=== PATIENT | female | born 1950 | race Caucasian/White ===

== ENCOUNTER 2017-03-26 10:33 | Day surgery (SDC) | payer MEDICARE ==
[2017-03-24 15:46] VITALS: BMI 24.3
[~2017-03-26 10:33] MED LIST: LACTATED RINGERS 1,000 ML IV SCH; LIDOCAINE 1% 20 ML VIAL (10MG/ML) FOR IV START INTRADERMA PRN
[2017-03-26 11:20] VITALS: TEMP 98.6
[2017-03-26] MEDS ORDERED: PROPOFOL 10 MG/ML 20 ML VIAL IV ONE (12:08)
[2017-03-26] MEDS ORDERED: LIDOCAINE 1% INJ 10MG/ML (20 ML MDV) ONE (12:08)
--- NOTE | 2017-03-26 12:23 | P.PCN ---
Date of Procedure: 03/26/17 Procedure(s) Performed: BRIEF HISTORY: Patient is a 66-year-old pleasant white female scheduled for an elective colonoscopy as a part of screening for colorectal neoplasia. PROCEDURE PERFORMED: Colonoscopy. PREOPERATIVE DIAGNOSIS: Screening for colon cancer. IV sedation per Anesthesia. PROCEDURE: After informed consent was obtained, the patient, was brought into the endoscopy unit. IV sedation was administered by Anesthesia under continuous monitoring. Digital rectal examination was normal. Initially the Olympus CF- 160 flexible video colonoscope was then inserted in the rectum, gradually advanced into the cecum without any difficulty. Careful examination was performed as the scope was gradually being withdrawn. Ileocecal valve and the appendiceal orifice were visualized and appeared normal. Prep was fair.. Mucosa of the cecum, ascending colon, transverse colon, descending colon, sigmoid colon, and rectum appeared normal. Retroflexion was performed in the rectum and small internal hemorrhoids were seen. The patient tolerated the procedure well. IMPRESSION: Normal-appearing colon from rectum to cecum with no evidence of colorectal neoplasia . Small internal hemorrhoids. RECOMMENDATIONS: Findings of this examination were discussed with the patient as well as her family. She was advised to have a repeat screening colonoscopy in 10 years.
[2017-03-26 12:27] VITALS: RESP 16
[2017-03-26 12:54] VITALS: BP 130/79; PULSE 61
== END 2017-03-26 13:15 | disposition home or self-care (01) ==
LOC: ORWHC2ENDO 10:33
PROVIDERS: ATTEND Internal Medicine Gastroenterology
DX: Z12.11 Encounter for screening for malignant neoplasm of colon (principal); K64.8 Other hemorrhoids; I10 Essential (primary) hypertension; E78.5 Hyperlipidemia, unspecified; E07.9 Disorder of thyroid, unspecified; G89.29 Other chronic pain; M54.9 Dorsalgia, unspecified; Z79.891 Long term (current) use of opiate analgesic; Z79.899 Other long term (current) drug therapy
CPT/HCPCS: J2001; J2704; G0121

== ENCOUNTER → 2017-08-10 | Outpatient (CLI) | payer MEDICARE ==
--- NOTE | 2017-08-11 15:18 | BD ---
EXAMINATION TYPE: MG DEXA axial skeleton. DATE OF EXAM: 08/10/2017 COMPARISON: NONE CLINICAL HISTORY: Z13.820 Special Screening For Osteoporosis Height: 5 FT 7 1/2 IN Weight: 178 FRAX RISK QUESTIONS: Alcohol (3 or more units per day): NO Family History (Parent hip fracture): NO Glucocorticoids (More than 3mos): NO (Ex: prednisone, prednisolone, methylprednisolone, dexamethasone, and hydrocortisone). History of Fracture in Adulthood: NO Secondary Osteoporosis: 1. Type 1 Diabetes: NO 2. Hyperthyroidism: NO 3. Menopause before 45: NO 4. Malnutrition: NO 5. Chronic liver disease: NO Rheumatoid Arthritis: NO Current Tobacco Use: NO RISK FACTORS HISTORY OF: Surgery to Spine/Hip(right/left)/Wrist (right/left): LUMBAR SURG When: 2013 Family History of Osteoporosis: YES Active: YES Postmenopausal woman: AGE 45 Lost more than 2 inches in height since high school: YES MEDICATIONS: Thyroid Medications: YES Which medication: LEVOTHYROXINE How Lon YEARS Additional Medications: GABAPENTIN,CLONAZEPAM,CITALOPRAM,PRAVASTATIN,LEVOTHYROXINE, NORCO,PROBIOTIC,M ULTI VIT, VIT D Additional History: EXAM MEASUREMENTS: Bone mineral densitometry was performed using the [employer] System. Bone mineral density as measured about the Lumbar spine is: ----- L1-L4(G/cm2): LUMBAR SURG 2013 Bone mineral density about the R hip (g/cm2): 0.865 Bone mineral density about the L hip (g/cm2): 0.883 T Score values are as follows: -----R Neck: -1.2 -----L Neck: -1.1 -----R Total: -1.5 -----L Total: -1.1 Bone mineral density has: Decreased -1.9% since study of: 2014 IMPRESSION: Osteopenia bilateral femora. NOTE: T-SCORE=SD OF THE YOUNG ADULT MEAN.
--- NOTE | 2017-08-12 09:14 | MM ---
Reason for exam: screening (asymptomatic). Last mammogram was performed 1 year and 3 months ago. History: Patient is postmenopausal and is nulliparous. Family history of breast cancer in maternal grandmother. Benign stereotactic core biopsy of the left breast, November 12, 1999. Took estrogen for 2 years beginning at age 51. Physical Findings: A clinical breast exam by your physician is recommended on an annual basis and results should be correlated with mammographic findings. MG 3D Screening Mammo W/Cad Bilateral CC and MLO view(s) were taken. Prior study comparison: May 21, 2016, bilateral MG 3d screening mammo w/cad. January 14, 2015, bilateral MG screening mammo w CAD. The breast tissue is heterogeneously dense. This may lower the sensitivity of mammography. Previous mammotome biopsy in the left breast. No significant changes when compared with prior studies. ASSESSMENT: Negative, BI-RAD 1 RECOMMENDATION: Routine screening mammogram of both breasts in 1 year.
== END | disposition home or self-care (01) ==
LOC: RADMAMWWP 14:13
PROVIDERS: ATTEND Internal Medicine Geriatric Medicine
DX: Z12.31 Encounter for screening mammogram for malignant neoplasm of breast (principal); M85.852 Other specified disorders of bone density and structure, left thigh; M85.851 Other specified disorders of bone density and structure, right thigh
CPT/HCPCS: 77080; 77063; G0202

== ENCOUNTER → 2017-09-02 | Outpatient (CLI) | payer MEDICARE | END | disposition home or self-care (01) | LOC: LABPAT 15:05 | PROVIDERS: ATTEND Orthopaedic Surgery | DX: Z01.812 Encounter for preprocedural laboratory examination (principal) | CPT/HCPCS: 87070 ==

== ENCOUNTER → 2017-09-08 | Outpatient (CLI) | payer MEDICARE ==
[2017-09-08 13:01] LABS: EKG EKG PERFORMED
[2017-09-08 13:13] LABS: CH 29.8; CHCM 31.8; HDW 2.36; HGB 12.3 gm/dL (11.4-16.0); MCH 30.5 pg (25.0-35.0); MCHC 32.4 g/dL (31.0-37.0); MCV 94.2 fL (80.0-100.0); RBC 4.03 m/uL (3.80-5.40); RDW 13.4 % (11.5-15.5); WBC 4.4 k/uL (3.8-10.6)
[2017-09-08 13:31] LABS: Partial Thromboplastin Time 26.3 sec (22.0-30.0); Prothrombin Time 10.1 sec (9.0-12.0)
[2017-09-08 13:37] LABS: ALT 26 U/L (9-52); AST 14 U/L (14-36); Alkaline Phosphatase 97 U/L (38-126); Anion Gap 12 mmol/L; Blood Urea Nitrogen 12 mg/dL (7-17); Calcium 9.7 mg/dL (8.4-10.2); Carbon Dioxide 24 mmol/L (22-30); Chloride 104 mmol/L (98-107); Glucose 87 mg/dL (74-99); Non-African American GFR(MDRD) 60 (>60 ml/min/1.73 sqM); Potassium 4.3 mmol/L (3.5-5.1); Sodium 140 mmol/L (137-145); Total Bilirubin 0.5 mg/dL (0.2-1.3); Total Protein 7.6 g/dL (6.3-8.2)
[2017-09-08 14:13] LABS: Appearance,Urine Clear (Clear); Bilirubin,Urine Negative (Negative); Glucose,Urine (UA) Negative (Negative); Ketones,Urine Negative (Negative); Leukocyte Esterase,Urine Large (Negative); Mucus,Urine Rare /hpf; Nitrite,Urine Negative (Negative); Particle Count 1690; Protein,Urine Negative (Negative); RBC,Urine 3 /hpf (0-5); Specific Gravity,Urine 1.011 (1.001-1.035); Squamous Epithelial Cell,Urine <1 /hpf (0-4); UA Billing (MACRO vs. MICRO) MICRO; Urobilinogen,Urine <2.0 mg/dL (<2.0); WBC,Urine 4 /hpf (0-5)
== END | disposition home or self-care (01) ==
LOC: LABPAT 12:49
PROVIDERS: ATTEND Orthopaedic Surgery
DX: Z01.810 Encounter for preprocedural cardiovascular examination (principal); Z01.812 Encounter for preprocedural laboratory examination; Z79.01 Long term (current) use of anticoagulants
CPT/HCPCS: 36415; 80053; 81001; 85027; 85610; 85730; 86850; 86900; 86901; 93005

== ENCOUNTER 2017-09-20 12:33 | Inpatient (IN) | payer MEDICARE ==
[2017-09-09 12:08] VITALS: BMI 26.6
[~2017-09-20 12:33] MED LIST changes: +ACETAMINOPHEN TAB 500 MG TAB PO ONE; +DEXAMETHASONE SOD PHOSPHATE 10 MG/ML 1 ML VIAL IV ONE; -LACTATED RINGERS 1,000 ML IV SCH; +MELOXICAM 7.5 MG TAB PO ONE; +MIDAZOLAM 2 MG/2 ML VIAL IV PRN; +ONDANSETRON 4 MG/2 ML VIAL IVP ONE; +SCOPOLAMINE 1.5MG/72HR PATCH TRANSDERM ONE; +TRANEXAMIC ACID 1,000 MG in SODIUM CHLORIDE 0.9% 100 ML IVPB ONE; +ceFAZolin 2 GM in SODIUM CHLORIDE 0.9% 100 ML IVPB ONE
[2017-09-20] MEDS ORDERED: HYDROcodone/APAP 7.5-325MG 1 EACH TAB PO PRN (12:45)
[2017-09-20] MEDS ORDERED: NALOXONE 0.4 MG/ML 1 ML VIAL IV PRN (12:45)
[2017-09-20] MEDS ORDERED: ONDANSETRON 4 MG/2 ML VIAL IVP PRN (12:45)
[2017-09-20] MEDS ORDERED: HYDROmorphone 0.5 MG/0.5 ML SYRINGE IVP PRN ×3 (12:45)
[2017-09-20] MEDS ORDERED: DIAZEPAM 5 MG TAB PO PRN ×2 (12:45)
[2017-09-20] MEDS ORDERED: MAGNESIUM HYDROXIDE 2,400 MG/10 ML CUP PO PRN (12:45)
[2017-09-20] MEDS: LACTATED RINGERS 1,000 ML IV SCH ×2 (13:00→13:25)
[2017-09-20] MEDS ORDERED: SODIUM CHLORIDE 0.9% IRRIG 1,000 ML BTL IRRIGATION ONE (13:30)
[2017-09-20] MEDS ORDERED: LIDOCAINE 1% INJ 10MG/ML (20 ML MDV) ONE (13:30)
[2017-09-20] MEDS ORDERED: SUCCINYLCHOLINE CHLORIDE 100 MG/5 ML SYR IV ONE (13:30)
[2017-09-20] MEDS ORDERED: ceFAZolin 3,000 MG in SODIUM CHLORIDE 0.9% IRRIGATIO 3,000 ML IRRIGATION ONE (13:30)
[2017-09-20] MEDS ORDERED: HEPARIN SODIUM,PORCINE 10,000 UNIT/ML 1 ML VIAL ONE (13:30)
[2017-09-20] MEDS ORDERED: SODIUM CHLORIDE 0.9% 100 ML BAG ONE (13:30)
[2017-09-20] MEDS ORDERED: TRANEXAMIC ACID 1,000 MG/10 ML VIAL ONE (13:30)
[2017-09-20] MEDS ORDERED: HYDROmorphone (PF) 1 MG/ML ONE (13:30)
[2017-09-20] MEDS ORDERED: NEOSTIGMINE 1 MG/ML 10 ML VIAL ONE (13:30)
[2017-09-20] MEDS ORDERED: ROCURONIUM BROMIDE 10 MG/ML 10 ML VIAL IV ONE (13:30)
[2017-09-20] MEDS ORDERED: PROPOFOL 10 MG/ML 20 ML VIAL IV ONE (13:30)
[2017-09-20] MEDS ORDERED: GLYCOPYRROLATE 0.2 MG/ML 2 ML VIAL ONE (13:30)
[2017-09-20] MEDS ORDERED: fentaNYL (PF) 50 MCG/ML 2 ML AMP ONE (13:30)
[2017-09-20] MEDS ORDERED: MIDAZOLAM 2 MG/2 ML VIAL ONE (13:30)
[2017-09-20] MEDS ORDERED: ePHEDrine SULFATE/0.9% NACL/PF 50 MG/5 ML SYRINGE IV ONE (13:30)
[2017-09-20] MEDS: ROPIVACAINE 246.25 MG, EPINEPHrine 0.5 MG, KETOROLAC 30 MG, cloNIDine HCL/PF 80 MCG, WA... MISCELLANE ONE ×10 (14:04→14:30)
[2017-09-20] MEDS ORDERED: LACTATED RINGERS 1,000 ML IV ONE (14:30)
--- NOTE | 2017-09-20 15:08 | P.OP ---
Date of Procedure: 09/20/17 Preoperative Diagnosis: Severe osteoarthritis left hip Postoperative Diagnosis: Severe osteoarthritis left hip Procedure(s) Performed: Left total hip arthroplasty with a direct anterior approach Implants: [employer] nephew Polarstem size 2 standard [employer] R3, 3 hole acetabular shell, 52 mm [employer] reflection 6.5 mm cancellus screw, 20 mm 2 [employer] R3, XLPE 20 acetabular liner [employer]hew Oxinium femoral head 36 m, +0 All components were press-fit. The articulation is Oxinium on polyethylene. Anesthesia: GETA Surgeon: Abdoulaye Reagan Sofa Back Upholsterer #1: [place] Pierre Estimated Blood Loss (ml): 150 (55 cc returned with Cell Saver) Pathology: other (Femoral head) Condition: stable Disposition: PACU Indications for Procedure: After failure of conservative treatment we discussed the surgical and nonsurgical treatment options at length. Patient wishes to proceed with a total hip arthroplasty with a direct anterior approach. Complications specific to this procedure were discussed at length, including but not limited to infection, leg length discrepancy, dislocation, and nerve injury. Patient is aware of all these complications and informed consent was obtained Operative Findings: The operative findings are consistent with severe osteoarthritis of the left hip Description of Procedure: Patient was seen and evaluated in the preoperative area, consent was reviewed, and the surgical site was marked with a skin marker. Patient was then brought to the operating room and given prophylactic antibiotics intravenously. 1 g of Tranexamic acid was also given. A general anesthetic was administered by the anesthesia department. The patient was then placed on the [place] table with the bony prominences well-padded. The hip area was then prepped and draped in usual sterile fashion. A universal timeout was then performed, which confirmed the patient's name, surgical site, ALLERGIES, and procedure being performed. Next the incision site was located at 1 cm distal and 1 cm lateral to the anterior superior iliac spine. The skin and subcutaneous tissues were sharply incised. Incision was carefully dissected down to the fascia overlying the tensor fascia nicolle muscle. This fascia was then incised in line with the incision. Next, using blunt finger dissection, the tensor fascia nicolle muscle was dissected off its investing fascia. The muscle was then carefully retracted laterally with a cobra retractor over the lateral neck of the femur. Next, the circumflex vessels were identified and cauterized using the AquaM[employer] device. The anterior hip capsule was then exposed. The capsule was then opened and an inverted T fashion. Cobra retractors were then placed intracapsularly. The proximal femur was then visualized. The femoral neck was then osteotomized appropriate level above the lesser trochanter. Small amount of traction was placed with the [place] table. A small wedge of bone was then removed from the remaining femoral head. Next, using a corkscrew femoral head was easily removed from the acetabulum. On gross visual inspection, the femoral head had complete loss of articular cartilage in multiple periarticular osteophytes. Attention was then turned to the acetabulum. the acetabulum was exposed and any remaining labrum was excised. Sequential reaming of the acetabulum was performed using fluoroscopic guidance. When the appropriate size was reached, a trial was then placed. The position and fit of the trial was checked with fluoroscopy. The trial was then removed. Then, using fluoroscopic guidance, the final implant was impacted at 20 of anteversion and 40 of abduction, and fully seated in the acetabulum. 2 screws were then placed in the acetabulum. Again fluoroscopy was used to check position of the screws. Next, the liner was then impacted, with a 20 elevated liner located in the anterior superior quadrant. Component locking was confirmed. Attention was then directed to the femur. With the aid of the [place] table, the femur was externally rotated to approximately 130, extended, and abducted under the opposite leg. A side hook was then placed under the proximal femur, and the side hook elevator was used to elevate the proximal femur. Retractors were then placed. A capsular release was performed, as well as a release of the conjoined tendon, which afforded excellent visualization of the proximal femur. Next, a box osteotome was used to lateralize the proximal femur. A crank hand was then used to locate the femoral canal. Sequential broaching was then performed with appropriate size which afforded excellent fixation in the proximal femur. A trial was then placed with appropriate head and neck, and the hip was gently reduced with the aid of the [place] table. Fluoroscopy was then used to check position of the components, as well as to ensure equal leg lengths. The hip was then gently dislocated and the trials were then removed. Final implants were then impacted and the hip was again reduced. Final fluoroscopic x-rays confirmed that the components were in anatomic position, as well as equal leg lengths. The hip was also taken through range of motion, and found to be stable. The hip was then copiously irrigated with antibiotic solution with pulsatile lavage. The hip was then irrigated with Irrisept solution. The soft tissues were then injected with a ropivacaine solution, which consisted of 246.25 mg of ropivacaine, 0.5 mg of epinephrine, 30 mg of Toradol, 80 g of clonidine, and 48.45 mL of sterile water, for a total of 100 mL of fluid injected. A second dose of 1 g of Tranexamic acid was also given. the fascia was then closed with 2-0 strata fix suture. The subcutaneous tissue was closed with 3-0 Vicryl. The subcuticular tissue was closed with 3-0 strata fix suture. The skin was then closed with Dermabond tape. The patient was then transferred to the recovery room in stable condition. The assistant manager airside operations NAHED Aburto was required due to the complexity of surgery, and the need for skilled surgical scrub tech for positioning, draping, exposure, retraction, and closure of the wound.
[2017-09-20] MEDS: HYDROmorphone 0.5 MG/0.5 ML SYRINGE IVP PRN ×2 (15:47→15:57)
--- NOTE | 2017-09-20 15:51 | FL ---
EXAMINATION TYPE: FL guidance operating room, XR Hip Limited LT DATE OF EXAM: 09/20/2017 CLINICAL HISTORY: Left hip replacement. TECHNIQUE: Fluoroscopy. Intraoperative limited views left hip. COMPARISON: None. FINDINGS: Fluoroscopic guidance was provided during left hip replacement procedure performed by Dr. Reagan. A total of 26 seconds of fluoroscopic time was utilized during the procedure and 2 spot im age is saved to PACS system for interpretation. Intraoperative images acquired shows metallic hardware from left hip surgery that appears satisfactor y in position on single frontal projection. IMPRESSION: As Above.
[2017-09-20] MEDS ORDERED: BACLOFEN 10 MG TAB PO PRN (18:10)
[2017-09-20] MEDS ORDERED: ALPRAZolam 0.25 MG TAB PO PRN (18:10)
[2017-09-20] MEDS: SODIUM CHLORIDE 0.9% 1,000 ML IV SCH ×2 (18:51→22:29)
[2017-09-20] MEDS ORDERED: CRANBERRY PO SCH (21:00)
[2017-09-20] MEDS: ceFAZolin 2 GM in SODIUM CHLORIDE 0.9% 100 ML IVPB SCH (22:29)
[2017-09-20] MEDS: HYDROcodone/APAP 7.5-325MG 1 EACH TAB PO PRN (22:30)
[2017-09-20] MEDS: SENNOSIDES-DOCUSATE SODIUM 1 EACH TAB PO SCH (22:31)
[2017-09-20] MEDS: LACTULOSE 20 GM/30 ML CUP PO SCH (22:31)
[2017-09-20] MEDS: GABAPENTIN 300 MG CAP PO SCH (22:32)
[2017-09-20] MEDS: ARTIFICIAL TEARS-HYPROMELLOSE DROPS 15 ML BTL BOTH EYES SCH (22:32)
[2017-09-20] MEDS: LEVOTHYROXINE 88 MCG TAB PO SCH (22:32)
[2017-09-20] MEDS: PRAVASTATIN SODIUM 20 MG TAB PO SCH (22:33)
[2017-09-20] MEDS: ASPIRIN 325 MG TAB PO SCH (22:33)
[2017-09-21] MEDS: HYDROcodone/APAP 7.5-325MG 1 EACH TAB PO PRN ×4 (03:50→22:10)
[2017-09-21] MEDS: ceFAZolin 2 GM in SODIUM CHLORIDE 0.9% 100 ML IVPB SCH (05:02)
[2017-09-21] MEDS: LACTATED RINGERS 1,000 ML IV SCH (05:03)
--- NOTE | 2017-09-21 08:10 | XR ---
EXAMINATION TYPE: XR Hip Limited LT DATE OF EXAM: 09/21/2017 CLINICAL HISTORY: Left hip pain and osteoarthritis. TECHNIQUE: Single AP portable view of left hip is obtained immediately postoperatively. COMPARISON: None. FINDINGS: Metallic hardware from total left hip arthroplasty is seen and appears satisfactory in alig nment and position. There is evidence of recent surgery with subcutaneous gas noted laterally as wel l as medially into the gluteal muscles. There is partial visualization of surgical change near lumbo sacral junction. IMPRESSION: Metallic hardware from total left hip arthroplasty is satisfactory in position.
[2017-09-21 08:32] LABS: Basophils % (A) 0 %; CHCM 32.4; Eosinophils % (A) 0 %; HCT 28.7 % (34.0-46.0); Luc # (Auto) 0.08; Luc % (Auto) 1; MCV 94.3 fL (80.0-100.0); RBC 3.05 m/uL (3.80-5.40); RDW 14.1 % (11.5-15.5)
[2017-09-21 08:35] LABS: CH 30.4; HDW 2.39; Lymphocytes % (A) 11 %; MCH 29.5 pg (25.0-35.0); MCHC 31.3 g/dL (31.0-37.0); Mean Platelet Volume 7.2; Monocytes # (A) 0.7 k/uL (0-1.0); Monocytes % (A) 8 %; Neutrophils # (A) 7.4 k/uL (1.3-7.7); Neutrophils % (A) 80 %; WBC 9.3 k/uL (3.8-10.6); WBC (Perox) 9.75
[2017-09-21] MEDS ORDERED: NON-FORMULARY DRUG (Glucosamine/Chondr Su A Sod [Osteo Bi-Flex Caplet] 1 TAB) PO SCH (09:00)
--- NOTE | 2017-09-21 09:00 | P.PN ---
Subjective Progress Note Date: 09/21/17 This is a 66yo female who is status post left total hip arthroplasty. This is postoperative day #1. Patient states she has been up and walking with physical therapy. Patient states her pain is well-controlled. Patient has no new complaints today. Objective - Vital Signs Vital signs: Vital Signs Temp 98.4 F 09/21/17 00:40 Pulse 94 09/21/17 07:46 Resp 16 09/21/17 07:46 BP 95/51 09/21/17 07:46 Pulse Ox 97 09/21/17 07:46 Intake & Output 09/20/17 09/21/17 09/21/17 18:59 06:59 18:59 Intake Total 2101 400 Output Total 150 Balance 195 400 Weight 79.379 kg Intake: IV 2100 Oral 400 Output: Estimated Blood Loss 150 Other: Voiding Method Toilet # Voids 1 - Exam Vital signs are stable. Patient is in no acute distress and is alert and oriented 3. Calf is soft and nontender. Incision is clean, dry, and intact. Neurovascular status intact. Patient has full foot and ankle motion. - Labs CBC & Chem 7: 09/21/17 06:51 Labs: Abnormal Lab Results - Last 24 Hours (Table) 09/21/17 Range/Units 06:51 RBC 3.05 L (3.80-5.40) m/uL Hgb 9.0 L D (11.4-16.0) gm/dL Hct 28.7 L (34.0-46.0) % Assessment and Plan (1) Primary osteoarthritis of left hip Current Visit: Yes Status: Acute Code(s): M16.12 - UNILATERAL PRIMARY OSTEOARTHRITIS, LEFT HIP SNOMED Code(s): 023740477 Plan: Continue routine postop care. Continue antocoagulation. Weightbearing as tolerated with a walker Daily dressing changes, keep incision clean and dry Possible discharge home tomorrow.
[2017-09-21] MEDS: ASPIRIN 325 MG TAB PO SCH ×2 (09:43→21:06)
[2017-09-21] MEDS: ARTIFICIAL TEARS-HYPROMELLOSE DROPS 15 ML BTL BOTH EYES SCH ×2 (09:43→21:06)
[2017-09-21] MEDS: CITALOPRAM HYDROBROMIDE 20 MG TAB PO SCH (09:44)
[2017-09-21] MEDS: GABAPENTIN 300 MG CAP PO SCH ×3 (09:44→21:06)
[2017-09-21] MEDS: MELOXICAM 7.5 MG TAB PO SCH (09:44)
[2017-09-21] MEDS: CHOLECALCIFEROL 1,000 UNIT TAB PO SCH (12:47)
[2017-09-21] MEDS: B COMPLEX-VIT C-VIT E-ZINC 1 EACH TAB PO SCH (12:47)
[2017-09-21] MEDS: MULTIVITAMINS, THERA 1 EACH TAB PO SCH (12:47)
[2017-09-21] MEDS: ACETAMINOPHEN TAB 325 MG TAB PO PRN (13:35)
[2017-09-21] MEDS: LACTULOSE 20 GM/30 ML CUP PO SCH (21:05)
[2017-09-21] MEDS: PRAVASTATIN SODIUM 20 MG TAB PO SCH (21:07)
[2017-09-21] MEDS: LEVOTHYROXINE 88 MCG TAB PO SCH (21:07)
[2017-09-21] MEDS: SODIUM CHLORIDE 0.9% 1,000 ML IV SCH (21:08)
[2017-09-21] MEDS: SENNOSIDES-DOCUSATE SODIUM 1 EACH TAB PO SCH (22:10)
--- NOTE | 2017-09-21 22:43 | CONS ---
CONSULTATION REASON FOR CONSULTATION: Medical management for multiple medical problems. HISTORY OF PRESENT ILLNESS: This is a 66-year-old female who failed conservative and outpatient management for her hip pain and presented today for a left hip arthroplasty. Patient tolerated procedure well, was transferred to surgical floor in stable condition. Currently denying chest pain, shortness of breath, nausea, vomiting, abdominal pain, dizziness, lightheadedness or blurry vision. Patient underwent complete preop evaluation by her primary care physician, including blood work, chest x-ray and EKG that all showed normal finding. The estimated blood loss in the surgery was 150 mL Patient denied tobacco, alcohol or drug abuse. The patient stated that she stopped taking her medication like 1 week before the surgery per General Surgery recommendation. REVIEW OF SYSTEMS: All 14 systems reviewed and negative except as above. ALLERGIES: No known drug allergies. HOME MEDICATIONS: Reviewed and reconciled in chart. Discussed with the nursing staff and the patient at length. SOCIAL HISTORY: Patient denies tobacco, alcohol or drug abuse. FAMILY HISTORY: Reviewed and negative. PHYSICAL EXAMINATION: VITAL SIGNS: Reviewed and stable. HEENT: Atraumatic, normocephalic. PERRLA. NECK: Supple. No masses. No thyromegaly. LUNGS: Clear to auscultation bilaterally. NECK: Supple. HEART: S1, S2. ABDOMEN: Soft. No tenderness. Positive bowel sounds all 4 quadrants. LOWER EXTREMITIES: No edema. Positive for left hip incision clean, intact and dry. Positive pulses bilaterally. SKIN: No rash. NEUROLOGIC: Cranial nerve 2-12 intact. Normal deep tendon reflexes and sensation. PSYCH: Alert and oriented x3. Relaxed mood and affect. IMAGING AND LABS: This morning, hemoglobin is 9.0, normal otherwise CBC. ASSESSMENT AND PLAN: 1. Status post left hip arthroplasty. Patient's pain under fair control. Will continue current pain regimen. Continue Physical Therapy, Occupational Therapy evaluation and continue bowel regimen, as patient has a history of constipation. 2. Osteoarthritis. Patient on strong pain regimen. Will continue with current recommendation. 3. Hyperlipidemia. Will continue statin. 4. Hypothyroidism. Will continue Synthroid. 5. Chronic constipation. Will continue Senna twice daily and will continue lactulose as needed. 6. Anxiety and depression. Will continue benzodiazepine and we will continue citalopram 20 mg daily. 7. Chronic back pain. Will continue muscle relaxant. 8. Obesity. Patient counseled regarding weight loss. Thank you again for your consultation. Will follow up with you during this hospital stay. MMODL / IJN: [id number] /
[2017-09-22] MEDS: HYDROcodone/APAP 7.5-325MG 1 EACH TAB PO PRN ×4 (05:13→22:59)
[2017-09-22] MEDS: LACTATED RINGERS 1,000 ML IV SCH (05:51)
[2017-09-22] MEDS: ASPIRIN 325 MG TAB PO SCH ×2 (08:40→20:11)
[2017-09-22] MEDS: ARTIFICIAL TEARS-HYPROMELLOSE DROPS 15 ML BTL BOTH EYES SCH ×2 (08:40→20:11)
[2017-09-22] MEDS: CITALOPRAM HYDROBROMIDE 20 MG TAB PO SCH (08:41)
[2017-09-22] MEDS: MELOXICAM 7.5 MG TAB PO SCH (08:41)
[2017-09-22] MEDS: GABAPENTIN 300 MG CAP PO SCH ×3 (08:42→20:11)
[2017-09-22] MEDS: ACETAMINOPHEN TAB 325 MG TAB PO PRN ×2 (08:46→13:17)
[2017-09-22] MEDS: SODIUM CHLORIDE 0.9% 1,000 ML IV SCH (09:59)
--- NOTE | 2017-09-22 10:14 | P.PN ---
Subjective Progress Note Date: 09/22/17 This is a 66yo female who is status post left total hip arthroplasty. This is postoperative day #2. Patient states she has been up and walking with physical therapy. Patient states her pain is well-controlled. Patient states she has not had any fever or chills. Patient has no new complaints today. Objective - Vital Signs Vital signs: Vital Signs Temp 98.2 F 09/22/17 09:21 Pulse 89 09/22/17 09:21 Resp 17 09/22/17 09:38 BP 107/65 09/22/17 09:21 Pulse Ox 97 09/22/17 09:21 Intake & Output 09/21/17 09/22/17 09/22/17 18:59 06:59 18:59 Intake Total 480 1060 Balance 480 1060 Intake: Oral 480 1060 Other: Voiding Method Toilet Toilet # Voids 2 2 - Exam Vital signs are stable. Patient is in no acute distress and is alert and oriented 3. Calf is soft and nontender. Dressing is clean, dry and intact. Neurovascular status intact. Patient has full foot and ankle motion. - Labs CBC & Chem 7: 09/21/17 06:51 Assessment and Plan (1) Primary osteoarthritis of left hip Current Visit: Yes Status: Acute Code(s): M16.12 - UNILATERAL PRIMARY OSTEOARTHRITIS, LEFT HIP SNOMED Code(s): 754023195 Plan: Continue routine postop care. Continue anticoagulation. Weightbearing as tolerated with a walker Leave dressing on for one week. Possible discharge home tomorrow.
[2017-09-22] MEDS: B COMPLEX-VIT C-VIT E-ZINC 1 EACH TAB PO SCH (13:18)
[2017-09-22] MEDS: MULTIVITAMINS, THERA 1 EACH TAB PO SCH (13:18)
[2017-09-22] MEDS: CHOLECALCIFEROL 1,000 UNIT TAB PO SCH (13:18)
--- NOTE | 2017-09-22 15:53 | P.PN ---
Subjective This is a 66-year-old female who failed conservative outpatient management for her hip pain and presented today for left hip arthroplasty. Patient tolerated procedure well, was transferred to surgical floor in stable condition. Currently denying chest pain, shortness breath, nausea, vomiting, abdominal pain , dizziness, lightheadedness, or blurry vision. Patient underwent complete preoperative evaluation by her primary care physician , including blood work, chest x-ray and EKG that showed normal finding. The estimated blood loss in the surgery was 150 mL. patient denies tobacco, alcohol or drug abuse. The patient stated that she stop taking her medications 1 week before surgery per general surgery recommendations. 09/22: The patient was seen and evaluated today. She is postop day 2 of her left hip arthroplasty. She reports pain is well controlled on her current pain regimen. She denies any fever, chills, shortness of breath, or chest pain. Blood cultures show no growth to date. Objective - Vital Signs Vital signs: Vital Signs Temp 98.6 F 09/22/17 12:44 Pulse 89 09/22/17 12:44 Resp 16 09/22/17 12:44 BP 109/57 09/22/17 12:44 Pulse Ox 93 L 09/22/17 12:44 Intake & Output 09/21/17 09/22/17 09/22/17 18:59 06:59 18:59 Intake Total 480 1060 Balance 480 1060 Intake: Oral 480 1060 Other: Voiding Method Toilet Toilet # Voids 2 2 3 - Constitutional General appearance: Present: cooperative - EENT Eyes: Present: PERRLA ENT: Present: normal oropharynx. Absent: pharyngeal erythema - Neck Neck: Present: normal ROM. Absent: lymphadenopathy, thyromegaly Thyroid: bilateral: normal size - Respiratory Respiratory: bilateral: CTA, negative: diminished, rhonchi, wheezing - Cardiovascular Rhythm: regular Heart sounds: normal: S1, S2 Abnormal Heart Sounds: Absent: systolic murmur, diastolic murmur - Gastrointestinal General gastrointestinal: Present: soft. Absent: distended, hepatomegaly, organomegaly, tenderness - Neurologic Neurologic: Present: CNII-XII intact. Absent: focal deficits - Psychiatric Psychiatric: Present: A&O x's 3 - Labs CBC & Chem 7: 09/21/17 06:51 Labs: Microbiology - Last 24 Hours (Table) 09/21/17 11:57 Blood Culture - Preliminary Blood No Growth after 24 hours 09/21/17 10:49 Blood Culture - Preliminary Blood No Growth after 24 hours Assessment and Plan Plan: 1. Status post left hip arthroplasty. Pain is under control, continue current pain regimen, continue physical therapy, occupational therapy, continue bowel regimen. 2. Osteoarthritis. Continue current pain regimen. 3. Hyperlipidemia. Continue statin. 4. hypothyroidism. Continue Synthroid. 5. Chronic constipation. Will continue senna twice a day and lactulose as needed next 6. Anxiety and depression. Will continue benzodiazepine and citalopram. 7. Chronic back pain. Will continue also relaxant. 8. Obesity. Continue counseling regarding weight loss. The above impression and plan of care have been discussed and directed by signing physician. Hailee Manzo nurse practitioner acting as scribe for signing physician.
[2017-09-22] MEDS: LEVOTHYROXINE 88 MCG TAB PO SCH (20:12)
[2017-09-22] MEDS: LACTULOSE 20 GM/30 ML CUP PO SCH (20:12)
[2017-09-22] MEDS: PRAVASTATIN SODIUM 20 MG TAB PO SCH (20:12)
[2017-09-22] MEDS: SENNOSIDES-DOCUSATE SODIUM 1 EACH TAB PO SCH (20:25)
[2017-09-22] MEDS: hydrOXYzine PAMOATE 25 MG CAP PO PRN (22:59)
[2017-09-23 02:45] VITALS: RESP 16
[2017-09-23] MEDS: HYDROcodone/APAP 7.5-325MG 1 EACH TAB PO PRN ×2 (05:58→12:17)
[2017-09-23] MEDS: hydrOXYzine PAMOATE 25 MG CAP PO PRN ×2 (05:59→12:16)
[2017-09-23] MEDS: LACTATED RINGERS 1,000 ML IV SCH (06:35)
[2017-09-23] MEDS: SODIUM CHLORIDE 0.9% 1,000 ML IV SCH (06:35)
[2017-09-23 07:25] LABS: Basophils % (A) 0 %; CH 29.7; CHCM 31.6; Eosinophils # (A) 0.1 k/uL (0-0.7); Eosinophils % (A) 1 %; HCT 27.1 % (34.0-46.0); HDW 2.35; HGB 8.4 gm/dL (11.4-16.0); Luc # (Auto) 0.12; Luc % (Auto) 1; Lymphocytes # (A) 1.1 k/uL (1.0-4.8); Lymphocytes % (A) 13 %; MCH 29.2 pg (25.0-35.0); MCHC 30.9 g/dL (31.0-37.0); MCV 94.4 fL (80.0-100.0); Mean Platelet Volume 7.4; Monocytes # (A) 0.7 k/uL (0-1.0); Monocytes % (A) 8 %; Neutrophils # (A) 6.3 k/uL (1.3-7.7); Neutrophils % (A) 76 %; RBC 2.87 m/uL (3.80-5.40); WBC 8.3 k/uL (3.8-10.6); WBC (Perox) 8.37
[2017-09-23] MEDS: ARTIFICIAL TEARS-HYPROMELLOSE DROPS 15 ML BTL BOTH EYES SCH (08:51)
[2017-09-23] MEDS: ASPIRIN 325 MG TAB PO SCH (08:52)
[2017-09-23] MEDS: GABAPENTIN 300 MG CAP PO SCH (08:53)
[2017-09-23] MEDS: CITALOPRAM HYDROBROMIDE 20 MG TAB PO SCH (08:53)
--- NOTE | 2017-09-23 09:05 | P.DS ---
Providers Date of admission: 09/20/17 12:33 Expected date of discharge: 09/23/17 Attending physician: Abdoulaye Reagan Consults: 09/20/17 12:45 Consult Physician Routine Consulting Provider: Pepe García Reason/Comments: medical management Do you want consulting provider notified?: Yes Primary care physician: Peep García - Discharge Diagnosis(es) (1) Primary osteoarthritis of left hip Current Visit: Yes Status: Acute Hospital Course: This is a 66-year-old female with known history of degenerative arthritis of the left hip. The patient presents for evaluation. After discussion and consideration patient elects to proceed with total hip arthroplasty. The patient is seen preoperatively by Dr. Reagan and cleared for surgery. Patient is admitted to [facility] on 09/20/2017 for total hip arthroplasty. The procedures performed without complication or sequelae. The patient is doing well postoperatively. Labs and vital signs are stable on day of discharge. On day of discharge patient's hip incision is healing well. There is minimal erythema. There is no drainage noted at this time. There is minimal soft tissue swelling to the hip and thigh. Patient has full foot and ankle motion without difficulty or pain. Neurovascular status to the left lower extremity is intact. Patient is discharged home in good condition. Please see med rec for accurate list of home medications. Plan - Discharge Summary Discharge Rx Participant: No New Discharge Prescriptions: New Aspirin 325 mg PO BID #60 tab HYDROcodone/APAP 7.5-325MG [[place] 7.5-325] 1 - 2 tab PO Q4-6H PRN #90 tab PRN Reason: Pain Sennosides-Docusate Sodium [Senokot-S] 1 tab PO BID #60 tablet No Action Vitamin B Complex 1 cap PO DAILY Multivitamins, Thera [Multivitamin (formulary)] 1 tab PO DAILY Cholecalciferol [Vitamin D3] 2,000 unit PO DAILY Hydrocodone/Acetaminophen [[place] 10-325] 1 tab PO Q6H PRN PRN Reason: Pain Pravastatin Sodium [Pravachol] 20 mg PO HS Levothyroxine Sodium [Synthroid] 88 mcg PO HS Citalopram Hydrobromide [CeleXA] 20 mg PO DAILY Gabapentin [Neurontin] 600 mg PO HS Gabapentin [Neurontin] 300 mg PO QAM Cranberry Tablet 1 tab PO BID Lactulose 10 gm PO HS Naproxen Sodium [Aleve] 440 mg PO BID Baclofen [Lioresal] 10 mg PO TID PRN PRN Reason: MUSCLE SPASM,PAIN Glucosamine/Chondr Mckeon A Sod [Osteo Bi-Flex Caplet] 1 tab PO DAILY Propylene Glycol/Peg 400/Pf [Systane 0.3-0.4% Eye Drops] 2 drop BOTH EYES BID Gabapentin [Neurontin] 300 mg PO DAILY@1500 ALPRAZolam [Xanax] 0.25 mg PO HS PRN PRN Reason: SLEEP,ANXIETY Discharge Medication List Cholecalciferol [Vitamin D3] 2,000 unit PO DAILY 11/06/16 [History] Citalopram Hydrobromide [CeleXA] 20 mg PO DAILY 11/06/16 [History] Cranberry Tablet 1 tab PO BID 11/06/16 [History] Gabapentin [Neurontin] 300 mg PO QAM 11/06/16 [History] Gabapentin [Neurontin] 600 mg PO HS 11/06/16 [History] Hydrocodone/Acetaminophen [[place] 10-325] 1 tab PO Q6H PRN 11/06/16 [History] Levothyroxine Sodium [Synthroid] 88 mcg PO HS 11/06/16 [History] Multivitamins, Thera [Multivitamin (formulary)] 1 tab PO DAILY 11/06/16 [History ] Pravastatin Sodium [Pravachol] 20 mg PO HS 11/06/16 [History] Vitamin B Complex 1 cap PO DAILY 11/06/16 [History] Baclofen [Lioresal] 10 mg PO TID PRN 03/24/17 [History] Glucosamine/Chondr Mckeon A Sod [Osteo Bi-Flex Caplet] 1 tab PO DAILY 03/24/17 [ History] Lactulose 10 gm PO HS 03/24/17 [History] Naproxen Sodium [Aleve] 440 mg PO BID 03/24/17 [History] Propylene Glycol/Peg 400/Pf [Systane 0.3-0.4% Eye Drops] 2 drop BOTH EYES BID [History] ALPRAZolam [Xanax] 0.25 mg PO HS PRN 09/09/17 [History] Gabapentin [Neurontin] 300 mg PO DAILY@1500 09/09/17 [History] Aspirin 325 mg PO BID #60 tab 09/23/17 [Rx] HYDROcodone/APAP 7.5-325MG [[place] 7.5-325] 1 - 2 tab PO Q4-6H PRN #90 tab [Rx] Sennosides-Docusate Sodium [Senokot-S] 1 tab PO BID #60 tablet 09/23/17 [Rx] Follow up Appointment(s)/Referral(s): [facility] Nurse, [NON-STAFF] - Abdoulaye Reagan DO [Doctor of Osteopathic Medicine] - 2 Weeks Activity/Diet/Wound Care/Special Instructions: Weightbearing as tolerated with walker Leave dressing intact. Dressing may be removed by home care nurse in 7 days. May shower with dressing on. Follow-up with [facility] in 2 weeks with any questions or concerns Discharge Disposition: HOME WITH HOME HEALTH SERVICES
[2017-09-23 10:14] VITALS: BP 107/63; PULSE 100; TEMP 98.7
[2017-09-23] MEDS: B COMPLEX-VIT C-VIT E-ZINC 1 EACH TAB PO SCH (12:20)
[2017-09-23] MEDS: CHOLECALCIFEROL 1,000 UNIT TAB PO SCH (12:20)
[2017-09-23] MEDS: MULTIVITAMINS, THERA 1 EACH TAB PO SCH (12:20)
[2017-09-23] MEDS: MELOXICAM 7.5 MG TAB PO SCH (12:20)
== END 2017-09-23 14:25 | disposition home health service (06) | DRG 470 ==
LOC: 2ORMAIN 12:33 → 3SUR 15:25
PROVIDERS: ADMIT Orthopaedic Surgery; ATTEND Orthopaedic Surgery
PROC: 30233N0 Transfusion of Autologous Red Blood Cells into Peripheral Vein, Percutaneous Approach (ICD-10-PCS; 2017-09-20)
PROC: 0SRB06A Replacement of Left Hip Joint with Oxidized Zirconium on Polyethylene Synthetic Substitute, Uncemented, Open Approach (ICD-10-PCS; principal; 2017-09-20 15:00)
DX: M16.12 Unilateral primary osteoarthritis, left hip (principal); E66.9 Obesity, unspecified; I10 Essential (primary) hypertension; F32.9 Major depressive disorder, single episode, unspecified; M25.752 Osteophyte, left hip; E78.5 Hyperlipidemia, unspecified; E03.9 Hypothyroidism, unspecified; K59.09 Other constipation; F41.9 Anxiety disorder, unspecified; M54.9 Dorsalgia, unspecified; G89.29 Other chronic pain; R26.81 Unsteadiness on feet; Z79.899 Other long term (current) drug therapy; Z98.1 Arthrodesis status; Z82.49 Family history of ischemic heart disease and other diseases of the circulatory system; Z96.652 Presence of left artificial knee joint; Z87.440 Personal history of urinary (tract) infections
CPT/HCPCS: 73501; 85025; 86850; 86891; 86900; 86901; 87040; 88300

== ENCOUNTER → 2018-04-08 | Outpatient (CLI) | payer MEDICARE ==
--- NOTE | 2018-04-08 13:32 | XR ---
EXAMINATION TYPE: XR lumbar spine 2 or 3V DATE OF EXAM: 04/08/2018 CLINICAL HISTORY: CT lumbar spine dated 06/29/2014 TECHNIQUE: Frontal and lateral images of the lumbar spine are obtained. COMPARISON: None FINDINGS: There are 5 lumbar type vertebral bodies identified. Vertebral body heights and alignment are maintained. Postsurgical fusion with pedicular screws and fixation rods are seen of L3, L5, and S1. Intervertebral disc cages are present at L4-5 and L5-S1. Diffuse osseous demineralization is mild . Bridging osteophytes are present laterally of L1-L2. Multilevel facet arthropathy is present throug hout the entirety of the lumbar spine. Suspect neural foraminal stenosis at L5-S1 although degree is suboptimally visualized without oblique images. No abnormal calcification within the visualized abdom en. No evidence of hardware fracture. There is a slight levoconvex curvature of the thoracolumbar spi ne IMPRESSION: 1. No acute [place] osseous fracture of the lumbar spine or hardware fracture of the lumbar spine. No malalignment. 2. Diffuse osseous demineralization, minimal levoscoliotic curvature of the lumbar spine, and multile benja degenerative change appearing moderate in degree. There is suspicion for L5-S1 neural foraminal n arrowing that could be better evaluated with oblique images were MR.
== END | disposition home or self-care (01) ==
LOC: RADXRMAIN 13:09
PROVIDERS: ATTEND Internal Medicine Geriatric Medicine
DX: M47.816 Spondylosis without myelopathy or radiculopathy, lumbar region (principal); M81.0 Age-related osteoporosis without current pathological fracture; M43.8X6 Other specified deforming dorsopathies, lumbar region; R53.1 Weakness
CPT/HCPCS: 72100

== ENCOUNTER → 2018-08-19 | Outpatient (CLI) | payer MEDICARE ==
--- NOTE | 2018-08-22 11:28 | MM ---
Reason for exam: screening (asymptomatic). Last mammogram was performed 1 year ago. History: Patient is postmenopausal and is nulliparous. Family history of breast cancer in maternal grandmother. Benign stereotactic core biopsy of the left breast, November 12, 1999. Took estrogen for 2 years beginning at age 51. Physical Findings: A clinical breast exam by your physician is recommended on an annual basis and results should be correlated with mammographic findings. MG 3D Screening Mammo W/Cad Bilateral CC and MLO view(s) were taken. Prior study comparison: August 10, 2017, bilateral MG 3d screening mammo w/cad. May 21, 2016, bilateral MG 3d screening mammo w/cad. The breast tissue is heterogeneously dense. This may lower the sensitivity of mammography. Benign calcifications bilaterally. Previous mammotome biopsy in the left breast. There is chronic nodularity in the breast. No significant changes when compared with prior studies. ASSESSMENT: Benign, BI-RAD 2 RECOMMENDATION: Routine screening mammogram of both breasts in 1 year.
== END | disposition home or self-care (01) ==
LOC: RADMAMWWP 10:42
PROVIDERS: ATTEND Internal Medicine Geriatric Medicine
DX: Z12.31 Encounter for screening mammogram for malignant neoplasm of breast (principal)
CPT/HCPCS: 77063; 77067

== ENCOUNTER → 2019-10-12 | Outpatient (CLI) | payer MEDICARE ==
--- NOTE | 2019-10-12 14:09 | XR ---
EXAMINATION TYPE: XR lumbar spine 2 or 3V DATE OF EXAM: 10/12/2019 Comparison: 04/08/2018 Clinical History: 68-year-old female with fall one week ago, pain, M54.5 Findings: Mild levoconvex curvature. Postsurgical changes of posterior lumbar fusion from L3 through S1 levels. Additional interbody fusion at L4-L5 and L5-S1. Vertebral body heights are preserved. Hypertrophic f acet arthropathy above the fusion at L2-L3 and mild degenerative disc disease throughout the lumbar s pine. More moderate within the lower thoracic spine. Vertebral body heights are preserved. There is g rade 1 retrolisthesis at T12-L1 is unchanged. Impression: 1. No vertebral compression collapse. Unchanged degenerative trace grade 1 retrolisthesis at T12-L1. 2. Post surgical changes of L3-S1 posterior fusion. Interbody fusion from L4 through S1. 3. No vertebral compression collapse. 4. Hypertrophic facet arthropathy and mild degenerative disc disease above the fusion.
--- NOTE | 2019-10-12 14:11 | XR ---
EXAMINATION TYPE: XR foot complete RT DATE OF EXAM: 10/12/2019 COMPARISON: NONE HISTORY: 68-year-old female M79.761, pain TECHNIQUE: 3 views FINDINGS: Severe degenerative change first MTP joint with complete loss of cartilage and joint space and bone-o n-bone articulation. Subchondral sclerosis and marginal spurring is demonstrated. Old healed fracture deformity of the fifth metatarsal shaft. No acute fracture, subluxation, or dislocation is seen. IMPRESSION: 1. Severe first MTP joint OA. 2. Old healed fracture deformity of the left fifth metatarsal shaft. 3. No acute osseous abnormality seen.
== END | disposition home or self-care (01) ==
LOC: RADXRMAIN 12:21
PROVIDERS: ATTEND Internal Medicine Geriatric Medicine
DX: M51.36 Other intervertebral disc degeneration, lumbar region (principal); M46.96 Unspecified inflammatory spondylopathy, lumbar region; Z98.1 Arthrodesis status; M19.071 Primary osteoarthritis, right ankle and foot
CPT/HCPCS: 72100

== ENCOUNTER 2020-01-17 11:45 | Inpatient (IN) | payer MEDICARE ==
[2020-01-17] MEDS ORDERED: IPRATROPIUM-ALBUTEROL 3 ML NEB INHALATION STA (12:10)
--- NOTE | 2020-01-17 12:25 | ED ---
General Adult HPI - General Chief complaint: Shortness of Breath Stated complaint: SOB Time Seen by Provider: 01/17/20 12:06 Source: patient, family, RN notes reviewed Mode of arrival: ambulatory Limitations: no limitations - History of Present Illness Initial comments: Patient is a pleasant 69-year-old female presenting to the emergency department cough and difficulty breathing. Symptoms have been occurring over the past one to 2 weeks. Patient does cough with green sputum. Patient did have fever this morning. No leg pain or leg swelling. No history of chronic lung disease. Patient has some mild rhinorrhea. - Related Data Home Medications Medication Instructions Recorded Confirmed Cholecalciferol [Vitamin D3 (25 2,000 unit PO DAILY 11/06/16 09/20/17 Mcg = 1000 Iu)] Citalopram Hydrobromide [CeleXA] 20 mg PO DAILY 11/06/16 09/20/17 Cranberry Tablet 1 tab PO BID 11/06/16 09/20/17 Gabapentin [Neurontin] 300 mg PO QAM 11/06/16 09/20/17 Gabapentin [Neurontin] 600 mg PO HS 11/06/16 09/20/17 Levothyroxine Sodium [Synthroid] 88 mcg PO HS 11/06/16 09/20/17 Multivitamins, Thera [Multivitamin 1 tab PO DAILY 11/06/16 09/20/17 (formulary)] Pravastatin Sodium [Pravachol] 20 mg PO HS 11/06/16 09/20/17 Vitamin B Complex 1 cap PO DAILY 11/06/16 09/20/17 Baclofen [Lioresal] 10 mg PO TID PRN 03/24/17 09/20/17 Glucosamine/Chondr Mckeon A Sod [Osteo 1 tab PO DAILY 03/24/17 09/20/17 Bi-Flex Caplet] Lactulose 10 gm PO HS 03/24/17 09/20/17 Propylene Glycol/Peg 400/Pf 2 drop BOTH EYES BID 03/24/17 09/20/17 [Systane 0.3-0.4% Eye Drops] ALPRAZolam [Xanax] 0.25 mg PO HS PRN 09/09/17 09/20/17 Gabapentin [Neurontin] 300 mg PO DAILY@1500 09/09/17 09/20/17 Previous Rx's Medication Instructions Recorded Aspirin 325 mg PO BID #60 tab 09/23/17 HYDROcodone/APAP 7.5-325MG [[place] 1 - 2 tab PO Q4-6H PRN #90 tab 09/23/17 7.5-325] Sennosides-Docusate Sodium 1 tab PO BID #60 tablet 09/23/17 [Senokot-S] Allergies Allergy/AdvReac Type Severity Reaction Status Date / Time No Known Allergies Allergy Verified 01/17/20 11:52 Review of Systems ROS Statement: Those systems with pertinent positive or pertinent negative responses have been documented in the HPI. ROS Other: All systems not noted in ROS Statement are negative. Constitutional: Reports: fever, chills Eyes: Denies: eye pain ENT: Reports: congestion. Denies: ear pain Respiratory: Reports: cough, dyspnea Cardiovascular: Denies: chest pain Endocrine: Denies: fatigue Gastrointestinal: Denies: abdominal pain Genitourinary: Denies: dysuria Musculoskeletal: Denies: back pain Skin: Denies: rash Neurological: Denies: weakness Past Medical History Past Medical History: Hyperlipidemia, Hypertension, Mitral Valve Prolapse (MVP), Osteoarthritis (OA), Thyroid Disorder Additional Past Medical History / Comment(s): VARICOSE VEINS, MITRAL VALVE PROLAPSE(WAS BORN WITH), CHRONIC BACK PAIN, NUMBNESS RIGHT LEG AND FOOT, SCIATICA, USES A CANE, HX OF FREQUENT UTI'S., CHRONIC CONSTIPATION History of Any Multi-Drug Resistant Organisms: None Reported Past Surgical History: Back Surgery, Breast Surgery, Joint Replacement, Orthopedic Surgery Additional Past Surgical History / Comment(s): laproscopic surgery x 3 ( for infertility), arthroscopy left knee, , left breast lumpectomy, Laminectomy with spinal fusion (L-3to S-1) (2013), total left knee (10/2016) Past Anesthesia/Blood Transfusion Reactions: No Reported Reaction Past Psychological History: Anxiety Smoking Status: Never smoker Past Alcohol Use History: None Reported Past Drug Use History: None Reported - Past Family History Mother Family Medical History: COPD, Hyperlipidemia Father Family Medical History: Myocardial Infarction ([place]) Additional Family Medical History / Comment(s): smoker, mi at 48 Brother(s) Family Medical History: COPD Daughter(s) Family Medical History: No Reported History General Exam Limitations: no limitations General appearance: alert, in no apparent distress Head exam: Present: normocephalic Eye exam: Present: normal appearance, PERRL ENT exam: Present: normal oropharynx Neck exam: Present: normal inspection Respiratory exam: Present: wheezes, decreased breath sounds Cardiovascular Exam: Present: tachycardia GI/Abdominal exam: Present: soft. Absent: tenderness Extremities exam: Present: normal inspection. Absent: pedal edema, calf tenderness Neurological exam: Present: alert Psychiatric exam: Present: normal affect, normal mood Skin exam: Present: normal color Course Vital Signs 01/17/20 01/17/20 01/17/20 11:49 12:58 13:07 Temperature 98.6 F Pulse Rate 121 H 111 H 113 H Respiratory 28 H Rate Blood Pressure 147/84 O2 Sat by Pulse 93 L Oximetry - Reevaluation(s) Reevaluation #1: 01/17/20 13:26 Patient meet sepsis criteria diagnosed at 1300. Blood culture and lactic acid ordered. IV antibiotics will be ordered. EKG Findings - EKG Comments: EKG Findings:: Sinus tachycardia 109. TN 160. QRS 76. QT 342. QTC 460. Normal axis. Normal QRS. No acute ST change. Medical Decision Making - Medical Decision Making Patient reevaluated and updated. Symptoms improved following nebulizer. Heart rate remains 108 and pulse ox 90. Case was discussed with Dr. Landin, covering for Dr. García, who will admit. - Lab Data Result diagrams: 01/17/20 12:32 01/17/20 12:32 Lab Results 01/17/20 01/17/20 01/17/20 Range/Units 11:53 12:32 12:32 WBC 9.1 (3.8-10.6) k/uL RBC 4.57 (3.80-5.40) m/uL Hgb 13.4 (11.4-16.0) gm/dL Hct 40.8 (34.0-46.0) % MCV 89.2 (80.0-100.0) fL MCH 29.4 (25.0-35.0) pg MCHC 32.9 (31.0-37.0) g/dL RDW 13.3 (11.5-15.5) % Plt Count 269 (150-450) k/uL Neutrophils % 79 % Lymphocytes % 14 % Monocytes % 6 % Eosinophils % 1 % Basophils % 0 % Neutrophils # 7.1 (1.3-7.7) k/uL Lymphocytes # 1.2 (1.0-4.8) k/uL Monocytes # 0.5 (0-1.0) k/uL Eosinophils # 0.1 (0-0.7) k/uL Basophils # 0.0 (0-0.2) k/uL Sodium 138 (137-145) mmol/L Potassium 4.3 (3.5-5.1) mmol/L Chloride 102 (98-107) mmol/L Carbon Dioxide 24 (22-30) mmol/L Anion Gap 12 mmol/L BUN 20 H (7-17) mg/dL Creatinine 0.64 (0.52-1.04) mg/dL Est GFR (CKD-EPI)AfAm >90 (>60 ml/min/1.73 sqM) Est GFR (CKD-EPI)NonAf >90 (>60 ml/min/1.73 sqM) Glucose 121 H (74-99) mg/dL Plasma Lactic Acid Gigi (0.7-2.0) mmol/L Calcium 10.1 (8.4-10.2) mg/dL Total Bilirubin 0.9 (0.2-1.3) mg/dL AST 21 (14-36) U/L ALT 23 (4-34) U/L Alkaline Phosphatase 110 (38-126) U/L Total Protein 8.0 (6.3-8.2) g/dL Albumin 4.4 (3.5-5.0) g/dL Influenza Type A RNA Not Detected (Not Detectd) Influenza Type B (PCR) Not Detected (Not Detectd) 01/17/20 Range/Units 12:32 WBC (3.8-10.6) k/uL RBC (3.80-5.40) m/uL Hgb (11.4-16.0) gm/dL Hct (34.0-46.0) % MCV (80.0-100.0) fL MCH (25.0-35.0) pg MCHC (31.0-37.0) g/dL RDW (11.5-15.5) % Plt Count (150-450) k/uL Neutrophils % % Lymphocytes % % Monocytes % % Eosinophils % % Basophils % % Neutrophils # (1.3-7.7) k/uL Lymphocytes # (1.0-4.8) k/uL Monocytes # (0-1.0) k/uL Eosinophils # (0-0.7) k/uL Basophils # (0-0.2) k/uL Sodium (137-145) mmol/L Potassium (3.5-5.1) mmol/L Chloride (98-107) mmol/L Carbon Dioxide (22-30) mmol/L Anion Gap mmol/L BUN (7-17) mg/dL Creatinine (0.52-1.04) mg/dL Est GFR (CKD-EPI)AfAm (>60 ml/min/1.73 sqM) Est GFR (CKD-EPI)NonAf (>60 ml/min/1.73 sqM) Glucose (74-99) mg/dL Plasma Lactic Acid Gigi 1.1 (0.7-2.0) mmol/L Calcium (8.4-10.2) mg/dL Total Bilirubin (0.2-1.3) mg/dL AST (14-36) U/L ALT (4-34) U/L Alkaline Phosphatase (38-126) U/L Total Protein (6.3-8.2) g/dL Albumin (3.5-5.0) g/dL Influenza Type A RNA (Not Detectd) Influenza Type B (PCR) (Not Detectd) - Radiology Data Radiology results: image reviewed (Chest x-ray shows left basilar infiltrate versus atelectasis) Critical Care Time Critical Care Time: Yes Total Critical Care Time: 31 Disposition Clinical Impression: Pneumonia, Sepsis Disposition: ADMITTED IP TO THIS [facility] Condition: Serious Is patient prescribed a controlled substance at d/c from ED?: No Referrals: Pepe García MD [Primary Care Provider] - 1-2 days Decision Time: 13:26
--- NOTE | 2020-01-17 12:59 | XR ---
EXAMINATION TYPE: XR chest 2V DATE OF EXAM: 01/17/2020 COMPARISON: 11/18/2016 HISTORY: 69 year-old female fever, cough, difficulty breathing TECHNIQUE: PA and lateral views FINDINGS: Heart normal size. Mild interstitial prominence is unchanged. There is patchy left basilar and retroc ardiac opacity. No pleural effusion. IMPRESSION: Posterior left basilar atelectasis versus pneumonia. Clinically correlate.
[2020-01-17 13:11] LABS: Basophils % (A) 0 %; Eosinophils # (A) 0.1 k/uL (0-0.7); Eosinophils % (A) 1 %; HCT 40.8 % (34.0-46.0); HGB 13.4 gm/dL (11.4-16.0); Lymphocytes # (A) 1.2 k/uL (1.0-4.8); Lymphocytes % (A) 14 %; MCH 29.4 pg (25.0-35.0); MCHC 32.9 g/dL (31.0-37.0); MCV 89.2 fL (80.0-100.0); Mean Platelet Volume 7.5; Monocytes # (A) 0.5 k/uL (0-1.0); Monocytes % (A) 6 %; Neutrophils # (A) 7.1 k/uL (1.3-7.7); Neutrophils % (A) 79 %; Platelet Count 269 k/uL (150-450); RBC 4.57 m/uL (3.80-5.40); RDW 13.3 % (11.5-15.5); WBC 9.1 k/uL (3.8-10.6)
[2020-01-17 13:12] LABS: ALT 23 U/L (4-34); AST 21 U/L (14-36); African American GFR (CKD) >90 (>60 ml/min/1.73 sqM); Albumin 4.4 g/dL (3.5-5.0); Alkaline Phosphatase 110 U/L (38-126); Anion Gap 12 mmol/L; Blood Urea Nitrogen 20 mg/dL (7-17); Calcium 10.1 mg/dL (8.4-10.2); Carbon Dioxide 24 mmol/L (22-30); Chloride 102 mmol/L (98-107); Glucose 121 mg/dL (74-99); Non-African American GFR(CKD) >90 (>60 ml/min/1.73 sqM); Potassium 4.3 mmol/L (3.5-5.1); Sodium 138 mmol/L (137-145); Total Bilirubin 0.9 mg/dL (0.2-1.3)
[2020-01-17 13:17] LABS: INR 0.9 (<1.2); Partial Thromboplastin Time 27.2 sec (22.0-30.0); Prothrombin Time 9.8 sec (9.0-12.0)
[2020-01-17] MEDS ORDERED: AZITHROMYCIN 500 MG in SODIUM CHLORIDE 0.9% 250 ML IVPB STA (13:27)
[2020-01-17] MEDS ORDERED: PNEUMONIA PROTOCOL UTILIZED 1 EACH MISC PO PRN (13:27)
[2020-01-17] MEDS ORDERED: IPRATROPIUM-ALBUTEROL 3 ML NEB INHALATION PRN (13:27)
[2020-01-17] MEDS: SODIUM CHLORIDE 0.9% 1,000 ML IV SCH (13:40)
[2020-01-17] MEDS ORDERED: BACLOFEN 10 MG TAB PO PRN (15:41)
[2020-01-17] MEDS: IPRATROPIUM-ALBUTEROL 3 ML NEB INHALATION SCH ×2 (16:40→21:00)
[2020-01-17] MEDS: HYDROcodone/APAP 10-325MG 1 EACH TAB PO PRN (18:56)
[2020-01-17] MEDS: GABAPENTIN 300 MG CAP PO SCH (20:54)
[2020-01-17] MEDS: ARTIFICIAL TEARS-HYPROMELLOSE DROPS 15 ML BTL BOTH EYES SCH (20:55)
[2020-01-17] MEDS: LEVOTHYROXINE 88 MCG TAB PO SCH (20:55)
[2020-01-17] MEDS: PRAVASTATIN SODIUM 20 MG TAB PO SCH (20:55)
[2020-01-17] MEDS: LACTULOSE 20 GM/30 ML CUP PO SCH (20:56)
[2020-01-18] MEDS: HYDROcodone/APAP 10-325MG 1 EACH TAB PO PRN ×2 (00:24→23:10)
[2020-01-18] MEDS: ALPRAZolam 0.25 MG TAB PO PRN ×2 (00:25→23:11)
[2020-01-18] MEDS: SODIUM CHLORIDE 0.9% 1,000 ML IV SCH ×4 (00:27→23:10)
[2020-01-18] MEDS: IPRATROPIUM-ALBUTEROL 3 ML NEB INHALATION SCH ×4 (07:12→22:03)
--- NOTE | 2020-01-18 08:11 | XR ---
EXAMINATION TYPE: XR chest 2V DATE OF EXAM: 01/18/2020 COMPARISON: 01/17/2020 INDICATION: Pneumonia TECHNIQUE: Frontal and lateral views of the chest are obtained. FINDINGS: The heart size is normal. The pulmonary vasculature is normal. Left lower lobe infiltrate is present. A mild right lower lobe infiltrate may also be present. Findin gs are worsening from comparison.. IMPRESSION: 1. Worsening bibasilar infiltrates.
[2020-01-18] MEDS ORDERED: NON FORMULARY DRUG (Vitamin B Complex [Vitamin B Complex] 1 CAP) PO SCH (09:00)
[2020-01-18] MEDS: ARTIFICIAL TEARS-HYPROMELLOSE DROPS 15 ML BTL BOTH EYES SCH ×2 (09:26→20:31)
[2020-01-18] MEDS: GABAPENTIN 300 MG CAP PO SCH ×2 (09:27→20:29)
[2020-01-18] MEDS: PANTOPRAZOLE 40 MG TABLET PO SCH (09:27)
[2020-01-18] MEDS: CITALOPRAM HYDROBROMIDE 20 MG TAB PO SCH (09:27)
[2020-01-18] MEDS ORDERED: guaiFENesin-Coden 100-10MG/5ML 10 ML CUP PO PRN (09:41)
[2020-01-18] MEDS ORDERED: RX INFO: IV CONTRAST WAS GIVEN 1 EACH MISC MISCELLANE PRN (10:12)
[2020-01-18] MEDS: guaiFENesin 600 MG TABLET.ER PO SCH ×2 (10:29→20:30)
[2020-01-18] MEDS: FLUTICASONE 50MCG/SPRAY NASAL 16GM EA NOSTRIL SCH (10:29)
[2020-01-18 11:43] LABS: Glucose,Whole Blood 117 mg/dL (75-99)
[2020-01-18] MEDS ORDERED: methylPREDNISolone SOD SUCCI 125 MG/2 ML VIAL IV SCH (12:00)
[2020-01-18] MEDS: INSULIN ASPART (NovoLOG) 100 UNIT/ML VIAL SQ SCH ×3 (12:47→20:31)
[2020-01-18] MEDS: CHOLECALCIFEROL 1,000 UNIT TAB PO SCH (12:47)
[2020-01-18] MEDS: MULTIVITAMINS, THERA 1 EACH TAB PO SCH (12:48)
--- NOTE | 2020-01-18 14:00 | CT ---
EXAMINATION TYPE: CT neck chest w con DATE OF EXAM: 01/18/2020 COMPARISON: None HISTORY: Shortness of breath and chest pain. CT DLP: 616.1 mGycm CONTRAST: Patient injected with 100 mL of Isovue 300. TECHNIQUE: Axial images at 3 mm thick sections. Reconstructed images in the coronal plane and sagitt al plane are reviewed. FINDINGS: CT neck: The torus tubarius and fossa of [place] are normal. [employer] spaces are normal. There are air-fluid levels within the bilateral maxillary sinuses. Mucosal thickening is within ethmoid ai r cells. Air-fluid levels are within the sphenoid sinuses. Mastoid air cells are clear. Clinical robles elation recommended for acute paranasal sinus sinusitis. Parotid glands appear normal and symmetrical. Submandibular glands, are normal. Parapharyngeal spac es are normal. No suspicious adenopathy is evident. The hypopharynx appears within normal limits. Vocal cord level appear symmetrical. Thyroid as visualized is normal. Osseous structures have degenerative changes. No acute osseous abnormality is evident. IMPRESSIONS: 1. Clinical correlation recommended for sinusitis. EXAMINATION TYPE: CT neck chest w con DATE OF EXAM: 01/18/2020 COMPARISON: None HISTORY: Shortness of breath and chest pain. CT DLP: 616.1 mGycm, Automated exposure control for dose reduction was used. CONTRAST: Performed injected with 100 mL of Isovue 300. TECHNIQUE: Axial images were obtained at 5 mm thick sections. Reconstructed images are reviewed on [employer] computer in the coronal plane. FINDINGS: Portion of the thyroid visualized is normal. No suspicious lung nodules are evident. There are bilateral medial lower lobe consolidations. Correla te for pneumonia. Atelectasis is within the differential. No enlarged mediastinal or hilar adenopathy is evident. The ascending aorta diameter at the level o f the main pulmonary artery is 3.6 cm. The main pulmonary artery diameter at the bifurcation is 2.[address] sections are obtained through the upper abdomen. Abdomen is essentially unremarkable. IMPRESSIONS: 1. Bibasilar infiltrates. Correlate for atelectasis and pneumonia.
--- NOTE | 2020-01-18 14:14 | P.HPIM ---
History of Present Illness H&P Date: 01/18/20 Chief Complaint: Cough, difficulty breathing This is a 69-year-old female patient of Dr. García past medical history of hypertension, hyperlipidemia, osteoarthritis, hypothyroidism, chronic back pain status post lumbar fusion 6 years ago with peripheral neuropathy. Patient has an appointment scheduled for Dr. García today and this was for preop clearance for right knee arthroplasty which is scheduled for February 12. Patient gives history of having cough started 2 weeks ago and then and difficulty breathing for the past 1 week. She has green sputum production and yesterday she developed a fever. Patient also gives history of weight loss of 23 pounds since October. She complains of hoarseness that she has had since September after being treated for bronchitis. She denies any blood in her stools, no tarry stools. No hematuria. She states she has had decreased appetite. She states she is up-to-date on pneumonia and influenza vaccine. She states she tried to take Mucinex at home without any improvement. Patient came into [facility] emergency center for evaluation. She was afebrile, blood pressure 147/114 initially with a heart rate of 121, pulse ox 93% on room air. Initial EKG is sinus tachycardia. CBC was normal, d- dimer 0.52, creatinine 0.64, blood sugar 121. Electrolytes and liver function test normal, creatinine 0.012, influenza testing was negative. She underwent a chest x-ray that showed posterior left basilar atelectasis versus pneumonia. Repeat chest x-ray this morning reveals worsening bibasilar infiltrates. Patient minutes to the [facility] floor and consult with pulmonary medicine. Review of Systems Constitutional: Reports fatigue, Reports poor appetite, Reports weakness, Reports weight loss, Denies chills, Denies fever Eyes: denies blurred vision, denies pain Ears, nose, mouth and throat: Reports headache, Reports hoarseness, Reports nasal congestion, Reports sinus pain, Reports sinus pressure, Denies dysphagia, Denies sore throat Cardiovascular: Reports decreased exercise tolerance, Reports dyspnea on exertion, Reports shortness of breath, Denies edema, Denies leg edema, Denies lightheadedness, Denies syncope Respiratory: Reports cough, Reports cough with sputum, Reports dyspnea, Reports respiratory infections, Reports wheezing, Denies excessive sputum, Denies hemoptysis, Denies home oxygen, Denies sleep apnea Gastrointestinal: Reports abdominal pain, Reports loss of appetite, Denies change in bowel habits, Denies hematemesis, Denies hematochezia, Denies melena, Denies nausea, Denies vomiting Genitourinary: Denies dysuria, Denies hematuria, Denies urgency, Denies urinary frequency Musculoskeletal: Denies frequent falls, Denies gait dysfunction, Denies muscle weakness, Denies myalgias Integumentary: Denies pruritus, Denies rash, Denies wounds Neurological: Denies change in mentation, Denies change in speech, Denies numbness, Denies weakness Psychiatric: Denies anxiety, Denies depression Endocrine: Denies fatigue, Denies weight change Past Medical History Past Medical History: Hyperlipidemia, Hypertension, Mitral Valve Prolapse (MVP), Osteoarthritis (OA), Thyroid Disorder Additional Past Medical History / Comment(s): VARICOSE VEINS, MITRAL VALVE PROLAPSE(WAS BORN WITH), CHRONIC BACK PAIN, NUMBNESS RIGHT LEG AND FOOT, SCIATICA, USES A CANE, HX OF FREQUENT UTI'S., CHRONIC CONSTIPATION History of Any Multi-Drug Resistant Organisms: None Reported Past Surgical History: Back Surgery, Breast Surgery, Joint Replacement, Orthopedic Surgery Additional Past Surgical History / Comment(s): laproscopic surgery x 3 ( for in fertility), arthroscopy left knee, , left breast lumpectomy, Laminectomy with spinal fusion (L-3to S-1) (2013), total left knee (10/2016) Past Anesthesia/Blood Transfusion Reactions: No Reported Reaction Past Psychological History: Anxiety Smoking Status: Never smoker Past Alcohol Use History: None Reported Additional Past Alcohol Use History / Comment(s): Patient is a lifelong nonsmoker but did have exposure to secondhand smoke. No marijuana, illicit drug use or alcohol use. Patient lives alone. She does not have a nebulizer, oxygen or CPAP at home. Patient's daughter lives across the street from her. Patient babysits 8-month-old twin grandsons. Past Drug Use History: None Reported - Past Family History Mother Family Medical History: COPD, Hyperlipidemia Additional Family Medical History / Comment(s): Mother at age 88 from COPD with history of smoking. Father Family Medical History: Myocardial Infarction ([place]) Additional Family Medical History / Comment(s): Father at age 48 from myoc ardial infarction with history of smoking and COPD. Brother(s) Family Medical History: COPD Additional Family Medical History / Comment(s): Patient has one brother with history of smoking with no major medical problems. Patient does not have any sisters. Patient has one adopted daughter. Daughter(s) Family Medical History: No Reported History Medications and Allergies Home Medications Medication Instructions Recorded Confirmed Type Cholecalciferol [Vitamin D3 (25 2,000 unit PO DAILY 11/06/16 01/17/20 History Mcg = 1000 Iu)] Citalopram Hydrobromide [CeleXA] 20 mg PO DAILY 11/06/16 01/17/20 History Cranberry Tablet 1 tab PO BID 11/06/16 01/17/20 History Gabapentin [Neurontin] 300 mg PO QAM 11/06/16 01/17/20 History Gabapentin [Neurontin] 600 mg PO HS 11/06/16 01/17/20 History Levothyroxine Sodium [Synthroid] 88 mcg PO HS 11/06/16 01/17/20 History Multivitamins, Thera [Multivitamin 1 tab PO DAILY 11/06/16 01/17/20 History (formulary)] Pravastatin Sodium [Pravachol] 20 mg PO HS 11/06/16 01/17/20 History Vitamin B Complex 1 cap PO DAILY 11/06/16 01/17/20 History Baclofen [Lioresal] 10 mg PO BID PRN 03/24/17 01/17/20 History Glucosamine/Chondr Mckeon A Sod [Osteo 1 tab PO BID 03/24/17 01/17/20 History Bi-Flex Caplet] Lactulose 10 gm PO HS 03/24/17 01/17/20 History Propylene Glycol/Peg 400/Pf 1 - 2 drop BOTH EYES BID 03/24/17 01/17/20 History [Systane 0.3-0.4% Eye Drops] ALPRAZolam [Xanax] 0.25 mg PO BID PRN 09/09/17 01/17/20 History HYDROcodone/APAP 10-325MG [Gays 1 tab PO DAILY PRN 01/17/20 01/17/20 History 10-325] Naproxen Sodium [Aleve] 440 mg PO BID 01/17/20 01/17/20 History Pantoprazole [Protonix] 40 mg PO DAILY 01/17/20 01/17/20 History Vitamin C/Biotin [Hair, Skin and 1 tab PO BID 01/17/20 01/17/20 History Nails] Allergies Allergy/AdvReac Type Severity Reaction Status Date / Time No Known Allergies Allergy Verified 01/17/20 13:36 Physical Exam Vitals: Vital Signs Temp Pulse Pulse Resp BP BP Pulse Ox 01/18/20 07:23 98 36 H 01/18/20 07:16 96 01/18/20 07:12 108 H 01/18/20 07:04 98.6 F 107 H 16 161/85 96 01/18/20 04:00 98 16 01/18/20 02:36 98.6 F 98 16 145/86 92 L 01/18/20 00:00 100 16 01/17/20 23:40 98.8 F 100 16 147/88 93 L 01/17/20 22:30 98.7 F 24 130/80 92 L 01/17/20 21:11 93 L 01/17/20 21:10 116 H 01/17/20 21:00 108 H 01/17/20 19:00 143/98 94 L 01/17/20 18:30 143/98 92 L 01/17/20 16:50 109 H 01/17/20 16:41 112 H 01/17/20 16:34 98.8 F 16 93 L 01/17/20 16:30 153/99 94 L 01/17/20 16:00 125 H 124/92 94 L 01/17/20 15:30 116 H 141/87 91 L 01/17/20 15:00 118 H 147/94 92 L 01/17/20 14:30 107 H 142/85 92 L 01/17/20 14:00 111 H 133/82 90 L 01/17/20 13:30 112 H 141/82 92 L 01/17/20 13:07 113 H 01/17/20 13:00 105 H 145/88 92 L 01/17/20 12:58 111 H 01/17/20 12:30 112 H 147/114 90 L 01/17/20 12:13 147/114 90 L 01/17/20 11:49 98.6 F 121 H 28 H 147/84 93 L Intake and Output 01/17/20 01/18/20 01/18/20 22:59 06:59 14:59 Intake Total 540 Balance 540 Intake: Oral 540 Other: # Voids 1 1 Weight 74.843 kg Gen: This is a 69-year-old female. Patient is sitting up in a chair and appears to be somewhat anxious. Patient is tachypneic with mild accessory muscle usage. HEENT: Head is atraumatic, normocephalic. Pupils equal, round. Sclerae is anicteric. NECK: Supple. No JVD. No lymphadenopathy. No thyromegaly. LUNGS: Diminished bilateral bases with scattered rhonchi and expiratory wheeze. mild intercostal retractions. HEART: Regular rate and rhythm. No murmur. ABDOMEN: Soft. Bowel sounds are present. No masses. No tenderness. EXTREMITIES: No pedal edema. No calf tenderness. Dorsalis pedis +2 bilaterally. NEUROLOGICAL: Patient is awake, alert and oriented x3. Cranial nerves 2 through 12 are grossly intact. Results CBC & Chem 7: 01/17/20 12:32 01/17/20 12:32 Labs: Abnormal Lab Results - Last 24 Hours (Table) 01/17/20 Range/Units 12:32 BUN 20 H (7-17) mg/dL Glucose 121 H (74-99) mg/dL Thrombosis Risk Factor Assmnt - Choose All That Apply Any of the Below Risk Factors Present?: No Other Risk Factors: Yes Each Risk Factor Represents 2 Points: Age 61-74 years Thrombosis Risk Factor Assessment Total Risk Factor Score: 2 Thrombosis Risk Factor Assessment Level: Low Risk Assessment and Plan Plan: 1. Acute hypoxic respiratory failure secondary to bilateral pneumonia. Patient is on azithromycin and ceftriaxone. Continue DuoNeb treatments, and Solu-Medrol 60 mg every 12 hours, Mucinex twice daily, Pulmicort 1 mg twice daily, Robitussin with codeine as needed, Flonase twice daily. CT of the chest ordered. Continue IV fluids for now secondary to IV dye. Sputum culture to be obtained. 2. Hypertension with tachycardia on presentation. Patient will be started on Lopressor 12.5 mg twice daily. 3. Hoarseness since September 2019. CAT scan of the soft tissue neck ordered. 4. Chronic low back pain and peripheral. Continue gabapentin 300 mg the morning 600 and evening, Gays 10 daily as needed. 5. Hyperlipidemia. Continue pravastatin 20 mg at bedtime. 6. Generalized anxiety disorder. Continue Xanax to 0.25 mg twice daily as needed, Celexa 20 mg daily. 7. Hypothyroidism. Continue levothyroxine 88 g at bedtime. Check TSH and free T4. 8. Weight loss of 23 pounds since October of unclear etiology. CT of the chest ordered. 9. GI prophylaxis. Protonix. 10. DVT prophylaxis. Lovenox. Patient will be admitted to the hospital for a minimum of 2 night stay. CODE STATUS: Full code Discharge plan: To be determined. Most likely return home. Impression and plan of care have been directed as dictated by the signing physician. Delmy Andersen nurse practitioner acting as scribe for signing physician.
--- NOTE | 2020-01-18 14:15 | P.CNPUL ---
History of Present Illness Consult date: 01/18/20 Reason for consult: dyspnea, cough, pneumonia History of present illness: A 69-year-old female patient who presented to the hospital because of increased cough and shortness of breath. Her symptoms have been going on for the past 2 weeks. She noted cough and greenish sputum production. She did develop a fever on the day of the admission to the ED. No chest pain. No pleurisy. No hemoptysis. No history of any COPD. No leg swelling. No angina. No palpitations. She does have history of hypertension, hyperlipidemia and hypothyroidism. She suffers from chronic spine disease with multiple surgeries to her back involving laminectomy and spinal fusions L3 through S1. She has osteoarthritis. She has difficulty with mobility and she moves around with the help of a cane. She does have chronic back pain. She came in with a white c ount of 9.1. Hemoglobin was at 13.4. Electrodes are all within normal limits. Influenza screen was negative for influenza A and influenza B the patient was started on broad-spectrum antibiotics. Any shows bilateral basilar infiltrates. There is obvious small lung volumes. The diaphragms are quite elevated bilaterally. There is kyphoscoliosis of the spine and the patient is post laminectomy involving the lumbar spine. The patient denies having any aspiration. No sick contacts. No travel history. On today's evaluation the patient is on oxygen at 2 L per minute nasal cannula. Her voice is coarse. She is struggling with her speech. She is also struggling with cough. Her cough is weak and she is unable to bring up adequate sputum. She remains on a combination of Rocephin and Zithromax. CAT scan of the chest was noted. CAT scan of the neck was noted. On examination, she has a significant thoracolumbar kyphoscoliosis also. Review of Systems Constitutional: Reports weakness Eyes: denies as per HPI, denies blurred vision, denies bulging eye, denies decreased vision, denies diplopia, denies discharge, denies dry eye, denies irritation, denies itching, denies pain, denies photophobia, denies loss of peripheral vision, denies loss of vision, denies tunnel vision/blind spots Ears: deny: decreased hearing, ear discharge, earache, tinnitus Ears, nose, mouth and throat: Reports dysphagia, Reports voice changes Breasts: absent: as per HPI, change in shape, gynecomastia, masses, nipple discharge, pain, skin changes, swelling Cardiovascular: Reports decreased exercise tolerance, Reports dyspnea on exertion Respiratory: Reports cough, Reports dyspnea, Reports wheezing Gastrointestinal: Denies abdominal pain, Denies diarrhea, Denies nausea, Denies vomiting Genitourinary: Reports as per HPI Menstruation: Reports as per HPI Musculoskeletal: Reports as per HPI, Reports low back pain (Chronic arthritis, thoracolumbar kyphoscoliosis and osteoarthritis with previous knee replacements and hip replacement) Musculoskeletal: absent: ankle pain, ankle stiffness, ankle swelling Integumentary: Reports as per HPI Neurological: Reports as per HPI Psychiatric: Reports as per HPI Endocrine: Reports as per HPI, Reports fatigue Hematologic/Lymphatic: Reports as per HPI Allergic/Immunologic: Reports as per HPI Past Medical History Past Medical History: Hyperlipidemia, Hypertension, Mitral Valve Prolapse (MVP), Osteoarthritis (OA), Thyroid Disorder Additional Past Medical History / Comment(s): Thoracolumbar kyphoscoliosis, lumbar laminectomy and fusion multilevel, osteoarthritis, hypertension, hyperlipidemia, hypothyroidism, hypertension, mitral valve prolapse, sciatica with pain involving lower extremities and numbness, chronic constipation, history of frequent UTIs, difficulty with mobility and the patient uses a cane. Varicose veins. History of Any Multi-Drug Resistant Organisms: None Reported Past Surgical History: Back Surgery, Breast Surgery, Joint Replacement, Orthopedic Surgery Additional Past Surgical History / Comment(s): laproscopic surgery x 3 ( for infertility), arthroscopy left knee, , left breast lumpectomy, Laminectomy with spinal fusion (L-3to S-1) (2013), total left knee (10/2016) Past Anesthesia/Blood Transfusion Reactions: No Reported Reaction Past Psychological History: Anxiety Smoking Status: Never smoker Past Alcohol Use History: None Reported Past Drug Use History: None Reported - Past Family History Mother Family Medical History: COPD, Hyperlipidemia Father Family Medical History: Myocardial Infarction ([place]) Additional Family Medical History / Comment(s): smoker, mi at 48 Brother(s) Family Medical History: COPD Daughter(s) Family Medical History: No Reported History Medications and Allergies Home Medications Medication Instructions Recorded Confirmed Type Cholecalciferol [Vitamin D3 (25 2,000 unit PO DAILY 11/06/16 01/17/20 History Mcg = 1000 Iu)] Citalopram Hydrobromide [CeleXA] 20 mg PO DAILY 11/06/16 01/17/20 History Cranberry Tablet 1 tab PO BID 11/06/16 01/17/20 History Gabapentin [Neurontin] 300 mg PO QAM 11/06/16 01/17/20 History Gabapentin [Neurontin] 600 mg PO HS 11/06/16 01/17/20 History Levothyroxine Sodium [Synthroid] 88 mcg PO HS 11/06/16 01/17/20 History Multivitamins, Thera [Multivitamin 1 tab PO DAILY 11/06/16 01/17/20 History (formulary)] Pravastatin Sodium [Pravachol] 20 mg PO HS 11/06/16 01/17/20 History Vitamin B Complex 1 cap PO DAILY 11/06/16 01/17/20 History Baclofen [Lioresal] 10 mg PO BID PRN 03/24/17 01/17/20 History Glucosamine/Chondr Mckeon A Sod [Osteo 1 tab PO BID 03/24/17 01/17/20 History Bi-Flex Caplet] Lactulose 10 gm PO HS 03/24/17 01/17/20 History Propylene Glycol/Peg 400/Pf 1 - 2 drop BOTH EYES BID 03/24/17 01/17/20 History [Systane 0.3-0.4% Eye Drops] ALPRAZolam [Xanax] 0.25 mg PO BID PRN 09/09/17 01/17/20 History HYDROcodone/APAP 10-325MG [[place] 1 tab PO DAILY PRN 01/17/20 01/17/20 History 10-325] Naproxen Sodium [Aleve] 440 mg PO BID 01/17/20 01/17/20 History Pantoprazole [Protonix] 40 mg PO DAILY 01/17/20 01/17/20 History Vitamin C/Biotin [Hair, Skin and 1 tab PO BID 01/17/20 01/17/20 History Nails] Allergies Allergy/AdvReac Type Severity Reaction Status Date / Time No Known Allergies Allergy Verified 01/17/20 13:36 Physical Exam Vitals: Vital Signs Temp Pulse Pulse Resp BP BP Pulse Ox 01/18/20 11:17 115 H 24 01/18/20 11:06 111 H 24 01/18/20 07:23 98 36 H 01/18/20 07:16 96 02/20/20 07:12 108 H 01/18/20 07:04 98.6 F 107 H 16 161/85 96 01/18/20 04:00 98 16 01/18/20 02:36 98.6 F 98 16 145/86 92 L 01/18/20 00:00 100 16 01/17/20 23:40 98.8 F 100 16 147/88 93 L 01/17/20 22:30 98.7 F 24 130/80 92 L 01/17/20 21:11 93 L 01/17/20 21:10 116 H 01/17/20 21:00 108 H 01/17/20 19:00 143/98 94 L 01/17/20 18:30 143/98 92 L 01/17/20 16:50 109 H 01/17/20 16:41 112 H 01/17/20 16:34 98.8 F 16 93 L 01/17/20 16:30 153/99 94 L 01/17/20 16:00 125 H 124/92 94 L 01/17/20 15:30 116 H 141/87 91 L 01/17/20 15:00 118 H 147/94 92 L 01/17/20 14:30 107 H 142/85 92 L Intake and Output 01/17/20 01/18/20 01/18/20 22:59 06:59 14:59 Intake Total 540 Balance 540 Intake: Oral 540 Other: # Voids 1 1 Weight 74.843 kg Gen. appearance the patient is having frequent coughing spells. Her voice is hoarse. She seems to be mild degree of respiratory distress. She is attempting to cough. She is unable to bring up any sputum. She has a very congested cough. No use of accessory muscles of breathing. She is currently on 3L of oxygen by nasal cannula. Head exam was generally normal. There was no scleral icterus or corneal arcus. Mucous membranes were moist. Neck was supple and without jugular venous distension, thyromegaly, or carotid bruits. Carotids were easily palpable bilaterally. There was no adenopathy. There is kyphosis of the cervical spine and thoracic spine Examination of the lungs shows crackles and rhonchi heard throughout the lung melgar bilaterally more so on the lower lobes and the patient has thoracic kyphosis and scoliosis. Breath sounds are quite diminished bilaterally. Cardiac exam revealed the PMI to be normally situated and sized. The rhythm was regular and no extrasystoles were noted during several minutes of auscultation. The first and second heart sounds were normal and physiologic splitting of the second heart sound was noted. There were no murmurs, rubs, clicks, or valencia Abdominal exam revealed normal bowel sounds. The abdomen was soft, non-tender, and without masses, organomegaly, or appreciable enlargement of the abdominal aorta. Examination of the extremities revealed easily palpable radial, femoral and pedal pulses. There was no cyanosis, clubbing or edema. Examination of the skin revealed no evidence of significant rashes, suspicious appearing nevi or other concerning lesions. Musculoskeletal the patient has thoracic and lumbar kyphoscoliosis in addition to a scar of previous surgery in the lower thoracic spine. She hasn't undergone previous/knee surgery/replacement on the left. Neurologically the patient is awake and alert. She has limited mobility due to her severe arthritis and back problems Psychiatric the patient is intact normal affect and mood. Results - Laboratory Findings CBC and BMP: 01/17/20 12:32 01/17/20 12:32 PT/INR, D-dimer PT 9.8 sec (9.0-12.0) 01/17/20 12:32 INR 0.9 (<1.2) 01/17/20 12:32 D-Dimer 0.52 mg/L FEU (<0.60) 01/17/20 12:32 Abnormal lab findings: Abnormal Labs 01/17/20 01/18/20 12:32 11:42 BUN 20 H Glucose 121 H POC Glucose (mg/dL) 117 H - Diagnostic Findings Chest x-ray: image reviewed CT scan - chest: image reviewed Assessment and Plan Plan: 1 acute bilateral lower lobe pneumonia. Consider aspiration pneumonia. Nevertheless, the patient's course has been complicated by development of acute hypoxic respiratory failure and significant respiratory distress as the patient has a weak cough and unable to generate enough force to expectorate her mucus. She does have possibly some underlying restrictive lung disease due to her thoracolumbar kyphoscoliosis. She has small lung volumes and the chest x-ray and a CAT scan of the chest. She is hoarse and there is concern of vocal cord disease/unilateral paralysis also. 2 acute hypoxic respiratory failure 3 acute hoarseness 4 dysphagia, consider aspiration 5 thoracolumbar kyphoscoliosis 6 lumbar spine fusion multilevel 7 hypothyroidism 8 osteoarthritis with previous knee and hip replacements 9 sciatica and chronic back pain and weakness in lower extremities 10 frequent UTIs 11 history of chronic constipation 12 history of mitral valve prolapse 13 hyperlipidemia 14 hypertension Plan Switch this patient to Zosyn and Levaquin Titrate FiO2 to maintain a saturation above 90% Provide an incentive spirometer She will need a bronchoscopy for inspection of the upper airway, the vocal cords and provided a therapeutic it was suctioning and the bronchioloalveolar lavage to establish an microbial diagnosis Bronchodilators [id number] Swallow evaluation Outpatient indication be resumed We'll continue to follow.
[2020-01-18] MEDS: LEVOFLOXACIN 750MG-D5W PMX 750 MG in DEXTROSE/WATER 1 150ML.BAG IVPB SCH (14:55)
[2020-01-18] MEDS: METOPROLOL TARTRATE 12.5 MG TAB PO SCH ×2 (14:57→20:30)
[2020-01-18] MEDS ORDERED: AZITHROMYCIN 500 MG TAB PO SCH (16:00)
[2020-01-18 16:40] LABS: Glucose,Whole Blood 141 mg/dL (75-99)
[2020-01-18] MEDS: LACTULOSE 20 GM/30 ML CUP PO SCH (17:54)
[2020-01-18] MEDS: PIPERACILLIN-TAZOBACTAM 3.375 GM in SODIUM CHLORIDE 0.9% 100 ML IVPB SCH ×2 (17:54→23:10)
[2020-01-18 20:17] LABS: Glucose,Whole Blood 118 mg/dL (75-99)
[2020-01-18] MEDS: methylPREDNISolone SOD SUCCI 125 MG/2 ML VIAL IV SCH (20:30)
[2020-01-18] MEDS: PRAVASTATIN SODIUM 20 MG TAB PO SCH (20:30)
[2020-01-18] MEDS: LEVOTHYROXINE 88 MCG TAB PO SCH (20:30)
[2020-01-18] MEDS: BUDESONIDE 1 MG/2 ML NEBU INHALATION SCH (22:03)
[2020-01-19 06:49] LABS: Glucose,Whole Blood 124 mg/dL (75-99)
[2020-01-19 07:21] LABS: HCT 39.1 % (34.0-46.0); HGB 12.9 gm/dL (11.4-16.0); MCH 29.5 pg (25.0-35.0); MCHC 32.9 g/dL (31.0-37.0); MCV 89.7 fL (80.0-100.0); Mean Platelet Volume 7.5; Platelet Count 286 k/uL (150-450); RBC 4.36 m/uL (3.80-5.40); RDW 13.2 % (11.5-15.5); WBC 7.7 k/uL (3.8-10.6)
[2020-01-19] MEDS: INSULIN ASPART (NovoLOG) 100 UNIT/ML VIAL SQ SCH ×4 (07:21→21:02)
[2020-01-19 07:34] LABS: ALT 19 U/L (4-34); AST 20 U/L (14-36); African American GFR (CKD) >90 (>60 ml/min/1.73 sqM); Albumin 4.1 g/dL (3.5-5.0); Alkaline Phosphatase 112 U/L (38-126); Anion Gap 10 mmol/L; Blood Urea Nitrogen 15 mg/dL (7-17); Calcium 10.1 mg/dL (8.4-10.2); Carbon Dioxide 24 mmol/L (22-30); Chloride 104 mmol/L (98-107); Glucose 128 mg/dL (74-99); Non-African American GFR(CKD) >90 (>60 ml/min/1.73 sqM); Potassium 4.6 mmol/L (3.5-5.1); Sodium 138 mmol/L (137-145); Total Bilirubin 0.8 mg/dL (0.2-1.3); Total Protein 7.8 g/dL (6.3-8.2)
[2020-01-19] MEDS: methylPREDNISolone SOD SUCCI 125 MG/2 ML VIAL IV SCH ×2 (08:34→17:09)
[2020-01-19] MEDS: ARTIFICIAL TEARS-HYPROMELLOSE DROPS 15 ML BTL BOTH EYES SCH ×2 (08:34→20:31)
[2020-01-19] MEDS: PANTOPRAZOLE 40 MG TABLET PO SCH (08:38)
[2020-01-19] MEDS: GABAPENTIN 300 MG CAP PO SCH ×2 (08:38→20:31)
[2020-01-19] MEDS: METOPROLOL TARTRATE 12.5 MG TAB PO SCH ×2 (08:38→13:47)
[2020-01-19] MEDS: ENOXAPARIN 40 MG/0.4 ML SYRINGE SQ SCH (08:38)
[2020-01-19] MEDS: CITALOPRAM HYDROBROMIDE 20 MG TAB PO SCH (08:38)
[2020-01-19] MEDS: BUDESONIDE 1 MG/2 ML NEBU INHALATION SCH ×2 (08:38→20:30)
[2020-01-19] MEDS: guaiFENesin 600 MG TABLET.ER PO SCH ×2 (08:38→20:30)
[2020-01-19] MEDS: IPRATROPIUM-ALBUTEROL 3 ML NEB INHALATION SCH ×4 (08:38→20:30)
[2020-01-19] MEDS: FLUTICASONE 50MCG/SPRAY NASAL 16GM EA NOSTRIL SCH (08:39)
[2020-01-19] MEDS: PIPERACILLIN-TAZOBACTAM 3.375 GM in SODIUM CHLORIDE 0.9% 100 ML IVPB SCH ×2 (08:52→17:10)
[2020-01-19] MEDS: CHOLECALCIFEROL 1,000 UNIT TAB PO SCH (11:01)
[2020-01-19] MEDS: MULTIVITAMINS, THERA 1 EACH TAB PO SCH (11:02)
[2020-01-19 11:56] LABS: Glucose,Whole Blood 128 mg/dL (75-99)
[2020-01-19] MEDS ORDERED: PROPOFOL 10 MG/ML 20 ML VIAL IV ONE (12:43)
[2020-01-19] MEDS ORDERED: LIDOCAINE 1% INJ 10MG/ML (20 ML MDV) ONE (12:43)
[2020-01-19] MEDS ORDERED: IV FLUID CONTINUATION 900 ML IV ONE (12:47)
--- NOTE | 2020-01-19 13:15 | P.PCN ---
Date of Procedure: 01/19/20 Preoperative Diagnosis: Bilateral pneumonia1 Postoperative Diagnosis: 1 bilateral pneumonia 2 severe laryngitis 3 severe tracheitis 4 narrowing of the origin of the left mainstem bronchus due to malacia in addition to anatomic distortion related to kyphoscoliosis of the thoracic spine 5 mucous retention Procedure(s) Performed: Flexible bronchoscopy, bronchial alveolar lavage of the lower lobes Anesthesia: MAC Surgeon: Sun Sterling Roustabout Supervisor #1: Shania Cage Estimated Blood Loss (ml): 0 Pathology: other Condition: stable Disposition: floor Operative Findings: This procedure was done under conscious sedation with an anesthetic agent being admitted by anesthesia the bedside. After achieving adequate sedation, the flexible bronchoscope was introduced through the right nostril and was advanced into the upper airway. Examination of the posterior oropharynx was within normal limits. Examination of the larynx was done and there was evidence of laryngitis with the epiglottis, arytenoids and the vocal cords was significantly erythematous and inflamed and swollen. Nevertheless, the function of the vocal cord was within normal limits and there was normal abduction and adduction of the vocal cords. A total of 2 mL of 1% lidocaine was applied to the vocal cords and following that the flexible bronchoscope was advanced into the upper trachea. The subglottic trachea was severely inflamed circumferentially. The trachea was also inflamed and there was evidence of tracheitis. 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 The julianne the bilateral mainstem bronchi was anatomically distorted. This was probably related to underlying thoracolumbar kyphoscoliosis which was causing some narrowing of the origin of the left mainstem bronchus and along with dynamic obstruction from the membranous trachea there was episodic complete obstruction of the left mainstem bronchus patient with coughing maneuvers. There was mucus in the distal taken it was suctioned out. Airway inspection was completed. The bilateral mainstem bronchi were approached. Following that a complete airway examination was done. There was significant inflammatory changes of the airways in the lower lobes bilaterally both in the left and on the right. Therapeutic airway suctioning was done and the retained secretions were suctioned out. The segments were all washed out using saline with 20 mL of saline was infused in the right and 20 mL of saline was infused on the left and therapeutic airway suctioning and lavage of the lower lobes was done. After that was nonbloody. The airway inspection was completed. Right upper lobe bronchus was patent. Right middle lobe bronchus and right lower lobe bronchus was patent. Nevertheless all of these airways were quite inflamed and there was diffuse mucosa erythematous changes. Similar findings were seen on the left. Airways are patent including the left upper lobe bronchus, lingular segment and left lower lobe bronchus. All of the segments were inflamed mainly in the lower lobes. At the completion of the procedure, therapeutic airway suctioning was done and the bronchoscope was removed. The samples will be sent for microbial analysis. The patient did well during the procedure. She was tachycardic at the start of the procedure which improved with infusion of propofol. Currently she is still in some degree of sinus tachycardia with a heart rate is 80-110 and 120. No evidence of any hypotension. No hemodynamic instability. No oxygen desaturation. She did tolerate the procedure well. Appropriate photographs were taken. The patient will be sent back to her room for further antibiotic treatment.
--- NOTE | 2020-01-19 13:22 | P.PN ---
Subjective Progress Note Date: 01/19/20 A 69-year-old female patient who presented to the hospital because of increased cough and shortness of breath. Her symptoms have been going on for the past 2 weeks. She noted cough and greenish sputum production. She did develop a fever on the day of the admission to the ED. No chest pain. No pleurisy. No hemoptysis. No history of any COPD. No leg swelling. No angina. No palpitations. She does have history of hypertension, hyperlipidemia and hypothyroidism. She suffers from chronic spine disease with multiple surgeries to her back involving laminectomy and spinal fusions L3 through S1. She has osteoarthritis. She has difficulty with mobility and she moves around with the help of a cane. She does have chronic back pain. She came in with a white count of 9.1. Hemoglobin was at 13.4. Electrodes are all within normal limits. Influenza screen was negative for influenza A and influenza B the patient was started on broad-spectrum antibiotics. Any shows bilateral basilar infiltrates. There is obvious small lung volumes. The diaphragms are quite elevated bilaterally. There is kyphoscoliosis of the spine and the patient is post laminectomy involving the lumbar spine. The patient denies having any aspiration. No sick contacts. No travel history. On today's evaluation the patient is on oxygen at 2 L per minute nasal cannula. Her voice is coarse. She is struggling with her speech. She is also struggling with cough. Her cough is weak and she is unable to bring up adequate sputum. She remains on a combination of Rocephin and Zithromax. CAT scan of the chest was noted. CAT scan of the neck was noted. On examination, she has a significant thoracolumbar kyphoscoliosis also. Today's evaluation of 01/19/2020 the patient was seen in the endoscopy room. She was still having shortness of breath and she was having ongoing cough with inability to bring up any respiratory secretions. Furthermore, her voice has gotten worse where the patient is lost her voice completely. She was having difficulty with speech. She had been nothing by mouth pending bronchoscopy today. No fever or chills. No chest pain. She is on oxygen at 3 L per minute nasal cannula. She was switched a combination of Zosyn and Levaquin as broad- spectrum antibiotic coverage. His on all this, I performed a bronchoscopy. There is evidence of pneumonia in the lower lobes bilaterally. Lavage was done. I also identified evidence of laryngitis, tracheitis more so in the subglottic trachea in addition to some anatomic distortion of the trachea due to ky phoscoliosis of the chest and some mild degree of tracheal bronchomalacia. Please refer to the endoscopy/bronchoscopy note. Objective - Vital Signs Vital signs: Vital Signs Temp 97.6 F 01/19/20 08:00 Pulse 118 H 01/19/20 09:23 Resp 22 01/19/20 09:23 BP 163/92 01/19/20 08:00 Pulse Ox 96 01/19/20 08:40 Intake & Output 01/18/20 01/19/20 01/19/20 18:59 06:59 18:59 Intake Total 120 Balance 120 Intake: Oral 120 Other: Voiding Method Bedside Commode Bedside Commode # Voids 2 2 - Exam Gen. appearance the patient is having frequent coughing spells. Her voice is hoarse. She seems to be mild degree of respiratory distress. She is attempting to cough. She is unable to bring up any sputum. She has a very congested cough. No use of accessory muscles of breathing. She is currently on 3L of oxygen by nasal cannula. Head exam was generally normal. There was no scleral icterus or corneal arcus. Mucous membranes were moist. Neck was supple and without jugular venous distension, thyromegaly, or carotid bruits. Carotids were easily palpable bilaterally. There was no adenopathy. There is kyphosis of the cervical spine and thoracic spine Examination of the lungs shows crackles and rhonchi heard throughout the lung melgar bilaterally more so on the lower lobes and the patient has thoracic kyphosis and scoliosis. Breath sounds are quite diminished bilaterally. Cardiac exam revealed the PMI to be normally situated and sized. The rhythm was regular and no extrasystoles were noted during several minutes of auscultation. The first and second heart sounds were normal and physiologic splitting of the second heart sound was noted. There were no murmurs, rubs, clicks, or valencia Abdominal exam revealed normal bowel sounds. The abdomen was soft, non-tender, and without masses, organomegaly, or appreciable enlargement of the abdominal aorta. Examination of the extremities revealed easily palpable radial, femoral and pedal pulses. There was no cyanosis, clubbing or edema. Examination of the skin revealed no evidence of significant rashes, suspicious appearing nevi or other concerning lesions. Musculoskeletal the patient has thoracic and lumbar kyphoscoliosis in addition to a scar of previous surgery in the lower thoracic spine. She hasn't undergone previous/knee surgery/replacement on the left. Neurologically the patient is awake and alert. She has limited mobility due to her severe arthritis and back problems Psychiatric the patient is intact normal affect and mood. - Labs CBC & Chem 7: 01/19/20 06:27 01/19/20 06:27 Labs: Abnormal Lab Results - Last 24 Hours (Table) 01/18/20 01/18/20 01/19/20 Range/Units 16:37 20:15 06:27 Glucose 128 H (74-99) mg/dL POC Glucose (mg/dL) 141 H 118 H (75-99) mg/dL 01/19/20 01/19/20 Range/Units 06:46 11:55 Glucose (74-99) mg/dL POC Glucose (mg/dL) 124 H 128 H (75-99) mg/dL Microbiology - Last 24 Hours (Table) 01/17/20 12:32 Blood Culture - Preliminary Blood No Growth after 24 hours Assessment and Plan Plan: 1 acute bilateral lower lobe pneumonia. Consider aspiration pneumonia. Nevertheless, the patient's course has been complicated by development of acute hypoxic respiratory failure and significant respiratory distress as the patient has a weak cough and unable to generate enough force to expectorate her mucus. She does have possibly some underlying restrictive lung disease due to her thoracolumbar kyphoscoliosis. She has small lung volumes and the chest x-ray an d a CAT scan of the chest. Based on all this, I'll broaden the antibiotic coverage yesterday and the patient is currently on a combination of Zosyn and Levaquin. The bronchoscopy that was done today showed severe tracheitis, severe laryngitis, bilateral lower lobe pneumonia, mild tracheal bronchomalacia and narrowing of the origin of the left mainstem bronchus due to anatomic distortion related to kyphoscoliosis and tracheal bronchomalacia. The bronchioloalveolar lavage was done. , Currently on CPAP of oxygen by nasal cannula 2 acute hypoxic respiratory failure 3 acute hoarseness 4 dysphagia, consider aspiration 5 thoracolumbar kyphoscoliosis 6 lumbar spine fusion multilevel 7 hypothyroidism 8 osteoarthritis with previous knee and hip replacements 9 sciatica and chronic back pain and weakness in lower extremities 10 frequent UTIs 11 history of chronic constipation 12 history of mitral valve prolapse 13 hyperlipidemia 14 hypertension Plan Continue this patient on Zosyn and Levaquin Titrate FiO2 to maintain a saturation above 90% Provide an incentive spirometer We will be awaiting the results of the bronchioloalveolar lavage and based on that will make further antibiotic adjustments. Bronchodilators [id number] Swallow evaluation We'll continue to follow.
[2020-01-19] MEDS ORDERED: METOPROLOL TARTRATE 25 MG TAB PO STA (13:53)
--- NOTE | 2020-01-19 13:55 | P.PN ---
Subjective Progress Note Date: 01/19/20 This is a 69-year-old female patient of Dr. García past medical history of hypertension, hyperlipidemia, osteoarthritis, hypothyroidism, chronic back pain status post lumbar fusion 6 years ago with peripheral neuropathy. Patient has an appointment scheduled for Dr. García today and this was for preop clearance for right knee arthroplasty which is scheduled for February 12. Patient gives history of having cough started 2 weeks ago and then and difficulty breathing for the past 1 week. She has green sputum production and yesterday she developed a fever. Patient also gives history of weight loss of 23 pounds since October. She complains of hoarseness that she has had since September after being treated for bronchitis. She denies any blood in her stools, no tarry stools. No hematuria. She states she has had decreased appetite. She states she is up-to-date on pneumonia and influenza vaccine. She states she tried to take Mucinex at home without any improvement. Patient came into [facility] emergency center for evaluation. She was afebrile, blood pressure 147/114 initially with a heart rate of 121, pulse ox 93% on room air. Initial EKG is sinus tachycardia. CBC was normal, d- dimer 0.52, creatinine 0.64, blood sugar 121. Electrolytes and liver function test normal, creatinine 0.012, influenza testing was negative. She underwent a chest x-ray that showed posterior left basilar atelectasis versus pneumonia. Repeat chest x-ray this morning reveals worsening bibasilar infiltrates. Patient minutes to the [facility] floor and consult with pulmonary medicine. 01/19: The patient is scheduled for bronchoscopy today with Dr. Sterling. CAT scan of the chest and soft tissue neck showed correlate for sinusitis. Bibasilar infiltrates. Correlate for atelectasis and pneumonia. The patient denies having any fever or chills. Heart rate 106, pulse ox 96% on 3 L nasal cannula, blood pressure 163/92. CBC is unremarkable electrolytes renal function and liver function tests are within normal limits. Blood sugars running between 118-128. Blood culture no growth at 24 hours. Objective - Vital Signs Vital signs: Vital Signs Temp 97.6 F 01/19/20 08:00 Pulse 118 H 01/19/20 09:23 Resp 22 01/19/20 09:23 BP 163/92 01/19/20 08:00 Pulse Ox 96 01/19/20 08:40 Intake & Output 01/18/20 01/19/20 01/19/20 18:59 06:59 18:59 Intake Total 120 Balance 120 Intake: Oral 120 Other: Voiding Method Bedside Commode Bedside Commode # Voids 2 2 - Exam Review of Systems Constitutional: Reports fatigue, Reports poor appetite, Reports weakness, Reports weight loss, Denies chills, Denies fever Eyes: denies blurred vision, denies pain Ears, nose, mouth and throat: Reports headache, Reports hoarseness, Reports nasal congestion, Reports sinus pain, Reports sinus pressure, Denies dysphagia, Denies sore throat Cardiovascular: Reports decreased exercise tolerance, Reports dyspnea on exertion, Reports shortness of breath unchanged, Denies edema, Denies leg edema, Denies lightheadedness, Denies syncope Respiratory: Reports cough, Reports cough with sputum, Reports dyspnea, Reports respiratory infections, Reports wheezing, Denies excessive sputum, Denies hemoptysis, Denies home oxygen, Denies sleep apnea Gastrointestinal: Reports abdominal pain, Reports loss of appetite, Denies change in bowel habits, Denies hematemesis, Denies hematochezia, Denies melena, Denies nausea, Denies vomiting Genitourinary: Denies dysuria, Denies hematuria, Denies urgency, Denies urinary frequency Musculoskeletal: Denies frequent falls, Denies gait dysfunction, Denies muscle weakness, Denies myalgias Integumentary: Denies pruritus, Denies rash, Denies wounds Neurological: Denies change in mentation, Denies change in speech, Denies numbness, Denies weakness Psychiatric: Denies anxiety, Denies depression Endocrine: Denies fatigue, Denies weight change Physical exam: Gen: This is a 69-year-old female. Patient is sitting up in bed and appears to be comfortable at rest. HEENT: Head is atraumatic, normocephalic. Pupils equal, round. Sclerae is anicteric. NECK: Supple. No JVD. No lymphadenopathy. No thyromegaly. LUNGS: Diminished bilateral bases with scattered rhonchi and expiratory wheeze. No intercostal retractions. HEART: Regular rate and rhythm. No murmur. ABDOMEN: Soft. Bowel sounds are present. No masses. No tenderness. EXTREMITIES: No pedal edema. No calf tenderness. Dorsalis pedis +2 bilaterally. NEUROLOGICAL: Patient is awake, alert and oriented x3. Cranial nerves 2 through 12 are grossly intact. - Labs CBC & Chem 7: 01/19/20 06:27 01/19/20 06:27 Labs: Abnormal Lab Results - Last 24 Hours (Table) 01/18/20 01/18/20 01/18/20 Range/Units 11:42 16:37 20:15 Glucose (74-99) mg/dL POC Glucose (mg/dL) 117 H 141 H 118 H (75-99) mg/dL 01/19/20 01/19/20 Range/Units 06:27 06:46 Glucose 128 H (74-99) mg/dL POC Glucose (mg/dL) 124 H (75-99) mg/dL Microbiology - Last 24 Hours (Table) 01/17/20 12:32 Blood Culture - Preliminary Blood No Growth after 24 hours Assessment and Plan Plan: 1. Acute hypoxic respiratory failure secondary to bilateral pneumonia. Patient is on azithromycin and ceftriaxone. Continue DuoNeb treatments, and Solu-Medrol 60 mg every 12 hours, Mucinex twice daily, Pulmicort 1 mg twice daily, Robitussin with codeine as needed, Flonase twice daily. CT of the chest as above. Continue IV fluids for now secondary to IV dye. Sputum culture to be obtained. Bronchoscopy scheduled for this afternoon. 2. Hypertension with tachycardia on presentation. Additional dose of Lopressor 25 mg now and increase to 25 mg twice daily. 3. Hoarseness since September 2019. CAT scan of the soft tissue neck ordered. 4. Chronic low back pain and peripheral. Continue gabapentin 300 mg the morning 600 and evening, Ririe 10 daily as needed. 5. Hyperlipidemia. Continue pravastatin 20 mg at bedtime. 6. Generalized anxiety disorder. Continue Xanax to 0.25 mg twice daily as needed, Celexa 20 mg daily. 7. Hypothyroidism. Continue levothyroxine 88 g at bedtime. Check TSH and free T4. 8. Weight loss of 23 pounds since October of unclear etiology. CT of the chest ordered. 9. GI prophylaxis. Protonix. 10. DVT prophylaxis. Lovenox. CODE STATUS: Full code Discharge plan: Most likely return home. Impression and plan of care have been directed as dictated by the signing physician. Delmy Andersen nurse practitioner acting as scribe for signing physician.
[2020-01-19] MEDS ORDERED: METOPROLOL TARTRATE 12.5 MG TAB PO STA (14:35)
[2020-01-19] MEDS ORDERED: LISINOPRIL 10 MG TAB PO SCH (14:45)
[2020-01-19] MEDS: LEVOFLOXACIN 750MG-D5W PMX 750 MG in DEXTROSE/WATER 1 150ML.BAG IVPB SCH (14:48)
[2020-01-19 16:16] LABS: Appearance,BF Cloudy
[2020-01-19 16:17] LABS: Nucleated Cells, Body Fluid 2415 /uL; RBC, Body Fluid 230 /uL
[2020-01-19 16:18] LABS: Mononuclear WBC,Body Fluid 21 %; Polynuclear WBC,Body Fluid 79 %; Total Cells Counted,Body Fluid 100
[2020-01-19 16:54] LABS: Glucose,Whole Blood 119 mg/dL (75-99)
[2020-01-19] MEDS ORDERED: cloNIDine HCL 0.1 MG TAB PO PRN (19:44)
[2020-01-19] MEDS: LEVOTHYROXINE 88 MCG TAB PO SCH (20:30)
[2020-01-19] MEDS: METOPROLOL TARTRATE 25 MG TAB PO SCH (20:30)
[2020-01-19] MEDS: LISINOPRIL 20 MG TAB PO SCH (20:30)
[2020-01-19] MEDS: PRAVASTATIN SODIUM 20 MG TAB PO SCH (20:30)
[2020-01-19 20:35] LABS: Glucose,Whole Blood 141 mg/dL (75-99)
[2020-01-19] MEDS: LACTULOSE 20 GM/30 ML CUP PO SCH (20:35)
[2020-01-19] MEDS: HYDROcodone/APAP 10-325MG 1 EACH TAB PO PRN (22:04)
[2020-01-19] MEDS: ALPRAZolam 0.25 MG TAB PO PRN (22:04)
[2020-01-20] MEDS: methylPREDNISolone SOD SUCCI 125 MG/2 ML VIAL IV SCH ×5 (00:54→23:55)
[2020-01-20] MEDS: PIPERACILLIN-TAZOBACTAM 3.375 GM in SODIUM CHLORIDE 0.9% 100 ML IVPB SCH ×4 (00:54→23:55)
[2020-01-20 06:59] LABS: Glucose,Whole Blood 134 mg/dL (75-99)
[2020-01-20] MEDS: LISINOPRIL 20 MG TAB PO SCH (08:15)
[2020-01-20] MEDS: INSULIN ASPART (NovoLOG) 100 UNIT/ML VIAL SQ SCH ×4 (08:15→20:14)
[2020-01-20] MEDS: GABAPENTIN 300 MG CAP PO SCH ×2 (08:16→20:13)
[2020-01-20] MEDS: MULTIVITAMINS, THERA 1 EACH TAB PO SCH (08:16)
[2020-01-20] MEDS: ENOXAPARIN 40 MG/0.4 ML SYRINGE SQ SCH (08:16)
[2020-01-20] MEDS: PANTOPRAZOLE 40 MG TABLET PO SCH ×2 (08:16→17:06)
[2020-01-20] MEDS: METOPROLOL TARTRATE 25 MG TAB PO SCH ×2 (08:16→20:14)
[2020-01-20] MEDS: CITALOPRAM HYDROBROMIDE 20 MG TAB PO SCH (08:16)
[2020-01-20] MEDS: CHOLECALCIFEROL 1,000 UNIT TAB PO SCH (08:16)
[2020-01-20] MEDS: guaiFENesin 600 MG TABLET.ER PO SCH ×2 (08:16→20:14)
[2020-01-20] MEDS: BUDESONIDE 1 MG/2 ML NEBU INHALATION SCH ×2 (08:58→20:47)
[2020-01-20] MEDS: IPRATROPIUM-ALBUTEROL 3 ML NEB INHALATION SCH ×4 (08:58→20:47)
[2020-01-20] MEDS: ARTIFICIAL TEARS-HYPROMELLOSE DROPS 15 ML BTL BOTH EYES SCH ×2 (10:09→20:15)
[2020-01-20] MEDS: FLUTICASONE 50MCG/SPRAY NASAL 16GM EA NOSTRIL SCH (10:09)
[2020-01-20 11:26] VITALS: BMI 25.8
[2020-01-20 11:30] LABS: Glucose,Whole Blood 163 mg/dL (75-99)
--- NOTE | 2020-01-20 12:15 | P.PN ---
Subjective Progress Note Date: 01/20/20 A 69-year-old female patient who presented to the hospital because of increased cough and shortness of breath. Her symptoms have been going on for the past 2 weeks. She noted cough and greenish sputum production. She did develop a fever on the day of the admission to the ED. No chest pain. No pleurisy. No hemoptysis. No history of any COPD. No leg swelling. No angina. No palpitations. She does have history of hypertension, hyperlipidemia and hypothyroidism. She suffers from chronic spine disease with multiple surgeries to her back involving laminectomy and spinal fusions L3 through S1. She has osteoarthritis. She has difficulty with mobility and she moves around with the help of a cane. She does have chronic back pain. She came in with a white count of 9.1. Hemoglobin was at 13.4. Electrodes are all within normal limits. Influenza screen was negative for influenza A and influenza B the patient was started on broad-spectrum antibiotics. Any shows bilateral basilar infiltrates. There is obvious small lung volumes. The diaphragms are quite elevated bilaterally. There is kyphoscoliosis of the spine and the patient is post laminectomy involving the lumbar spine. The patient denies having any aspiration. No sick contacts. No travel history. On today's evaluation the patient is on oxygen at 2 L per minute nasal cannula. Her voice is coarse. She is struggling with her speech. She is also struggling with cough. Her cough is weak and she is unable to bring up adequate sputum. She remains on a combination of Rocephin and Zithromax. CAT scan of the chest was noted. CAT scan of the neck was noted. On examination, she has a significant thoracolumbar kyphoscoliosis also. Today's evaluation of 01/19/2020 the patient was seen in the endoscopy room. She was still having shortness of breath and she was having ongoing cough with inability to bring up any respiratory secretions. Furthermore, her voice has gotten worse where the patient is lost her voice completely. She was having difficulty with speech. She had been nothing by mouth pending bronchoscopy today. No fever or chills. No chest pain. She is on oxygen at 3 L per minute nasal cannula. She was switched a combination of Zosyn and Levaquin as broad- spectrum antibiotic coverage. His on all this, I performed a bronchoscopy. There is evidence of pneumonia in the lower lobes bilaterally. Lavage was done. I also identified evidence of laryngitis, tracheitis more so in the subglottic trachea in addition to some anatomic distortion of the trachea due to kyphoscoliosis of the chest and some mild degree of tracheal bronchomalacia. Please refer to the endoscopy/bronchoscopy note. The patient is seen today January 20 2020 in follow-up on the regular medical floor. She is currently resting comfortably in bed. Awake and alert in no acute distress. Breathing quite a bit better today compared to yesterday. Her voice is a bit stronger. She did undergo bronchoscopy with BAL yesterday, results are pending. She was noted to have very inflamed vocal cords and tracheitis. She is maintaining good O2 saturations in the 90s on room air. She's been afebrile. Hemodynamically stable. She is continued on Zosyn and Levaquin for now. She'll also be initiated on PPIs twice a day. Objective - Vital Signs Vital signs: Vital Signs Temp 98.1 F 01/20/20 07:00 Pulse 88 01/20/20 09:16 Resp 16 01/20/20 07:00 BP 144/80 01/20/20 07:00 Pulse Ox 95 01/20/20 09:01 Intake & Output 01/19/20 01/20/20 01/20/20 18:59 06:59 18:59 Intake Total 400 Balance 400 Weight 74.843 kg Intake: IV 400 Other: Voiding Method Bedside Commode Bedside Commode # Voids 2 1 - Exam GENERAL EXAM: Alert, active, pleasant 69-year-old female patient, on room air, comfortable in no apparent distress. HEAD: Normocephalic. EYES: Normal reaction of pupils, equal size. NOSE: Clear with pink turbinates. THROAT: Hoarseness. Positive erythema. NECK: No masses, no JVD. CHEST: No chest wall deformity. LUNGS: Equal air entry with few scattered rhonchi. CVS: S1 and S2 normal with no audible murmur, regular rhythm. ABDOMEN: No hepatosplenomegaly, normal bowel sounds, no guarding or rigidity. SPINE: No scoliosis or deformity SKIN: No rashes CENTRAL NERVOUS SYSTEM: No focal deficits, tone is normal in all 4 extremities. EXTREMITIES: There is no peripheral edema. No clubbing, no cyanosis. Peripheral pulses are intact. - Labs CBC & Chem 7: 01/19/20 06:27 01/19/20 06:27 Labs: Abnormal Lab Results - Last 24 Hours (Table) 01/19/20 01/19/20 01/20/20 Range/Units 16:52 20:33 06:58 POC Glucose (mg/dL) 119 H 141 H 134 H (75-99) mg/dL 01/20/20 Range/Units 11:29 POC Glucose (mg/dL) 163 H (75-99) mg/dL Microbiology - Last 24 Hours (Table) 01/19/20 13:00 Gram Stain - Preliminary Bronchoalviolar Lavage - Right Bronchial Washings Culture - Preliminary 01/19/20 13:00 Acid Fast Bacilli Culture - Preliminary Bronchoalviolar Lavage - Right 01/19/20 13:00 Fungal Culture - Preliminary Bronchoalviolar Lavage - Right 01/17/20 12:32 Blood Culture - Preliminary Blood No Growth after 48 hours Assessment and Plan Assessment: 1 acute bilateral lower lobe pneumonia. Consider aspiration pneumonia. Nevertheless, the patient's course has been complicated by development of acute hypoxic respiratory failure and significant respiratory distress as the patient has a weak cough and unable to generate enough force to expectorate her mucus. She does have possibly some underlying restrictive lung disease due to her thoracolumbar kyphoscoliosis. She has small lung volumes and the chest x-ray and a CAT scan of the chest. The patient is currently on a combination of Zosyn and Levaquin. The bronchoscopy that was done on 01/19/2020 showed severe tracheitis, severe laryngitis, bilateral lower lobe pneumonia, mild tracheal bronchomalacia and narrowing of the origin of the left mainstem bronchus due to anatomic distortion related to kyphoscoliosis and tracheal bronchomalacia. The bronchioloalveolar lavage was done. , Currently on CPAP of oxygen by nasal cannula 2 acute hypoxic respiratory failure 3 acute hoarseness 4 dysphagia, consider aspiration 5 thoracolumbar kyphoscoliosis 6 lumbar spine fusion multilevel 7 hypothyroidism 8 osteoarthritis with previous knee and hip replacements 9 sciatica and chronic back pain and weakness in lower extremities 10 frequent UTIs 11 history of chronic constipation 12 history of mitral valve prolapse 13 hyperlipidemia 14 hypertension Plan Patient was seen and evaluated by Dr. Sterling. She is continued on Zosyn and Levaquin. Bronchial wash cultures cultures pending. Initiated on PPIs twice a day She is improved today compared to yesterday. We'll continue to follow. I, the cosigning physician, performed a history & physical examination of the patient. Lungs sounds with few scattered rhonchi. Maintaining good O2 saturations in the 90s on room air. I discussed the assessment and plan of care with my nurse practitioner, Shania Cage. I attest to the above note as dictated by her.
--- NOTE | 2020-01-20 12:46 | P.PN ---
Subjective Progress Note Date: 01/20/20 This is a 69-year-old female patient of Dr. García past medical history of hypertension, hyperlipidemia, osteoarthritis, hypothyroidism, chronic back pain status post lumbar fusion 6 years ago with peripheral neuropathy. Patient has an appointment scheduled for Dr. García today and this was for preop clearance for right knee arthroplasty which is scheduled for February 12. Patient gives history of having cough started 2 weeks ago and then and difficulty breathing for the past 1 week. She has green sputum production and yesterday she developed a fever. Patient also gives history of weight loss of 23 pounds since October. She complains of hoarseness that she has had since September after being treated for bronchitis. She denies any blood in her stools, no tarry stools. No hematuria. She states she has had decreased appetite. She states she is up-to-date on pneumonia and influenza vaccine. She states she tried to take Mucinex at home without any improvement. Patient came into [facility] emergency center for evaluation. She was afebrile, blood pressure 147/114 initially with a heart rate of 121, pulse ox 93% on room air. Initial EKG is sinus tachycardia. CBC was normal, d- dimer 0.52, creatinine 0.64, blood sugar 121. Electrolytes and liver function test normal, creatinine 0.012, influenza testing was negative. She underwent a chest x-ray that showed posterior left basilar atelectasis versus pneumonia. Repeat chest x-ray this morning reveals worsening bibasilar infiltrates. Patient minutes to the [facility] floor and consult with pulmonary medicine. 01/19: The patient is scheduled for bronchoscopy today with Dr. Sterling. CAT scan of the chest and soft tissue neck showed correlate for sinusitis. Bibasilar infiltrates. Correlate for atelectasis and pneumonia. The patient denies having any fever or chills. Heart rate 106, pulse ox 96% on 3 L nasal cannula, blood pressure 163/92. CBC is unremarkable electrolytes renal function and liver function tests are within normal limits. Blood sugars running between 118-128. Blood culture no growth at 24 hours. 01/20: Patient has been afebrile, heart rate 88, pulse ox 95% on room air, blood pressure 144/80. Patient underwent bronchoscopy yesterday with Dr. Sterling that revealed bilateral pneumonia, severe laryngitis, severe trachitis, narrowing of the origin of the left mainstem bronchus due to malacia in addition to anatomic distortion related to kyphoscoliosis of the thoracic spine, mucous retention. Pathology and cultures are pending. Patient states her breathing is much better today even hoarseness is slightly better. Protein tonics has been increased to twice daily. She is continued on Zosyn and Levaquin. Objective - Vital Signs Vital signs: Vital Signs Temp 97.9 F 01/20/20 01:21 Pulse 88 01/20/20 09:16 Resp 15 01/20/20 01:21 BP 125/73 01/20/20 01:21 Pulse Ox 95 01/20/20 09:01 Intake & Output 01/19/20 01/20/20 01/20/20 18:59 06:59 18:59 Intake Total 400 Balance 400 Intake: IV 400 Other: Voiding Method Bedside Commode Bedside Commode # Voids 2 1 - Exam Review of Systems Constitutional: Reports fatigue, Reports poor appetite, Reports weakness, Reports weight loss, Denies chills, Denies fever Eyes: denies blurred vision, denies pain Ears, nose, mouth and throat: Reports headache, Reports hoarseness, Reports nasal congestion, Reports sinus pain, Reports sinus pressure, Denies dysphagia, Denies sore throat Cardiovascular: Reports decreased exercise tolerance, Reports dyspnea on exertion, Reports shortness of breath unchanged, Denies edema, Denies leg edema, Denies lightheadedness, Denies syncope Respiratory: Reports cough, Reports cough with sputum, Reports dyspnea, Reports respiratory infections, Reports wheezing, Denies excessive sputum, Denies hemoptysis, Denies home oxygen, Denies sleep apnea Gastrointestinal: Reports abdominal pain, Reports loss of appetite, Denies change in bowel habits, Denies hematemesis, Denies hematochezia, Denies melena, Denies nausea, Denies vomiting Genitourinary: Denies dysuria, Denies hematuria, Denies urgency, Denies urinary frequency Musculoskeletal: Denies frequent falls, Denies gait dysfunction, Denies muscle weakness, Denies myalgias Integumentary: Denies pruritus, Denies rash, Denies wounds Neurological: Denies change in mentation, Denies change in speech, Denies numbness, Denies weakness Psychiatric: Denies anxiety, Denies depression Endocrine: Denies fatigue, Denies weight change Physical exam: Gen: This is a 69-year-old female. Patient is sitting up in chair and appears to be comfortable at rest. Less coughing noted. HEENT: Head is atraumatic, normocephalic. Pupils equal, round. Sclerae is anicteric. NECK: Supple. No JVD. No lymphadenopathy. No thyromegaly. LUNGS: Diminished bilateral bases with few scattered rhonchi. No intercostal retractions. HEART: Regular rate and rhythm. No murmur. ABDOMEN: Soft. Bowel sounds are present. No masses. No tenderness. EXTREMITIES: No pedal edema. No calf tenderness. Dorsalis pedis +2 bilaterally. NEUROLOGICAL: Patient is awake, alert and oriented x3. Cranial nerves 2 through 12 are grossly intact. - Labs CBC & Chem 7: 01/19/20 06:27 01/19/20 06:27 Labs: Abnormal Lab Results - Last 24 Hours (Table) 01/19/20 01/19/20 01/19/20 Range/Units 11:55 16:52 20:33 POC Glucose (mg/dL) 128 H 119 H 141 H (75-99) mg/dL 01/20/20 Range/Units 06:58 POC Glucose (mg/dL) 134 H (75-99) mg/dL Microbiology - Last 24 Hours (Table) 01/19/20 13:00 Gram Stain - Preliminary Bronchoalviolar Lavage - Right Bronchial Washings Culture - Preliminary 01/19/20 13:00 Acid Fast Bacilli Culture - Preliminary Bronchoalviolar Lavage - Right 01/19/20 13:00 Fungal Culture - Preliminary Bronchoalviolar Lavage - Right 01/17/20 12:32 Blood Culture - Preliminary Blood No Growth after 48 hours Assessment and Plan Plan: 1. Acute hypoxic respiratory failure secondary to bilateral pneumonia. Patient is on azithromycin and ceftriaxone. Continue DuoNeb treatments, and Solu-Medrol 60 mg every 12 hours, Mucinex twice daily, Pulmicort 1 mg twice daily, R obitussin with codeine as needed, Flonase twice daily. CT of the chest as above. Continue IV fluids for now secondary to IV dye. Sputum culture to be obtained. Bronchoscopy as above. Cultures and cytology pending. 2. Hypertension with tachycardia on presentation. Additional dose of Lopressor 25 mg now and increase to 25 mg twice daily. 3. Hoarseness since September 2019. CAT scan of the soft tissue neck without abnormality. 4. Chronic low back pain and peripheral. Continue gabapentin 300 mg the morning 600 and evening, [place] 10 daily as needed. 5. Hyperlipidemia. Continue pravastatin 20 mg at bedtime. 6. Generalized anxiety disorder. Continue Xanax to 0.25 mg twice daily as needed, Celexa 20 mg daily. 7. Hypothyroidism. Continue levothyroxine 88 g at bedtime. Check TSH and free T4. 8. Weight loss of 23 pounds since October of unclear etiology. CT of the chest ordered. 9. GI prophylaxis. Protonix. 10. DVT prophylaxis. Lovenox. CODE STATUS: Full code Discharge plan: Most likely return home. Impression and plan of care have been directed as dictated by the signing physician. Delmy Andersen nurse practitioner acting as scribe for signing physician.
[2020-01-20] MEDS: LEVOFLOXACIN 750MG-D5W PMX 750 MG in DEXTROSE/WATER 1 150ML.BAG IVPB SCH (14:05)
[2020-01-20 16:46] LABS: Glucose,Whole Blood 130 mg/dL (75-99)
[2020-01-20 20:03] LABS: Glucose,Whole Blood 144 mg/dL (75-99)
[2020-01-20] MEDS: PRAVASTATIN SODIUM 20 MG TAB PO SCH (20:13)
[2020-01-20] MEDS: LACTULOSE 20 GM/30 ML CUP PO SCH (20:13)
[2020-01-20] MEDS: LEVOTHYROXINE 88 MCG TAB PO SCH (20:14)
[2020-01-20] MEDS: HYDROcodone/APAP 10-325MG 1 EACH TAB PO PRN (22:39)
[2020-01-20] MEDS: ALPRAZolam 0.25 MG TAB PO PRN (22:39)
[2020-01-21] MEDS: methylPREDNISolone SOD SUCCI 125 MG/2 ML VIAL IV SCH ×3 (05:10→17:01)
[2020-01-21 06:55] LABS: Glucose,Whole Blood 121 mg/dL (75-99)
[2020-01-21] MEDS: INSULIN ASPART (NovoLOG) 100 UNIT/ML VIAL SQ SCH ×4 (06:57→21:06)
[2020-01-21] MEDS: LISINOPRIL 20 MG TAB PO SCH (07:54)
[2020-01-21] MEDS: CITALOPRAM HYDROBROMIDE 20 MG TAB PO SCH (07:54)
[2020-01-21] MEDS: GABAPENTIN 300 MG CAP PO SCH ×2 (07:54→21:06)
[2020-01-21] MEDS: CHOLECALCIFEROL 1,000 UNIT TAB PO SCH (07:54)
[2020-01-21] MEDS: MULTIVITAMINS, THERA 1 EACH TAB PO SCH (07:54)
[2020-01-21] MEDS: guaiFENesin 600 MG TABLET.ER PO SCH ×2 (07:55→21:06)
[2020-01-21] MEDS: PIPERACILLIN-TAZOBACTAM 3.375 GM in SODIUM CHLORIDE 0.9% 100 ML IVPB SCH ×2 (07:55→17:01)
[2020-01-21] MEDS: PANTOPRAZOLE 40 MG TABLET PO SCH ×2 (07:55→17:01)
[2020-01-21] MEDS: METOPROLOL TARTRATE 25 MG TAB PO SCH ×2 (07:55→21:06)
[2020-01-21] MEDS: ENOXAPARIN 40 MG/0.4 ML SYRINGE SQ SCH (07:55)
[2020-01-21] MEDS: FLUTICASONE 50MCG/SPRAY NASAL 16GM EA NOSTRIL SCH (07:55)
[2020-01-21] MEDS: ARTIFICIAL TEARS-HYPROMELLOSE DROPS 15 ML BTL BOTH EYES SCH ×2 (07:56→21:05)
[2020-01-21] MEDS: BUDESONIDE 1 MG/2 ML NEBU INHALATION SCH ×2 (08:03→17:58)
[2020-01-21] MEDS: IPRATROPIUM-ALBUTEROL 3 ML NEB INHALATION SCH ×4 (08:03→21:43)
--- NOTE | 2020-01-21 10:45 | P.PN ---
Subjective Progress Note Date: 01/21/20 This is a 69-year-old female patient of Dr. García past medical history of hypertension, hyperlipidemia, osteoarthritis, hypothyroidism, chronic back pain status post lumbar fusion 6 years ago with peripheral neuropathy. Patient has an appointment scheduled for Dr. García today and this was for preop clearance for right knee arthroplasty which is scheduled for February 12. Patient gives history of having cough started 2 weeks ago and then and difficulty breathing for the past 1 week. She has green sputum production and yesterday she developed a fever. Patient also gives history of weight loss of 23 pounds since October. She complains of hoarseness that she has had since September after being treated for bronchitis. She denies any blood in her stools, no tarry stools. No hematuria. She states she has had decreased appetite. She states she is up-to-date on pneumonia and influenza vaccine. She states she tried to take Mucinex at home without any improvement. Patient came into [facility] emergency center for evaluation. She was afebrile, blood pressure 147/114 initially with a heart rate of 121, pulse ox 93% on room air. Initial EKG is sinus tachycardia. CBC was normal, d- dimer 0.52, creatinine 0.64, blood sugar 121. Electrolytes and liver function test normal, creatinine 0.012, influenza testing was negative. She underwent a chest x-ray that showed posterior left basilar atelectasis versus pneumonia. Repeat chest x-ray this morning reveals worsening bibasilar infiltrates. Patient minutes to the [facility] floor and consult with pulmonary medicine. 01/19: The patient is scheduled for bronchoscopy today with Dr. Sterling. CAT scan of the chest and soft tissue neck showed correlate for sinusitis. Bibasilar infiltrates. Correlate for atelectasis and pneumonia. The patient denies having any fever or chills. Heart rate 106, pulse ox 96% on 3 L nasal cannula, blood pressure 163/92. CBC is unremarkable electrolytes renal function and liver function tests are within normal limits. Blood sugars running between 118-128. Blood culture no growth at 24 hours. 01/20: Patient has been afebrile, heart rate 88, pulse ox 95% on room air, blood pressure 144/80. Patient underwent bronchoscopy yesterday with Dr. Sterling that revealed bilateral pneumonia, severe laryngitis, severe trachitis, narrowing of the origin of the left mainstem bronchus due to malacia in addition to anatomic distortion related to kyphoscoliosis of the thoracic spine, mucous retention. Pathology and cultures are pending. Patient states her breathing is much better today even hoarseness is slightly better. Protein tonics has been increased to twice daily. She is continued on Zosyn and Levaquin. 01/21: Patient states that she only slept 3 hours last night and is sleepy today. She continues to have decreased appetite. Hoarseness is continued possibly slightly better since admission. Patient has been afebrile, heart rate 98, blood pressure 147/82, pulse ox 96% on 2 L nasal cannula. Blood sugars running between 122 and 144. Bronchial cultures and cytology in progress. Patient is continued on Zosyn and Levaquin. Protonix increased to twice daily yesterday. Patient has been seen by speech therapy and no concern for aspiration. Objective - Vital Signs Vital signs: Vital Signs Temp 98.0 F 01/21/20 07:00 Pulse 94 01/21/20 08:20 Resp 16 01/21/20 07:00 BP 147/82 01/21/20 07:00 Pulse Ox 95 01/21/20 08:06 Intake & Output 01/20/20 01/21/20 01/21/20 18:59 06:59 18:59 Intake Total 100 Balance 100 Weight 74.843 kg Intake: IV 100 Piperacillin-Tazobactam 3 100 .375 gm In Sodium Chloride 0.9% 100 ml @ 25 mls/hr IVPB Q8HR [facility] Rx# :[id number] Other: Voiding Method Bedside Commode # Voids 1 # Bowel Movements 1 1 - Exam Review of Systems Constitutional: Reports fatigue, Reports poor appetite, Reports weakness, Reports weight loss, Denies chills, Denies fever Eyes: denies blurred vision, denies pain Ears, nose, mouth and throat: Reports headache, Reports hoarseness, Reports nasal congestion, Reports sinus pain, Reports sinus pressure, Denies dysphagia, Denies sore throat Cardiovascular: Reports decreased exercise tolerance, Reports dyspnea on exertion, Reports shortness of breath improving, Denies edema, Denies leg edema, Denies lightheadedness, Denies syncope Respiratory: Reports cough, Reports cough with sputum, Reports dyspnea, Reports respiratory infections, Reports wheezing, Denies excessive sputum, Denies hemoptysis, Denies home oxygen, Denies sleep apnea Gastrointestinal: Reports abdominal pain, Reports loss of appetite, Denies change in bowel habits, Denies hematemesis, Denies hematochezia, Denies melena, Denies nausea, Denies vomiting Genitourinary: Denies dysuria, Denies hematuria, Denies urgency, Denies urinary frequency Musculoskeletal: Denies frequent falls, Denies gait dysfunction, Denies muscle weakness, Denies myalgias Integumentary: Denies pruritus, Denies rash, Denies wounds Neurological: Denies change in mentation, Denies change in speech, Denies numbness, Denies weakness Psychiatric: Denies anxiety, Denies depression Endocrine: Denies fatigue, Denies weight change Physical exam: Gen: This is a 69-year-old female. Patient is sitting up in chair and appears to be comfortable at rest. Less coughing noted. HEENT: Head is atraumatic, normocephalic. Pupils equal, round. Sclerae is anicteric. NECK: Supple. No JVD. No lymphadenopathy. No thyromegaly. LUNGS: Scattered rhonchi. No wheezing. No intercostal retractions. HEART: Regular rate and rhythm. No murmur. ABDOMEN: Soft. Bowel sounds are present. No masses. No tenderness. EXTREMITIES: No pedal edema. No calf tenderness. Dorsalis pedis +2 bilaterally. NEUROLOGICAL: Patient is awake, alert and oriented x3. Cranial nerves 2 through 12 are grossly intact. - Labs CBC & Chem 7: 01/19/20 06:27 01/19/20 06:27 Labs: Abnormal Lab Results - Last 24 Hours (Table) 01/20/20 01/20/20 01/20/20 Range/Units 11:29 16:45 20:01 POC Glucose (mg/dL) 163 H 130 H 144 H (75-99) mg/dL 01/21/20 Range/Units 06:54 POC Glucose (mg/dL) 121 H (75-99) mg/dL Microbiology - Last 24 Hours (Table) 01/19/20 13:00 Acid Fast Bacilli Smear - Final Bronchoalviolar Lavage - Right Acid Fast Bacilli Culture - Preliminary 01/17/20 12:32 Blood Culture - Preliminary Blood No Growth after 72 hours Assessment and Plan Plan: 1. Acute hypoxic respiratory failure secondary to bilateral pneumonia. Patient is on azithromycin and ceftriaxone. Continue DuoNeb treatments, and Solu-Medrol 60 mg every 12 hours, Mucinex twice daily, Pulmicort 1 mg twice daily, Robitussin with codeine as needed, Flonase twice daily. CT of the chest as above. Discontinue IV fluids. Sputum culture to be obtained. Bronchoscopy as above. Cultures and cytology pending. 2. Hypertension with tachycardia on presentation. Continue Lopressor 25 mg twice daily. 3. Hoarseness since September 2019. CAT scan of the soft tissue neck without abnormality. 4. Chronic low back pain and peripheral. Continue gabapentin 300 mg the morning 600 and evening, [place] 10 daily as needed. 5. Hyperlipidemia. Continue pravastatin 20 mg at bedtime. 6. Generalized anxiety disorder. Continue Xanax to 0.25 mg twice daily as needed, Celexa 20 mg daily. 7. Hypothyroidism. Continue levothyroxine 88 g at bedtime. Check TSH and free T4. 8. Weight loss of 23 pounds since October of unclear etiology. CT of the chest ordered. 9. GI prophylaxis. Protonix. 10. DVT prophylaxis. Lovenox. CODE STATUS: Full code Discharge plan: Most likely return home. Impression and plan of care have been directed as dictated by the signing physician. Delmy Andersen nurse practitioner acting as scribe for signing physician.
[2020-01-21 11:19] LABS: Glucose,Whole Blood 125 mg/dL (75-99)
[2020-01-21] MEDS: ALPRAZolam 0.25 MG TAB PO PRN ×2 (13:10→21:58)
--- NOTE | 2020-01-21 14:16 | P.PN ---
Subjective Progress Note Date: 01/21/20 A 69-year-old female patient who presented to the hospital because of increased cough and shortness of breath. Her symptoms have been going on for the past 2 weeks. She noted cough and greenish sputum production. She did develop a fever on the day of the admission to the ED. No chest pain. No pleurisy. No hemoptysis. No history of any COPD. No leg swelling. No angina. No palpitations. She does have history of hypertension, hyperlipidemia and hypothyroidism. She suffers from chronic spine disease with multiple surgeries to her back involving laminectomy and spinal fusions L3 through S1. She has osteoarthritis. She has difficulty with mobility and she moves around with the help of a cane. She does have chronic back pain. She came in with a white count of 9.1. Hemoglobin was at 13.4. Electrodes are all within normal limits. Influenza screen was negative for influenza A and influenza B the patient was started on broad-spectrum antibiotics. Any shows bilateral basilar infiltrates. There is obvious small lung volumes. The diaphragms are quite elevated bilaterally. There is kyphoscoliosis of the spine and the patient is post laminectomy involving the lumbar spine. The patient denies having any aspiration. No sick contacts. No travel history. On today's evaluation the patient is on oxygen at 2 L per minute nasal cannula. Her voice is coarse. She is struggling with her speech. She is also struggling with cough. Her cough is weak and she is unable to bring up adequate sputum. She remains on a combination of Rocephin and Zithromax. CAT scan of the chest was noted. CAT scan of the neck was noted. On examination, she has a significant thoracolumbar kyphoscoliosis also. Today's evaluation of 01/19/2020 the patient was seen in the endoscopy room. She was still having shortness of breath and she was having ongoing cough with inability to bring up any respiratory secretions. Furthermore, her voice has gotten worse where the patient is lost her voice completely. She was having difficulty with speech. She had been nothing by mouth pending bronchoscopy today. No fever or chills. No chest pain. She is on oxygen at 3 L per minute nasal cannula. She was switched a combination of Zosyn and Levaquin as broad- spectrum antibiotic coverage. His on all this, I performed a bronchoscopy. There is evidence of pneumonia in the lower lobes bilaterally. Lavage was done. I also identified evidence of laryngitis, tracheitis more so in the subglottic trachea in addition to some anatomic distortion of the trachea due to kyphoscoliosis of the chest and some mild degree of tracheal bronchomalacia. Please refer to the endoscopy/bronchoscopy note. The patient is seen today January 20 2020 in follow-up on the regular medical floor. She is currently resting comfortably in bed. Awake and alert in no acute distress. Breathing quite a bit better today compared to yesterday. Her voice is a bit stronger. She did undergo bronchoscopy with BAL yesterday, results are pending. She was noted to have very inflamed vocal cords and tracheitis. She is maintaining good O2 saturations in the 90s on room air. She's been afebrile. Hemodynamically stable. She is continued on Zosyn and Levaquin for now. She'll also be initiated on PPIs twice a day. The patient is seen today 01/21/2020 in follow-up on the regular medical floor. She is awake and alert in no acute distress. Resting comfortably in bed. She still has a loose nonproductive cough currently. Still short of breath with minimal exertion. Bronchial wash cultures are still pending. She is maintaining O2 saturations in the mid 90s on 2 L/m per nasal cannula. She is continued on DuoNeb inhalations, Pulmicort and Perforomist inhalations, IV Solu-Medrol, antibiotics in the form of Zosyn and Levaquin. She is now having issues with diarrhea. Objective - Vital Signs Vital signs: Vital Signs Temp 98.4 F 01/21/20 13:23 Pulse 106 H 01/21/20 13:23 Resp 16 01/21/20 13:23 BP 141/84 01/21/20 13:23 Pulse Ox 95 01/21/20 13:23 Intake & Output 01/20/20 01/21/20 01/21/20 18:59 06:59 18:59 Intake Total 100 300 Balance 100 300 Weight 74.843 kg Intake: IV 100 300 Levofloxacin 750Mg-D5w 100 Pmx 750 mg In Dextrose/ Water 1 150ml.bag @ 100 mls/hr IVPB Q24H [facility] Rx#: [id number] Piperacillin-Tazobactam 3 100 200 .375 gm In Sodium Chloride 0.9% 100 ml @ 25 mls/hr IVPB Q8HR [facility] Rx# :[id number] Other: Voiding Method Bedside Commode # Voids 1 # Bowel Movements 1 1 - Exam GENERAL EXAM: Alert, pleasant 69-year-old female patient, on 2 L nasal cannula, comfortable in no apparent distress. HEAD: Normocephalic. EYES: Normal reaction of pupils, equal size. NOSE: Clear with pink turbinates. THROAT: Hoarseness. Positive erythema. NECK: No masses, no JVD. CHEST: No chest wall deformity. LUNGS: Equal air entry with few scattered rhonchi. CVS: S1 and S2 normal with no audible murmur, regular rhythm. ABDOMEN: No hepatosplenomegaly, normal bowel sounds, no guarding or rigidity. SPINE: No scoliosis or deformity SKIN: No rashes CENTRAL NERVOUS SYSTEM: No focal deficits, tone is normal in all 4 extremities. EXTREMITIES: There is no peripheral edema. No clubbing, no cyanosis. Peripheral pulses are intact. - Labs CBC & Chem 7: 01/19/20 06:27 01/19/20 06:27 Labs: Abnormal Lab Results - Last 24 Hours (Table) 01/20/20 01/20/20 01/21/20 Range/Units 16:45 20:01 06:54 POC Glucose (mg/dL) 130 H 144 H 121 H (75-99) mg/dL 01/21/20 Range/Units 11:18 POC Glucose (mg/dL) 125 H (75-99) mg/dL Microbiology - Last 24 Hours (Table) 01/19/20 13:00 Acid Fast Bacilli Smear - Final Bronchoalviolar Lavage - Right Acid Fast Bacilli Culture - Preliminary 01/17/20 12:32 Blood Culture - Preliminary Blood No Growth after 72 hours Assessment and Plan Assessment: 1 acute bilateral lower lobe pneumonia. Consider aspiration pneumonia. Nevertheless, the patient's course has been complicated by development of acute hypoxic respiratory failure and significant respiratory distress as the patient has a weak cough and unable to generate enough force to expectorate her mucus. She does have possibly some underlying restrictive lung disease due to her thoracolumbar kyphoscoliosis. She has small lung volumes and the chest x-ray and a CAT scan of the chest. The patient is currently on a combination of Zosyn and Levaquin. The bronchoscopy that was done on 01/19/2020 showed severe tracheitis, severe laryngitis, bilateral lower lobe pneumonia, mild tracheal bronchomalacia and narrowing of the origin of the left mainstem bronchus due to anatomic distortion related to kyphoscoliosis and tracheal bronchomalacia. The bronchioloalveolar lavage results pending. 2 acute hypoxic respiratory failure improved on 2 L nasal cannula 3 acute hoarseness secondary to severe laryngitis noted on bronchoscopy 4 dysphagia, consider aspiration 5 thoracolumbar kyphoscoliosis 6 lumbar spine fusion multilevel 7 hypothyroidism 8 osteoarthritis with previous knee and hip replacements 9 sciatica and chronic back pain and weakness in lower extremities 10 frequent UTIs 11 history of chronic constipation 12 history of mitral valve prolapse 13 hyperlipidemia 14 hypertension Plan Patient was seen and evaluated by Dr. Sterling. She is continued on Zosyn and Levaquin. Bronchial wash cultures cultures pending. On PPIs twice a day She has been slow to progress Has developed diarrhea Obtain sample for C. diff We'll continue to follow. I, the cosigning physician, performed a history & physical examination of the patient. Lungs sounds with few scattered rhonchi. Maintaining good O2 saturations in the 90s on 2 L/m per nasal cannula. I discussed the assessment and plan of care with my nurse practitioner, Shania Cage. I attest to the above note as dictated by her.
[2020-01-21] MEDS: LEVOFLOXACIN 750MG-D5W PMX 750 MG in DEXTROSE/WATER 1 150ML.BAG IVPB SCH (14:23)
[2020-01-21 17:01] LABS: Glucose,Whole Blood 122 mg/dL (75-99)
[2020-01-21 20:31] LABS: Glucose,Whole Blood 132 mg/dL (75-99)
[2020-01-21] MEDS: PRAVASTATIN SODIUM 20 MG TAB PO SCH (21:06)
[2020-01-21] MEDS: LEVOTHYROXINE 88 MCG TAB PO SCH (21:06)
[2020-01-21] MEDS: LACTULOSE 20 GM/30 ML CUP PO SCH (21:07)
[2020-01-21] MEDS: HYDROcodone/APAP 10-325MG 1 EACH TAB PO PRN (21:58)
[2020-01-22] MEDS: methylPREDNISolone SOD SUCCI 125 MG/2 ML VIAL IV SCH ×2 (00:27→05:42)
[2020-01-22] MEDS: PIPERACILLIN-TAZOBACTAM 3.375 GM in SODIUM CHLORIDE 0.9% 100 ML IVPB SCH ×2 (00:28→08:31)
[2020-01-22 07:05] LABS: Glucose,Whole Blood 116 mg/dL (75-99)
[2020-01-22 07:32] LABS: HCT 42.1 % (34.0-46.0); HGB 13.8 gm/dL (11.4-16.0); MCH 29.1 pg (25.0-35.0); MCHC 32.8 g/dL (31.0-37.0); MCV 88.8 fL (80.0-100.0); Mean Platelet Volume 7.4; Platelet Count 404 k/uL (150-450); RBC 4.74 m/uL (3.80-5.40); RDW 13.1 % (11.5-15.5)
[2020-01-22 07:41] LABS: African American GFR (CKD) >90 (>60 ml/min/1.73 sqM); Anion Gap 8 mmol/L; Blood Urea Nitrogen 23 mg/dL (7-17); Calcium 10.1 mg/dL (8.4-10.2); Carbon Dioxide 28 mmol/L (22-30); Chloride 102 mmol/L (98-107); Glucose 116 mg/dL (74-99); Non-African American GFR(CKD) 89 (>60 ml/min/1.73 sqM); Sodium 138 mmol/L (137-145)
[2020-01-22] MEDS: INSULIN ASPART (NovoLOG) 100 UNIT/ML VIAL SQ SCH ×2 (08:29→12:27)
[2020-01-22] MEDS: LISINOPRIL 20 MG TAB PO SCH (08:30)
[2020-01-22] MEDS: METOPROLOL TARTRATE 25 MG TAB PO SCH (08:30)
[2020-01-22] MEDS: PANTOPRAZOLE 40 MG TABLET PO SCH (08:30)
[2020-01-22] MEDS: CITALOPRAM HYDROBROMIDE 20 MG TAB PO SCH (08:30)
[2020-01-22] MEDS: GABAPENTIN 300 MG CAP PO SCH (08:31)
[2020-01-22] MEDS: ARTIFICIAL TEARS-HYPROMELLOSE DROPS 15 ML BTL BOTH EYES SCH (08:31)
[2020-01-22] MEDS: FLUTICASONE 50MCG/SPRAY NASAL 16GM EA NOSTRIL SCH (08:31)
[2020-01-22] MEDS: ENOXAPARIN 40 MG/0.4 ML SYRINGE SQ SCH (08:31)
[2020-01-22] MEDS: guaiFENesin 600 MG TABLET.ER PO SCH (08:31)
[2020-01-22] MEDS: BUDESONIDE 1 MG/2 ML NEBU INHALATION SCH (08:47)
[2020-01-22] MEDS: IPRATROPIUM-ALBUTEROL 3 ML NEB INHALATION SCH ×2 (08:47→11:28)
--- NOTE | 2020-01-22 09:13 | P.PN ---
Subjective Progress Note Date: 01/22/20 On O2 03/18/2020 patient seen in follow-up on general medical floor, she sits in the chair, she states she is feeling breathing much better today, this morning pulse ox on 2 L of oxygen was 97%, room air pulse ox is 94% patient is currently off the supplemental oxygen, she states she was able to ambulate in the hallway, tolerated activity well, occasional cough, no phlegm production, brown coarse cultures so far have shown no growth, there have been no fever or chills overnight, hemodynamically patient is stable, lung sounds reveal diminished breath sounds with no rhonchi, crackles or wheezes, remains on a combination of IV Solu-Medrol breathing treatments and IV antibiotics in the form of Levaquin and Zosyn, her diarrhea has subsided, and patient just had 4 episodes of diarrhea on Wednesday with no recurrence on Wednesday. Today's blood work has been reviewed showing white blood cell count of 9.0, hemoglobin of 13.8, electrolytes were within normal limits, BUN of 23 and creatinine 0.66 Objective - Vital Signs Vital signs: Vital Signs Temp 97.8 F 01/22/20 07:00 Pulse 95 01/22/20 07:00 Resp 18 01/22/20 07:00 BP 156/87 01/22/20 07:00 Pulse Ox 97 01/22/20 07:00 Intake & Output 01/21/20 01/22/20 01/22/20 18:59 06:59 18:59 Intake Total 300 100 Balance 300 100 Intake: IV 300 100 Levofloxacin 750Mg-D5w 100 Pmx 750 mg In Dextrose/ Water 1 150ml.bag @ 100 mls/hr IVPB Q24H [facility] Rx#: [id number] Piperacillin-Tazobactam 3 200 100 .375 gm In Sodium Chloride 0.9% 100 ml @ 25 mls/hr IVPB Q8HR [facility] Rx# :[id number] Other: Voiding Method Bedside Commode # Voids 4 - Exam GENERAL EXAM: Alert, very pleasant, 69-year-old white female, on room air pulse ox of 94% comfortable in no apparent distress. HEAD: Normocephalic/atraumatic. EYES: Normal reaction of pupils, equal size. Conjunctiva pink, sclera white. NOSE: Clear with pink turbinates. THROAT: No erythema or exudates. NECK: No masses, no JVD, no thyroid enlargement, no adenopathy. CHEST: No chest wall deformity. Symmetrical expansion. LUNGS: Diminished air entry with no crackles, wheeze, rhonchi or dullness. CVS: Regular rate and rhythm, normal S1 and S2, no gallops, no murmurs, no rubs ABDOMEN: Soft, nontender. No hepatosplenomegaly, normal bowel sounds, no guarding or rigidity. EXTREMITIES: No clubbing, no edema, no cyanosis, 2+ pulses and upper and lower extremities. MUSCULOSKELETAL: Muscle strength and tone normal. SPINE: No scoliosis or deformity SKIN: No rashes CENTRAL NERVOUS SYSTEM: Alert and oriented -3. No focal deficits, tone is normal in all 4 extremities. PSYCHIATRIC: Alert and oriented -3. Appropriate affect. Intact judgment and insight. - Labs CBC & Chem 7: 01/22/20 06:42 01/22/20 06:42 Labs: Abnormal Lab Results - Last 24 Hours (Table) 01/21/20 01/21/20 01/21/20 Range/Units 11:18 16:59 20:26 BUN (7-17) mg/dL Glucose (74-99) mg/dL POC Glucose (mg/dL) 125 H 122 H 132 H (75-99) mg/dL 01/22/20 01/22/20 Range/Units 06:42 07:01 BUN 23 H (7-17) mg/dL Glucose 116 H (74-99) mg/dL POC Glucose (mg/dL) 116 H (75-99) mg/dL Microbiology - Last 24 Hours (Table) 01/19/20 13:00 Gram Stain - Final Bronchoalviolar Lavage - Right Bronchial Washings Culture - Final 01/17/20 12:32 Blood Culture - Preliminary Blood No Growth after 96 hours Assessment and Plan Plan: Assessment: 1 acute bilateral lower lobe pneumonia. Consider aspiration pneumonia. Augie rizzo, the patient's course has been complicated by development of acute hypoxic respiratory failure and significant respiratory distress as the patient has a weak cough and unable to generate enough force to expectorate her mucus. She does have possibly some underlying restrictive lung disease due to her thoracolumbar kyphoscoliosis. She has small lung volumes and the chest x-ray and a CAT scan of the chest. The patient is currently on a combination of Zosyn and Levaquin. The bronchoscopy that was done on 01/19/2020 showed severe tracheitis, severe laryngitis, bilateral lower lobe pneumonia, mild tracheal bronchomalacia and narrowing of the origin of the left mainstem bronchus due to anatomic distortion related to kyphoscoliosis and tracheal bronchomalacia. The bronchioloalveolar lavage results are negative thus far as of 01/22/2020 2 acute hypoxic respiratory failure improved on 2 L nasal cannula 3 acute hoarseness secondary to severe laryngitis noted on bronchoscopy 4 dysphagia, consider aspiration 5 thoracolumbar kyphoscoliosis 6 lumbar spine fusion multilevel 7 hypothyroidism 8 osteoarthritis with previous knee and hip replacements 9 sciatica and chronic back pain and weakness in lower extremities 10 frequent UTIs 11 history of chronic constipation 12 history of mitral valve prolapse 13 hyperlipidemia 14 hypertension Plan: We will obtain repeat 2 view chest x-ray today, so for bronchial wash cultures are negative, patient has had no fever or chills, clinically stable, improving, breathing easier, ambulating the halls and tolerating activity well patient is requesting to go home today. We'll obtain follow-up chest x-ray today, and possibly consider discharge home today on oral course of antibiotics with outpatient follow-up Dr. Sterling in the office in 7-10 days I performed a history & physical examination of the patient and discussed their management with my nurse practitioner, Zara Jung. I reviewed the nurse practitioner's note and agree with the documented findings and plan of care. Lung sounds are positive for diminished breath sounds. The findings and the impression was discussed with the patient. I attest to the documentation by the nurse practitioner. Time with Patient: Less than 30
[2020-01-22 11:49] LABS: Glucose,Whole Blood 115 mg/dL (75-99)
[2020-01-22] MEDS: CHOLECALCIFEROL 1,000 UNIT TAB PO SCH (12:26)
[2020-01-22] MEDS: MULTIVITAMINS, THERA 1 EACH TAB PO SCH (12:27)
--- NOTE | 2020-01-22 13:06 | P.DS ---
Providers Date of admission: 01/17/20 13:27 Attending physician: Kayleigh Huynh Consults: 01/17/20 13:27 Consult Physician Routine Consulting Provider: Sun Sterling Consult Reason/Comments: Pneumonia, sepsis Do you want consulting provider notified?: Yes Primary care physician: [facility] Course: Chief complaint: Acute hypoxic respiratory failure, bilateral pneumonia, hypertension, severe lower back pain, weight loss This is a 69-year-old female patient of Dr. García past medical history of hypertension, hyperlipidemia, osteoarthritis, hypothyroidism, chronic back pain status post lumbar fusion 6 years ago with peripheral neuropathy. Patient has an appointment scheduled for Dr. García today and this was for preop clearance for right knee arthroplasty which is scheduled for February 12. Patient gives history of having cough started 2 weeks ago and then and difficulty breathing for the past 1 week. She has green sputum production and yesterday she developed a fever. Patient also gives history of weight loss of 23 pounds since October. She complains of hoarseness that she has had since September after being treated for bronchitis. She denies any blood in her stools, no tarry stools. No hematuria. She states she has had decreased appetite. She states she is up-to-date on pneumonia and influenza vaccine. She states she tried to take Mucinex at home without any improvement. Patient came into [facility] emergency center for evaluation. She was afebrile, blood pressure 147/114 initially with a heart rate of 121, pulse ox 93% on room air. Initial EKG is sinus tachycardia. CBC was normal, d- dimer 0.52, creatinine 0.64, blood sugar 121. Electrolytes and liver function test normal, creatinine 0.012, influenza testing was negative. She underwent a chest x-ray that showed posterior left basilar atelectasis versus pneumonia. Repeat chest x-ray this morning reveals worsening bibasilar infiltrates. Patient minutes to the Medr floor and consult with pulmonary medicine. 01/19: The patient is scheduled for bronchoscopy today with Dr. Sterling. CAT scan of the chest and soft tissue neck showed correlate for sinusitis. Bibasilar infiltrates. Correlate for atelectasis and pneumonia. The patient denies having any fever or chills. Heart rate 106, pulse ox 96% on 3 L nasal cannula, blood pressure 163/92. CBC is unremarkable electrolytes renal function and liver function tests are within normal limits. Blood sugars running between 118-128. Blood culture no growth at 24 hours. 01/20: Patient has been afebrile, heart rate 88, pulse ox 95% on room air, blood pressure 144/80. Patient underwent bronchoscopy yesterday with Dr. Sterling that revealed bilateral pneumonia, severe laryngitis, severe trachitis, narrowing of the origin of the left mainstem bronchus due to malacia in addition to anatomic distortion related to kyphoscoliosis of the thoracic spine, mucous retention. Pathology and cultures are pending. Patient states her breathing is much better today even hoarseness is slightly better. Protein tonics has been increased to twice daily. She is continued on Zosyn and Levaquin. 01/21: Patient states that she only slept 3 hours last night and is sleepy today. She continues to have decreased appetite. Hoarseness is continued possibly slightly better since admission. Patient has been afebrile, heart rate 98, blood pressure 147/82, pulse ox 96% on 2 L nasal cannula. Blood sugars running between 122 and 144. Bronchial cultures and cytology in progress. Patient is continued on Zosyn and Levaquin. Protonix increased to twice daily yesterday. Patient has been seen by speech therapy and no concern for aspiration. 01/22: Patient is feeling much better, hypoxia is improved significantly, patient was to be discharged home today on oral antibiotic with no updraft once to do inhaler and steroid orally to be seen in the office and by pulmonary in the next few days. Patient is stable to discharge home today. - Exam Review of Systems Constitutional: Reports fatigue, Reports poor appetite, Reports weakness, Reports weight loss, Denies chills, Denies fever Eyes: denies blurred vision, denies pain Ears, nose, mouth and throat: Reports headache, Reports hoarseness, Reports nasal congestion, Reports sinus pain, Reports sinus pressure, Denies dysphagia, Denies sore throat Cardiovascular: Reports decreased exercise tolerance, Reports dyspnea on exertion, Reports shortness of breath improving, Denies edema, Denies leg edema, Denies lightheadedness, Denies syncope Respiratory: Reports cough, Reports cough with sputum, Reports dyspnea, Reports respiratory infections, Reports wheezing, Denies excessive sputum, Denies hemoptysis, Denies home oxygen, Denies sleep apnea Gastrointestinal: Reports abdominal pain, Reports loss of appetite, Denies change in bowel habits, Denies hematemesis, Denies hematochezia, Denies melena, Denies nausea, Denies vomiting Genitourinary: Denies dysuria, Denies hematuria, Denies urgency, Denies urinary frequency Musculoskeletal: Denies frequent falls, Denies gait dysfunction, Denies muscle weakness, Denies myalgias Integumentary: Denies pruritus, Denies rash, Denies wounds Neurological: Denies change in mentation, Denies change in speech, Denies numbness, Denies weakness Psychiatric: Denies anxiety, Denies depression Endocrine: Denies fatigue, Denies weight change Physical exam: Gen: This is a 69-year-old female. Patient is sitting up in chair and appears to be comfortable at rest. Less coughing noted. HEENT: Head is atraumatic, normocephalic. Pupils equal, round. Sclerae is anicteric. NECK: Supple. No JVD. No lymphadenopathy. No thyromegaly. LUNGS: Scattered rhonchi. No wheezing. No intercostal retractions. HEART: Regular rate and rhythm. No murmur. ABDOMEN: Soft. Bowel sounds are present. No masses. No tenderness. EXTREMITIES: No pedal edema. No calf tenderness. Dorsalis pedis +2 bilaterally. NEUROLOGICAL: Patient is awake, alert and oriented x3. Cranial nerves 2 through 12 are grossly intact. Assessment and Plan Plan: 1. Acute hypoxic respiratory failure secondary to bilateral pneumonia. Patient is on azithromycin and ceftriaxone. Continue DuoNeb treatments, and Solu-Medrol 60 mg every 12 hours, Mucinex twice daily, Pulmicort 1 mg twice daily, Robitussin with codeine as needed, Flonase twice daily. CT of the chest as above. Discontinue IV fluids. Sputum culture to be obtained. Bronchoscopy as above. Cultures and cytology pending. 2. Hypertension with tachycardia on presentation. Continue Lopressor 25 mg twice daily. 3. Hoarseness since September 2019. CAT scan of the soft tissue neck without abnormality. 4. Chronic low back pain and peripheral. Continue gabapentin 300 mg the morning 600 and evening, Zap 10 daily as needed. 5. Hyperlipidemia. Continue pravastatin 20 mg at bedtime. 6. Generalized anxiety disorder. Continue Xanax to 0.25 mg twice daily as needed, Celexa 20 mg daily. 7. Hypothyroidism. Continue levothyroxine 88 g at bedtime. Check TSH and free T4. 8. Weight loss of 23 pounds since October of unclear etiology. CT of the chest ordered. 9. GI prophylaxis. Protonix. Patient has done very well will be discharged home today Patient Condition at Discharge: Serious Plan - Discharge Summary Discharge Rx Participant: Yes New Discharge Prescriptions: New cloNIDine HCL [Catapres] 0.1 mg PO TID PRN #90 tab PRN Reason: Blood Pressure - High predniSONE [Deltasone] 10 mg PO DAILY #60 tab Fluticasone Nasal [place] [Flonase Nasal [place]] 2 spray EA NOSTRIL DAILY spr Levofloxacin [Levaquin] 500 mg PO DAILY 7 Days #7 tab Metoprolol Tartrate [Lopressor] 25 mg PO BID #120 tab guaiFENesin [Mucinex] 1,200 mg PO Q12HR tablet.er Budesonide-Formot 160-4.5 Mcg [Symbicort 160-4.5 Mcg Inhaler] 2 puff INHALA TION BID #1 inhaler Albuterol Sulfate [Ventolin HFA] 1 - 2 puff INHALATION Q6H PRN #1 inhaler PRN Reason: Shortness Of Breath Lisinopril [Zestril] 40 mg PO DAILY #60 tab Continue Vitamin B Complex 1 cap PO DAILY Multivitamins, Thera [Multivitamin (formulary)] 1 tab PO DAILY Cholecalciferol [Vitamin D3 (25 Mcg = 1000 Iu)] 2,000 unit PO DAILY Pravastatin Sodium [Pravachol] 20 mg PO HS Levothyroxine Sodium [Synthroid] 88 mcg PO HS Citalopram Hydrobromide [CeleXA] 20 mg PO DAILY Gabapentin [Neurontin] 600 mg PO HS Gabapentin [Neurontin] 300 mg PO QAM Cranberry Tablet 1 tab PO BID Lactulose 10 gm PO HS Baclofen [Lioresal] 10 mg PO BID PRN PRN Reason: Pain Glucosamine/Chondr Mckeon A Sod [Osteo Bi-Flex Caplet] 1 tab PO BID Propylene Glycol/Peg 400/Pf [Systane 0.3-0.4% Eye Drops] 1 - 2 drop BOTH EYES BID ALPRAZolam [Xanax] 0.25 mg PO BID PRN PRN Reason: Anxiety HYDROcodone/APAP 10-325MG [Zap 10-325] 1 tab PO DAILY PRN PRN Reason: Pain Naproxen Sodium [Aleve] 440 mg PO BID Pantoprazole [Protonix] 40 mg PO DAILY Vitamin C/Biotin [Hair, Skin and Nails] 1 tab PO BID Discharge Medication List Cholecalciferol [Vitamin D3 (25 Mcg = 1000 Iu)] 2,000 unit PO DAILY 11/06/16 [History] Citalopram Hydrobromide [CeleXA] 20 mg PO DAILY 11/06/16 [History] Cranberry Tablet 1 tab PO BID 11/06/16 [History] Gabapentin [Neurontin] 300 mg PO QAM 11/06/16 [History] Gabapentin [Neurontin] 600 mg PO HS 11/06/16 [History] Levothyroxine Sodium [Synthroid] 88 mcg PO HS 11/06/16 [History] Multivitamins, Thera [Multivitamin (formulary)] 1 tab PO DAILY 11/06/16 [History] Pravastatin Sodium [Pravachol] 20 mg PO HS 11/06/16 [History] Vitamin B Complex 1 cap PO DAILY 11/06/16 [History] Baclofen [Lioresal] 10 mg PO BID PRN 03/24/17 [History] Glucosamine/Chondr Mckeon A Sod [Osteo Bi-Flex Caplet] 1 tab PO BID 03/24/17 [History] Lactulose 10 gm PO HS 03/24/17 [History] Propylene Glycol/Peg 400/Pf [Systane 0.3-0.4% Eye Drops] 1 - 2 drop BOTH EYES BID 03/24/17 [History] ALPRAZolam [Xanax] 0.25 mg PO BID PRN 09/09/17 [History] HYDROcodone/APAP 10-325MG [Zap 10-325] 1 tab PO DAILY PRN 01/17/20 [History] Naproxen Sodium [Aleve] 440 mg PO BID 01/17/20 [History] Pantoprazole [Protonix] 40 mg PO DAILY 01/17/20 [History] Vitamin C/Biotin [Hair, Skin and Nails] 1 tab PO BID 01/17/20 [History] Albuterol Sulfate [Ventolin HFA] 1 - 2 puff INHALATION Q6H PRN #1 inhaler 01/22/20 [Rx] Budesonide-Formot 160-4.5 Mcg [Symbicort 160-4.5 Mcg Inhaler] 2 puff INHALATION BID #1 inhaler 01/22/20 [Rx] Fluticasone Nasal [place] [Flonase Nasal [place]] 2 spray EA NOSTRIL DAILY spr 01/22/20 [Rx] Levofloxacin [Levaquin] 500 mg PO DAILY 7 Days #7 tab 01/22/20 [Rx] Lisinopril [Zestril] 40 mg PO DAILY #60 tab 01/22/20 [Rx] Metoprolol Tartrate [Lopressor] 25 mg PO BID #120 tab 01/22/20 [Rx] cloNIDine HCL [Catapres] 0.1 mg PO TID PRN #90 tab 01/22/20 [Rx] guaiFENesin [Mucinex] 1,200 mg PO Q12HR tablet.er 01/22/20 [Rx] predniSONE [Deltasone] 10 mg PO DAILY #60 tab 01/22/20 [Rx] Follow up Appointment(s)/Referral(s): Shnaia Cage NPC [Nurse Practitioner] - 01/29/20 2:30 pm Pepe García MD [Primary Care Provider] - 1-2 days (Office will be in contact upon discharge to set up a follow up appointment) [facility], [NON-STAFF] - As Needed Discharge Disposition: HOME WITH HOME HEALTH SERVICES
--- NOTE | 2020-01-22 13:57 | XR ---
EXAMINATION TYPE: XR chest 2V DATE OF EXAM: 01/22/2020 COMPARISON: 01/18/2020 HISTORY: Shortness of breath TECHNIQUE: Frontal and lateral views of the chest are obtained. FINDINGS: Scattered senescent parenchymal changes noted. Hyperinflation compatible with COPD. No evidence for infiltrate. Linear atelectasis left medial lung base. Overall improved aeration left lower lobe and right medial lung base since prior study. Heart size is stable. Mediastinal structures are stable and grossly unremarkable. No evidence for hilar prominence. Degenerative changes dorsal spine. IMPRESSION: 1. Linear atelectasis left medial lung base. Overall improved aeration left lower lobe and right medi al lung base since prior study.
[2020-01-22] MEDS ORDERED: LEVOFLOXACIN 750 MG TAB PO SCH (15:00)
[2020-01-22 15:50] VITALS: BP 156/87; PULSE 95; RESP 18; TEMP 97.8
[2020-01-23] MEDS ORDERED: predniSONE 20 MG TAB PO SCH (09:00)
--- NOTE | 2020-01-24 11:37 | CDI ---
Documentation Clarification Form Date: 01/24/20 From: Elke Braxton Phone: If you have a question about this query, please contact Cesia Calros, [employer] Caller at [phone] between 8am and 5pm. Admit Date: 01/17/20 Discharge Date:01/22/20 Patient Name: Dora Carrero Visit Number: [id number] ATTENTION: The Clinical Documentation Specialists (CDI) and [facility] Coding Staff appreciate your assistance in clarifying documentation. Please respond to the clarification below the line at the bottom and electronically sign. The CDI & [facility] Coding staff will review the response and follow-up if needed. Please note: Queries are made part of the Legal Health Record. If you have any questions, please contact the author of this message via ITS. Dear Dr. García The patient presented with pneumonia. Patient meets sepsis criteria is documented in the ED note. History/Risk Factors: Pneumonia, narrowing of mainstem bronchus due to kyphoscoliosis, acute hypoxic respiratory failure. Clinical Indicators: Tachycardia, increased respiratory rate WBC: 9.1 Lactic acid: 1.1 Blood cultures: No growth Vitals signs on admission: T. 98.6, P. 121, R. 28, BP 147/84 Treatment: Antibiotics: IV Levaquin, IV Zosyn IV Bolus: No bolus In your professional opinion, please clarify if these findings signify one of the following conditions, whether the condition is POA, and cause, if known: Condition Sepsis ruled out SIRS, without underlying infectious process Sepsis Severe Sepsis Other, please specify Unable to determine Link or clarify if there is associated (due to/with): Organ failure Shock sepsis, poa MTDD
== END 2020-01-22 15:53 | disposition home health service (06) | DRG 871 ==
LOC: EC 11:45 → 6NMEDSUR 13:27 → 4SSUR 22:55
PROVIDERS: ADMIT Internal Medicine; ATTEND Internal Medicine
PROC: 0B9J8ZX Drainage of Left Lower Lung Lobe, Via Natural or Artificial Opening Endoscopic, Diagnostic (ICD-10-PCS; principal; 2020-01-19 08:50)
PROC: 0B9F8ZX Drainage of Right Lower Lung Lobe, Via Natural or Artificial Opening Endoscopic, Diagnostic (ICD-10-PCS; principal; 2020-01-19 08:50)
PROC: 0B9J8ZZ Drainage of Left Lower Lung Lobe, Via Natural or Artificial Opening Endoscopic (ICD-10-PCS; principal; 2020-01-19 08:50)
PROC: 0B9F8ZZ Drainage of Right Lower Lung Lobe, Via Natural or Artificial Opening Endoscopic (ICD-10-PCS; principal; 2020-01-19 08:50)
DX: A41.9 Sepsis, unspecified organism (principal); J18.9 Pneumonia, unspecified organism; J96.01 Acute respiratory failure with hypoxia; J39.8 Other specified diseases of upper respiratory tract; J98.09 Other diseases of bronchus, not elsewhere classified; E03.9 Hypothyroidism, unspecified; E78.5 Hyperlipidemia, unspecified; F41.1 Generalized anxiety disorder; G89.29 Other chronic pain; I10 Essential (primary) hypertension; I34.1 Nonrheumatic mitral (valve) prolapse; J04.2 Acute laryngotracheitis; M19.90 Unspecified osteoarthritis, unspecified site; M41.9 Scoliosis, unspecified; G62.9 Polyneuropathy, unspecified; I83.90 Asymptomatic varicose veins of unspecified lower extremity; K59.09 Other constipation; M54.30 Sciatica, unspecified side; R19.7 Diarrhea, unspecified; R63.4 Abnormal weight loss; R26.9 Unspecified abnormalities of gait and mobility; R00.0 Tachycardia, unspecified; Z77.22 Contact with and (suspected) exposure to environmental tobacco smoke (acute) (chronic); Z79.82 Long term (current) use of aspirin; Z79.890 Hormone replacement therapy; Z79.899 Other long term (current) drug therapy; Z98.1 Arthrodesis status; Z87.440 Personal history of urinary (tract) infections; Z96.652 Presence of left artificial knee joint; Z82.49 Family history of ischemic heart disease and other diseases of the circulatory system; Z82.5 Family history of asthma and other chronic lower respiratory diseases
CPT/HCPCS: 31624; 36415; 70491; 71046; 71260; 80048; 80053; 83605; 84443; 84484; 85025; 85027; 85379; 85610; 85730; 87040; 87070; 87102; 87116; 87205; 87206; 87252; 87324; 87496; 87498; 87502; 87529; 87634; 87798; 88108; 88305; 89050; 93005; 94640; 94760; 96365; 96366; 96367; 99291

== ENCOUNTER 2020-01-23 05:52 | Observation (INO) | payer MEDICARE ==
[2020-01-23] MEDS ORDERED: METOPROLOL TARTRATE 25 MG TAB PO STA (06:14)
[2020-01-23] MEDS ORDERED: HYDROcodone/APAP 10-325MG 1 EACH TAB PO ONE (06:14)
--- NOTE | 2020-01-23 06:17 | ED ---
SOB HPI - General Chief Complaint: Shortness of Breath Stated Complaint: Shortness of Breath Time Seen by Provider: 01/23/20 05:56 Source: patient, EMS, RN notes reviewed Mode of arrival: EMS Limitations: physical limitation - History of Present Illness Initial Comments: 69-year-old female presents emergency Department via EMS from home chief complaint increased weakness, shortness of breath. Patient states that she was just discharged yesterday from the hospital after approximately one week in the hospital for bilateral pneumonia, tracheitis, respiratory distress. Patient states that she still full somewhat weak upon discharge that she that she could be go home. Patient states she fell going into her house states that she fell onto her knees and she complained bilateral knee pain. Patient states that she continuously get to her recliner and has not left a spot since yesterday. She states she was too weak to get up and take her medications or any breathing treatments. She states she is extremely short of breath. Patient states she's having difficulty completing sentences secondary to her shortness of breath. Patient denies any history of congestive heart failure denies any leg swelling. Patient was discharged with new medications again states that she has not taken any of her new meds or her regular daily medications. - Related Data Home Medications Medication Instructions Recorded Confirmed Cholecalciferol [Vitamin D3 (25 2,000 unit PO DAILY 11/06/16 01/23/20 Mcg = 1000 Iu)] Citalopram Hydrobromide [CeleXA] 20 mg PO DAILY 11/06/16 01/23/20 Gabapentin [Neurontin] 300 mg PO QAM 11/06/16 01/23/20 Gabapentin [Neurontin] 600 mg PO HS 11/06/16 01/23/20 Levothyroxine Sodium [Synthroid] 88 mcg PO HS 11/06/16 01/23/20 Multivitamins, Thera [Multivitamin 1 tab PO DAILY 11/06/16 01/23/20 (formulary)] Pravastatin Sodium [Pravachol] 20 mg PO HS 11/06/16 01/23/20 Vitamin B Complex 1 cap PO DAILY 11/06/16 01/23/20 Baclofen [Lioresal] 10 mg PO BID PRN 03/24/17 01/23/20 Glucosamine/Chondr Mckeon A Sod [Osteo 1 tab PO BID 03/24/17 01/23/20 Bi-Flex Caplet] Lactulose 10 gm PO HS 03/24/17 01/23/20 Propylene Glycol/Peg 400/Pf 1 - 2 drop BOTH EYES BID 03/24/17 01/23/20 [Systane 0.3-0.4% Eye Drops] ALPRAZolam [Xanax] 0.25 mg PO BID PRN 09/09/17 01/23/20 HYDROcodone/APAP 10-325MG [[place] 1 tab PO DAILY PRN 01/17/20 01/23/20 10-325] Naproxen Sodium [Aleve] 440 mg PO BID 01/17/20 01/23/20 Pantoprazole [Protonix] 40 mg PO DAILY 01/17/20 01/23/20 Vitamin C/Biotin [Hair, Skin and 1 tab PO BID 01/17/20 01/23/20 Nails] Albuterol Sulfate [Ventolin HFA] 1 - 2 puff INHALATION RT-Q6H PRN 01/23/20 01/23/20 Budesonide-Formot 160-4.5 Mcg 2 puff INHALATION RT-BID 01/23/20 01/23/20 [Symbicort 160-4.5 Mcg Inhaler] Cranberry Fruit Extract [Cranberry] 500 mg PO BID 01/23/20 01/23/20 predniSONE [Deltasone] See Taper PO DAILY 01/23/20 01/23/20 Previous Rx's Medication Instructions Recorded Fluticasone Nasal [place] [Flonase 2 spray EA NOSTRIL DAILY spr 01/22/20 Nasal [place]] Levofloxacin [Levaquin] 500 mg PO DAILY 7 Days #7 tab 01/22/20 Lisinopril [Zestril] 40 mg PO DAILY #60 tab 01/22/20 Metoprolol Tartrate [Lopressor] 25 mg PO BID #120 tab 01/22/20 cloNIDine HCL [Catapres] 0.1 mg PO TID PRN #90 tab 01/22/20 guaiFENesin [Mucinex] 1,200 mg PO Q12HR tablet.er 01/22/20 Allergies Allergy/AdvReac Type Severity Reaction Status Date / Time No Known Allergies Allergy Verified 01/23/20 07:12 Review of Systems ROS Statement: Those systems with pertinent positive or pertinent negative responses have been documented in the HPI. ROS Other: All systems not noted in ROS Statement are negative. Past Medical History Past Medical History: Hyperlipidemia, Hypertension, Mitral Valve Prolapse (MVP), Osteoarthritis (OA), Thyroid Disorder Additional Past Medical History / Comment(s): Thoracolumbar kyphoscoliosis, lumbar laminectomy and fusion multilevel, osteoarthritis, hypertension, hyperlipidemia, hypothyroidism, hypertension, mitral valve prolapse, sciatica with pain involving lower extremities and numbness, chronic constipation, history of frequent UTIs, difficulty with mobility and the patient uses a cane. Varicose veins. History of Any Multi-Drug Resistant Organisms: None Reported Past Surgical History: Back Surgery, Breast Surgery, Joint Replacement, Orthope dic Surgery Additional Past Surgical History / Comment(s): laproscopic surgery x 3 ( for infertility), arthroscopy left knee, , left breast lumpectomy, Laminectomy with spinal fusion (L-3to S-1) (2013), total left knee (10/2016) Past Anesthesia/Blood Transfusion Reactions: No Reported Reaction Past Psychological History: Anxiety Smoking Status: Never smoker Past Alcohol Use History: None Reported Past Drug Use History: None Reported - Past Family History Mother Family Medical History: COPD, Hyperlipidemia Additional Family Medical History / Comment(s): Mother at age 88 from COPD with history of smoking. Father Family Medical History: Myocardial Infarction (ID) Additional Family Medical History / Comment(s): smoker, mi at 48 Brother(s) Family Medical History: COPD Additional Family Medical History / Comment(s): Patient has one brother with h istory of smoking with no major medical problems. Patient does not have any sisters. Patient has one adopted daughter. Daughter(s) Family Medical History: No Reported History General Exam General appearance: alert, in no apparent distress Head exam: Present: atraumatic, normocephalic, normal inspection Eye exam: Present: normal appearance, PERRL, EOMI. Absent: scleral icterus, conjunctival injection, periorbital swelling ENT exam: Present: normal exam, normal oropharynx, mucous membranes moist Neck exam: Present: normal inspection, full ROM. Absent: tenderness, meningismus, lymphadenopathy Respiratory exam: Present: respiratory distress (Mild to moderate), wheezes, decreased breath sounds. Absent: normal lung sounds bilaterally, rales, rhonchi, stridor Cardiovascular Exam: Present: normal rhythm, tachycardia, normal heart sounds. Absent: systolic murmur, diastolic murmur, rubs, gallop, clicks GI/Abdominal exam: Present: soft, normal bowel sounds. Absent: distended, tenderness, guarding, rebound, rigid Neurological exam: Present: alert, oriented X3, CN II-XII intact Skin exam: Present: warm, dry, intact, normal color. Absent: rash Course Vital Signs 01/23/20 01/23/20 01/23/20 05:54 06:01 06:57 Temperature 97.9 F Pulse Rate 120 H 109 H Respiratory 22 22 22 Rate Blood Pressure 133/89 130/87 O2 Sat by Pulse 98 96 Oximetry 01/23/20 07:33 Temperature 98.0 F Pulse Rate 109 H Respiratory 18 Rate Blood Pressure 119/79 O2 Sat by Pulse 97 Oximetry Medical Decision Making - Medical Decision Making 69-year-old female presented for dyspnea, weakness. Patient has failed outpatient treatment. Patient will need rehab facility at this time for bilateral pneumonia. Patient's case discussed with Dr. farrell will admit the patient this time for further treatment. Consult to social work. - Lab Data Result diagrams: 01/23/20 06:09 01/23/20 07:22 Lab Results 01/23/20 01/23/20 01/23/20 Range/Units 06:09 06:09 06:09 WBC 13.0 H (3.8-10.6) k/uL RBC 4.84 (3.80-5.40) m/uL Hgb 14.3 (11.4-16.0) gm/dL Hct 42.6 (34.0-46.0) % MCV 88.0 (80.0-100.0) fL MCH 29.4 (25.0-35.0) pg MCHC 33.5 (31.0-37.0) g/dL RDW 13.0 (11.5-15.5) % Plt Count 399 (150-450) k/uL Neutrophils % 70 % Lymphocytes % 20 % Monocytes % 8 % Eosinophils % 1 % Basophils % 0 % Neutrophils # 9.1 H (1.3-7.7) k/uL Lymphocytes # 2.5 (1.0-4.8) k/uL Monocytes # 1.1 H (0-1.0) k/uL Eosinophils # 0.1 (0-0.7) k/uL Basophils # 0.0 (0-0.2) k/uL PT (9.0-12.0) sec INR (<1.2) APTT (22.0-30.0) sec Sodium (137-145) mmol/L Potassium (3.5-5.1) mmol/L Chloride (98-107) mmol/L Carbon Dioxide (22-30) mmol/L Anion Gap mmol/L BUN (7-17) mg/dL Creatinine (0.52-1.04) mg/dL Est GFR (CKD-EPI)AfAm (>60 ml/min/1.73 sqM) Est GFR (CKD-EPI)NonAf (>60 ml/min/1.73 sqM) Glucose (74-99) mg/dL Plasma Lactic Acid Gigi 1.7 (0.7-2.0) mmol/L Calcium (8.4-10.2) mg/dL Magnesium (1.6-2.3) mg/dL Total Bilirubin (0.2-1.3) mg/dL AST (14-36) U/L ALT (4-34) U/L Alkaline Phosphatase (38-126) U/L Troponin I (0.000-0.034) ng/mL NT-Pro-B Natriuret Pep 435 pg/mL Total Protein (6.3-8.2) g/dL Albumin (3.5-5.0) g/dL 01/23/20 01/23/20 01/23/20 Range/Units 07:22 07:22 07:22 WBC (3.8-10.6) k/uL RBC (3.80-5.40) m/uL Hgb (11.4-16.0) gm/dL Hct (34.0-46.0) % MCV (80.0-100.0) fL MCH (25.0-35.0) pg MCHC (31.0-37.0) g/dL RDW (11.5-15.5) % Plt Count (150-450) k/uL Neutrophils % % Lymphocytes % % Monocytes % % Eosinophils % % Basophils % % Neutrophils # (1.3-7.7) k/uL Lymphocytes # (1.0-4.8) k/uL Monocytes # (0-1.0) k/uL Eosinophils # (0-0.7) k/uL Basophils # (0-0.2) k/uL PT 10.9 (9.0-12.0) sec INR 1.1 (<1.2) APTT 23.8 (22.0-30.0) sec Sodium 139 (137-145) mmol/L Potassium 3.4 L (3.5-5.1) mmol/L Chloride 98 (98-107) mmol/L Carbon Dioxide 32 H (22-30) mmol/L Anion Gap 9 mmol/L BUN 30 H (7-17) mg/dL Creatinine 0.74 (0.52-1.04) mg/dL Est GFR (CKD-EPI)AfAm >90 (>60 ml/min/1.73 sqM) Est GFR (CKD-EPI)NonAf 82 (>60 ml/min/1.73 sqM) Glucose 111 H (74-99) mg/dL Plasma Lactic Acid Gigi (0.7-2.0) mmol/L Calcium 10.2 (8.4-10.2) mg/dL Magnesium 2.0 (1.6-2.3) mg/dL Total Bilirubin 0.6 (0.2-1.3) mg/dL AST 38 H (14-36) U/L ALT 56 H (4-34) U/L Alkaline Phosphatase 78 (38-126) U/L Troponin I <0.012 (0.000-0.034) ng/mL NT-Pro-B Natriuret Pep pg/mL Total Protein 7.2 (6.3-8.2) g/dL Albumin 3.8 (3.5-5.0) g/dL - EKG Data -: EKG Interpreted by [facility] EKG Comments: EKG performed at 6:09 sinus tachycardia with a rate of 1:15 ME 164 QRS 78 QT/QTC 326/[address] elevation or depression noted, normal axis. Disposition Clinical Impression: Pneumonia, Generalized weakness, Failure of outpatient treatment Disposition: ADMITTED IP TO THIS [facility] Condition: Fair Referrals: Pepe García MD [Primary Care Provider] - 1-2 days
[2020-01-23 06:22] LABS: Basophils % (A) 0 %; Eosinophils # (A) 0.1 k/uL (0-0.7); Eosinophils % (A) 1 %; HCT 42.6 % (34.0-46.0); HGB 14.3 gm/dL (11.4-16.0); Lymphocytes # (A) 2.5 k/uL (1.0-4.8); Lymphocytes % (A) 20 %; MCH 29.4 pg (25.0-35.0); MCHC 33.5 g/dL (31.0-37.0); Mean Platelet Volume 8.5; Monocytes # (A) 1.1 k/uL (0-1.0); Monocytes % (A) 8 %; Neutrophils # (A) 9.1 k/uL (1.3-7.7); Neutrophils % (A) 70 %; Platelet Count 399 k/uL (150-450); RBC 4.84 m/uL (3.80-5.40)
--- NOTE | 2020-01-23 07:09 | XR ---
EXAM: XR Chest, 2 Views CLINICAL HISTORY: ITS.REASON XR Reason: difficulty breathing TECHNIQUE: Frontal and lateral views of the chest. COMPARISON: 01/22/2020 IMPRESSION: Normal heart size. Scarring/subsegmental atelectasis in the left lung base. No pleural effusion.
--- NOTE | 2020-01-23 07:26 | XR ---
EXAM: XR Bilateral Knees, 6 Views CLINICAL HISTORY: ITS.REASON XR Reason: Fall, pain TECHNIQUE: 6 views of the bilateral knees. COMPARISON: 11/16/2016 FINDINGS: Bones/joints: No acute fracture. No dislocation. Left total hip arthroplasty hardware is intact. Mild medial and patellofemoral compartment and moderate lateral compartment osteoarthrosis of the right knee. Soft tissues: Unremarkable. IMPRESSION: No acute osseous abnormalities. Tricompartmental right knee osteoarthrosis.
[2020-01-23 07:51] LABS: INR 1.1 (<1.2); Partial Thromboplastin Time 23.8 sec (22.0-30.0); Prothrombin Time 10.9 sec (9.0-12.0)
[2020-01-23 07:58] LABS: ALT 56 U/L (4-34); AST 38 U/L (14-36); African American GFR (CKD) >90 (>60 ml/min/1.73 sqM); Albumin 3.8 g/dL (3.5-5.0); Alkaline Phosphatase 78 U/L (38-126); Anion Gap 9 mmol/L; Blood Urea Nitrogen 30 mg/dL (7-17); Calcium 10.2 mg/dL (8.4-10.2); Carbon Dioxide 32 mmol/L (22-30); Chloride 98 mmol/L (98-107); Glucose 111 mg/dL (74-99); Non-African American GFR(CKD) 82 (>60 ml/min/1.73 sqM); Potassium 3.4 mmol/L (3.5-5.1); Sodium 139 mmol/L (137-145); Total Bilirubin 0.6 mg/dL (0.2-1.3); Total Protein 7.2 g/dL (6.3-8.2)
[2020-01-23] MEDS ORDERED: SODIUM CHLORIDE 0.9% 1,000 ML IV ONE (09:09)
[2020-01-23] MEDS ORDERED: SODIUM CHLORIDE 0.9% 1,000 ML IV SCH (09:15)
[2020-01-23] MEDS ORDERED: ONDANSETRON 4 MG/2 ML VIAL IVP PRN (09:24)
[2020-01-23] MEDS ORDERED: ACETAMINOPHEN TAB 325 MG TAB PO PRN (09:24)
[2020-01-23] MEDS ORDERED: POTASSIUM CHLORIDE ER 20 MEQ TAB.ER PO STA (09:28)
[2020-01-23] MEDS ORDERED: IPRATROPIUM-ALBUTEROL 3 ML NEB INHALATION SCH (12:00)
[2020-01-23] MEDS ORDERED: HYDROcodone/APAP 10-325MG 1 EACH TAB PO PRN (14:23)
[2020-01-23] MEDS ORDERED: cloNIDine HCL 0.1 MG TAB PO PRN (14:23)
[2020-01-23] MEDS ORDERED: IPRATROPIUM-ALBUTEROL 3 ML NEB INHALATION PRN (14:27)
[2020-01-23] MEDS ORDERED: ALPRAZolam 0.25 MG TAB PO PRN (14:30)
[2020-01-23] MEDS ORDERED: BACLOFEN 10 MG TAB PO PRN (14:30)
--- NOTE | 2020-01-23 14:31 | P.HPIM ---
History of Present Illness H&P Date: 01/23/20 Chief Complaint: Fatigue, fall, shortness of breath This is a 69-year-old female patient of Dr. García past medical history of hypertension, hyperlipidemia, osteoarthritis, hypothyroidism, chronic back pain status post lumbar fusion 6 years ago with peripheral neuropathy. Patient was admitted on January 17 due to cough started 2 weeks prior and then developed difficulty breathing for the past 1 week with green sputum production and fever. Patient also gives history of weight loss of 23 pounds since October, hoarseness since September after being treated for bronchitis. Patient underwent bronchoscopy with Dr. Sterling that revealed bilateral pneumonia, sev ere laryngitis, severe trachitis, narrowing of the origin of the left mainstem bronchus due to malacia in addition to anatomic distortion related to kyphoscoliosis of the thoracic spine, mucous retention. Pathology revealed acute inflammatory cells with scattered reactive bronchial lining cells, ma crophages and superficial squamous cells. No malignant cells identified. Protonix was increased to twice daily. Patient was seen by speech therapy and there was no concern for aspiration. She was treated with Zosyn and Levaquin along with IV Solu-Medrol, DuoNeb, Mucinex Pulmicort Robitussin with codeine and Flonase. Patient was stabilized and she requested to be discharged home yesterday. She states she was home and she was very weak and fell getting into her home. She was also having continued are worsening shortness of breath. Patient returned to [facility] emergency center for evaluation. X-ray of the right knee revealed no acute osseous abnormalities. Tricompar tment right knee osteoarthrosis. Chest x-ray showed normal heart size. Scarring subsegmental atelectasis in the left lung base. No pleural effusion. EKG was a sinus tachycardia. She was afebrile, heart rate 101, blood pressure 136/76, pulse ox 97% on 2 L nasal cannula. WBC 13, BUN 30 creatinine 0.74, CO2 32, potassium 3.4. Troponin negative. AST 38 and ALT 56. Patient is seen in the emergency center waiting for a bed on the [facility] floor. Patient states that she would like to go to [facility] for subacute rehab. Review of Systems Constitutional: Reports fatigue, Reports poor appetite, Reports weakness, Reports weight loss, Denies chills, Denies fever Eyes: denies blurred vision, denies pain Ears, nose, mouth and throat: Reports headache, Reports hoarseness, Reports nasal congestion, Reports sinus pain, Reports sinus pressure, Denies dysphagia, Denies sore throat Cardiovascular: Reports decreased exercise tolerance, Reports dyspnea on exertion, Reports shortness of breath, Denies edema, Denies leg edema, Denies lightheadedness, Denies syncope Respiratory: Reports cough, Reports cough with sputum, Reports dyspnea, Reports respiratory infections, Reports wheezing, Denies excessive sputum, Denies hemoptysis, Denies home oxygen, Denies sleep apnea Gastrointestinal: Denies abdominal pain, Reports loss of appetite, Denies change in bowel habits, Denies hematemesis, Denies hematochezia, Denies melena, Denies nausea, Denies vomiting Genitourinary: Denies dysuria, Denies hematuria, Denies urgency, Denies urinary frequency Musculoskeletal: Denies frequent falls, reports gait dysfunction, Denies muscle weakness, Denies myalgias Integumentary: Denies pruritus, Denies rash, Denies wounds Neurological: Denies change in mentation, Denies change in speech, Denies numbness, reports weakness Psychiatric: Denies anxiety, Denies depression Endocrine: Reports fatigue, reports weight change Past Medical History Past Medical History: Hyperlipidemia, Hypertension, Mitral Valve Prolapse (MVP), Osteoarthritis (OA), Pneumonia, Rheumatoid Arthritis (RA), Thyroid Disorder, Vascular Disorder Additional Past Medical History / Comment(s): Pt recently admitted to [facility] on 01/17/20 with acute hypoxic respiratory failure 2ndary to bilateral pneumonia. Other hx: Thoracolumbar kyphoscoliosis, lumbar laminectomy and fusion multilevel, hypothyroidism, mitral valve prolapse, chronic low back pain, sciatica with pain involving lower extremities and numbness which is worse on R side, chronic constipation, history of frequent UTIs, difficulty with mobility and the patient uses a cane/walker, varicose veins. History of Any Multi-Drug Resistant Organisms: None Reported Past Surgical History: Back Surgery, Breast Surgery, Joint Replacement, Orthopedic Surgery Additional Past Surgical History / Comment(s): laproscopic surgery x 3 ( for infertility), arthroscopy left knee, , left breast lumpectomy-benign, laminectomy with spinal fusion (L-3to S-1) (2013), total left knee (10/2016) Past Anesthesia/Blood Transfusion Reactions: No Reported Reaction Smoking Status: Never smoker Additional Past Alcohol Use History / Comment(s): Patient is a lifelong nonsm oker but did have exposure to secondhand smoke. No marijuana, illicit drug use or alcohol use. Patient lives alone. She does not have a nebulizer, oxygen or CPAP at home. Patient's daughter lives across the street from her. Patient babysits 8-month-old twin grandsons. - Past Family History Mother Family Medical History: COPD, Hyperlipidemia Additional Family Medical History / Comment(s): Mother at age 88 from COPD with history of smoking. Father Family Medical History: Myocardial Infarction ([place]) Additional Family Medical History / Comment(s): Father had a [place] at the age of 48yrs. Brother(s) Family Medical History: COPD Additional Family Medical History / Comment(s): Patient has one brother with history of smoking with no major medical problems. Patient does not have any sisters. Patient has one adopted daughter. Daughter(s) Family Medical History: No Reported History Medications and Allergies Home Medications Medication Instructions Recorded Confirmed Type Cholecalciferol [Vitamin D3 (25 2,000 unit PO DAILY 11/06/16 01/23/20 History Mcg = 1000 Iu)] Citalopram Hydrobromide [CeleXA] 20 mg PO DAILY 11/06/16 01/23/20 History Gabapentin [Neurontin] 300 mg PO QAM 11/06/16 01/23/20 History Gabapentin [Neurontin] 600 mg PO HS 11/06/16 01/23/20 History Levothyroxine Sodium [Synthroid] 88 mcg PO HS 11/06/16 01/23/20 History Multivitamins, Thera [Multivitamin 1 tab PO DAILY 11/06/16 01/23/20 History (formulary)] Pravastatin Sodium [Pravachol] 20 mg PO HS 11/06/16 01/23/20 History Vitamin B Complex 1 cap PO DAILY 11/06/16 01/23/20 History Baclofen [Lioresal] 10 mg PO BID PRN 03/24/17 01/23/20 History Glucosamine/Chondr Mckeon A Sod [Osteo 1 tab PO BID 03/24/17 01/23/20 History Bi-Flex Caplet] Lactulose 10 gm PO HS 03/24/17 01/23/20 History Propylene Glycol/Peg 400/Pf 1 - 2 drop BOTH EYES BID 03/24/17 01/23/20 History [Systane 0.3-0.4% Eye Drops] ALPRAZolam [Xanax] 0.25 mg PO BID PRN 09/09/17 01/23/20 History HYDROcodone/APAP 10-325MG [[place] 1 tab PO DAILY PRN 01/17/20 01/23/20 History 10-325] Naproxen Sodium [Aleve] 440 mg PO BID 01/17/20 01/23/20 History Pantoprazole [Protonix] 40 mg PO DAILY 01/17/20 01/23/20 History Vitamin C/Biotin [Hair, Skin and 1 tab PO BID 01/17/20 01/23/20 History Nails] Fluticasone Nasal [place] [Flonase 2 spray EA NOSTRIL DAILY spr 01/22/20 01/23/20 Rx Nasal [place]] Levofloxacin [Levaquin] 500 mg PO DAILY 7 Days #7 tab 01/22/20 01/23/20 Rx Lisinopril [Zestril] 40 mg PO DAILY #60 tab 01/22/20 01/23/20 Rx Metoprolol Tartrate [Lopressor] 25 mg PO BID #120 tab 01/22/20 01/23/20 Rx cloNIDine HCL [Catapres] 0.1 mg PO TID PRN #90 tab 01/22/20 01/23/20 Rx guaiFENesin [Mucinex] 1,200 mg PO Q12HR tablet.er 01/22/20 01/23/20 Rx Albuterol Sulfate [Ventolin HFA] 1 - 2 puff INHALATION RT-Q6H PRN 01/23/20 01/23/20 History Budesonide-Formot 160-4.5 Mcg 2 puff INHALATION RT-BID 01/23/20 01/23/20 History [Symbicort 160-4.5 Mcg Inhaler] Cranberry Fruit Extract [Cranberry] 500 mg PO BID 01/23/20 01/23/20 History predniSONE [Deltasone] See Taper PO DAILY 01/23/20 01/23/20 History Allergies Allergy/AdvReac Type Severity Reaction Status Date / Time No Known Allergies Allergy Verified 01/23/20 07:12 Physical Exam Vitals: Vital Signs Temp Pulse Pulse Resp BP BP Pulse Ox 01/23/20 13:24 85 01/23/20 13:15 84 01/23/20 12:56 97.7 F 101 H 16 136/76 97 01/23/20 12:15 98.0 F 100 18 129/81 97 01/23/20 11:36 100 18 129/81 97 01/23/20 09:38 98.0 F 01/23/20 09:33 105 H 18 120/79 98 01/23/20 07:33 98.0 F 109 H 18 119/79 97 01/23/20 06:57 109 H 22 130/87 96 01/23/20 06:01 22 01/23/20 05:54 97.9 F 120 H 22 133/89 98 Intake and Output 01/22/20 01/23/20 01/23/20 22:59 06:59 14:59 Other: Weight 70.307 kg 70.307 kg Gen: This is a 69-year-old female. Patient is seen in the emergency center. She is resting on the stretcher. She appears to be somewhat comfortable. She is complaining of pain in knees. HEENT: Head is atraumatic, normocephalic. Pupils equal, round. Sclerae is anicteric. NECK: Supple. No JVD. No lymphadenopathy. No thyromegaly. LUNGS: Diminished bilateral bases. No intercostal retractions. HEART: Regular rate and rhythm. No murmur. ABDOMEN: Soft. Bowel sounds are present. No masses. No tenderness. EXTREMITIES: No pedal edema. No calf tenderness. Dorsalis pedis +2 bilaterally. Right knee is edematous. Scar from previous arthroplasty. NEUROLOGICAL: Patient is awake, alert and oriented x3. Cranial nerves 2 through 12 are grossly intact. Results CBC & Chem 7: 01/23/20 06:09 01/23/20 07:22 Labs: Abnormal Lab Results - Last 24 Hours (Table) 01/23/20 01/23/20 Range/Units 06:09 07:22 WBC 13.0 H (3.8-10.6) k/uL Neutrophils # 9.1 H (1.3-7.7) k/uL Monocytes # 1.1 H (0-1.0) k/uL Potassium 3.4 L (3.5-5.1) mmol/L Carbon Dioxide 32 H (22-30) mmol/L BUN 30 H (7-17) mg/dL Glucose 111 H (74-99) mg/dL AST 38 H (14-36) U/L ALT 56 H (4-34) U/L Thrombosis Risk Factor Assmnt - DVT/VTE Prophylaxis DVT/VTE Prophylaxis: Pharmacologic Prophylaxis ordered - Choose All That Apply Any of the Below Risk Factors Present?: Yes Each Factor Represents 1 point: Serious lung disease incl. pneumonia (< 1month), Varicose veins Other Risk Factors: Yes Each Risk Factor Represents 2 Points: Age 61-74 years Other congenital or acquired thrombophilia - If yes, enter type in comment: No Thrombosis Risk Factor Assessment Total Risk Factor Score: 4 Thrombosis Risk Factor Assessment Level: Moderate Risk Assessment and Plan Plan: 1. Acute hypoxic respiratory failure secondary to bilateral pneumonia status post bronchoscopy as above. Continue Levaquin, Symbicort twice daily, DuoNeb treatments 4 times daily and as needed, Mucinex, Flonase. Cultures and cytology pending. 2. Hypertension with tachycardia on presentation. Continue Lopressor 25 mg twice daily, clonidine 0.1 mg 3 times daily as needed for systolic blood pressure greater than 160,. 3. Hoarseness since September 2019. CAT scan of the soft tissue neck without abnormality. 4. Chronic low back pain and peripheral. Continue gabapentin 300 mg the morning 600 and evening, [place] 10 daily as needed. 5. Hyperlipidemia. Continue pravastatin 20 mg at bedtime. 6. Generalized anxiety disorder. Continue Xanax to 0.25 mg twice daily as needed, Celexa 20 mg daily. 7. Hypothyroidism. Continue levothyroxine 88 g at bedtime. 8. Weight loss of 23 pounds since October of unclear etiology. 9. Insomnia. Melatonin added. 10. GI prophylaxis. Protonix. 10. DVT prophylaxis. Lovenox. CODE STATUS: Full code Patient met the hospital for a minimum of 2 night stay Discharge plan: on Wednesday. Impression and plan of care have been directed as dictated by the signing physician. Delmy Andersen nurse practitioner acting as scribe for signing physician.
[2020-01-23] MEDS: IPRATROPIUM-ALBUTEROL 3 ML NEB INHALATION SCH ×2 (15:46→19:14)
[2020-01-23] MEDS ORDERED: LEVOFLOXACIN 750 MG TAB PO SCH (16:00)
[2020-01-23] MEDS: SYMBICORT 160-4.5 MCG INHALER INHALATION SCH (19:14)
[2020-01-23] MEDS ORDERED: NON FORMULARY DRUG (Vitamin C/Biotin [Hair, Skin And Nails] 1 TAB) PO SCH (21:00)
[2020-01-23] MEDS ORDERED: LACTULOSE 20 GM/30 ML CUP PO SCH (21:00)
[2020-01-23] MEDS ORDERED: PRAVASTATIN SODIUM 20 MG TAB PO SCH (21:00)
[2020-01-23] MEDS ORDERED: LEVOTHYROXINE 88 MCG TAB PO SCH (21:00)
[2020-01-23] MEDS ORDERED: MELATONIN 3 MG TABLET PO SCH (21:00)
[2020-01-23] MEDS ORDERED: GABAPENTIN 300 MG CAP PO SCH (21:00)
[2020-01-23] MEDS: guaiFENesin 600 MG TABLET.ER PO SCH (21:28)
[2020-01-23] MEDS: METOPROLOL TARTRATE 25 MG TAB PO SCH (21:29)
[2020-01-23] MEDS: ARTIFICIAL TEARS-HYPROMELLOSE DROPS 15 ML BTL BOTH EYES SCH (21:29)
[2020-01-23 22:30] VITALS: RESP 20
[2020-01-24 05:24] VITALS: BP 151/82; TEMP 98.2
[2020-01-24] MEDS: IPRATROPIUM-ALBUTEROL 3 ML NEB INHALATION SCH ×2 (07:22→10:51)
[2020-01-24] MEDS: SYMBICORT 160-4.5 MCG INHALER INHALATION SCH (07:22)
[2020-01-24] MEDS ORDERED: PANTOPRAZOLE 40 MG TABLET PO SCH (07:30)
[2020-01-24] MEDS: METOPROLOL TARTRATE 25 MG TAB PO SCH (08:28)
--- NOTE | 2020-01-24 08:28 | P.DS ---
Providers Date of admission: 01/23/20 09:22 Expected date of discharge: 01/24/20 Attending physician: Pepe García Primary care physician: [facility] Course: This is a 69-year-old female patient of Dr. García past medical history of hypertension, hyperlipidemia, osteoarthritis, hypothyroidism, chronic back pain status post lumbar fusion 6 years ago with peripheral neuropathy. Patient was admitted on January 17 due to cough started 2 weeks prior and then developed difficulty breathing for the past 1 week with green sputum production and fever. Patient also gives history of weight loss of 23 pounds since October, hoarseness since September after being treated for bronchitis. Patient underwent bronchoscopy with Dr. Sterling that revealed bilateral pneumonia, severe laryngitis, severe trachitis, narrowing of the origin of the left mainstem bronchus due to malacia in addition to anatomic distortion related to kyphoscoliosis of the thoracic spine, mucous retention. Pathology revealed acute inflammatory cells with scattered reactive bronchial lining cells, macrophages and superficial squamous cells. No malignant cells identified. Protonix was increased to twice daily. Patient was seen by speech therapy and there was no concern for aspiration. She was treated with Zosyn and Levaquin along with IV Solu-Medrol, DuoNeb, Mucinex Pulmicort Robitussin with codeine and Flonase. Patient was stabilized and she requested to be discharged home yesterday. She states she was home and she was very weak and fell getting into her home. She was also having continued are worsening shortness of breath. Patient returned to [facility] emergency center for evaluation. X-ray of the right knee revealed no acute osseous abnormalities. Tricompartment right knee osteoarthrosis. Chest x-ray showed normal heart size. Scarring subsegmental atelectasis in the left lung base. No pleural effusion. EKG was a sinus tachycardia. She was afebrile, heart rate 101, blood pressure 136/76, pulse ox 97% on 2 L nasal cannula. WBC 13, BUN 30 creatinine 0.74, CO2 32, potassium 3.4. Troponin negative. AST 38 and ALT 56. Patient is seen in the emergency center waiting for a bed on the [facility] floor. Patient states that she would like to go to [facility] for subacute rehab. 01/24: Patient is afebrile, heart rate 101, blood pressure 151/82, pulse ox 95% on room air. Patient will be discharged to [facility] for subacute rehab once all arrangements are completed and insurance authorization has been obtained. Discharge diagnoses: 1. Acute hypoxic respiratory failure secondary to bilateral pneumonia status post bronchoscopy as above. 2. Hypertension with tachycardia on presentation. 3. Hoarseness since September 2019. CAT scan of the soft tissue neck without abnormality. 4. Chronic low back pain and peripheral neuropathy. 5. Hyperlipidemia. 6. Generalized anxiety disorder. 7. Hypothyroidism. 8. Weight loss of 23 pounds since October of unclear etiology. 9. Insomnia. Discharge plan: [facility] under the care of Dr. García Impression and plan of care have been directed as dictated by the signing physician. Delmy Andersen nurse practitioner acting as scribe for signing physician. Patient Condition at Discharge: Good Plan - Discharge Summary Discharge Rx Participant: No New Discharge Prescriptions: Continue Vitamin B Complex 1 cap PO DAILY Multivitamins, Thera [Multivitamin (formulary)] 1 tab PO DAILY Cholecalciferol [Vitamin D3 (25 Mcg = 1000 Iu)] 2,000 unit PO DAILY Pravastatin Sodium [Pravachol] 20 mg PO HS Levothyroxine Sodium [Synthroid] 88 mcg PO HS Citalopram Hydrobromide [CeleXA] 20 mg PO DAILY Lactulose 10 gm PO HS Baclofen [Lioresal] 10 mg PO BID PRN PRN Reason: Pain Glucosamine/Chondr Mckeon A Sod [Osteo Bi-Flex Caplet] 1 tab PO BID Propylene Glycol/Peg 400/Pf [Systane 0.3-0.4% Eye Drops] 1 - 2 drop BOTH EYES BID Naproxen Sodium [Aleve] 440 mg PO BID Pantoprazole [Protonix] 40 mg PO DAILY Vitamin C/Biotin [Hair, Skin and Nails] 1 tab PO BID cloNIDine HCL [Catapres] 0.1 mg PO TID PRN #90 tab PRN Reason: Blood Pressure - High Fluticasone Nasal [place] [Flonase Nasal [place]] 2 spray EA NOSTRIL DAILY spr Levofloxacin [Levaquin] 500 mg PO DAILY 7 Days #7 tab Metoprolol Tartrate [Lopressor] 25 mg PO BID #120 tab guaiFENesin [Mucinex] 1,200 mg PO Q12HR tablet.er Lisinopril [Zestril] 40 mg PO DAILY #60 tab Albuterol Sulfate [Ventolin HFA] 1 - 2 puff INHALATION RT-Q6H PRN PRN Reason: Shortness Of Breath Budesonide-Formot 160-4.5 Mcg [Symbicort 160-4.5 Mcg Inhaler] 2 puff INHALATION RT-BID Cranberry Fruit Extract [Cranberry] 500 mg PO BID predniSONE [Deltasone] See Taper PO DAILY Gabapentin [Neurontin] 600 mg PO HS #3 cap Gabapentin [Neurontin] 300 mg PO QAM #3 cap HYDROcodone/APAP 10-325MG [[place] 10-325] 1 tab PO DAILY PRN #3 tab PRN Reason: Pain ALPRAZolam [Xanax] 0.25 mg PO BID PRN #6 tab PRN Reason: Anxiety Discharge Medication List Cholecalciferol [Vitamin D3 (25 Mcg = 1000 Iu)] 2,000 unit PO DAILY 11/06/16 [History] Citalopram Hydrobromide [CeleXA] 20 mg PO DAILY 11/06/16 [History] Levothyroxine Sodium [Synthroid] 88 mcg PO HS 11/06/16 [History] Multivitamins, Thera [Multivitamin (formulary)] 1 tab PO DAILY 11/06/16 [History] Pravastatin Sodium [Pravachol] 20 mg PO HS 11/06/16 [History] Vitamin B Complex 1 cap PO DAILY 11/06/16 [History] Baclofen [Lioresal] 10 mg PO BID PRN 03/24/17 [History] Glucosamine/Chondr Mckeon A Sod [Osteo Bi-Flex Caplet] 1 tab PO BID 03/24/17 [History] Lactulose 10 gm PO HS 03/24/17 [History] Propylene Glycol/Peg 400/Pf [Systane 0.3-0.4% Eye Drops] 1 - 2 drop BOTH EYES BID 03/24/17 [History] Naproxen Sodium [Aleve] 440 mg PO BID 01/17/20 [History] Pantoprazole [Protonix] 40 mg PO DAILY 01/17/20 [History] Vitamin C/Biotin [Hair, Skin and Nails] 1 tab PO BID 01/17/20 [History] Fluticasone Nasal [place] [Flonase Nasal [place]] 2 spray EA NOSTRIL DAILY spr 01/22/20 [Rx] Levofloxacin [Levaquin] 500 mg PO DAILY 7 Days #7 tab 01/22/20 [Rx] Lisinopril [Zestril] 40 mg PO DAILY #60 tab 01/22/20 [Rx] Metoprolol Tartrate [Lopressor] 25 mg PO BID #120 tab 01/22/20 [Rx] cloNIDine HCL [Catapres] 0.1 mg PO TID PRN #90 tab 01/22/20 [Rx] guaiFENesin [Mucinex] 1,200 mg PO Q12HR tablet.er 01/22/20 [Rx] ALPRAZolam [Xanax] 0.25 mg PO BID PRN #6 tab 01/23/20 [Rx] Albuterol Sulfate [Ventolin HFA] 1 - 2 puff INHALATION RT-Q6H PRN 01/23/20 [History] Budesonide-Formot 160-4.5 Mcg [Symbicort 160-4.5 Mcg Inhaler] 2 puff INHALATION RT-BID 01/23/20 [History] Cranberry Fruit Extract [Cranberry] 500 mg PO BID 01/23/20 [History] Gabapentin [Neurontin] 300 mg PO QAM #3 cap 01/23/20 [Rx] Gabapentin [Neurontin] 600 mg PO HS #3 cap 01/23/20 [Rx] HYDROcodone/APAP 10-325MG [[place] 10-325] 1 tab PO DAILY PRN #3 tab 01/23/20 [Rx] predniSONE [Deltasone] See Taper PO DAILY 01/23/20 [History] Follow up Appointment(s)/Referral(s): Pepe García MD [Primary Care Provider] - 1 Week (at [facility]) Shania Cage NPC [Nurse Practitioner] - 01/29/20 2:30 am Discharge Disposition: TRANSFER TO SNF/ECF
[2020-01-24] MEDS: ARTIFICIAL TEARS-HYPROMELLOSE DROPS 15 ML BTL BOTH EYES SCH (08:29)
[2020-01-24] MEDS: guaiFENesin 600 MG TABLET.ER PO SCH (08:29)
[2020-01-24] MEDS ORDERED: NON FORMULARY DRUG (Vitamin B Complex [Vitamin B Complex] 1 CAP) PO SCH (09:00)
[2020-01-24] MEDS ORDERED: MULTIVITAMINS, THERA 1 EACH TAB PO SCH (09:00)
[2020-01-24] MEDS ORDERED: GABAPENTIN 300 MG CAP PO SCH (09:00)
[2020-01-24] MEDS ORDERED: CITALOPRAM HYDROBROMIDE 20 MG TAB PO SCH (09:00)
[2020-01-24] MEDS ORDERED: FLUTICASONE 50MCG/SPRAY NASAL 16GM EA NOSTRIL SCH (09:00)
[2020-01-24] MEDS ORDERED: LISINOPRIL 20 MG TAB PO SCH (09:00)
[2020-01-24 11:01] VITALS: PULSE 88
== END 2020-01-24 11:43 ==
LOC: EC 05:52 → 6NMEDSUR 09:22 → INTOOBSV 09:22 → 6NMEDSUR 11:25 → UNDODISIN 01-24 11:43
PROVIDERS: ADMIT Internal Medicine Geriatric Medicine; ATTEND Internal Medicine Geriatric Medicine
DX: J18.9 Pneumonia, unspecified organism (principal); J96.01 Acute respiratory failure with hypoxia; I10 Essential (primary) hypertension; R00.0 Tachycardia, unspecified; R49.0 Dysphonia; M54.42 Lumbago with sciatica, left side; M54.41 Lumbago with sciatica, right side; G89.29 Other chronic pain; G62.9 Polyneuropathy, unspecified; E78.5 Hyperlipidemia, unspecified; F41.1 Generalized anxiety disorder; E03.9 Hypothyroidism, unspecified; R63.4 Abnormal weight loss; G47.00 Insomnia, unspecified; M17.11 Unilateral primary osteoarthritis, right knee; M25.562 Pain in left knee; J98.11 Atelectasis; I34.1 Nonrheumatic mitral (valve) prolapse; M41.85 Other forms of scoliosis, thoracolumbar region; K59.09 Other constipation; R26.9 Unspecified abnormalities of gait and mobility; I83.90 Asymptomatic varicose veins of unspecified lower extremity; M06.9 Rheumatoid arthritis, unspecified; Z68.24 Body mass index [BMI] 24.0-24.9, adult; Z79.899 Other long term (current) drug therapy; Z79.890 Hormone replacement therapy; Z79.891 Long term (current) use of opiate analgesic; Z79.1 Long term (current) use of non-steroidal anti-inflammatories (NSAID); Z79.51 Long term (current) use of inhaled steroids; Z98.1 Arthrodesis status; Z98.890 Other specified postprocedural states; Z87.440 Personal history of urinary (tract) infections; Z96.652 Presence of left artificial knee joint; Z87.42 Personal history of other diseases of the female genital tract; Z87.01 Personal history of pneumonia (recurrent); Z77.22 Contact with and (suspected) exposure to environmental tobacco smoke (acute) (chronic); Z82.5 Family history of asthma and other chronic lower respiratory diseases; Z83.438 Family history of other disorder of lipoprotein metabolism and other lipidemia; Z81.2 Family history of tobacco abuse and dependence; Z82.49 Family history of ischemic heart disease and other diseases of the circulatory system
CPT/HCPCS: 96361 ×3; 96360; 99285; 51702; 36415; 94640 ×4; 93005; 97162; 97166; 83880; 80053; 83605; 83735; 84484; 85025; 85610; 85730; 73562; 71046; G0378 ×2

== ENCOUNTER 2020-04-29 15:52 | Inpatient (IN) | payer MEDICARE ==
[2020-04-29] MEDS ORDERED: methylPREDNISolone SOD SUCCI 125 MG/2 ML VIAL IV STA (15:57)
[2020-04-29] MEDS ORDERED: SODIUM CHLORIDE 0.9% 1,000 ML IV STA (15:57)
[2020-04-29] MEDS ORDERED: IPRATROPIUM-ALBUTEROL 3 ML NEB INHALATION STA (15:57)
[2020-04-29 16:40] LABS: Basophils % (A) 0 %; Eosinophils # (A) 0.1 k/uL (0-0.7); Eosinophils % (A) 1 %; HCT 41.5 % (34.0-46.0); HGB 13.1 gm/dL (11.4-16.0); Lymphocytes % (A) 40 %; MCHC 31.4 g/dL (31.0-37.0); MCV 92.1 fL (80.0-100.0); Mean Platelet Volume 7.3; Monocytes # (A) 0.5 k/uL (0-1.0); Monocytes % (A) 7 %; Neutrophils # (A) 3.7 k/uL (1.3-7.7); Neutrophils % (A) 50 %; Platelet Count 340 k/uL (150-450); RBC 4.51 m/uL (3.80-5.40); RDW 13.6 % (11.5-15.5); WBC 7.4 k/uL (3.8-10.6)
[2020-04-29 16:53] LABS: ALT 19 U/L (4-34); AST 17 U/L (14-36); African American GFR (CKD) >90 (>60 ml/min/1.73 sqM); Albumin 4.2 g/dL (3.5-5.0); Alkaline Phosphatase 88 U/L (38-126); Anion Gap 9 mmol/L; Blood Urea Nitrogen 23 mg/dL (7-17); Calcium 10.3 mg/dL (8.4-10.2); Carbon Dioxide 25 mmol/L (22-30); Chloride 103 mmol/L (98-107); Creatine Kinase 81 U/L (30-135); Glucose 109 mg/dL (74-99); Magnesium 1.8 mg/dL (1.6-2.3); Non-African American GFR(CKD) >90 (>60 ml/min/1.73 sqM); Partial Thromboplastin Time 24.1 sec (22.0-30.0); Potassium 3.9 mmol/L (3.5-5.1); Prothrombin Time 10.4 sec (9.0-12.0); Sodium 137 mmol/L (137-145); Total Bilirubin 0.7 mg/dL (0.2-1.3); Total Protein 7.2 g/dL (6.3-8.2)
[2020-04-29 16:57] LABS: D-Dimer 1.26 mg/L FEU (<0.60)
--- NOTE | 2020-04-29 17:04 | ED ---
SOB HPI - General Chief Complaint: Shortness of Breath Stated Complaint: SOB/NOELLE Time Seen by Provider: 04/29/20 15:52 Source: patient, EMS, RN notes reviewed Mode of arrival: EMS Limitations: no limitations - History of Present Illness Initial Comments: This is a 69-year-old female history of bilateral pneumonia who started on antibiotics 3 days ago after swishing shortness of breath and feeling that she had with her pneumonia. She refuses ago with Dr. tran but was called and she was brought in by EMS today because she has persistent shortness of breath and resolve with the medications that were given. Her sats are between 96 and 97 on 2 L of oxygen. She was very anxious per paramedics. Medication she was out was prednisone as well as doxycycline. MD Complaint: shortness of breath - Related Data Home Medications Medication Instructions Recorded Confirmed Cholecalciferol [Vitamin D3 (25 2,000 unit PO DAILY 11/06/16 01/23/20 Mcg = 1000 Iu)] Citalopram Hydrobromide [CeleXA] 20 mg PO DAILY 11/06/16 01/23/20 Levothyroxine Sodium [Synthroid] 88 mcg PO HS 11/06/16 01/23/20 Multivitamins, Thera [Multivitamin 1 tab PO DAILY 11/06/16 01/23/20 (formulary)] Pravastatin Sodium [Pravachol] 20 mg PO HS 11/06/16 01/23/20 Vitamin B Complex 1 cap PO DAILY 11/06/16 01/23/20 Baclofen [Lioresal] 10 mg PO BID PRN 03/24/17 01/23/20 Glucosamine/Chondr Mckeon A Sod [Osteo 1 tab PO BID 03/24/17 01/23/20 Bi-Flex Caplet] Lactulose 10 gm PO HS 03/24/17 01/23/20 Propylene Glycol/Peg 400/Pf 1 - 2 drop BOTH EYES BID 03/24/17 01/23/20 [Systane 0.3-0.4% Eye Drops] Naproxen Sodium [Aleve] 440 mg PO BID 01/17/20 01/23/20 Pantoprazole [Protonix] 40 mg PO DAILY 01/17/20 01/23/20 Vitamin C/Biotin [Hair, Skin and 1 tab PO BID 01/17/20 01/23/20 Nails] Albuterol Sulfate [Ventolin HFA] 1 - 2 puff INHALATION RT-Q6H PRN 01/23/20 01/23/20 Budesonide-Formot 160-4.5 Mcg 2 puff INHALATION RT-BID 01/23/20 01/23/20 [Symbicort 160-4.5 Mcg Inhaler] Cranberry Fruit Extract [Cranberry] 500 mg PO BID 01/23/20 01/23/20 predniSONE [Deltasone] See Taper PO DAILY 01/23/20 01/23/20 Previous Rx's Medication Instructions Recorded Fluticasone Nasal [place] [Flonase 2 spray EA NOSTRIL DAILY spr 01/22/20 Nasal [place]] Levofloxacin [Levaquin] 500 mg PO DAILY 7 Days #7 tab 01/22/20 Lisinopril [Zestril] 40 mg PO DAILY #60 tab 01/22/20 Metoprolol Tartrate [Lopressor] 25 mg PO BID #120 tab 01/22/20 cloNIDine HCL [Catapres] 0.1 mg PO TID PRN #90 tab 01/22/20 guaiFENesin [Mucinex] 1,200 mg PO Q12HR tablet.er 01/22/20 ALPRAZolam [Xanax] 0.25 mg PO BID PRN #6 tab 01/23/20 Gabapentin [Neurontin] 300 mg PO QAM #3 cap 01/23/20 Gabapentin [Neurontin] 600 mg PO HS #3 cap 01/23/20 HYDROcodone/APAP 10-325MG [[place] 1 tab PO DAILY PRN #3 tab 01/23/20 10-325] Allergies Allergy/AdvReac Type Severity Reaction Status Date / Time No Known Allergies Allergy Verified 01/23/20 07:12 Review of Systems ROS Statement: Those systems with pertinent positive or pertinent negative responses have been documented in the HPI. ROS Other: All systems not noted in ROS Statement are negative. Past Medical History Past Medical History: Hyperlipidemia, Hypertension, Mitral Valve Prolapse (MVP), Osteoarthritis (OA), Pneumonia, Rheumatoid Arthritis (RA), Thyroid Disorder, Vascular Disorder Additional Past Medical History / Comment(s): Pt recently admitted to [facility] on 01/17/20 with acute hypoxic respiratory failure 2ndary to bilateral pneumonia. Other hx: Thoracolumbar kyphoscoliosis, lumbar laminectomy and fusion multilevel, hypothyroidism, mitral valve prolapse, chronic low back pain, sciatica with pain involving lower extremities and numbness which is worse on R side, chronic constipation, history of frequent UTIs, difficulty with mobility and the patient uses a cane/walker, varicose veins. History of Any Multi-Drug Resistant Organisms: None Reported Past Surgical History: Back Surgery, Breast Surgery, Joint Replacement, Orthopedic Surgery Additional Past Surgical History / Comment(s): laproscopic surgery x 3 ( for infertility), arthroscopy left knee, , left breast lumpectomy-benign, laminectomy with spinal fusion (L-3to S-1) (2013), total left knee (10/2016) Past Anesthesia/Blood Transfusion Reactions: No Reported Reaction Past Psychological History: Anxiety Smoking Status: Never smoker Past Alcohol Use History: None Reported Past Drug Use History: None Reported - Past Family History Mother Family Medical History: COPD, Hyperlipidemia Additional Family Medical History / Comment(s): Mother at age 88 from COPD with history of smoking. Father Family Medical History: Myocardial Infarction (AZ) Additional Family Medical History / Comment(s): Father had a AZ at the age of 48yrs. Brother(s) Family Medical History: COPD Additional Family Medical History / Comment(s): Patient has one brother with history of smoking with no major medical problems. Patient does not have any sisters. Patient has one adopted daughter. Daughter(s) Family Medical History: No Reported History General Exam - General Exam Comments Initial Comments: This is a well-developed well-nourished awake alert oriented 3 female she is demonstrating marked anxiety Limitations: no limitations General appearance: alert, in no apparent distress Head exam: Present: atraumatic, normocephalic, normal inspection Eye exam: Present: normal appearance, PERRL, EOMI. Absent: scleral icterus, conjunctival injection, periorbital swelling ENT exam: Present: normal exam, mucous membranes moist Neck exam: Present: normal inspection. Absent: tenderness, meningismus, lymphadenopathy Respiratory exam: Present: decreased breath sounds. Absent: respiratory distress, wheezes, rales, rhonchi, stridor Cardiovascular Exam: Present: regular rate, normal rhythm, normal heart sounds. Absent: systolic murmur, diastolic murmur, rubs, gallop, clicks GI/Abdominal exam: Present: soft, normal bowel sounds. Absent: distended, tenderness, guarding, rebound, rigid Extremities exam: Present: normal inspection, full ROM, normal capillary refill. Absent: tenderness, pedal edema, joint swelling, calf tenderness Back exam: Present: normal inspection Neurological exam: Present: alert, oriented X3, CN II-XII intact Psychiatric exam: Present: normal affect, normal mood Skin exam: Present: warm, dry, intact, normal color. Absent: rash Course Vital Signs 04/29/20 04/29/20 04/29/20 16:27 16:29 16:37 Temperature 98.4 F Pulse Rate 93 94 Respiratory 20 20 Rate Blood Pressure 128/78 O2 Sat by Pulse 96 Oximetry 04/29/20 04/29/20 04/29/20 16:47 17:29 18:29 Temperature Pulse Rate 94 94 94 Respiratory 20 Rate Blood Pressure 141/98 O2 Sat by Pulse 96 Oximetry Medical Decision Making - Medical Decision Making I did reevaluate patient several occasions she was resting comfortably she did have an elevated d-dimer. CT angios was performed evidence of right upper lobe pulmonary emboli noted also in the millimeter left midlung nodule. I did discuss this case with Dr. Cruz. Patient be admitted place an IV heparin echocardiogram and consultation by Dr. Meza's group - Lab Data Result diagrams: 04/29/20 16:16 04/29/20 16:16 Lab Results 04/29/20 04/29/20 04/29/20 Range/Units 16:16 16:16 16:16 WBC 7.4 (3.8-10.6) k/uL RBC 4.51 (3.80-5.40) m/uL Hgb 13.1 (11.4-16.0) gm/dL Hct 41.5 (34.0-46.0) % MCV 92.1 (80.0-100.0) fL MCH 29.0 (25.0-35.0) pg MCHC 31.4 (31.0-37.0) g/dL RDW 13.6 (11.5-15.5) % Plt Count 340 (150-450) k/uL Neutrophils % 50 % Lymphocytes % 40 % Monocytes % 7 % Eosinophils % 1 % Basophils % 0 % Neutrophils # 3.7 (1.3-7.7) k/uL Lymphocytes # 3.0 (1.0-4.8) k/uL Monocytes # 0.5 (0-1.0) k/uL Eosinophils # 0.1 (0-0.7) k/uL Basophils # 0.0 (0-0.2) k/uL PT 10.4 (9.0-12.0) sec INR 1.0 (<1.2) APTT 24.1 (22.0-30.0) sec D-Dimer 1.26 H (<0.60) mg/L FEU Sodium 137 (137-145) mmol/L Potassium 3.9 (3.5-5.1) mmol/L Chloride 103 (98-107) mmol/L Carbon Dioxide 25 (22-30) mmol/L Anion Gap 9 mmol/L BUN 23 H (7-17) mg/dL Creatinine 0.57 (0.52-1.04) mg/dL Est GFR (CKD-EPI)AfAm >90 (>60 ml/min/1.73 sqM) Est GFR (CKD-EPI)NonAf >90 (>60 ml/min/1.73 sqM) Glucose 109 H (74-99) mg/dL Plasma Lactic Acid Gigi (0.7-2.0) mmol/L Calcium 10.3 H (8.4-10.2) mg/dL Magnesium 1.8 (1.6-2.3) mg/dL Total Bilirubin 0.7 (0.2-1.3) mg/dL AST 17 (14-36) U/L ALT 19 (4-34) U/L Alkaline Phosphatase 88 (38-126) U/L Creatine Kinase 81 (30-135) U/L Troponin I (0.000-0.034) ng/mL NT-Pro-B Natriuret Pep pg/mL Total Protein 7.2 (6.3-8.2) g/dL Albumin 4.2 (3.5-5.0) g/dL 04/29/20 04/29/20 04/29/20 Range/Units 16:16 16:16 16:16 WBC (3.8-10.6) k/uL RBC (3.80-5.40) m/uL Hgb (11.4-16.0) gm/dL Hct (34.0-46.0) % MCV (80.0-100.0) fL MCH (25.0-35.0) pg MCHC (31.0-37.0) g/dL RDW (11.5-15.5) % Plt Count (150-450) k/uL Neutrophils % % Lymphocytes % % Monocytes % % Eosinophils % % Basophils % % Neutrophils # (1.3-7.7) k/uL Lymphocytes # (1.0-4.8) k/uL Monocytes # (0-1.0) k/uL Eosinophils # (0-0.7) k/uL Basophils # (0-0.2) k/uL PT (9.0-12.0) sec INR (<1.2) APTT (22.0-30.0) sec D-Dimer (<0.60) mg/L FEU Sodium (137-145) mmol/L Potassium (3.5-5.1) mmol/L Chloride (98-107) mmol/L Carbon Dioxide (22-30) mmol/L Anion Gap mmol/L BUN (7-17) mg/dL Creatinine (0.52-1.04) mg/dL Est GFR (CKD-EPI)AfAm (>60 ml/min/1.73 sqM) Est GFR (CKD-EPI)NonAf (>60 ml/min/1.73 sqM) Glucose (74-99) mg/dL Plasma Lactic Acid Gigi 1.2 (0.7-2.0) mmol/L Calcium (8.4-10.2) mg/dL Magnesium (1.6-2.3) mg/dL Total Bilirubin (0.2-1.3) mg/dL AST (14-36) U/L ALT (4-34) U/L Alkaline Phosphatase (38-126) U/L Creatine Kinase (30-135) U/L Troponin I <0.012 (0.000-0.034) ng/mL NT-Pro-B Natriuret Pep 94 pg/mL Total Protein (6.3-8.2) g/dL Albumin (3.5-5.0) g/dL - EKG Data -: EKG Interpreted by Ms EKG Comments: Normal sinus rhythm of 94. Interval 144 QRS duration 76 QT since QTC 358/[address]-T wave configuration evidence of an S-wave in lead 3 and a inverted T-wave. - Radiology Data Radiology results: report reviewed (I did review the imaging and report right upper lobe pulmonary emboli additionally 8 mm left midlung nodule), image reviewed Critical Care Time Critical Care Time: Yes Total Critical Care Time: 31 Critical Care Time: 31 minutes of critical care time which includes initial presentation with history physical labs x-rays also reevaluation the patient. Discussed with the patient discussed with the admitting physician admission orders documentation of the above also review of old charting Disposition Clinical Impression: Pulmonary embolism, Pulmonary nodule, Dehydration, Dyspnea Disposition: ADMITTED IP TO THIS [facility] Condition: Fair Referrals: Pepe García MD [Primary Care Provider] - 1-2 days
--- NOTE | 2020-04-29 17:08 | XR ---
EXAMINATION TYPE: XR chest 2V DATE OF EXAM: 04/29/2020 COMPARISON: 01/23/2020 HISTORY: 69 year-old female with shortness of breath, difficulty breathing TECHNIQUE: AP and lateral views FINDINGS: Low lung volumes. Some patchy retrocardiac opacities present. Heart normal size. Upper and mid lungs are clear. IMPRESSION: Some patchy retrocardiac atelectasis versus early infiltrate.
--- NOTE | 2020-04-29 20:44 | CT ---
EXAMINATION TYPE: CT angio chest DATE OF EXAM: 04/29/2020 COMPARISON: CT chest 01/18/2020 HISTORY: 69-year-old female SOB, elevated d-dimer TECHNIQUE: Contiguous axial scanning of the chest performed with IV Contrast, patient injected with 8 9cc mL of Isovue 370. Coronal/sagittal MIP reconstructions performed. CT DLP: 408.2 mGycm Automated exposure control for dose reduction was used. FINDINGS: Heart normal size without pericardial effusion. No flattening of the interventricular septum or reflu x of contrast into the hepatic veins. Aorta normal caliber with conventional branching anatomy. No thoracic lymphadenopathy by CT size criteria. Satisfactory opacification of the pulmonary arterial system but with prominent respiratory motion art ifacts degrading the exam. However, the exam appears positive for pulmonary emboli involving right up per lobar and segmental branches. Large bands of atelectasis in the lower lungs. No leno consolidation or pleural effusion. 8 mm left midlung pulmonary nodule, axial image 80. Visualized upper abdomen shows no gross abnormali ty. Moderate degenerative disc disease throughout the thoracic spine. Accentuated mid thoracic stenosis. Prominent motion at the sternomanubrial junction on the sagittal reconstruction. IMPRESSION: 1. EXAM DEGRADED BY BREATHING MOTION. HOWEVER, THERE APPEAR TO BE PULMONARY EMBOLI INVOLVING RIGHT UP PER LOBAR AND MULTIPLE RIGHT UPPER LOBE SEGMENTAL BRANCHES. NO RIGHT HEART STRAIN. CRITICAL FINDINGS CALLED TO NURSE ARVIZU IN THE ER AT 8:40 PM. 2. AN 8 MM LEFT MIDLUNG PULMONARY NODULE. [address] FOLLOW-UP CT RECOMMENDED TO REASSESS
[2020-04-29] MEDS ORDERED: NALOXONE 0.4 MG/ML 1 ML VIAL IV PRN (21:10)
[2020-04-29] MEDS ORDERED: cloNIDine HCL 0.1 MG TAB PO PRN (21:12)
[2020-04-29] MEDS ORDERED: HEPARIN SODIUM,PORCINE 5,000 UNIT/ML 1 ML VIAL IV PRN (21:15)
[2020-04-29] MEDS ORDERED: HEPARIN SODIUM,PORCINE 10,000 UNIT/ML 1 ML VIAL IV ONE (21:15)
[2020-04-29] MEDS: SODIUM CHLORIDE 0.9% 1,000 ML IV SCH (21:53)
[2020-04-29] MEDS: HEPARIN SOD,PORK IN 0.45% NACL 25,000 UNIT in 0.45% NACL 1 250ML.BAG IV SCH (21:55)
[2020-04-29] MEDS: ALPRAZolam 0.25 MG TAB PO PRN (22:24)
[2020-04-29] MEDS: HYDROcodone/APAP 10-325MG 1 EACH TAB PO PRN (22:26)
[2020-04-29] MEDS: ALBUTEROL NEBULIZED 2.5 MG/3 ML INHALATION PRN (23:26)
[2020-04-30 03:32] LABS: Basophils % (A) 0 %; Eosinophils % (A) 1 %; HCT 40.4 % (34.0-46.0); HGB 13.2 gm/dL (11.4-16.0); Lymphocytes % (A) 18 %; MCH 30.8 pg (25.0-35.0); MCHC 32.7 g/dL (31.0-37.0); Mean Platelet Volume 6.9; Monocytes # (A) 0.1 k/uL (0-1.0); Monocytes % (A) 1 %; Neutrophils # (A) 4.2 k/uL (1.3-7.7); Neutrophils % (A) 80 %; Platelet Count 344 k/uL (150-450); RDW 13.6 % (11.5-15.5); WBC 5.3 k/uL (3.8-10.6)
[2020-04-30] MEDS: BACLOFEN 10 MG TAB PO PRN ×2 (05:57→19:57)
[2020-04-30] MEDS: SYMBICORT 160-4.5 MCG INHALER INHALATION SCH ×2 (07:46→19:34)
[2020-04-30] MEDS: ALBUTEROL NEBULIZED 2.5 MG/3 ML INHALATION PRN (07:46)
[2020-04-30] MEDS ORDERED: GABAPENTIN 300 MG CAP PO SCH ×2 (09:00)
[2020-04-30] MEDS ORDERED: PEG BOTH EYES SCH (09:00)
[2020-04-30] MEDS ORDERED: PROPYLENE GLYCOL BOTH EYES SCH (09:00)
--- NOTE | 2020-04-30 09:46 | US ---
EXAMINATION TYPE: US venous doppler duplex LE DATE OF EXAM: 04/30/2020 9:38 AM COMPARISON: NONE CLINICAL HISTORY: dvt. SIDE PERFORMED: Bilateral TECHNIQUE: The lower extremity deep venous system is examined utilizing real time linear array sonog gregorio with graded compression, doppler sonography and color-flow sonography. VESSELS IMAGED: External Iliac Vein (EIV) Common Femoral Vein Deep Femoral Vein Greater Saphenous Vein * Femoral Vein Popliteal Vein Small Saphenous Vein * Proximal Calf Veins (* superficial vessels) Right Leg: Negative for DVT Left Leg: Negative for DVT Patient done portable, unable to reach legs to augment. IMPRESSION: 1. Bilateral lower extremity ultrasound negative for deep venous thrombosis. 2. Augmentation could not be performed during this exam.
[2020-04-30] MEDS: GABAPENTIN 300 MG CAP PO SCH ×3 (09:54→19:57)
[2020-04-30] MEDS: guaiFENesin 600 MG TABLET.ER PO SCH ×2 (09:54→19:57)
[2020-04-30] MEDS: METOPROLOL TARTRATE 25 MG TAB PO SCH ×2 (09:54→19:56)
[2020-04-30] MEDS: PANTOPRAZOLE 40 MG TABLET PO SCH (09:54)
[2020-04-30] MEDS: CITALOPRAM HYDROBROMIDE 20 MG TAB PO SCH (09:55)
[2020-04-30] MEDS: LISINOPRIL 20 MG TAB PO SCH (09:56)
[2020-04-30] MEDS: CARBAMIDE PEROXIDE 6.5% DROPS 15 ML BTL RIGHT EAR SCH ×2 (09:57→22:31)
[2020-04-30] MEDS: methylPREDNISolone SOD SUCCI 40 MG/ML 1 ML VIAL IV SCH ×3 (09:58→22:42)
[2020-04-30] MEDS: SODIUM CHLORIDE 0.9% 1,000 ML IV SCH ×2 (09:58→22:42)
[2020-04-30] MEDS: ALBUTEROL NEBULIZED 2.5 MG/3 ML INHALATION SCH ×2 (11:17→19:33)
--- NOTE | 2020-04-30 11:48 | P.HPIM ---
History of Present Illness H&P Date: 04/30/20 This is a 69-year-old female patient of Dr. García past medical history of hypertension, hyperlipidemia, osteoarthritis, hypothyroidism, chronic back pain status post lumbar fusion 6 years ago with peripheral neuropathy. Patient was admitted 2x in December of this year. Patient underwent bronchoscopy with Dr. Vogel January 19 that revealed bilateral pneumonia, severe laryngitis, severe trachitis, narrowing of the origin of the left mainstem bronchus due to malacia in addition to anatomic distortion related to kyphoscoliosis of the thoracic spine, mucous retention. Pathology revealed acute inflammatory cells with scattered reactive bronchial lining cells, macrophages and superficial squamous cells. No malignant cells identified. the patient has had ongoing hoarseness which will require further follow-up as an outpatient. Patient gives history that she developed difficulty breathing 2 weeks ago. She had increasing weakness and actually had a fall last landing on her right knee with ecchymosis. She has had no recent changes in her medications. She is currently on a tapering dose of prednisone. She states she talked to Dr. Parr for phone interview 1 month ago." Last week she contacted Dr. Rojas's office and she was encouraged come into the hospital immediately but did not arrive until last evening. Patient returned to [facility] emergency center for evaluation. Chest x-ray revealed patchy retrocardiac atelectasis versus early pneumonia. D- dimer was elevated at 1.26. CTA of the chest revealed pulmonary emboli involving the right upper lobar and multiple right upper lobe segmental branches. No right heart strain. 8 mm left mid lung pulmonary nodule. Three-month follow-up recommended.bilateral lower extremity ultrasound negative for DVT. CBC was unremarkable, BUN 23 and creatinine 0.57, electrolytes and liver function tests within normal limits. Troponin negative, proBNP 94.patient was afebrile, heart rate 93, blood pressure 120/78, pulse ox 96% on 2 L nasal cannula but required this increased to 4 L to maintain oxygen saturation. Patient was started on heparin drip, admitted to the cardiac stepdown unit, consult with pulmonary medicine, echocardiogram ordered Review of Systems Constitutional: Reports fatigue, Reports lethargy, Reports malaise, Reports poor appetite, Reports weakness, Denies chills, Denies fever Eyes: denies blurred vision, denies pain Ears, nose, mouth and throat: Denies dysphagia, Denies headache, Denies nasal congestion, Denies nasal discharge, Denies sore throat, Denies vertigo Cardiovascular: Reports decreased exercise tolerance, Reports dyspnea on exertion, Reports shortness of breath, Denies chest pain, Denies leg edema, Denies syncope Respiratory: Reports cough, Reports dyspnea, Denies cough with sputum, Denies excessive sputum, Denies hemoptysis, Denies home oxygen, Denies respiratory infections Gastrointestinal: Denies abdominal pain, Denies diarrhea, Denies nausea, Denies vomiting Genitourinary: Denies dysuria, Denies hematuria, Denies urgency, Denies urinary frequency Musculoskeletal: Reports muscle weakness, Denies frequent falls, Denies gait dy sfunction, Denies myalgias Integumentary: Reports darkening of skin, Denies pruritus, Denies rash, Denies wounds Neurological: Denies change in mentation, Denies change in speech, Denies numbness, Denies seizures, Denies weakness Psychiatric: Denies anxiety, Denies depression Endocrine: Denies fatigue, Denies weight change Past Medical History Past Medical History: Hyperlipidemia, Hypertension, Mitral Valve Prolapse (MVP), Osteoarthritis (OA), Pneumonia, Rheumatoid Arthritis (RA), Thyroid Disorder, Vascular Disorder Additional Past Medical History / Comment(s): Pt recently admitted to [facility] on 01/17/20 with acute hypoxic respiratory failure 2ndary to bilateral pneumonia. Other hx: Thoracolumbar kyphoscoliosis, lumbar laminectomy and fusion multilevel, hypothyroidism, mitral valve prolapse, chronic low back pain, sciatica with pain involving lower extremities and numbness which is worse on R side, chronic constipation, history of frequent UTIs, difficulty with mobility and the patient uses a cane/walker, varicose veins. History of Any Multi-Drug Resistant Organisms: None Reported Past Surgical History: Back Surgery, Breast Surgery, Joint Replacement, Orthopedic Surgery Additional Past Surgical History / Comment(s): laproscopic surgery x 3 ( for infertility), arthroscopy left knee, , left breast lumpectomy-benign, laminectomy with spinal fusion (L-3to S-1) (2013), total left knee (10/2016) Past Anesthesia/Blood Transfusion Reactions: No Reported Reaction Past Psychological History: Anxiety Additional Psychological History / Comment(s): Pt resides alone. She uses a walker now to ambulate and owns a cane. She drives. She has been established with [facility] in the past. She has a nebulizer. Patient was recently discharged from [facility] and of December/early January. Smoking Status: Never smoker Past Alcohol Use History: None Reported Additional Past Alcohol Use History / Comment(s): Patient is a lifelong nonsmoker but did have exposure to secondhand smoke. No marijuana, illicit drug use or alcohol use. Patient lives alone. She does not have oxygen or CPAP at home. Patient's daughter lives across the street from her. Patient babysits 8-month-old twin grandsons. Past Drug Use History: None Reported - Past Family History Mother Family Medical History: COPD, Hyperlipidemia Additional Family Medical History / Comment(s): Mother at age 88 from COPD with history of smoking. Father Family Medical History: Myocardial Infarction ([place]) Additional Family Medical History / Comment(s): Father had a [place] at the age of 48yrs. Brother(s) Family Medical History: COPD Additional Family Medical History / Comment(s): Patient has one brother with history of smoking with no major medical problems. Patient does not have any sisters. Patient has one adopted daughter. Daughter(s) Family Medical History: No Reported History Medications and Allergies Home Medications Medication Instructions Recorded Confirmed Type Cholecalciferol [Vitamin D3 (25 2,000 unit PO DAILY 11/06/16 04/29/20 History Mcg = 1000 Iu)] Citalopram Hydrobromide [CeleXA] 20 mg PO DAILY 11/06/16 04/29/20 History Levothyroxine Sodium [Synthroid] 88 mcg PO HS 11/06/16 04/29/20 History Multivitamins, Thera [Multivitamin 1 tab PO DAILY 11/06/16 04/29/20 History (formulary)] Pravastatin Sodium [Pravachol] 20 mg PO HS 11/06/16 04/29/20 History Vitamin B Complex 1 cap PO DAILY 11/06/16 04/29/20 History Baclofen [Lioresal] 10 mg PO TID 03/24/17 04/29/20 History Glucosamine/Chondr [place]ke[place] A Sod [Osteo 1 tab PO BID 03/24/17 04/29/20 History Bi-Flex Caplet] Propylene Glycol/Peg 400/Pf 1 - 2 drop BOTH EYES BID 03/24/17 04/29/20 History [Systane 0.3-0.4% Eye Drops] Naproxen Sodium [Aleve] 440 mg PO BID 01/17/20 04/29/20 History Pantoprazole [Protonix] 40 mg PO DAILY@0600 01/17/20 04/29/20 History Vitamin C/Biotin [Hair, Skin and 1 tab PO BID 01/17/20 04/29/20 History Nails] Fluticasone Nasal [place] [Flonase 2 spray EA NOSTRIL DAILY spr 01/22/20 04/29/20 Rx Nasal [place]] Metoprolol Tartrate [Lopressor] 25 mg PO BID #120 tab 01/22/20 04/29/20 Rx cloNIDine HCL [Catapres] 0.1 mg PO TID PRN #90 tab 01/22/20 04/29/20 Rx ALPRAZolam [Xanax] 0.25 mg PO BID PRN #6 tab 01/23/20 04/29/20 Rx Albuterol Sulfate [Ventolin HFA] 1 - 2 puff INHALATION RT-Q6H PRN 01/23/20 04/29/20 History Budesonide-Formot 160-4.5 Mcg 2 puff INHALATION RT-BID 01/23/20 04/29/20 History [Symbicort 160-4.5 Mcg Inhaler] Cranberry Fruit Extract [Cranberry] 500 mg PO BID 01/23/20 04/29/20 History Gabapentin [Neurontin] 600 mg PO HS #3 cap 01/23/20 04/29/20 Rx HYDROcodone/APAP 10-325MG [[place] 1 tab PO DAILY PRN #3 tab 01/23/20 04/29/20 Rx 10-325] Benzonatate [Tessalon Perles] 100 mg PO TID PRN 04/29/20 04/29/20 History Doxycycline Hyclate [Vibramycin] 100 mg PO BID 04/29/20 04/29/20 History Gabapentin [Neurontin] 300 mg PO BID 04/29/20 04/29/20 History Lisinopril 10 mg PO DAILY@1700 04/29/20 04/29/20 History guaiFENesin [Mucinex] 600 mg PO BID 04/29/20 04/29/20 History predniSONE See Taper PO DAILY 04/29/20 04/29/20 History Allergies Allergy/AdvReac Type Severity Reaction Status Date / Time No Known Allergies Allergy Verified 04/29/20 22:52 Physical Exam Vitals: Vital Signs Temp Pulse Pulse Resp BP BP Pulse Ox 04/30/20 08:00 94 04/30/20 07:46 92 04/30/20 05:20 98.1 F 104 H 18 116/74 95 04/29/20 23:57 101 H 18 04/29/20 23:28 96 04/29/20 23:26 104 H 04/29/20 22:17 98.4 F 130 H 18 152/87 96 04/29/20 21:57 98.1 F 108 H 18 138/80 97 04/29/20 18:29 94 04/29/20 17:29 94 20 141/98 96 04/29/20 16:47 94 04/29/20 16:37 94 04/29/20 16:29 20 04/29/20 16:27 98.4 F 93 20 128/78 96 Intake and Output 04/29/20 04/30/20 04/30/20 22:59 06:59 14:59 Intake Total 80.513 Balance 80.513 Intake: Intake, IV Titration 80.513 Amount Heparin Sod,Pork in 0.45% 80.513 NaCl 25,000 unit In 0.45 % NaCl 1 250ml.bag @ 18 UNITS/KG/HR 13.308 mls/hr IV .[id number] [facility] Rx#: [id number] Other: Voiding Method Bedside Commode Bedpan # Voids 5 Weight 73.936 kg 73 kg Gen: This is a 69-year-old female. Mild dyspnea noted at rest with mild accessory muscle usage. HEENT: Head is atraumatic, normocephalic. Pupils equal, round. Sclerae is anicteric. NECK: Supple. No JVD. No lymphadenopathy. No thyromegaly. LUNGS: Diminished bilateral bases with scattered rhonchi and expiratory wheeze. Mild intercostal retractions with minimal movement. HEART: Regular rate and rhythm. No murmur. ABDOMEN: Soft. Bowel sounds are present. No masses. No tenderness. EXTREMITIES: No pedal edema. No calf tenderness. Dorsalis pedis +2 bilaterally. NEUROLOGICAL: Patient is awake, alert and oriented x3. Cranial nerves 2 through 12 are grossly intact. Results CBC & Chem 7: 04/30/20 03:09 04/29/20 16:16 Labs: Abnormal Lab Results - Last 24 Hours (Table) 04/29/20 04/29/20 04/30/20 Range/Units 16:16 16:16 03:09 APTT >200.0 H* (22.0-30.0) sec D-Dimer 1.26 H (<0.60) mg/L FEU BUN 23 H (7-17) mg/dL Glucose 109 H (74-99) mg/dL Calcium 10.3 H (8.4-10.2) mg/dL Thrombosis Risk Factor Assmnt - DVT/VTE Prophylaxis DVT/VTE Prophylaxis: Pharmacologic Prophylaxis ordered Assessment and Plan Plan: 1. Acute hypoxic respiratory failure secondary to pulmonary emboli complicated by kyphoscoliosis. Continue heparin drip, pulmonary medicine consult. Continue albuterol treatments, and Solu-Medrol 40 mg every 8 hours, Mucinex twice daily, Symbicort twice daily. 2. Hypertension. Continue lisinopril 40 mg daily, Lopressor 25 mg twice daily, clonidine 0.1 mg 3 times daily as needed for systolic blood pressure greater than 160. 3. Hoarseness since September 2019. Patient will need follow-up with ENT as an outpatient. 4. Chronic low back pain and peripheral. Continue gabapentin 300 mg the morning 600 and evening, [place] 10 daily as needed, baclofen 10 mg twice daily as needed. 5. Hyperlipidemia. Continue pravastatin 20 mg at bedtime. 6. Generalized anxiety disorder. Continue Xanax to 0.25 mg twice daily as needed, Celexa 20 mg daily. 7. Hypothyroidism. Continue levothyroxine 88 g at bedtime. 8. Weight loss of 23 pounds since October of unclear etiology. negative workup on previous admissions. 9. Right ear pain secondary to earwax buildup. Debrox eardrops ordered. 10. GI prophylaxis. Protonix. 11. DVT prophylaxis. Heparin. 12. COVID-19 testing in process. Patient will be admitted to the hospital for a minimum of 2 night stay. CODE STATUS: Full code Discharge plan: To be determined. Patient has had [facility] care in the past and was recently at [facility] for subacute rehab. Impression and plan of care have been directed as dictated by the signing physician. Delmy Andersen nurse practitioner acting as scribe for signing physician.
[2020-04-30] MEDS: ALPRAZolam 0.25 MG TAB PO PRN ×2 (11:57→19:57)
[2020-04-30] MEDS: FLUTICASONE 50MCG/SPRAY NASAL 16GM EA NOSTRIL SCH (12:40)
--- NOTE | 2020-04-30 13:54 | P.CNPUL ---
History of Present Illness Consult date: 04/30/20 Reason for consult: dyspnea History of present illness: This is a 69-year-old female patient with multiple medical problems and comorbidities who came into the hospital yesterday because of worsening shortness of breath. The patient is known to me as a better this patient during a consultation done on 01/19/2020 and I also performed a bronchoscopy on this patient as the patient had significant respiratory compromise following his spine surgery and I found that the patient had adequate functioning vocal cords, nevertheless, she had evidence of laryngitis, tracheitis, narrowing of the left mainstem bronchus due to bronchomalacia and the patient has significant mucus retention that was suctioned out. Note that the patient also had anatomic distortion of the thoracic cage due to severe kyphoscoliosis of the thoracic spine. The cultures that were obtained from her lungs came back all negative. She does have noisy breathing. I think this is a not a inspiratory stridor and the patient is probably producing this inspiratory noise as she breathes in and out. Note that back then, which is this patient for bilateral pneumonia. CAT scan clearly showed inflammatory changes and infiltrates in the lung bases bilaterally and the patient was given antibiotics and she was discharged home. Over the past few weeks, the patient has been having increased shortness of breath and wheezing cough and congestion and for that reason she contacted her primary care physician and she was advised to come into the hospital. Chest x- ray showed some limited atelectatic changes in lung bases. D-dimer was at 1.26. This was followed up by CT angiogram which raises the suspicion for a right upper lobe lobar pulmonary embolism and subsegmental embolization in the right upper lobe. Nevertheless, there was no right ventricular strain pattern. There was no evidence of DVTs in the lower extremity Dopplers were negative. As mentioned, d-dimer was slightly elevated. Another 8mm left midlung nodule was described by the radiologist. The patient's proBNP level is 94. She is hemodynamically stable with a pulse of 76% on 2 L and currently she is on IV heparin. I noted that the inflammatory changes in lung bases improved compared to previous CAT scan of the chest that was done in December 2019. She is having some difficulties in swallowing. She denies aspiration. She denies having any hemoptysis or pleurisy at this point. No previous history of DVT and pulmonary embolism. She is essentially sedentary. Nevertheless, she hasn't had any previous DVTs or PEs. Review of Systems Constitutional: Reports fatigue, Reports lethargy, Reports malaise, Reports poor appetite, Reports weakness, Denies chills, Denies fever Eyes: denies blurred vision, denies pain Ears, nose, mouth and throat: Denies dysphagia, Denies headache, Denies nasal congestion, Denies nasal discharge, Denies sore throat, Denies vertigo, noisy breathing without clear indication for respiratory stridor. Cardiovascular: Reports decreased exercise tolerance, Reports dyspnea on exertion, Reports shortness of breath, Denies chest pain, Denies leg edema, Denies syncope Respiratory: Reports cough, Reports dyspnea, Denies cough with sputum, Denies excessive sputum, Denies hemoptysis, Denies home oxygen, Denies respiratory infections Gastrointestinal: Denies abdominal pain, Denies diarrhea, Denies nausea, Denies vomiting Genitourinary: Denies dysuria, Denies hematuria, Denies urgency, Denies urinary frequency Musculoskeletal: Reports muscle weakness, Denies frequent falls, Denies gait dysfunction, Denies myalgias, kyphoscoliosis of the chest involving the thoracic spine Integumentary: Reports darkening of skin, Denies pruritus, Denies rash, Denies wounds Neurological: Denies change in mentation, Denies change in speech, Denies numbness, Denies seizures, Denies weakness Psychiatric: Denies anxiety, Denies depression Endocrine: Denies fatigue, Denies weight change Past Medical History Past Medical History: Hyperlipidemia, Hypertension, Mitral Valve Prolapse (MVP), Osteoarthritis (OA), Pneumonia, Rheumatoid Arthritis (RA), Thyroid Disorder, Vascular Disorder Additional Past Medical History / Comment(s): Pt recently admitted to [facility] on 01/17/20 with acute hypoxic respiratory failure 2ndary to bilateral pneumonia. Other hx: Thoracolumbar kyphoscoliosis, lumbar laminectomy and fusion multilevel, hypothyroidism, mitral valve prolapse, chronic low back pain, sciatica with pain involving lower extremities and numbness which is worse on R side, chronic constipation, history of frequent UTIs, difficulty with mobility and the patient uses a cane/walker, varicose veins. History of Any Multi-Drug Resistant Organisms: None Reported Past Surgical History: Back Surgery, Breast Surgery, Joint Replacement, Orthopedic Surgery Additional Past Surgical History / Comment(s): laproscopic surgery x 3 ( for infertility), arthroscopy left knee, , left breast lumpectomy-benign, laminectomy with spinal fusion (L-3to S-1) (2013), total left knee (10/2016) Past Anesthesia/Blood Transfusion Reactions: No Reported Reaction Past Psychological History: Anxiety Additional Psychological History / Comment(s): Pt resides alone. She uses a walker now to ambulate and owns a cane. She drives. She has been established with [facility] in the past. She has a nebulizer. Patient was recently discharged from [facility] and of December/early January. Smoking Status: Never smoker Past Alcohol Use History: None Reported Additional Past Alcohol Use History / Comment(s): Patient is a lifelong nonsmoker but did have exposure to secondhand smoke. No marijuana, illicit drug use or alcohol use. Patient lives alone. She does not have oxygen or CPAP at home. Patient's daughter lives across the street from her. Patient babysits 8-month-old twin grandsons. Past Drug Use History: None Reported - Past Family History Mother Family Medical History: COPD, Hyperlipidemia Additional Family Medical History / Comment(s): Mother at age 88 from COPD with history of smoking. Father Family Medical History: Myocardial Infarction (OR) Additional Family Medical History / Comment(s): Father had a OR at the age of 48yrs. Brother(s) Family Medical History: COPD Additional Family Medical History / Comment(s): Patient has one brother with history of smoking with no major medical problems. Patient does not have any sisters. Patient has one adopted daughter. Daughter(s) Family Medical History: No Reported History Medications and Allergies Home Medications Medication Instructions Recorded Confirmed Type Cholecalciferol [Vitamin D3 (25 2,000 unit PO DAILY 11/06/16 04/29/20 History Mcg = 1000 Iu)] Citalopram Hydrobromide [CeleXA] 20 mg PO DAILY 11/06/16 04/29/20 History Levothyroxine Sodium [Synthroid] 88 mcg PO HS 11/06/16 04/29/20 History Multivitamins, Thera [Multivitamin 1 tab PO DAILY 11/06/16 04/29/20 History (formulary)] Pravastatin Sodium [Pravachol] 20 mg PO HS 11/06/16 04/29/20 History Vitamin B Complex 1 cap PO DAILY 11/06/16 04/29/20 History Baclofen [Lioresal] 10 mg PO TID 03/24/17 04/29/20 History Glucosamine/Chondr Mckeon A Sod [Osteo 1 tab PO BID 03/24/17 04/29/20 History Bi-Flex Caplet] Propylene Glycol/Peg 400/Pf 1 - 2 drop BOTH EYES BID 03/24/17 04/29/20 History [Systane 0.3-0.4% Eye Drops] Naproxen Sodium [Aleve] 440 mg PO BID 01/17/20 04/29/20 History Pantoprazole [Protonix] 40 mg PO DAILY@0600 01/17/20 04/29/20 History Vitamin C/Biotin [Hair, Skin and 1 tab PO BID 01/17/20 04/29/20 History Nails] Fluticasone Nasal [place] [Flonase 2 spray EA NOSTRIL DAILY spr 01/22/20 04/29/20 Rx Nasal Court[place]ay] Metoprolol Tartrate [Lopressor] 25 mg PO BID #120 tab 01/22/20 04/29/20 Rx cloNIDine HCL [Catapres] 0.1 mg PO TID PRN #90 tab 01/22/20 04/29/20 Rx ALPRAZolam [Xanax] 0.25 mg PO BID PRN #6 tab 01/23/20 04/29/20 Rx Albuterol Sulfate [Ventolin HFA] 1 - 2 puff INHALATION RT-Q6H PRN 01/23/20 04/29/20 History Budesonide-Formot 160-4.5 Mcg 2 puff INHALATION RT-BID 01/23/20 04/29/20 History [Symbicort 160-4.5 Mcg Inhaler] Cranberry Fruit Extract [Cranberry] 500 mg PO BID 01/23/20 04/29/20 History Gabapentin [Neurontin] 600 mg PO HS #3 cap 01/23/20 04/29/20 Rx HYDROcodone/APAP 10-325MG [[place] 1 tab PO DAILY PRN #3 tab 01/23/20 04/29/20 Rx 10-325] Benzonatate [Tessalon Perles] 100 mg PO TID PRN 04/29/20 04/29/20 History Doxycycline Hyclate [Vibramycin] 100 mg PO BID 04/29/20 04/29/20 History Gabapentin [Neurontin] 300 mg PO BID 04/29/20 04/29/20 History Lisinopril 10 mg PO DAILY@1700 04/29/20 04/29/20 History guaiFENesin [Mucinex] 600 mg PO BID 04/29/20 04/29/20 History predniSONE See Taper PO DAILY 04/29/20 04/29/20 History Allergies Allergy/AdvReac Type Severity Reaction Status Date / Time No Known Allergies Allergy Verified 04/29/20 22:52 Physical Exam Vitals: Vital Signs Temp Pulse Pulse Resp BP BP Pulse Ox 04/30/20 11:35 98.4 F 88 131/86 96 04/30/20 11:28 92 04/30/20 11:17 90 04/30/20 08:00 98.7 F 94 113 H 20 129/72 96 04/30/20 07:46 92 04/30/20 05:20 98.1 F 104 H 18 116/74 95 04/29/20 23:57 101 H 18 04/29/20 23:28 96 04/29/20 23:26 104 H 04/29/20 22:17 98.4 F 130 H 18 152/87 96 04/29/20 21:57 98.1 F 108 H 18 138/80 97 04/29/20 18:29 94 04/29/20 17:29 94 20 141/98 96 04/29/20 16:47 94 04/29/20 16:37 94 04/29/20 16:29 20 04/29/20 16:27 98.4 F 93 20 128/78 96 Intake and Output 04/29/20 04/30/20 04/30/20 22:59 06:59 14:59 Intake Total 80.513 197.815 Balance 80.513 197.815 Intake: Intake, IV Titration 80.513 77.815 Amount Heparin Sod,Pork in 0.45% 80.513 77.815 NaCl 25,000 unit In 0.45 % NaCl 1 250ml.bag @ 18 UNITS/KG/HR 13.308 mls/hr IV .[id number] [facility] Rx#: [id number] Oral 120 Other: Voiding Method Bedside Commode Bedpan Bedpan # Voids 5 2 Weight 73.936 kg 73 kg Gen. appearance the patient is having somewhat noisy inspiratory breathing. Nevertheless, this is not consistent with stridor. She doesn't have any active signs of respiratory distress and she is not using accessory muscles of breathing at this point in time. Head exam was generally normal. There was no scleral icterus or corneal arcus. Mucous membranes were moist. Neck was supple and without jugular venous distension, thyromegaly, or carotid bruits. Carotids were easily palpable bilaterally. There was no adenopathy. Th ere is kyphosis of the cervical spine and thoracic spine Examination of the lungs shows crackles and rhonchi heard throughout the lung melgar bilaterally more so on the lower lobes and the patient has thoracic kyphosis and scoliosis. Breath sounds are quite diminished bilaterally. There is also some limited expiratory wheeze. Cardiac exam revealed the PMI to be normally situated and sized. The rhythm was regular and no extrasystoles were noted during several minutes of auscultation. The first and second heart sounds were normal and physiologic splitting of the second heart sound was noted. There were no murmurs, rubs, clicks, or valencia Abdominal exam revealed normal bowel sounds. The abdomen was soft, non-tender, and without masses, organomegaly, or appreciable enlargement of the abdominal aorta. Examination of the extremities revealed easily palpable radial, femoral and pedal pulses. There was no cyanosis, clubbing or edema. Examination of the skin revealed no evidence of significant rashes, suspicious appearing nevi or other concerning lesions. Musculoskeletal the patient has thoracic and lumbar kyphoscoliosis in addition to a scar of previous surgery in the lower thoracic spine. She hasn't undergone previous/knee surgery/replacement on the left. Neurologically the patient is awake and alert. She has limited mobility due to her severe arthritis and back problems Psychiatric the patient is intact normal affect and mood. Results - Laboratory Findings CBC and BMP: 04/30/20 03:09 04/29/20 16:16 PT/INR, D-dimer PT 10.4 sec (9.0-12.0) 04/29/20 16:16 INR 1.0 (<1.2) 04/29/20 16:16 D-Dimer 1.26 mg/L FEU (<0.60) H 04/29/20 16:16 Abnormal lab findings: Abnormal Labs 04/29/20 04/29/20 04/30/20 16:16 16:16 03:09 APTT >200.0 H* D-Dimer 1.26 H BUN 23 H Glucose 109 H Calcium 10.3 H 04/30/20 10:41 APTT 138.1 H* D-Dimer BUN Glucose Calcium - Diagnostic Findings Chest x-ray: image reviewed CT scan - chest: image reviewed Assessment and Plan Plan: 1 acute shortness of breath without significant decompensation in the overall oxygenation as the patient remains on 2 L of oxygen by nasal cannula with a pulse ox of 96%. The overall presentation is not typical for pulmonary embolism. Although the patient is sedentary, the Doppler of the lower extremity has been negative in the CAT scan of the chest has a lot of motion artifact and I'm not absolutely convinced that this is a presentation with pulmonary embolism. The patient is currently on IV heparin. She continues to have cough and congestion and some wheeze. I think she is on and off aspirating. I noted a CAT scan of the chest shows improvement in the pulmonary infiltrates there were discussed earlier back in December 2019 although this are not fully recovered. I think this is overall a soft diagnosis for pulmonary embolism. I cannot rule it in and out completely. I favor that this is most likely aspiration rather than pulmonary embolism. 2 recent hospitalization back in December 2019 for bilateral lower lobe pneumonia. Consider recurrent aspiration pneumonia. She does have possibly some underlying restrictive lung disease due to her thoracolumbar kyphoscoliosis. She has small lung volumes and the chest x-ray and a CAT scan of the chest. Previous bronchoscopy showed intact focal cords. The patient had tracheitis, laryngitis, malacia involving the left mainstem bronchus in addition to a mucous retention and these were all aspirated. 3 acute hoarseness, improved 4 dysphagia, consider aspiration 5 thoracolumbar kyphoscoliosis 6 lumbar spine fusion multilevel 7 hypothyroidism 8 osteoarthritis with previous knee and hip replacements 9 sciatica and chronic back pain and weakness in lower extremities 10 frequent UTIs 11 history of chronic constipation 12 history of mitral valve prolapse 13 hyperlipidemia 14 hypertension Plan The decision was already made to anticoagulate this patient. I'm not against anticoagulation. However I think this is a soft diagnosis and it doesn't explain the whole picture. I the patient is on off aspirating which probably is causing recurrent respiratory distress and shortness of breath. Suggest repeating a swallow evaluation. Continued IV DuoNeb nebulized treatment 4 times a day [id number]. A short treatment course with anti-coagulation for a total of 3-6 months may be utilized with understanding that this was done on soft grounds. Choice of anticoagulant should be a newer agent oral and the coagulant such as Eliquis or Xarelto. Overall condition is stable she is on 2 L of oxygen by nasal cannula. We'll continue to follow.
[2020-04-30] MEDS: HEPARIN SOD,PORK IN 0.45% NACL 25,000 UNIT in 0.45% NACL 1 250ML.BAG IV SCH (17:00)
--- NOTE | 2020-04-30 18:00 | ECHOF ---
Referral Reason:Pulmonary embolism MEASUREMENTS -------- HEIGHT: 170.2 cm WEIGHT: 72.6 kg BP: 116/74 IVSd: 1.3 cm (0.6 - 1.1) LVIDd: 3.1 cm (3.9 - 5.3) LVPWd: 1.7 cm (0.6 - 1.1) IVSs: 1.7 cm LVIDs: 1.6 cm LVPWs: 1.7 cm RVIDd: 3.3 cm (< 3.3) LAESV Index (A-L): 31.59 ml/m Ao Diam: 2.7 cm (2.0 - 3.7) AV Cusp: 2.0 cm (1.5 - 2.6) EPSS: 0.3 cm MV E Gerhard: 0.86 m/s MV DecT: 94 ms MV A Gerhard: 1.25 m/s MV E/A Ratio: 0.69 RAP: 5.00 mmHg RVSP: 48.37 mmHg MV EF SLOPE: 105.89 mm/s (70 - 150) MV EXCURSION: 20.65 mm (> 18.000) FINDINGS -------- Resting tachycardia (HR>100bpm). This was a technically adequate study. The left ventricular size is normal. There is moderate concentric left ventricular hypertrophy. O verall left ventricular systolic function is normal with, an EF between 60 - 65 %. The diastolic fi lling pattern is normal for the age of the patient 13.06. The right ventricle is mildly enlarged. LA is midly dilated 29-33ml/m2. The right atrium was not well visualized. Interatrial and interventricular septum intact. There is no evidence of aortic regurgitation. There is no evidence of aortic stenosis. Mild mitral regurgitation is present. [id number] tricuspid regurgitation present. There is mild to moderate pulmonary hypertension. The right ventricular systolic pressure, as measured by Doppler, is 48.37mmHg. There is no pulmonic regurgitation present. The aortic root size is normal. IVC Not well visulized. There is no pericardial effusion. CONCLUSIONS -------- 1. Resting tachycardia (HR>100bpm). 2. This was a technically adequate study. 3. The left ventricular size is normal. 4. There is moderate concentric left ventricular hypertrophy. 5. Overall left ventricular systolic function is normal with, an EF between 60 - 65 %. 6. The diastolic filling pattern is normal for the age of the patient 13.06 7. The right ventricle is mildly enlarged. 8. LA is midly dilated 29-33ml/m2. 9. The right atrium was not well visualized. 10. Interatrial and interventricular septum intact. 11. There is no evidence of aortic regurgitation. 12. There is no evidence of aortic stenosis. 13. Mild mitral regurgitation is present. 14. [id number] tricuspid regurgitation present. 15. There is mild to moderate pulmonary hypertension. 16. The right ventricular systolic pressure, as measured by Doppler, is 48.37mmHg. 17. There is no pulmonic regurgitation present. 18. The aortic root size is normal. 19. IVC Not well visulized. 20. There is no pericardial effusion. UNDERGROUND ELECTRICIAN: Christina Orosco RDCS
[2020-04-30] MEDS: LEVOTHYROXINE 88 MCG TAB PO SCH (19:56)
[2020-04-30] MEDS: PRAVASTATIN SODIUM 20 MG TAB PO SCH (19:56)
[2020-04-30] MEDS: LACTULOSE 20 GM/30 ML CUP PO SCH (19:56)
[2020-04-30] MEDS: HYDROcodone/APAP 10-325MG 1 EACH TAB PO PRN (22:42)
[2020-05-01] MEDS: ALBUTEROL NEBULIZED 2.5 MG/3 ML INHALATION SCH ×5 (03:04→19:38)
[2020-05-01 03:53] LABS: Basophils % (A) 0 %; Eosinophils % (A) 0 %; HCT 36.1 % (34.0-46.0); HGB 11.4 gm/dL (11.4-16.0); Lymphocytes % (A) 16 %; MCH 29.3 pg (25.0-35.0); MCHC 31.6 g/dL (31.0-37.0); MCV 92.6 fL (80.0-100.0); Mean Platelet Volume 7.3; Monocytes # (A) 0.2 k/uL (0-1.0); Monocytes % (A) 3 %; Neutrophils # (A) 4.7 k/uL (1.3-7.7); Neutrophils % (A) 80 %; Platelet Count 299 k/uL (150-450); RBC 3.89 m/uL (3.80-5.40); RDW 13.5 % (11.5-15.5)
[2020-05-01 05:58] LABS: Glucose,Whole Blood 105 mg/dL (75-99)
[2020-05-01] MEDS: SYMBICORT 160-4.5 MCG INHALER INHALATION SCH ×2 (07:56→19:38)
[2020-05-01] MEDS: PANTOPRAZOLE 40 MG TABLET PO SCH (09:24)
[2020-05-01] MEDS: GABAPENTIN 300 MG CAP PO SCH ×3 (09:24→20:47)
[2020-05-01] MEDS: LISINOPRIL 20 MG TAB PO SCH (09:25)
[2020-05-01] MEDS: guaiFENesin 600 MG TABLET.ER PO SCH ×2 (09:25→20:47)
[2020-05-01] MEDS: CITALOPRAM HYDROBROMIDE 20 MG TAB PO SCH (09:25)
[2020-05-01] MEDS: FLUTICASONE 50MCG/SPRAY NASAL 16GM EA NOSTRIL SCH (09:25)
[2020-05-01] MEDS: METOPROLOL TARTRATE 25 MG TAB PO SCH ×2 (09:25→20:47)
[2020-05-01] MEDS: CARBAMIDE PEROXIDE 6.5% DROPS 15 ML BTL RIGHT EAR SCH ×2 (09:26→22:00)
[2020-05-01] MEDS: methylPREDNISolone SOD SUCCI 40 MG/ML 1 ML VIAL IV SCH (09:26)
--- NOTE | 2020-05-01 10:58 | P.PN ---
Subjective Progress Note Date: 05/01/20 This is a 69-year-old female patient of Dr. García past medical history of hypertension, hyperlipidemia, osteoarthritis, hypothyroidism, chronic back pain status post lumbar fusion 6 years ago with peripheral neuropathy. Patient was admitted 2x in December of this year. Patient underwent bronchoscopy with Dr. Vogel January 19 that revealed bilateral pneumonia, severe laryngitis, severe trachitis, narrowing of the origin of the left mainstem bronchus due to malacia in addition to anatomic distortion related to kyphoscoliosis of the thoracic spine, mucous retention. Pathology revealed acute inflammatory cells with scattered reactive bronchial lining cells, macrophages and superficial squamous cells. No malignant cells identified. the patient has had ongoing hoarseness which will require further follow-up as an outpatient. Patient gives history that she developed difficulty breathing 2 weeks ago. She had increasing weakness and actually had a fall last landing on her right knee with ecchymosis. She has had no recent changes in her medications. She is currently on a tapering dose of prednisone. She states she talked to Dr. Parr for phone interview 1 month ago." Last week she contacted Dr. Rojas's office and she was encouraged come into the hospital immediately but did not arrive until last evening. Patient returned to [facility] emergency center for evaluation. Chest x-ray revealed patchy retrocardiac atelectasis versus early pneumonia. D- dimer was elevated at 1.26. CTA of the chest revealed pulmonary emboli involving the right upper lobar and multiple right upper lobe segmental branches. No right heart strain. 8 mm left mid lung pulmonary nodule. Three-month follow-up recommended.bilateral lower extremity ultrasound negative for DVT. CBC was unremarkable, BUN 23 and creatinine 0.57, electrolytes and liver function tests within normal limits. Troponin negative, proBNP 94.patient was afebrile, heart rate 93, blood pressure 120/78, pulse ox 96% on 2 L nasal cannula but required this increased to 4 L to maintain oxygen saturation. Patient was started on heparin drip, admitted to the cardiac stepdown unit, consult with pulmonary medicine, echocardiogram ordered 05/01: Patient has been afebrile, heart rate 65, blood pressure 121/70, pulse ox 96% on 2 L nasal cannula. Repeat CBC is unremarkable. Patient has been e valuated by Dr. Sterling and fevers possible aspiration rather than pulmonary embolism for her hypoxia but supports anticoagulation for 3-6 months. Speech therapy consult will be added. She is not currently on antibiotics. Heparin drip to be transitioned to oral eliquis today. IV Solu-Medrol was transitioned to oral prednisone. Patient is working with PT and OT with plan to go to [facility] at the time of discharge. Objective - Vital Signs Vital signs: Vital Signs Temp 98.1 F 05/01/20 03:37 Pulse 65 05/01/20 03:37 Resp 20 05/01/20 03:37 BP 121/70 05/01/20 03:37 Pulse Ox 96 05/01/20 03:37 Intake & Output 04/30/20 05/01/20 05/01/20 18:59 06:59 18:59 Intake Total 893.044 7218.017 120 Output Total 750 Balance 349.606 520.017 120 Weight 78 kg Intake: Intake, IV Titration 982.498 3461.017 Amount Heparin Sod,Pork in 0.45% 109.606 30.017 NaCl 25,000 unit In 0.45 % NaCl 1 250ml.bag @ 18 UNITS/KG/HR 13.308 mls/hr IV .[id number] [facility] Rx#: [id number] Sodium Chloride 0.9% 1, 1000 000 ml @ 80 mls/hr IV . [id number] [facility] Rx#:[id number] Oral 240 240 120 Output: Urine 750 Other: Voiding Method Bedpan Bedpan # Voids 5 2 - Exam Review of Systems Constitutional: Reports fatigue, Reports lethargy, Reports malaise, Reports poor appetite, Reports weakness, Denies chills, Denies fever Eyes: denies blurred vision, denies pain Ears, nose, mouth and throat: Denies dysphagia, Denies headache, Denies nasal congestion, Denies nasal discharge, Denies sore throat, Denies vertigo Cardiovascular: Reports decreased exercise tolerance, Reports dyspnea on exertion, Reports shortness of breath, Denies chest pain, Denies leg edema, Denies syncope Respiratory: Reports cough, Reports dyspnea-improved, Denies cough with sputum, Denies excessive sputum, Denies hemoptysis, Denies home oxygen, Denies respiratory infections Gastrointestinal: Denies abdominal pain, Denies diarrhea, Denies nausea, Denies vomiting Genitourinary: Denies dysuria, Denies hematuria, Denies urgency, Denies urinary frequency Musculoskeletal: Reports muscle weakness, Denies frequent falls, Denies gait dysfunction, Denies myalgias Integumentary: Reports darkening of skin, Denies pruritus, Denies rash, Denies wounds Neurological: Denies change in mentation, Denies change in speech, Denies numbness, Denies seizures, Denies weakness Psychiatric: Denies anxiety, Denies depression Endocrine: Reports fatigue, Denies weight change Physical Examination Gen: This is a 69-year-old female. Patient is resting in bed and appears to be comfortable and in no acute distress. HEENT: Head is atraumatic, normocephalic. Pupils equal, round. Sclerae is anicteric. NECK: Supple. No JVD. No lymphadenopathy. No thyromegaly. LUNGS: Diminished bilateral bases, bilateral crackles. No intercostal retractions. HEART: Regular rate and rhythm. No murmur. ABDOMEN: Soft. Bowel sounds are present. No masses. No tenderness. EXTREMITIES: No pedal edema. No calf tenderness. Dorsalis pedis +2 bilaterally. NEUROLOGICAL: Patient is awake, alert and oriented x3. Cranial nerves 2 through 12 are grossly intact. - Labs CBC & Chem 7: 05/01/20 03:26 04/29/20 16:16 Labs: Abnormal Lab Results - Last 24 Hours (Table) 04/30/20 04/30/20 05/01/20 Range/Units 10:41 19:00 03:26 APTT 138.1 H* 93.2 H 50.5 H (22.0-30.0) sec POC Glucose (mg/dL) (75-99) mg/dL 05/01/20 Range/Units 05:57 APTT (22.0-30.0) sec POC Glucose (mg/dL) 105 H (75-99) mg/dL Assessment and Plan Plan: 1. Acute hypoxic respiratory failure secondary to pulmonary emboli complicated by kyphoscoliosis. Continue heparin drip-transition to oral eliquis, pulmonary medicine consult. Continue albuterol treatments, and Solu-Medrol 40 mg every 8 hours-transition to oral prednisone, Mucinex twice daily, Symbicort twice daily. 2. Hypertension. Continue lisinopril 40 mg daily, Lopressor 25 mg twice daily, clonidine 0.1 mg 3 times daily as needed for systolic blood pressure greater than 160. 3. Hoarseness since September 2019. Patient will need follow-up with ENT as an outpatient. 4. Chronic low back pain and peripheral. Continue gabapentin 300 mg the morning 600 and evening, [place] 10 daily as needed, baclofen 10 mg twice daily as needed. 5. Hyperlipidemia. Continue pravastatin 20 mg at bedtime. 6. Generalized anxiety disorder. Continue Xanax to 0.25 mg twice daily as needed, Celexa 20 mg daily. 7. Hypothyroidism. Continue levothyroxine 88 g at bedtime. 8. Weight loss of 23 pounds since October of unclear etiology. negative workup on previous admissions. 9. Right ear pain secondary to earwax buildup. Debrox eardrops ordered. 10. GI prophylaxis. Protonix. 11. DVT prophylaxis. Heparin. 12. COVID-19 testing in process. CODE STATUS: Full code Discharge plan: [facility] for subacute rehab on under the care of Dr. García. Impression and plan of care have been directed as dictated by the signing physician. Delmy Andersen nurse practitioner acting as scribe for signing physi monica.
[2020-05-01] MEDS: APIXABAN 5 MG TAB PO SCH ×2 (11:09→20:47)
--- NOTE | 2020-05-01 11:33 | P.PN ---
Subjective Progress Note Date: 05/01/20 Principal diagnosis: Acute shortness of breath, acute hypoxic respiratory failure, possibility of aspiration pneumonia This is a 69-year-old female patient with multiple medical problems and comorbidities who came into the hospital yesterday because of worsening shortness of breath. The patient is known to me as a better this patient during a consultation done on 01/19/2020 and I also performed a bronchoscopy on this patient as the patient had significant respiratory compromise following his spine surgery and I found that the patient had adequate functioning vocal cords, nevertheless, she had evidence of laryngitis, tracheitis, narrowing of the left mainstem bronchus due to bronchomalacia and the patient has significant mucus retention that was suctioned out. Note that the patient also had anatomic distortion of the thoracic cage due to severe kyphoscoliosis of the thoracic spine. The cultures that were obtained from her lungs came back all negative. She does have noisy breathing. I think this is a not a inspiratory stridor and the patient is probably producing this inspiratory noise as she breathes in and out. Note that back then, which is this patient for bilateral pneumonia. CAT scan clearly showed inflammatory changes and infiltrates in the lung bases bilaterally and the patient was given antibiotics and she was discharged home. Over the past few weeks, the patient has been having increased shortness of breath and wheezing cough and congestion and for that reason she contacted her primary care physician and she was advised to come into the hospital. Chest x- ray showed some limited atelectatic changes in lung bases. D-dimer was at 1.26. This was followed up by CT angiogram which raises the suspicion for a right upper lobe lobar pulmonary embolism and subsegmental embolization in the right upper lobe. Nevertheless, there was no right ventricular strain pattern. There was no evidence of DVTs in the lower extremity Dopplers were negative. As mentioned, d-dimer was slightly elevated. Another 8mm left midlung nodule was described by the radiologist. The patient's proBNP level is 94. She is hemodynamically stable with a pulse of 76% on 2 L and currently she is on IV heparin. I noted that the inflammatory changes in lung bases improved compared to previous CAT scan of the chest that was done in December 2019. She is having some difficulties in swallowing. She denies aspiration. She denies having any hemoptysis or pleurisy at this point. No previous history of DVT and pulmonary embolism. She is essentially sedentary. Nevertheless, she hasn't had any previous DVTs or PEs. On 05/01/2020 patient seen in follow-up on selective care unit, she is awake and alert, she is sitting up in the chair today, in no acute distress, breathing easier today, on 2 L of oxygen pulse ox of 96%, she is in sinus rhythm with a rate of 70, less tachycardic on today's exam, no complaints chest pain, no worsening dyspnea, no fever or chills. White count is not elevated, 5.3 on today's labs, hemoglobin is 13.2, no fever or chills, occasional cough without phlegm production, coronavirus PCR was negative. No antibiotics on right now, we'll send a pro-calcitonin, obtain speech therapy evaluation patient remains on oral prednisone and breathing treatments, doing well feeling better today. Objective - Vital Signs Vital signs: Vital Signs Temp 98.4 F 05/01/20 11:14 Pulse 70 05/01/20 11:14 Resp 20 05/01/20 11:14 BP 134/80 05/01/20 11:14 Pulse Ox 96 05/01/20 11:14 Intake & Output 04/30/20 05/01/20 05/01/20 18:59 06:59 18:59 Intake Total 108.287 2928.017 204.173 Output Total 750 Balance 349.606 520.017 204.173 Weight 78 kg Intake: Intake, IV Titration 035.020 5773.017 84.173 Amount Heparin Sod,Pork in 0.45% 109.606 30.017 84.173 NaCl 25,000 unit In 0.45 % NaCl 1 250ml.bag @ 18 UNITS/KG/HR 13.308 mls/hr IV .[id number] [facility] Rx#: [id number] Sodium Chloride 0.9% 1, 1000 000 ml @ 80 mls/hr IV . [id number] [facility] Rx#:[id number] Oral 240 240 120 Output: Urine 750 Other: Voiding Method Bedpan Bedpan Bedpan # Voids 5 2 - Exam GENERAL EXAM: Alert, very pleasant 69-year-old white female comfortable that his oxygen and the pulse ox 96% sitting up in a recliner, in no acute distress comfortable in no apparent distress. HEAD: Normocephalic/atraumatic. EYES: Normal reaction of pupils, equal size. Conjunctiva pink, sclera white. NOSE: Clear with pink turbinates. THROAT: No erythema or exudates. NECK: No masses, no JVD, no thyroid enlargement, no adenopathy. CHEST: No chest wall deformity. Symmetrical expansion. LUNGS: Equal air entry with scattered crackles and rhonchi bilaterally CVS: Regular rate and rhythm, normal S1 and S2, no gallops, no murmurs, no rubs ABDOMEN: Soft, nontender. No hepatosplenomegaly, normal bowel sounds, no guarding or rigidity. EXTREMITIES: No clubbing, no edema, no cyanosis, 2+ pulses and upper and lower extremities. MUSCULOSKELETAL: Muscle strength and tone normal. SPINE: Thoracolumbar kyphoscoliosis SKIN: No rashes CENTRAL NERVOUS SYSTEM: Alert and oriented -3. No focal deficits, tone is normal in all 4 extremities. PSYCHIATRIC: Alert and oriented -3. Appropriate affect. Intact judgment and insight. - Labs CBC & Chem 7: 05/01/20 03:26 04/29/20 16:16 Labs: Abnormal Lab Results - Last 24 Hours (Table) 04/30/20 04/30/20 05/01/20 Range/Units 10:41 19:00 03:26 APTT 138.1 H* 93.2 H 50.5 H (22.0-30.0) sec POC Glucose (mg/dL) (75-99) mg/dL 05/01/20 Range/Units 05:57 APTT (22.0-30.0) sec POC Glucose (mg/dL) 105 H (75-99) mg/dL Assessment and Plan Plan: Assessment: 1 acute shortness of breath without significant decompensation in the overall oxygenation as the patient remains on 2 L of oxygen by nasal cannula with a pulse ox of 96%. The overall presentation is not typical for pulmonary embolism. Although the patient is sedentary, the Doppler of the lower extremity has been negative in the CAT scan of the chest has a lot of motion artifact and I'm not absolutely convinced that this is a presentation with pulmonary embolism. The patient is currently on IV heparin. She continues to have cough and congestion and some wheeze. I think she is on and off aspirating. I noted a CAT scan of the chest shows improvement in the pulmonary infiltrates there were discussed earlier back in December 2019 although this are not fully recovered. I think this is overall a soft diagnosis for pulmonary embolism. I cannot rule it in and out completely. I favor that this is most likely aspiration rather than pulmonary embolism. 2 recent hospitalization back in December 2019 for bilateral lower lobe pneumonia. Consider recurrent aspiration pneumonia. She does have possibly some underlying restrictive lung disease due to her thoracolumbar kyphoscoliosis. She has small lung volumes and the chest x-ray and a CAT scan of the chest. Previous bronchoscopy showed intact focal cords. The patient had tracheitis, laryngitis, malacia involving the left mainstem bronchus in addition to a mucous retention and these were all aspirated. 3 acute hoarseness, improved 4 dysphagia, consider aspiration 5 thoracolumbar kyphoscoliosis 6 lumbar spine fusion multilevel 7 hypothyroidism 8 osteoarthritis with previous knee and hip replacements 9 sciatica and chronic back pain and weakness in lower extremities 10 frequent UTIs 11 history of chronic constipation 12 history of mitral valve prolapse 13 hyperlipidemia 14 hypertension Plan: We'll continue current medical treatment, no fever or chills, no leukocytosis, patient is feeling better, breathing easier, breathing treatments, coronavirus PCR test was negative. We'll stop the heparin infusion, and start the patient on Eliquis starter pack. We'll stop the IV Solu-Medrol and switch her to prednisone taper. We'll obtain speech evaluation to evaluate for possibility of recurrent aspiration. Will send a procalcitonin level, patient is hemodynamically stable, no altered mentation, tolerating get not in the chair well. We'll continue to follow I performed a history & physical examination of the patient and discussed their management with my nurse practitioner, Zara Jung. I reviewed the nurse practitioner's note and agree with the documented findings and plan of care. Lung sounds are positive for a few rhonchi and crackles. The findings and the impression was discussed with the patient. I attest to the documentation by the nurse practitioner. Time with Patient: Less than 30
[2020-05-01 11:42] LABS: Glucose,Whole Blood 110 mg/dL (75-99)
[2020-05-01 16:55] LABS: Glucose,Whole Blood 115 mg/dL (75-99)
[2020-05-01 20:15] LABS: Glucose,Whole Blood 161 mg/dL (75-99)
[2020-05-01] MEDS: PRAVASTATIN SODIUM 20 MG TAB PO SCH (20:47)
[2020-05-01] MEDS: BACLOFEN 10 MG TAB PO PRN (20:47)
[2020-05-01] MEDS: LEVOTHYROXINE 88 MCG TAB PO SCH (20:47)
[2020-05-01] MEDS: ALPRAZolam 0.25 MG TAB PO PRN (20:47)
[2020-05-01] MEDS: LACTULOSE 20 GM/30 ML CUP PO SCH (20:48)
[2020-05-01] MEDS: HYDROcodone/APAP 10-325MG 1 EACH TAB PO PRN (22:00)
[2020-05-02] MEDS: ALBUTEROL NEBULIZED 2.5 MG/3 ML INHALATION SCH ×3 (01:55→11:24)
[2020-05-02 06:54] LABS: Basophils % (A) 0 %; Eosinophils % (A) 1 %; HCT 35.4 % (34.0-46.0); HGB 11.8 gm/dL (11.4-16.0); Lymphocytes # (A) 2.9 k/uL (1.0-4.8); Lymphocytes % (A) 48 %; MCH 30.8 pg (25.0-35.0); MCHC 33.3 g/dL (31.0-37.0); MCV 92.6 fL (80.0-100.0); Monocytes # (A) 0.5 k/uL (0-1.0); Monocytes % (A) 8 %; Neutrophils # (A) 2.6 k/uL (1.3-7.7); Neutrophils % (A) 42 %; Platelet Count 301 k/uL (150-450); RBC 3.83 m/uL (3.80-5.40); RDW 13.6 % (11.5-15.5); WBC 6.2 k/uL (3.8-10.6)
[2020-05-02] MEDS: SYMBICORT 160-4.5 MCG INHALER INHALATION SCH (08:00)
--- NOTE | 2020-05-02 08:19 | P.DS ---
Providers Date of admission: 04/30/20 08:14 Expected date of discharge: 05/02/20 Attending physician: Pepe García Consults: 04/29/20 21:10 Consult Physician Routine Consulting Provider: Hilaria Meza Consult Reason/Comments: Pulmonary embolism Do you want consulting provider notified?: Yes Primary care physician: Pepe Ricky [facility] Course: This is a 69-year-old female patient of Dr. García past medical history of hypertension, hyperlipidemia, osteoarthritis, hypothyroidism, chronic back pain status post lumbar fusion 6 years ago with peripheral neuropathy. Patient was admitted 2x in December of this year. Patient underwent bronchoscopy with Dr. Vogel January 19 that revealed bilateral pneumonia, severe laryngitis, severe trachitis, narrowing of the origin of the left mainstem bronchus due to malacia in addition to anatomic distortion related to kyphoscoliosis of the thoracic spine, mucous retention. Pathology revealed acute inflammatory cells with scattered reactive bronchial lining cells, macrophages and superficial squamous cells. No malignant cells identified. the patient has had ongoing hoarseness which will require further follow-up as an outpatient. Patient gives history that she developed difficulty breathing 2 weeks ago. She had increasing weakness and actually had a fall last landing on her right knee with ecchymosis. She has had no recent changes in her medications. She is currently on a tapering dose of prednisone. She states she talked to Dr. Parr for phone interview 1 month ago." Last week she contacted Dr. Rojas's office and she was encouraged come into the hospital immediately but did not arrive until last evening. Patient returned to [facility] emergency center for evaluation. Chest x-ray revealed patchy retrocardiac atelectasis versus early pneumonia. D- dimer was elevated at 1.26. CTA of the chest revealed pulmonary emboli involving the right upper lobar and multiple right upper lobe segmental branches. No right heart strain. 8 mm left mid lung pulmonary nodule. Three-month follow-up recommended.bilateral lower extremity ultrasound negative for DVT. CBC was unremarkable, BUN 23 and creatinine 0.57, electrolytes and liver function tests within normal limits. Troponin negative, proBNP 94.patient was afebrile, heart rate 93, blood pressure 120/78, pulse ox 96% on 2 L nasal cannula but required this increased to 4 L to maintain oxygen saturation. Patient was started on heparin drip, admitted to the cardiac stepdown unit, consult with pulmonary medicine, echocardiogram ordered 05/01: Patient has been afebrile, heart rate 65, blood pressure 121/70, pulse ox 96% on 2 L nasal cannula. Repeat CBC is unremarkable. Patient has been evaluated by Dr. Sterling and fevers possible aspiration rather than pulmonary embolism for her hypoxia but supports anticoagulation for 3-6 months. Speech therapy consult will be added. She is not currently on antibiotics. Heparin drip to be transitioned to oral eliquis today. IV Solu-Medrol was transitioned to oral prednisone. Patient is working with PT and OT with plan to go to [facility] at the time of discharge. 05/02: Patient was evaluated by speech therapy yesterday and recommended modified barium swallow. Modified barium swallow was negative for aspiration and patient was cleared for regular diet with thin liquids. Patient has been afebrile, heart rate 71, blood pressure 104/60, pulse ox 99% on 2 L nasal cannula. Repeat CBC is unremarkable. Patient does complain of constipation for which Dulcolax and MiraLAX will be added to lactulose. Patient will be discharged to [facility] today in stable condition. Discharge Diagnoses: 1. Acute hypoxic respiratory failure secondary to pulmonary emboli complicated by kyphoscoliosis. 2. Hypertension. 3. Hoarseness since September 2019. Patient will need follow-up with ENT as an outpatient. 4. Chronic low back pain and peripheral. 5. Hyperlipidemia. 6. Generalized anxiety disorder. 7. Hypothyroidism. 8. Weight loss of 23 pounds since October of unclear etiology. negative workup on previous admissions. 9. Right ear pain secondary to earwax buildup. 10. COVID-19 testing in process. Discharge plan: [facility] under the care of Dr. García. Impression and plan of care have been directed as dictated by the signing phys adarsh. Delmy Andersen nurse practitioner acting as scribe for signing physician. Patient Condition at Discharge: Good Plan - Discharge Summary New Discharge Prescriptions: New Apixaban [Eliquis Starter Pack (for VTE)] 5 mg PO DIRECTED 30 Days #1 pack Lactulose [Cephulac] 10 gm PO HS ml Carbamide Peroxide [Debrox Otic] 5 drops RIGHT EAR BID ml Bisacodyl [Dulcolax] 10 mg PO DAILY tablet. Polyethylene Glycol 3350 [Miralax] 17 gm PO DAILY #30 packet Lisinopril [Zestril] 40 mg PO DAILY tab Continue Vitamin B Complex 1 cap PO DAILY Multivitamins, Thera [Multivitamin (formulary)] 1 tab PO DAILY Cholecalciferol [Vitamin D3 (25 Mcg = 1000 Iu)] 2,000 unit PO DAILY Pravastatin Sodium [Pravachol] 20 mg PO HS Levothyroxine Sodium [Synthroid] 88 mcg PO HS Citalopram Hydrobromide [CeleXA] 20 mg PO DAILY Baclofen [Lioresal] 10 mg PO TID Glucosamine/Chondr Mckeon A Sod [Osteo Bi-Flex Caplet] 1 tab PO BID Propylene Glycol/Peg 400/Pf [Systane 0.3-0.4% Eye Drops] 1 - 2 drop BOTH EYES BID Pantoprazole [Protonix] 40 mg PO DAILY@0600 Vitamin C/Biotin [Hair, Skin and Nails] 1 tab PO BID cloNIDine HCL [Catapres] 0.1 mg PO TID PRN #90 tab PRN Reason: Blood Pressure - High Fluticasone Nasal Cove [Flonase Nasal Cove] 2 spray EA NOSTRIL DAILY spr Metoprolol Tartrate [Lopressor] 25 mg PO BID #120 tab Albuterol Sulfate [Ventolin HFA] 1 - 2 puff INHALATION RT-Q6H PRN PRN Reason: Shortness Of Breath Budesonide-Formot 160-4.5 Mcg [Symbicort 160-4.5 Mcg Inhaler] 2 puff INHALATION RT-BID Cranberry Fruit Extract [Cranberry] 500 mg PO BID Gabapentin [Neurontin] 300 mg PO BID guaiFENesin [Mucinex] 600 mg PO BID Benzonatate [Tessalon Perles] 100 mg PO TID PRN PRN Reason: Cough Gabapentin [Neurontin] 600 mg PO HS #3 cap HYDROcodone/APAP 10-325MG [[place] 10-325] 1 tab PO DAILY PRN #3 tab PRN Reason: Pain ALPRAZolam [Xanax] 0.25 mg PO BID PRN #6 tab PRN Reason: Anxiety Discontinued Naproxen Sodium [Aleve] 440 mg PO BID Doxycycline Hyclate [Vibramycin] 100 mg PO BID predniSONE See Taper PO DAILY Lisinopril 10 mg PO DAILY@1700 Discharge Medication List Cholecalciferol [Vitamin D3 (25 Mcg = 1000 Iu)] 2,000 unit PO DAILY 11/06/16 [History] Citalopram Hydrobromide [CeleXA] 20 mg PO DAILY 11/06/16 [History] Levothyroxine Sodium [Synthroid] 88 mcg PO HS 11/06/16 [History] Multivitamins, Thera [Multivitamin (formulary)] 1 tab PO DAILY 11/06/16 [History] Pravastatin Sodium [Pravachol] 20 mg PO HS 11/06/16 [History] Vitamin B Complex 1 cap PO DAILY 11/06/16 [History] Baclofen [Lioresal] 10 mg PO TID 03/24/17 [History] Glucosamine/Chondr Mckeon A Sod [Osteo Bi-Flex Caplet] 1 tab PO BID 03/24/17 [History] Propylene Glycol/Peg 400/Pf [Systane 0.3-0.4% Eye Drops] 1 - 2 drop BOTH EYES BID 03/24/17 [History] Pantoprazole [Protonix] 40 mg PO DAILY@0600 01/17/20 [History] Vitamin C/Biotin [Hair, Skin and Nails] 1 tab PO BID 01/17/20 [History] Fluticasone Nasal Cove [Flonase Nasal Cove] 2 spray EA NOSTRIL DAILY spr 01/22/20 [Rx] Metoprolol Tartrate [Lopressor] 25 mg PO BID #120 tab 01/22/20 [Rx] cloNIDine HCL [Catapres] 0.1 mg PO TID PRN #90 tab 01/22/20 [Rx] Albuterol Sulfate [Ventolin HFA] 1 - 2 puff INHALATION RT-Q6H PRN 01/23/20 [History] Budesonide-Formot 160-4.5 Mcg [Symbicort 160-4.5 Mcg Inhaler] 2 puff INHALATION RT-BID 01/23/20 [History] Cranberry Fruit Extract [Cranberry] 500 mg PO BID 01/23/20 [History] Benzonatate [Tessalon Perles] 100 mg PO TID PRN 04/29/20 [History] Gabapentin [Neurontin] 300 mg PO BID 04/29/20 [History] guaiFENesin [Mucinex] 600 mg PO BID 04/29/20 [History] Apixaban [Eliquis Starter Pack (for VTE)] 5 mg PO DIRECTED 30 Days #1 pack 05/01/20 [Rx] ALPRAZolam [Xanax] 0.25 mg PO BID PRN #6 tab 05/02/20 [Rx] Bisacodyl [Dulcolax] 10 mg PO DAILY tablet. 05/02/20 [Rx] Carbamide Peroxide [Debrox Otic] 5 drops RIGHT EAR BID ml 05/02/20 [Rx] Gabapentin [Neurontin] 600 mg PO HS #3 cap 05/02/20 [Rx] HYDROcodone/APAP 10-325MG [[place] 10-325] 1 tab PO DAILY PRN #3 tab 05/02/20 [Rx] Lactulose [Cephulac] 10 gm PO HS ml 05/02/20 [Rx] Lisinopril [Zestril] 40 mg PO DAILY tab 05/02/20 [Rx] Polyethylene Glycol 3350 [Miralax] 17 gm PO DAILY #30 packet 05/02/20 [Rx] Follow up Appointment(s)/Referral(s): Pepe García MD [Primary Care Provider] - 1-2 days (at [facility]) Jesús Lorenzo MD [STAFF PHYSICIAN] - 2 Weeks (eval vocal cords) Sun Sterling MD [STAFF PHYSICIAN] - 2 Weeks Discharge Disposition: TRANSFER TO SNF/ECF
[2020-05-02] MEDS ORDERED: BISACODYL 5 MG TABLET.DR PO SCH (09:00)
[2020-05-02] MEDS ORDERED: predniSONE 20 MG TAB PO SCH (09:00)
[2020-05-02] MEDS: CARBAMIDE PEROXIDE 6.5% DROPS 15 ML BTL RIGHT EAR SCH (09:14)
[2020-05-02] MEDS: FLUTICASONE 50MCG/SPRAY NASAL 16GM EA NOSTRIL SCH (09:14)
[2020-05-02] MEDS: METOPROLOL TARTRATE 25 MG TAB PO SCH (09:16)
[2020-05-02] MEDS: CITALOPRAM HYDROBROMIDE 20 MG TAB PO SCH (09:16)
[2020-05-02] MEDS: LISINOPRIL 20 MG TAB PO SCH (09:16)
[2020-05-02] MEDS: guaiFENesin 600 MG TABLET.ER PO SCH (09:16)
[2020-05-02] MEDS: PANTOPRAZOLE 40 MG TABLET PO SCH (09:16)
[2020-05-02] MEDS: APIXABAN 5 MG TAB PO SCH (09:16)
[2020-05-02] MEDS: GABAPENTIN 300 MG CAP PO SCH (09:17)
[2020-05-02 11:18] VITALS: BP 123/64; RESP 18; TEMP 98.3
--- NOTE | 2020-05-02 11:22 | P.PN ---
Subjective Progress Note Date: 05/02/20 Principal diagnosis: Acute shortness of breath, acute hypoxic respiratory failure, possibility of aspiration pneumonia This is a 69-year-old female patient with multiple medical problems and comorbidities who came into the hospital yesterday because of worsening shortness of breath. The patient is known to me as a better this patient during a consultation done on 01/19/2020 and I also performed a bronchoscopy on this patient as the patient had significant respiratory compromise following his spine surgery and I found that the patient had adequate functioning vocal cords, nevertheless, she had evidence of laryngitis, tracheitis, narrowing of the left mainstem bronchus due to bronchomalacia and the patient has significant mucus retention that was suctioned out. Note that the patient also had anatomic distortion of the thoracic cage due to severe kyphoscoliosis of the thoracic spine. The cultures that were obtained from her lungs came back all negative. She does have noisy breathing. I think this is a not a inspiratory stridor and the patient is probably producing this inspiratory noise as she breathes in and out. Note that back then, which is this patient for bilateral pneumonia. CAT scan clearly showed inflammatory changes and infiltrates in the lung bases bilaterally and the patient was given antibiotics and she was discharged home. Over the past few weeks, the patient has been having increased shortness of breath and wheezing cough and congestion and for that reason she contacted her primary care physician and she was advised to come into the hospital. Chest x- ray showed some limited atelectatic changes in lung bases. D-dimer was at 1.26. This was followed up by CT angiogram which raises the suspicion for a right upper lobe lobar pulmonary embolism and subsegmental embolization in the right upper lobe. Nevertheless, there was no right ventricular strain pattern. There was no evidence of DVTs in the lower extremity Dopplers were negative. As mentioned, d-dimer was slightly elevated. Another 8mm left midlung nodule was described by the radiologist. The patient's proBNP level is 94. She is hemodynamically stable with a pulse of 76% on 2 L and currently she is on IV heparin. I noted that the inflammatory changes in lung bases improved compared to previous CAT scan of the chest that was done in December 2019. She is having some difficulties in swallowing. She denies aspiration. She denies having any hemoptysis or pleurisy at this point. No previous history of DVT and pulmonary embolism. She is essentially sedentary. Nevertheless, she hasn't had any previous DVTs or PEs. On 05/01/2020 patient seen in follow-up on selective care unit, she is awake and alert, she is sitting up in the chair today, in no acute distress, breathing easier today, on 2 L of oxygen pulse ox of 96%, she is in sinus rhythm with a rate of 70, less tachycardic on today's exam, no complaints chest pain, no worsening dyspnea, no fever or chills. White count is not elevated, 5.3 on today's labs, hemoglobin is 13.2, no fever or chills, occasional cough without phlegm production, coronavirus PCR was negative. No antibiotics on right now, we'll send a pro-calcitonin, obtain speech therapy evaluation patient remains on oral prednisone and breathing treatments, doing well feeling better today. On 05/02/2020 patient seen in follow-up on selective care unit, she is doing well, she is resting comfortably in bed, no acute distress, breathing is quite comfortable, she is currently on 2 L of oxygen the pulse ox of 99%, lung sounds are clear, diminished at the bases, she's been afebrile. Today's labs have been reviewed showing CBC within normal limits. Patient was evaluated by speech therapy to evaluate for possible sound aspiration, results revealed no evidence of an oral pharyngeal dysphasia however sound aspiration was unable to be fully ruled out at the bedside, patient did exhibit a weak cough, and her vocal quality was worse and she has been a persistent problem since November 2019. Recommendation for ENT evaluation was recommended. An patient may continue with regular diet and thin liquids. Outpatient follow-up will be arranged with Dr. Louis. From pulmonary perspective patient is doing quite well, no cough or congestion, no worsening dyspnea. Objective - Vital Signs Vital signs: Vital Signs Temp 97.8 F 05/02/20 03:23 Pulse 80 05/02/20 08:16 Resp 16 05/02/20 03:23 BP 104/60 05/02/20 03:23 Pulse Ox 99 05/02/20 03:23 Intake & Output 05/01/20 05/02/20 05/02/20 18:59 06:59 18:59 Intake Total 564.173 240 120 Output Total 200 Balance 564.173 240 -80 Weight 82 kg Intake: Intake, IV Titration 84.173 Amount Heparin Sod,Pork in 0.45% 84.173 NaCl 25,000 unit In 0.45 % NaCl 1 250ml.bag @ 18 UNITS/KG/HR 13.308 mls/hr IV .[id number] [facility] Rx#: [id number] Oral 480 240 120 Output: Urine 200 Other: Voiding Method Bedside Commode # Voids 1 1 1 # Bowel Movements 0 - Exam GENERAL EXAM: Alert, very pleasant 69-year-old white female comfortable that his oxygen and the pulse ox 96% sitting up in a recliner, in no acute distress comfortable in no apparent distress. HEAD: Normocephalic/atraumatic. EYES: Normal reaction of pupils, equal size. Conjunctiva pink, sclera white. NOSE: Clear with pink turbinates. THROAT: No erythema or exudates. NECK: No masses, no JVD, no thyroid enlargement, no adenopathy. CHEST: No chest wall deformity. Symmetrical expansion. LUNGS: Equal air entry with scattered crackles and rhonchi bilaterally CVS: Regular rate and rhythm, normal S1 and S2, no gallops, no murmurs, no rubs ABDOMEN: Soft, nontender. No hepatosplenomegaly, normal bowel sounds, no guarding or rigidity. EXTREMITIES: No clubbing, no edema, no cyanosis, 2+ pulses and upper and lower extremities. MUSCULOSKELETAL: Muscle strength and tone normal. SPINE: Thoracolumbar kyphoscoliosis SKIN: No rashes CENTRAL NERVOUS SYSTEM: Alert and oriented -3. No focal deficits, tone is normal in all 4 extremities. PSYCHIATRIC: Alert and oriented -3. Appropriate affect. Intact judgment and insight. - Labs CBC & Chem 7: 05/02/20 06:17 04/29/20 16:16 Labs: Abnormal Lab Results - Last 24 Hours (Table) 05/01/20 05/01/20 05/01/20 Range/Units 03:26 11:38 16:36 POC Glucose (mg/dL) 110 H 115 H (75-99) mg/dL Procalcitonin 0.18 H (0.02-0.09) ng/mL 05/01/20 Range/Units 20:08 POC Glucose (mg/dL) 161 H (75-99) mg/dL Procalcitonin (0.02-0.09) ng/mL Assessment and Plan Plan: Assessment: 1 acute shortness of breath without significant decompensation in the overall oxygenation as the patient remains on 2 L of oxygen by nasal cannula with a pulse ox of 96%. The overall presentation is not typical for pulmonary embo lism. Although the patient is sedentary, the Doppler of the lower extremity has been negative in the CAT scan of the chest has a lot of motion artifact and I'm not absolutely convinced that this is a presentation with pulmonary embolism. The patient is currently on IV heparin. She continues to have cough and congestion and some wheeze. I think she is on and off aspirating. I noted a CAT scan of the chest shows improvement in the pulmonary infiltrates there were discussed earlier back in December 2019 although this are not fully recovered. I think this is overall a soft diagnosis for pulmonary embolism. I cannot rule it in and out completely. I favor that this is most likely aspiration rather than pulmonary embolism. 2 recent hospitalization back in December 2019 for bilateral lower lobe pneumonia. Consider recurrent aspiration pneumonia. She does have possibly some underlying restrictive lung disease due to her thoracolumbar kyphoscoliosis. She has small lung volumes and the chest x-ray and a CAT scan of the chest. Previous bronchoscopy showed intact focal cords. The patient had tracheitis, laryngitis, malacia involving the left mainstem bronchus in addition to a mucous retention and these were all aspirated. 3 acute hoarseness, has been a persistent problem since November 2019, and patient will have outpatient evaluation by Dr. Louis 4 dysphagia, consider aspiration 5 thoracolumbar kyphoscoliosis 6 lumbar spine fusion multilevel 7 hypothyroidism 8 osteoarthritis with previous knee and hip replacements 9 sciatica and chronic back pain and weakness in lower extremities 10 frequent UTIs 11 history of chronic constipation 12 history of mitral valve prolapse 13 hyperlipidemia 14 hypertension Plan: No worsening dyspnea, vital signs are stable, no fever or chills, today's labs have been noted, patient is tolerating regular diet and thin liquids, speech therapy evaluation was noted, ENT outpatient follow-up was recommended for persistent voice hoarseness. Otherwise no acute events overnight, vital signs are stable, patient is stable for discharge home today I performed a history & physical examination of the patient and discussed their management with my nurse practitioner, Zara Jung. I reviewed the nurse practitioner's note and agree with the documented findings and plan of care. Lung sounds are positive for a few rhonchi and crackles. The findings and the impression was discussed with the patient. I attest to the documentation by the nurse practitioner. Time with Patient: Less than 30
[2020-05-02 11:26] VITALS: PULSE 84
[2020-05-02 11:51] LABS: Glucose,Whole Blood 122 mg/dL (75-99)
--- NOTE | 2020-05-02 13:39 | FL ---
EXAMINATION TYPE: FL barium swallow w video DATE OF EXAM: 05/02/2020 MODIFIED SWALLOW / DEGLUTITION STUDY CLINICAL HISTORY: Dysphagia. Possible aspiration. TECHNIQUE: Deglutition study is performed utilizing thin liquid barium, honey and nectar thick liqui d barium, barium thick applesauce, and barium coated cracker. 1 minute and 30 seconds of fluoroscopy time was utilized with 0 fluoroscopic images saved as the examination was video recorded. COMPARISON: None. FINDINGS: The oral and pharyngeal phases show satisfactory initiation and propagation with all modali ties tested. Normal mastication is seen with solid modalities tested. There is no evidence of penet ration or aspiration with any modality tested. Premature spill is seen with both the thin and honey t hick consistency. No significant pharyngeal residue was appreciated. IMPRESSION: No evidence of laryngeal penetration or aspiration. Please refer to speech therapist not es for further details if necessary.
== END 2020-05-02 14:21 | DRG 175 ==
LOC: EC 15:52 → 3SCARD 21:10 → OBSVTOIN 04-30 08:14
PROVIDERS: ADMIT Internal Medicine Geriatric Medicine; ATTEND Internal Medicine Geriatric Medicine
DX: I26.93 Single subsegmental thrombotic pulmonary embolism without acute cor pulmonale (principal); J96.01 Acute respiratory failure with hypoxia; Z20.828 Contact with and (suspected) exposure to other viral communicable diseases; M41.34 Thoracogenic scoliosis, thoracic region; E86.0 Dehydration; M06.9 Rheumatoid arthritis, unspecified; M19.90 Unspecified osteoarthritis, unspecified site; I34.1 Nonrheumatic mitral (valve) prolapse; I10 Essential (primary) hypertension; E78.5 Hyperlipidemia, unspecified; E03.9 Hypothyroidism, unspecified; G89.29 Other chronic pain; G62.9 Polyneuropathy, unspecified; R91.1 Solitary pulmonary nodule; I83.90 Asymptomatic varicose veins of unspecified lower extremity; K59.09 Other constipation; R26.9 Unspecified abnormalities of gait and mobility; F41.1 Generalized anxiety disorder; M54.40 Lumbago with sciatica, unspecified side; R63.4 Abnormal weight loss; H92.01 Otalgia, right ear; R13.10 Dysphagia, unspecified; K59.00 Constipation, unspecified; Z68.28 Body mass index [BMI] 28.0-28.9, adult; Z79.899 Other long term (current) drug therapy; Z79.890 Hormone replacement therapy; Z79.51 Long term (current) use of inhaled steroids; Z91.81 History of falling; Z87.01 Personal history of pneumonia (recurrent); Z87.440 Personal history of urinary (tract) infections; Z98.1 Arthrodesis status; Z96.652 Presence of left artificial knee joint; Z77.22 Contact with and (suspected) exposure to environmental tobacco smoke (acute) (chronic); Z98.890 Other specified postprocedural states; Z82.5 Family history of asthma and other chronic lower respiratory diseases; Z82.49 Family history of ischemic heart disease and other diseases of the circulatory system; Z83.438 Family history of other disorder of lipoprotein metabolism and other lipidemia
CPT/HCPCS: 36415; 71046; 71275; 74230; 80053; 82550; 83605; 83735; 83880; 84145; 84484; 85025; 85379; 85610; 85730; 93005; 93306; 93970; 94640; 96374; 96375; 99291

== ENCOUNTER 2020-06-14 10:32 | Inpatient (IN) | payer MEDICARE ==
--- NOTE | 2020-06-14 10:50 | ED ---
General Adult HPI - General Chief complaint: Shortness of Breath Stated complaint: SOB Time Seen by Provider: 06/14/20 10:35 Source: patient, EMS, RN notes reviewed, old records reviewed Mode of arrival: EMS Limitations: no limitations - History of Present Illness Initial comments: This is a 69-year-old female who presents emergency department with past medical history significant for recent pulmonary embolisms. Patient states she's on eliquis. Patient states she didn't fall in her chest but she's not complaining of any chest pain. Patient states she's been short of breath for 6 weeks and she had a pulmonary embolisms. Patient states it seems as though the shortness of breath is getting worse over the last few days. He denies any fever chills or cough. Patient denies any chest pain or palpitations. Patient denies abdominal pain patient denies nausea vomiting diarrhea. Patient denies any headache patient denies numbness weakness per patient denies lightheadedness or dizziness. - Related Data Home Medications Medication Instructions Recorded Confirmed Cholecalciferol [Vitamin D3 (25 2,000 unit PO DAILY 11/06/16 06/14/20 Mcg = 1000 Iu)] Citalopram Hydrobromide [CeleXA] 20 mg PO DAILY 11/06/16 06/14/20 Levothyroxine Sodium [Synthroid] 88 mcg PO HS 11/06/16 06/14/20 Multivitamins, Thera [Multivitamin 1 tab PO DAILY 11/06/16 06/14/20 (formulary)] Pravastatin Sodium [Pravachol] 20 mg PO HS 11/06/16 06/14/20 Vitamin B Complex 1 cap PO HS 11/06/16 06/14/20 Baclofen [Lioresal] 10 mg PO TID 03/24/17 06/14/20 Glucosamine/Chondr Mckeon A Sod [Osteo 1 tab PO BID 03/24/17 06/14/20 Bi-Flex Caplet] Propylene Glycol/Peg 400/Pf 1 - 2 drop BOTH EYES BID 03/24/17 06/14/20 [Systane 0.3-0.4% Eye Drops] Pantoprazole [Protonix] 40 mg PO DAILY 01/17/20 06/14/20 Vitamin C/Biotin [Hair, Skin and 1 tab PO BID 01/17/20 06/14/20 Nails] Albuterol Sulfate [Ventolin HFA] 1 - 2 puff INHALATION RT-Q6H PRN 01/23/20 06/14/20 Budesonide-Formot 160-4.5 Mcg 2 puff INHALATION RT-BID 01/23/20 06/14/20 [Symbicort 160-4.5 Mcg Inhaler] Cranberry Fruit Extract [Cranberry] 500 mg PO BID 01/23/20 06/14/20 Benzonatate [Tessalon Perles] 100 mg PO TID PRN 04/29/20 06/14/20 Gabapentin [Neurontin] 300 mg PO BID 04/29/20 06/14/20 guaiFENesin [Mucinex] 600 mg PO BID 04/29/20 06/14/20 Acetaminophen Tab [Tylenol] 650 mg PO Q4H PRN 06/14/20 06/14/20 Apixaban [Eliquis] 5 mg PO BID 06/14/20 06/14/20 Loperamide [Imodium] 2 mg PO QID PRN 06/14/20 06/14/20 Previous Rx's Medication Instructions Recorded Fluticasone Nasal [place] [Flonase 2 spray EA NOSTRIL DAILY spr 01/22/20 Nasal [place]] Metoprolol Tartrate [Lopressor] 25 mg PO BID #120 tab 01/22/20 cloNIDine HCL [Catapres] 0.1 mg PO TID PRN #90 tab 01/22/20 ALPRAZolam [Xanax] 0.25 mg PO BID PRN #6 tab 05/02/20 Bisacodyl [Dulcolax] 10 mg PO DAILY tablet. 05/02/20 Gabapentin [Neurontin] 600 mg PO HS #3 cap 05/02/20 HYDROcodone/APAP 10-325MG [[place] 1 tab PO DAILY PRN #3 tab 05/02/20 10-325] Lactulose [Cephulac] 10 gm PO HS ml 05/02/20 Polyethylene Glycol 3350 [Miralax] 17 gm PO DAILY #30 packet 05/02/20 Allergies Allergy/AdvReac Type Severity Reaction Status Date / Time No Known Allergies Allergy Verified 06/14/20 12:48 Review of Systems ROS Statement: Those systems with pertinent positive or pertinent negative responses have been documented in the HPI. ROS Other: All systems not noted in ROS Statement are negative. Past Medical History Past Medical History: Hyperlipidemia, Hypertension, Mitral Valve Prolapse (MVP), Osteoarthritis (OA), Pneumonia, Pulmonary Embolus (PE), Rheumatoid Arthritis (RA), Thyroid Disorder, Vascular Disorder Additional Past Medical History / Comment(s): Pt recently admitted to [facility] on 01/17/20 with acute hypoxic respiratory failure 2ndary to bilateral pneumonia. Other hx: Thoracolumbar kyphoscoliosis, lumbar laminectomy and fusion multile benja, hypothyroidism, mitral valve prolapse, chronic low back pain, sciatica with pain involving lower extremities and numbness which is worse on R side, chronic constipation, history of frequent UTIs, difficulty with mobility and the patient uses a cane/walker, varicose veins. History of Any Multi-Drug Resistant Organisms: None Reported Past Surgical History: Back Surgery, Breast Surgery, Joint Replacement, Orthopedic Surgery Additional Past Surgical History / Comment(s): laproscopic surgery x 3 ( for infertility), arthroscopy left knee, , left breast lumpectomy-benign, laminectomy with spinal fusion (L-3to S-1) (2013), total left knee (10/2016) Past Anesthesia/Blood Transfusion Reactions: No Reported Reaction Past Psychological History: Anxiety Past Alcohol Use History: None Reported Past Drug Use History: None Reported - Past Family History Mother Family Medical History: COPD, Hyperlipidemia Additional Family Medical History / Comment(s): Mother at age 88 from COPD with history of smoking. Father Family Medical History: Myocardial Infarction ([place]) Additional Family Medical History / Comment(s): Father had a [place] at the age of 48yrs. Brother(s) Family Medical History: COPD Additional Family Medical History / Comment(s): Patient has one brother with history of smoking with no major medical problems. Patient does not have any sisters. Patient has one adopted daughter. Daughter(s) Family Medical History: No Reported History General Exam - General Exam Comments Initial Comments: GENERAL: Patient is well-developed and well-nourished. Patient is nontoxic and well- hydrated and is in mild distress. ENT: Neck is soft and supple. No significant lymphadenopathy is noted. Oropharynx is clear. Moist mucous membranes. Neck has full range of motion without eliciting any pain. EYES: The sclera were anicteric and conjunctiva were pink and moist. Extraocular movements were intact and pupils were equal round and reactive to light. Eyelids were unremarkable. PULMONARY: Patient is. Good breath sounds bilaterally. No audible rales rhonchi or wheezing was noted. CARDIOVASCULAR: Patient is tachycardic but regular ABDOMEN: Soft and nontender with normal bowel sounds. SKIN: Skin is clear with no lesions or rashes and otherwise unremarkable. NEUROLOGIC: Patient is alert and oriented x3. Cranial nerves II through XII are grossly intact. Motor and sensory are also intact. Normal speech, volume and content. Symmetrical smile. MUSCULOSKELETAL: Normal extremities with adequate strength and full range of motion. No lower extremity swelling or edema. No calf tenderness. LYMPHATICS: No significant lymphadenopathy is noted PSYCHIATRIC: Normal psychiatric evaluation. Limitations: no limitations Course Vital Signs 06/14/20 06/14/20 06/14/20 10:35 10:45 12:13 Temperature 98.6 F Pulse Rate 122 H 112 H Respiratory 30 H 22 Rate Blood Pressure 130/88 125/99 O2 Sat by Pulse 96 98 Oximetry 06/14/20 14:00 Temperature Pulse Rate 111 H Respiratory 20 Rate Blood Pressure 141/84 O2 Sat by Pulse 98 Oximetry Medical Decision Making - Medical Decision Making EKG shows sinus tachycardia at 109 bpm ND interval 238 QRS is 76 QT interval 322 QTC is 433. Patient's EKG shows no ST segment elevation or depression or T wave abnormalities are noted Chest x-ray showed no acute abnormality. Patient's CT of the chest showed no acute abnormality. I went back in the room patient was on room air satting at 98% Patient was not comfortable going home so spoke with Dr. García he was in agreement with admitting the patient. - Lab Data Result diagrams: 06/14/20 10:48 06/14/20 10:48 Lab Results 06/14/20 06/14/20 06/14/20 Range/Units 10:48 10:48 10:48 WBC 7.5 (3.8-10.6) k/uL RBC 3.72 L (3.80-5.40) m/uL Hgb 10.9 L (11.4-16.0) gm/dL Hct 33.8 L (34.0-46.0) % MCV 90.8 (80.0-100.0) fL MCH 29.4 (25.0-35.0) pg MCHC 32.4 (31.0-37.0) g/dL RDW 13.2 (11.5-15.5) % Plt Count 300 (150-450) k/uL Neutrophils % 69 % Lymphocytes % 24 % Monocytes % 5 % Eosinophils % 1 % Basophils % 0 % Neutrophils # 5.2 (1.3-7.7) k/uL Lymphocytes # 1.8 (1.0-4.8) k/uL Monocytes # 0.4 (0-1.0) k/uL Eosinophils # 0.1 (0-0.7) k/uL Basophils # 0.0 (0-0.2) k/uL PT 10.5 (9.0-12.0) sec INR 1.0 (<1.2) APTT 28.0 (22.0-30.0) sec Sodium 139 (137-145) mmol/L Potassium 4.9 (3.5-5.1) mmol/L Chloride 104 (98-107) mmol/L Carbon Dioxide 26 (22-30) mmol/L Anion Gap 9 mmol/L BUN 30 H (7-17) mg/dL Creatinine 0.67 (0.52-1.04) mg/dL Est GFR (CKD-EPI)AfAm >90 (>60 ml/min/1.73 sqM) Est GFR (CKD-EPI)NonAf 89 (>60 ml/min/1.73 sqM) Glucose 147 H (74-99) mg/dL Plasma Lactic Acid Gigi (0.7-2.0) mmol/L Calcium 10.2 (8.4-10.2) mg/dL Total Bilirubin 1.1 (0.2-1.3) mg/dL AST 14 (14-36) U/L ALT 15 (4-34) U/L Alkaline Phosphatase 88 (38-126) U/L Troponin I (0.000-0.034) ng/mL NT-Pro-B Natriuret Pep pg/mL Total Protein 7.2 (6.3-8.2) g/dL Albumin 4.3 (3.5-5.0) g/dL 06/14/20 06/14/20 06/14/20 Range/Units 10:48 10:48 10:48 WBC (3.8-10.6) k/uL RBC (3.80-5.40) m/uL Hgb (11.4-16.0) gm/dL Hct (34.0-46.0) % MCV (80.0-100.0) fL MCH (25.0-35.0) pg MCHC (31.0-37.0) g/dL RDW (11.5-15.5) % Plt Count (150-450) k/uL Neutrophils % % Lymphocytes % % Monocytes % % Eosinophils % % Basophils % % Neutrophils # (1.3-7.7) k/uL Lymphocytes # (1.0-4.8) k/uL Monocytes # (0-1.0) k/uL Eosinophils # (0-0.7) k/uL Basophils # (0-0.2) k/uL PT (9.0-12.0) sec INR (<1.2) APTT (22.0-30.0) sec Sodium (137-145) mmol/L Potassium (3.5-5.1) mmol/L Chloride (98-107) mmol/L Carbon Dioxide (22-30) mmol/L Anion Gap mmol/L BUN (7-17) mg/dL Creatinine (0.52-1.04) mg/dL Est GFR (CKD-EPI)AfAm (>60 ml/min/1.73 sqM) Est GFR (CKD-EPI)NonAf (>60 ml/min/1.73 sqM) Glucose (74-99) mg/dL Plasma Lactic Acid Gigi 1.2 (0.7-2.0) mmol/L Calcium (8.4-10.2) mg/dL Total Bilirubin (0.2-1.3) mg/dL AST (14-36) U/L ALT (4-34) U/L Alkaline Phosphatase (38-126) U/L Troponin I <0.012 (0.000-0.034) ng/mL NT-Pro-B Natriuret Pep 132 pg/mL Total Protein (6.3-8.2) g/dL Albumin (3.5-5.0) g/dL Disposition Clinical Impression: Anxiety, Dyspnea Disposition: ADMITTED IP TO THIS [facility] Condition: Good Instructions (If sedation given, give patient instructions): Anxiety (ED) Is patient prescribed a controlled substance at d/c from ED?: No Referrals: Pepe García MD [Primary Care Provider] - 1-2 days Time of Disposition: 15:16
[2020-06-14 11:08] LABS: Basophils % (A) 0 %; Eosinophils # (A) 0.1 k/uL (0-0.7); Eosinophils % (A) 1 %; HCT 33.8 % (34.0-46.0); HGB 10.9 gm/dL (11.4-16.0); Lymphocytes # (A) 1.8 k/uL (1.0-4.8); Lymphocytes % (A) 24 %; MCH 29.4 pg (25.0-35.0); MCHC 32.4 g/dL (31.0-37.0); MCV 90.8 fL (80.0-100.0); Mean Platelet Volume 7.3; Monocytes # (A) 0.4 k/uL (0-1.0); Monocytes % (A) 5 %; Neutrophils # (A) 5.2 k/uL (1.3-7.7); Neutrophils % (A) 69 %; Platelet Count 300 k/uL (150-450); RBC 3.72 m/uL (3.80-5.40); RDW 13.2 % (11.5-15.5); WBC 7.5 k/uL (3.8-10.6)
[2020-06-14 11:18] LABS: ALT 15 U/L (4-34); AST 14 U/L (14-36); African American GFR (CKD) >90 (>60 ml/min/1.73 sqM); Albumin 4.3 g/dL (3.5-5.0); Alkaline Phosphatase 88 U/L (38-126); Anion Gap 9 mmol/L; Blood Urea Nitrogen 30 mg/dL (7-17); Calcium 10.2 mg/dL (8.4-10.2); Carbon Dioxide 26 mmol/L (22-30); Chloride 104 mmol/L (98-107); Glucose 147 mg/dL (74-99); Non-African American GFR(CKD) 89 (>60 ml/min/1.73 sqM); Potassium 4.9 mmol/L (3.5-5.1); Sodium 139 mmol/L (137-145); Total Bilirubin 1.1 mg/dL (0.2-1.3); Total Protein 7.2 g/dL (6.3-8.2)
[2020-06-14 11:21] LABS: Prothrombin Time 10.5 sec (9.0-12.0)
--- NOTE | 2020-06-14 11:51 | XR ---
EXAMINATION TYPE: XR chest 2V DATE OF EXAM: 06/14/2020 COMPARISON: 04/29/20 HISTORY: Shortness of breath TECHNIQUE: Frontal and lateral views of the chest are obtained. FINDINGS: Scattered senescent parenchymal changes noted. Hyperinflation compatible with COPD. No evidence for infiltrate. No evidence for atelectasis. Heart size is stable. Mediastinal structures are stable and grossly unremarkable. No evidence for hilar prominence. Degenerative changes dorsal spine. IMPRESSION: 1. No evidence for acute pulmonary disease.
[2020-06-14] MEDS ORDERED: SODIUM CHLORIDE 0.9% 1,000 ML IV ONE ×2 (12:34→15:27)
--- NOTE | 2020-06-14 13:56 | CT ---
EXAMINATION TYPE: CT chest angio for PE DATE OF EXAM: 06/14/2020 COMPARISON: 04/29/2020 HISTORY: Shortness of breath. CT DLP: 331.3 mGycm CONTRAST: CT chest with contrast and 3D reconstruction with MIP imaging is performed with IV Contrast, patient injected with 100 mL of Isovue 370. Contrast-enhanced CT of the chest was performed through the course of the pulmonary arteries with chelsy g and mediastinal window settings submitted. 3D reconstruction with MIP imaging was also performed. PULMONARY ARTERIES: The pulmonary arteries and their major tributaries are patent. I do not see paul dence for sizable filling defect to suggest pulmonary embolic process. Previously noted right-sided p ulmonary embolism appears to have resolved in the interval. LUNGS: Enhancing right basilar pulmonary parenchyma compatible with atelectasis. Developing infiltrat e however is difficult to exclude. Stable left-sided pulmonary nodule. MEDIASTINUM: Thoracic aorta is of normal caliber,however, evaluation is limited given timing of the contrast bolus. If there is concern for thoracic aortic pathology consider RADHIKA. Correlate clinicall y . The heart is not enlarged. No evidence for mediastinal mass. No mediastinal lymph nodes greater than 1cm. HILAR STRUCTURES: No evidence for mass. No hilar lymph nodes greater than 1 cm. UPPER ABDOMEN: No significant abnormality is seen. IMPRESSION: 1. No evidence for Pulmonary embolism at this time.
[2020-06-14] MEDS ORDERED: LORazepam 2 MG/ML INJ IV STA (15:16)
[2020-06-14] MEDS ORDERED: LACTULOSE 20 GM/30 ML CUP PO SCH (21:00)
[2020-06-14] MEDS ORDERED: BENZONATATE 100 MG CAP PO PRN (21:24)
[2020-06-14] MEDS ORDERED: cloNIDine HCL 0.1 MG TAB PO PRN (21:24)
[2020-06-14] MEDS ORDERED: ACETAMINOPHEN TAB 325 MG TAB PO PRN (21:24)
--- NOTE | 2020-06-14 21:40 | P.HPIM ---
History of Present Illness H&P Date: 06/14/20 Chief Complaint: Acute respiratory failure, severe dyspnea and shortness of breath, COPD exa 69-year-old female one of my office patient with long-standing history of COPD, hypertension, hyperlipidemia and mitral valve prolapse who has known to have history of pulmonary embolism recently has been on anticoagulation, history of rheumatoid arthritis, history of hypothyroidism and vascular disease who was discharged from [facility] over 10 days ago after long Admission for pulmonary embolism left her ability to continue having significant swallowing issue along with odynophagia and mild dysphagia and worsening shortness of breath and dyspnea with minimal exertion. Patient has been living at home with help of her family who lives in [facility]. She has fallen few days early and traumatized her left knee with no close head trauma no other injury. Patient was not able to ambulate and walk has not been able to move to the bathroom also has been having significant abdominal discomfort with nausea and diarrhea for the last few days become much worse patient become debilitated end up coming to [facility] by EMS today with above complaint chest x-ray did not show any significant etiology, CTA shows no new onset of pulmonary embolism but had a spot in the left lower lobe as nodular with no firm diagnosis of pneumonia at this point. Patient also had mild anemia with mildly elevated blood sugar troponin was normal BNP was low. Patient was started on O2 along with updraft treatment and management still waiting for urine test exclude any possibility of UTI with sepsis. Patient will be hospitalized will continue pulmonary management with upping her prednisone to Solu-Medrol 40 mg every 8 hours continue updraft [id number] for now consult pulmonary start PTOT. Review of Systems CONSTITUTIONAL: Well-developed mild respiratory distress. EYES: No icterus sclerae, no conjunctivitis. EARS, NOSE, MOUTH, THROAT, and FACE: No sore throat, lymphadenopathy, carotid bruits or deformity. RESPIRATORY: Significant shortness of breath cough wheezes with significant hoarseness. CARDIOVASCULAR: Mild PND orthopnea palpitations and no angina. GASTROINTESTINAL: Positive abdominal pain with nausea and diarrhea no constipation no active GI bleed at this point. GENITOURINARY: Gema 10 incontinence with worsening recurrent UTI. INTEGUMENT/BREAST: Generalized muscle and joint pain with significant back pain. HEMATOLOGIC/LYMPHATIC: Negative for bleed or purpura. MUSCULOSKELTAL: Significant lower back pain and generalized muscular atrophy and pain. NEURLOGICAL: No LOC, Sz or syncope, blurred vision dizziness or abnormality.. BEHAVIORAL/PSYCH: Depression with no suicidal ideation. ENDOCRINE: Negative. Past Medical History Past Medical History: Hyperlipidemia, Hypertension, Mitral Valve Prolapse (MVP), Musculoskeletal Disorder, Osteoarthritis (OA), Pneumonia, Pulmonary Embolus (PE), Renal Disease, Rheumatoid Arthritis (RA), Thyroid Disorder, Vascular Disorder Additional Past Medical History / Comment(s): Pt recently admitted to [facility] on 01/17/20 with acute hypoxic respiratory failure 2ndary to bilateral pneumonia. Other hx: Thoracolumbar kyphoscoliosis, lumbar laminectomy and fusion multilevel, hypothyroidism, mitral valve prolapse, chronic low back pain, sciatica with pain involving lower extremities and numbness which is worse on R side, chronic constipation, history of frequent UTIs, difficulty with mobility and the patient uses a cane/walker, varicose veins. History of Any Multi-Drug Resistant Organisms: None Reported Past Surgical History: Back Surgery, Breast Surgery, Joint Replacement, Orthopedic Surgery Additional Past Surgical History / Comment(s): laproscopic surgery x 3 ( for infertility), arthroscopy left knee, , left breast lumpectomy-benign, bean ectomy with spinal fusion (L-3to S-1) (2013), total left knee (10/2016) Past Anesthesia/Blood Transfusion Reactions: No Reported Reaction Past Psychological History: Anxiety Additional Psychological History / Comment(s): . Smoking Status: Never smoker Past Alcohol Use History: None Reported Additional Past Alcohol Use History / Comment(s): . Past Drug Use History: None Reported - Past Family History Mother Family Medical History: COPD, Hyperlipidemia Additional Family Medical History / Comment(s): Mother at age 88 from COPD with history of smoking. Father Family Medical History: Myocardial Infarction ([place]) Additional Family Medical History / Comment(s): Father had a [place] at the age of 48yrs. Brother(s) Family Medical History: COPD Additional Family Medical History / Comment(s): Patient has one brother with history of smoking with no major medical problems. Patient does not have any sisters. Patient has one adopted daughter. Daughter(s) Family Medical History: No Reported History Medications and Allergies Home Medications Medication Instructions Recorded Confirmed Type Cholecalciferol [Vitamin D3 (25 2,000 unit PO DAILY 11/06/16 06/14/20 History Mcg = 1000 Iu)] Citalopram Hydrobromide [CeleXA] 20 mg PO DAILY 11/06/16 06/14/20 History Levothyroxine Sodium [Synthroid] 88 mcg PO HS 11/06/16 06/14/20 History Multivitamins, Thera [Multivitamin 1 tab PO DAILY 11/06/16 06/14/20 History (formulary)] Pravastatin Sodium [Pravachol] 20 mg PO HS 11/06/16 06/14/20 History Vitamin B Complex 1 cap PO HS 11/06/16 06/14/20 History Baclofen [Lioresal] 10 mg PO TID 03/24/17 06/14/20 History Glucosamine/Chondr Mckeon A Sod [Osteo 1 tab PO BID 03/24/17 06/14/20 History Bi-Flex Caplet] Propylene Glycol/Peg 400/Pf 1 - 2 drop BOTH EYES BID 03/24/17 06/14/20 History [Systane 0.3-0.4% Eye Drops] Pantoprazole [Protonix] 40 mg PO DAILY 01/17/20 06/14/20 History Vitamin C/Biotin [Hair, Skin and 1 tab PO BID 01/17/20 06/14/20 History Nails] Fluticasone Nasal [place] [Flonase 2 spray EA NOSTRIL DAILY spr 01/22/20 06/14/20 Rx Nasal [place]] Metoprolol Tartrate [Lopressor] 25 mg PO BID #120 tab 01/22/20 06/14/20 Rx cloNIDine HCL [Catapres] 0.1 mg PO TID PRN #90 tab 01/22/20 06/14/20 Rx Albuterol Sulfate [Ventolin HFA] 1 - 2 puff INHALATION RT-Q6H PRN 01/23/20 06/14/20 History Budesonide-Formot 160-4.5 Mcg 2 puff INHALATION RT-BID 01/23/20 06/14/20 History [Symbicort 160-4.5 Mcg Inhaler] Cranberry Fruit Extract [Cranberry] 500 mg PO BID 01/23/20 06/14/20 History Benzonatate [Tessalon Perles] 100 mg PO TID PRN 04/29/20 06/14/20 History Gabapentin [Neurontin] 300 mg PO BID 04/29/20 06/14/20 History guaiFENesin [Mucinex] 600 mg PO BID 04/29/20 06/14/20 History ALPRAZolam [Xanax] 0.25 mg PO BID PRN #6 tab 05/02/20 06/14/20 Rx Bisacodyl [Dulcolax] 10 mg PO DAILY tablet. 05/02/20 06/14/20 Rx Gabapentin [Neurontin] 600 mg PO HS #3 cap 05/02/20 06/14/20 Rx HYDROcodone/APAP 10-325MG [[place] 1 tab PO DAILY PRN #3 tab 05/02/20 06/14/20 Rx 10-325] Lactulose [Cephulac] 10 gm PO HS ml 05/02/20 06/14/20 Rx Polyethylene Glycol 3350 [Miralax] 17 gm PO DAILY #30 packet 05/02/20 06/14/20 Rx Acetaminophen Tab [Tylenol] 650 mg PO Q4H PRN 06/14/20 06/14/20 History Apixaban [Eliquis] 5 mg PO BID 06/14/20 06/14/20 History Loperamide [Imodium] 2 mg PO QID PRN 06/14/20 06/14/20 History Allergies Allergy/AdvReac Type Severity Reaction Status Date / Time No Known Allergies Allergy Verified 06/14/20 12:48 Physical Exam Vitals: Vital Signs Temp Pulse Pulse Resp BP BP Pulse Ox 06/14/20 19:49 98.4 F 108 H 16 134/79 99 06/14/20 17:44 98.5 F 118 H 16 126/73 97 06/14/20 16:30 98.2 F 112 H 18 134/81 96 06/14/20 14:00 111 H 20 141/84 98 06/14/20 12:13 112 H 22 125/99 98 06/14/20 10:45 98.6 F 06/14/20 10:35 122 H 30 H 130/88 96 Intake and Output 06/14/20 06/14/20 06/14/20 06:59 14:59 22:59 Intake Total 500 Balance 500 Intake: Amount of Fluid Infused ( 500 ml) Other: Voiding Method Diaper Incontinent # Bowel Movements 1 Weight 63.503 kg 63.503 kg General Appearance: Alert, cooperative, mild aspartate distress looks older than her age. Neck HEENT: Supple, no lymphadenopathy, no thyroid enlargement, no carotid bruits. Lungs: Decreased breath sound bilaterally with fine rhonchi positive mild expiratory wheezes with crackles in the bases especially the right side. Chest Wall: Decrease expansion with deep inspiration no tenderness and no deformity was found on exam, no costochondral pain or discomfort. Heart: Regular rate and rhythm, S1, S2 mild tachycardia with 2/6 ejection murmur. Back: Significant curvature with tenderness multiple scar tissue from previous surgery. Abdomen: Soft positive bowel sound organomegaly or tenderness slight discomfort and lower abdominal region area. Extremities: Trace edema slight bruise on the left knee with multiple scar tissue from joint replacement. Pulses: 2+ and symmetric. Skin: Skin color, texture, tugor normal, no rashes or lesions. Neurologic: Alert oriented x3 cranial nerves II through XII intact, no motor deficit, no abnormal balance or gait. Results CBC & Chem 7: 06/14/20 10:48 06/14/20 10:48 Labs: Abnormal Lab Results - Last 24 Hours (Table) 06/14/20 06/14/20 Range/Units 10:48 10:48 RBC 3.72 L (3.80-5.40) m/uL Hgb 10.9 L (11.4-16.0) gm/dL Hct 33.8 L (34.0-46.0) % BUN 30 H (7-17) mg/dL Glucose 147 H (74-99) mg/dL Thrombosis Risk Factor Assmnt - DVT/VTE Prophylaxis DVT/VTE Prophylaxis: Pharmacologic Prophylaxis ordered, Mechanical Prophylaxis ordered - Choose All That Apply Any of the Below Risk Factors Present?: Yes Each Factor Represents 1 point: Medical pt on bed rest Other Risk Factors: Yes Each Risk Factor Represents 2 Points: Age 61-74 years, Patient confined to bed Each Risk Factor Represents 3 Points: History of DVT/PE Thrombosis Risk Factor Assessment Total Risk Factor Score: 8 Thrombosis Risk Factor Assessment Level: High Risk Assessment and Plan Assessment: 1 severe dyspnea and shortness of breath with respiratory failure: Combination of COPD excessive patient, residual of pulmonary embolism, recurrent bronchitis and significant hoarseness with vocal cord paralysis. 2 COPD exacerbation: Continue patient on O2 Solu-Medrol 40 mg IV every 8 continue DuoNeb and Pulmicort consult pulmonary. 3 recent pulmonary embolism: Patient has been on Eliquis 5 mg twice a day seems to do well with with no sign of bleeding. 4 chronic pain management: Has been on hydrocodone and baclofen. 5 Diastolic congestive heart failure: Remain on metoprolol will add diuretics on demand. 6 recurrent UTI with significant incontinence UA still pending at this point if positive patient be started on gram-negative coverage. 7 hypothyroidism: Continue levothyroxine at 88 g daily. 8 chronic lower back pain: Post lower back surgery continue pain management along with gabapentin. 9 hyperglycemia: Patient is on diet control Accu-Chek with sliding scales coverage. 10 depression: Remain on citalopram 20 mg a day. 11 hyperlipidemia: Continue pravastatin 20 mg a day. 12 hypertension: Remain on the clonidine 0.1 mg 2 times a day for systolic above 160 continue metoprolol 25 g twice a day. 13 GERD/GI prophylaxis: Remain on pantoprazole 40 mg daily. 14 DVT prophylaxis: Patient is on anticoagulation. 15 debility patient has not been able template and walk and significantly debilitated at this point required 2 person assist and patient will be started on PTOT consult social service for possible placement. CODE STATUS: Full code. Admit patient to inpatient service for more than 2 night stay.
[2020-06-14 22:51] LABS: Glucose,Whole Blood 110 mg/dL (75-99)
[2020-06-14] MEDS: HYDROcodone/APAP 10-325MG 1 EACH TAB PO PRN (22:56)
[2020-06-14] MEDS: LEVOTHYROXINE 88 MCG TAB PO SCH (22:56)
[2020-06-14] MEDS: ALPRAZolam 0.25 MG TAB PO PRN (22:56)
[2020-06-14] MEDS: LOPERAMIDE 2 MG CAP PO PRN (22:56)
[2020-06-14] MEDS: methylPREDNISolone SOD SUCCI 40 MG/ML 1 ML VIAL IV SCH (22:57)
[2020-06-14] MEDS: BACLOFEN 10 MG TAB PO SCH (22:57)
[2020-06-15 07:05] LABS: Glucose,Whole Blood 136 mg/dL (75-99)
[2020-06-15] MEDS: SYMBICORT 160-4.5 MCG INHALER INHALATION SCH ×2 (07:54→21:16)
[2020-06-15] MEDS: ALBUTEROL NEBULIZED 2.5 MG/3 ML INHALATION PRN (07:54)
[2020-06-15] MEDS ORDERED: ONDANSETRON 4 MG/2 ML VIAL IVP PRN (09:19)
[2020-06-15] MEDS: CHOLECALCIFEROL 1,000 UNIT TAB PO SCH (09:20)
[2020-06-15] MEDS: CITALOPRAM HYDROBROMIDE 20 MG TAB PO SCH (09:20)
[2020-06-15] MEDS: APIXABAN 5 MG TAB PO SCH ×2 (09:20→21:07)
[2020-06-15] MEDS: guaiFENesin 600 MG TABLET.ER PO SCH ×2 (09:20→21:06)
[2020-06-15] MEDS: MULTIVITAMINS, THERA 1 EACH TAB PO SCH (09:20)
[2020-06-15] MEDS: BACLOFEN 10 MG TAB PO SCH ×3 (09:20→21:06)
[2020-06-15] MEDS: LOPERAMIDE 2 MG CAP PO PRN (09:20)
[2020-06-15] MEDS: PANTOPRAZOLE 40 MG TABLET PO SCH (09:20)
[2020-06-15] MEDS: bisacodyL 5 MG TABLET.DR PO SCH (09:20)
[2020-06-15] MEDS: METOPROLOL TARTRATE 25 MG TAB PO SCH ×2 (09:20→21:07)
[2020-06-15] MEDS: polyethylene glycoL 3350 17 GM POWD.PACK PO SCH (09:21)
[2020-06-15] MEDS: GABAPENTIN 300 MG CAP PO SCH ×3 (09:21→21:07)
[2020-06-15] MEDS: methylPREDNISolone SOD SUCCI 40 MG/ML 1 ML VIAL IV SCH ×3 (09:21→23:02)
[2020-06-15] MEDS: NON FORMULARY DRUG (Cranberry Fruit Extract [Cranberry] 500 MG) PO SCH ×2 (09:21→21:03)
[2020-06-15] MEDS: CHONDR SU A SOD PO SCH ×2 (09:22→21:03)
[2020-06-15] MEDS: GLUCOSAMINE PO SCH ×2 (09:22→21:03)
[2020-06-15] MEDS: NON FORMULARY DRUG (Vitamin C/Biotin [Hair, Skin And Nails] 1 TAB) PO SCH ×2 (09:22→21:05)
[2020-06-15 09:37] LABS: ALT 14 U/L (4-34); AST 15 U/L (14-36); African American GFR (CKD) >90 (>60 ml/min/1.73 sqM); Albumin 3.7 g/dL (3.5-5.0); Alkaline Phosphatase 69 U/L (38-126); Anion Gap 6 mmol/L; Blood Urea Nitrogen 17 mg/dL (7-17); Calcium 9.5 mg/dL (8.4-10.2); Carbon Dioxide 23 mmol/L (22-30); Chloride 106 mmol/L (98-107); Glucose 135 mg/dL (74-99); Non-African American GFR(CKD) >90 (>60 ml/min/1.73 sqM); Potassium 4.4 mmol/L (3.5-5.1); Sodium 135 mmol/L (137-145); Total Bilirubin 0.7 mg/dL (0.2-1.3); Total Protein 6.2 g/dL (6.3-8.2)
[2020-06-15 10:02] LABS: Basophils % (A) 0 %; Eosinophils % (A) 0 %; HCT 31.1 % (34.0-46.0); HGB 10.2 gm/dL (11.4-16.0); Lymphocytes % (A) 22 %; MCH 30.6 pg (25.0-35.0); MCHC 32.9 g/dL (31.0-37.0); MCV 92.9 fL (80.0-100.0); Mean Platelet Volume 7.3; Monocytes # (A) 0.2 k/uL (0-1.0); Monocytes % (A) 4 %; Neutrophils # (A) 3.4 k/uL (1.3-7.7); Neutrophils % (A) 73 %; Platelet Count 292 k/uL (150-450); RBC 3.35 m/uL (3.80-5.40); WBC 4.7 k/uL (3.8-10.6)
--- NOTE | 2020-06-15 11:10 | P.PN ---
Subjective Progress Note Date: 06/15/20 69-year-old female one of my office patient with long-standing history of COPD, hypertension, hyperlipidemia and mitral valve prolapse who has known to have history of pulmonary embolism recently has been on anticoagulation, history of rheumatoid arthritis, history of hypothyroidism and vascular disease who was discharged from [facility] over 10 days ago after long Admission for pulmonary embolism left her ability to continue having significant swallowing issue along with odynophagia and mild dysphagia and worsening shortness of breath and dyspnea with minimal exertion. Patient has been living at home with help of her family who lives in [facility]. She has fallen few days early and traumatized her left knee with no close head trauma no other injury. Patient was not able to ambulate and walk has not been able to move to the bathroom also has been having significant abdominal discomfort with nausea and diarrhea for the last few days become much worse patient become debilitated end up coming to [facility] by EMS today with above complaint chest x-ray did not show any significant etiology, CTA shows no new onset of pulmonary embolism but had a spot in the left lower lobe as nodular with no firm diagnosis of pneumonia at this point. Patient also had mild anemia with mildly elevated blood sugar troponin was normal BNP was low. Patient was started on O2 along with updraft treatment and management still waiting for urine test exclude any possibility of UTI with sepsis. Patient will be hospitalized will continue pulmonary management with upping her prednisone to Solu-Medrol 40 mg every 8 hours continue updraft [id number] for now consult pulmonary start PTOT. 06/15 patient continues to have diarrhea, incontinence of diarrhea but she states she is better after receiving Imodium. She is complaining of nausea this morning for which Zofran added. Lactulose was discontinued. She is continued on IV Solu-Medrol. Consult in place for Dr. Sterling. COVID-19 testing in progress. PT and OT evaluations in place. Patient has been afebrile, heart rate 116, blood pressure 120/74, pulse ox 96% on 3 L nasal cannula. Repeat blood work reveals WBC of 4.7, hemoglobin 10.2. Sodium 135, creatinine 0.49. Blood sugars are running between 110 and 136. We are waiting for urinalysis collection. Review of systems CONSTITUTIONAL: Well-developed mild respiratory distress. No fever, no chills. EYES: No icterus sclerae, no conjunctivitis. EARS, NOSE, MOUTH, THROAT, and FACE: No sore throat, lymphadenopathy, carotid bruits or deformity. RESPIRATORY: Significant shortness of breath cough wheezes with significant hoarseness. CARDIOVASCULAR: Mild PND orthopnea palpitations and no angina. GASTROINTESTINAL: Denies abdominal pain reports nausea and diarrhea no constipation no active GI bleed at this point. GENITOURINARY: incontinence with worsening recurrent UTI. INTEGUMENT/BREAST: Generalized muscle and joint pain with significant back pain. HEMATOLOGIC/LYMPHATIC: Negative for bleed or purpura. MUSCULOSKELTAL: Significant lower back pain and generalized muscular atrophy and pain. NEURLOGICAL: No LOC, Sz or syncope, blurred vision dizziness or abnormality.. BEHAVIORAL/PSYCH: Depression with no suicidal ideation. ENDOCRINE: Negative. Physical examination General Appearance: Alert, cooperative, mild distress looks older than her age. Neck HEENT: Supple, no lymphadenopathy, no thyroid enlargement, no carotid bruits. Lungs: Decreased breath sound bilaterally no wheezing. Chest Wall: Decrease expansion with deep inspiration no tenderness and no deformity was found on exam, no costochondral pain or discomfort. Heart: Regular rate and rhythm, S1, S2 mild tachycardia with 2/6 ejection murmur. Back: Significant curvature with tenderness multiple scar tissue from previous surgery. Abdomen: Soft positive bowel sound organomegaly or tenderness slight discomfort and lower abdominal region area. Extremities: Trace edema slight bruise on the left knee with multiple scar tissue from joint replacement. Pulses: 2+ and symmetric. Skin: Skin color, texture, tugor normal, no rashes or lesions. Neurologic: Alert oriented x3 cranial nerves II through XII intact, no motor deficit, no abnormal balance or gait. Patient appears anxious. Assessment and plan 1 severe dyspnea and shortness of breath due to Combination of COPD exacerbation, residual of pulmonary embolism, recurrent bronchitis and significant hoarseness with vocal cord paralysis. 2 COPD exacerbation: Continue patient on O2 Solu-Medrol 40 mg IV every 8 continue DuoNeb and Pulmicort, consult pulmonary. 3 recent pulmonary embolism: Patient has been on Eliquis 5 mg twice a day seems to do well with with no sign of bleeding. 4 chronic pain management: Has been on hydrocodone and baclofen. 5 Diastolic congestive heart failure: Remain on metoprolol will add diuretics on demand. 6 recurrent UTI with significant incontinence. Obtain urinalysis and culture. 7 hypothyroidism: Continue levothyroxine at 88 g daily. 8 chronic lower back pain: Post lower back surgery continue pain management along with gabapentin. 9 hyperglycemia: Patient is on diet control Accu-Chek with sliding scales coverage. 10 recurrent depression: Remain on citalopram 20 mg a day. 11 hyperlipidemia: Continue pravastatin 20 mg a day. 12 hypertension: Remain on the clonidine 0.1 mg 2 times a day for systolic above 160 continue metoprolol 25 g twice a day. 13 GERD/GI prophylaxis: Remain on pantoprazole 40 mg daily. 14 DVT prophylaxis: Patient is on anticoagulation. 15 debility patient has not been able template and walk and significantly debilitated at this point required 2 person assist and patient will be started on PTOT consult social service for possible placement. CODE STATUS: Full code. Discharge plan: Readmit to [facility] on Wednesday Impression and plan of care have been directed as dictated by the signing physician. Delmy Andersen nurse practitioner acting as scribe for signing physician. Objective - Vital Signs Vital signs: Vital Signs Temp 98.2 F 06/15/20 08:00 Pulse 88 06/15/20 08:02 Resp 18 06/15/20 08:02 BP 120/74 06/15/20 08:00 Pulse Ox 96 06/15/20 08:00 Intake & Output 06/14/20 06/15/20 06/15/20 18:59 06:59 18:59 Intake Total 500 Balance 500 Weight 63.503 kg 63 kg Intake: Amount of Fluid Infused ( 500 ml) Other: Voiding Method Diaper Diaper Incontinent Incontinent # Voids 1 # Bowel Movements 1 1 - Labs CBC & Chem 7: 06/15/20 09:10 06/15/20 09:10 Labs: Abnormal Lab Results - Last 24 Hours (Table) 06/14/20 06/14/20 06/14/20 Range/Units 10:48 10:48 22:50 RBC 3.72 L (3.80-5.40) m/uL Hgb 10.9 L (11.4-16.0) gm/dL Hct 33.8 L (34.0-46.0) % BUN 30 H (7-17) mg/dL Glucose 147 H (74-99) mg/dL POC Glucose (mg/dL) 110 H (75-99) mg/dL 06/15/20 Range/Units 07:04 RBC (3.80-5.40) m/uL Hgb (11.4-16.0) gm/dL Hct (34.0-46.0) % BUN (7-17) mg/dL Glucose (74-99) mg/dL POC Glucose (mg/dL) 136 H (75-99) mg/dL
[2020-06-15 11:33] LABS: Glucose,Whole Blood 136 mg/dL (75-99)
[2020-06-15] MEDS: ARTIFICIAL TEARS-HYPROMELLOSE DROPS 15 ML BTL BOTH EYES SCH ×2 (12:18→23:02)
[2020-06-15] MEDS: FLUTICASONE 50MCG/SPRAY NASAL 16GM EA NOSTRIL SCH (12:19)
[2020-06-15] MEDS: INSULIN ASPART (NovoLOG) 100 UNIT/ML VIAL SQ SCH ×3 (12:55→21:08)
[2020-06-15 13:06] LABS: Amorphous Sediment,Urine Rare /hpf; Appearance,Urine Clear (Clear); Bilirubin,Urine Negative (Negative); Blood,Urine Negative (Negative); Color,Urine Yellow; Glucose,Urine (UA) Negative (Negative); Ketones,Urine 2+ (Negative); Leukocyte Esterase,Urine Trace (Negative); Mucus,Urine Rare /hpf; Nitrite,Urine Negative (Negative); PH, Urine 5.5 (5.0-8.0); Protein,Urine Negative (Negative); RBC,Urine 4 /hpf (0-5); Specific Gravity,Urine 1.025 (1.001-1.035); Squamous Epithelial Cell,Urine 1 /hpf (0-4); Urobilinogen,Urine <2.0 mg/dL (<2.0); WBC,Urine 2 /hpf (0-5)
--- NOTE | 2020-06-15 14:43 | P.CNPUL ---
History of Present Illness Consult date: 06/15/20 Requesting physician: Pepe García Reason for consult: dyspnea, abnormal CXR/CT Chief complaint: Dysphagia, shortness of breath History of present illness: This is a very pleasant 69-year-old female patient who follows with Dr. García as her primary care provider. She has a history of hypertension, hyperlipidemia, mitral valve prolapse, rheumatoid arthritis, hypothyroidism, chronic obstructive pulmonary disease. She has also has a history of pulmonary embolism and remain on anticoagulating in the form of Eliquis following a recent admission here. Once discharged she was at [facility] for subacute rehabilitation in discharged home approximate 10 days ago. She has had ongoing weakness. She did sustain a fall sustaining trauma to her left knee. She remains quite weak and debilitated. She presented here to the emergency room after developing difficulty in swallowing and shortness of breath. Chest x-ray revealed no acute pulmonary process. CT angiogram revealed right basilar atelectasis. Stable left-sided pulmonary nodule. No evidence of pulmonary embolism. White count 4. 7. Hemoglobin 10.2. Sodium 135. Potassium 4.4. Creatinine 0.49. She is seen today in consultation on the regular medical floor. She is awake and alert. She is quite frail and debilitated. She is maintaining O2 saturations in the mid 90s on 3 L/m per nasal cannula. She's afebrile. Hemodynamically stable. She's been initiated on IV Solu-Medrol, Symbicort, Ventolin. Continued on anticoagulation with Eliquis. Review of Systems REVIEW OF SYSTEMS: CONSTITUTIONAL: Weak, frail, positive for weight loss. EYES: Denies change in vision. EARS, NOSE, MOUTH, THROAT: Denies headaches, denies sore throat. CARDIOVASCULAR: Denies chest pain, palpitations or syncopal episodes. RESPIRATORY: Positive for shortness of breath, cough, congestion no hemoptysis. GASTROINTESTINAL: Denies change in appetite, denies abdominal pain GENITOURINARY: Denies hematuria, denies infections. MUSKULOSKELETAL: Denies pain, denies swelling. INTEGUMENTARY: Denies rash, denies eczema. NEUROLOGICAL: Denies recent memory loss, no recent seizure activity. PSYCHIATRIC: Denies anxiety, denies depression. HEMATOLOGIC/LYMPHATIC: Denies anemia, denies enlarged lymph nodes. Past Medical History Past Medical History: Hyperlipidemia, Hypertension, Mitral Valve Prolapse (MVP), Musculoskeletal Disorder, Osteoarthritis (OA), Pneumonia, Pulmonary Embolus (PE), Renal Disease, Rheumatoid Arthritis (RA), Thyroid Disorder, Vascular Disorder Additional Past Medical History / Comment(s): Pt recently admitted to [facility] on 04/29/2020 with suspected pulmonary embolism, anticoagulated with Eliquis and previous admission 01/17/20 with acute hypoxic respiratory failure 2ndary to bilateral pneumonia. Other hx: Thoracolumbar kyphoscoliosis, lumbar laminectomy and fusion multilevel, hypothyroidism, mitral valve prolapse, chronic low back pain, sciatica with pain involving lower extremities and numbness which is worse on R side, chronic constipation, history of frequent UTIs, difficulty with mobility and the patient uses a cane/walker, varicose veins. History of Any Multi-Drug Resistant Organisms: None Reported Past Surgical History: Back Surgery, Breast Surgery, Joint Replacement, Orthopedic Surgery Additional Past Surgical History / Comment(s): laproscopic surgery x 3 ( for infertility), arthroscopy left knee, , left breast lumpectomy-benign, la minectomy with spinal fusion (L-3to S-1) (2013), total left knee (10/2016) Past Anesthesia/Blood Transfusion Reactions: No Reported Reaction Past Psychological History: Anxiety Additional Psychological History / Comment(s): . Smoking Status: Never smoker Past Alcohol Use History: None Reported Additional Past Alcohol Use History / Comment(s): . Past Drug Use History: None Reported - Past Family History Mother Family Medical History: COPD, Hyperlipidemia Additional Family Medical History / Comment(s): Mother at age 88 from COPD with history of smoking. Father Family Medical History: Myocardial Infarction (ND) Additional Family Medical History / Comment(s): Father had a ND at the age of 48yrs. Brother(s) Family Medical History: COPD Additional Family Medical History / Comment(s): Patient has one brother with history of smoking with no major medical problems. Patient does not have any sisters. Patient has one adopted daughter. Daughter(s) Family Medical History: No Reported History Medications and Allergies Home Medications Medication Instructions Recorded Confirmed Type Cholecalciferol [Vitamin D3 (25 2,000 unit PO DAILY 11/06/16 06/14/20 History Mcg = 1000 Iu)] Citalopram Hydrobromide [CeleXA] 20 mg PO DAILY 11/06/16 06/14/20 History Levothyroxine Sodium [Synthroid] 88 mcg PO HS 11/06/16 06/14/20 History Multivitamins, Thera [Multivitamin 1 tab PO DAILY 11/06/16 06/14/20 History (formulary)] Pravastatin Sodium [Pravachol] 20 mg PO HS 11/06/16 06/14/20 History Vitamin B Complex 1 cap PO HS 11/06/16 06/14/20 History Baclofen [Lioresal] 10 mg PO TID 03/24/17 06/14/20 History Glucosamine/Chondr [place] A Sod [Osteo 1 tab PO BID 03/24/17 06/14/20 History Bi-Flex Caplet] Propylene Glycol/Peg 400/Pf 1 - 2 drop BOTH EYES BID 03/24/17 06/14/20 History [Systane 0.3-0.4% Eye Drops] Pantoprazole [Protonix] 40 mg PO DAILY 01/17/20 06/14/20 History Vitamin C/Biotin [Hair, Skin and 1 tab PO BID 01/17/20 06/14/20 History Nails] Fluticasone Nasal [place] [Flonase 2 spray EA NOSTRIL DAILY spr 01/22/20 06/14/20 Rx Nasal [place]] Metoprolol Tartrate [Lopressor] 25 mg PO BID #120 tab 01/22/20 06/14/20 Rx cloNIDine HCL [Catapres] 0.1 mg PO TID PRN #90 tab 01/22/20 06/14/20 Rx Albuterol Sulfate [Ventolin HFA] 1 - 2 puff INHALATION RT-Q6H PRN 01/23/20 06/14/20 History Budesonide-Formot 160-4.5 Mcg 2 puff INHALATION RT-BID 01/23/20 06/14/20 History [Symbicort 160-4.5 Mcg Inhaler] Cranberry Fruit Extract [Cranberry] 500 mg PO BID 01/23/20 06/14/20 History Benzonatate [Tessalon Perles] 100 mg PO TID PRN 04/29/20 06/14/20 History Gabapentin [Neurontin] 300 mg PO BID 04/29/20 06/14/20 History guaiFENesin [Mucinex] 600 mg PO BID 04/29/20 06/14/20 History ALPRAZolam [Xanax] 0.25 mg PO BID PRN #6 tab 05/02/20 06/14/20 Rx Bisacodyl [Dulcolax] 10 mg PO DAILY tablet. 05/02/20 06/14/20 Rx Gabapentin [Neurontin] 600 mg PO HS #3 cap 05/02/20 06/14/20 Rx HYDROcodone/APAP 10-325MG [[place] 1 tab PO DAILY PRN #3 tab 05/02/20 06/14/20 Rx 10-325] Lactulose [Cephulac] 10 gm PO HS ml 05/02/20 06/14/20 Rx Polyethylene Glycol 3350 [Miralax] 17 gm PO DAILY #30 packet 05/02/20 06/14/20 Rx Acetaminophen Tab [Tylenol] 650 mg PO Q4H PRN 06/14/20 06/14/20 History Apixaban [Eliquis] 5 mg PO BID 06/14/20 06/14/20 History Loperamide [Imodium] 2 mg PO QID PRN 06/14/20 06/14/20 History Allergies Allergy/AdvReac Type Severity Reaction Status Date / Time No Known Allergies Allergy Verified 06/14/20 12:48 Physical Exam Vitals: Vital Signs Temp Pulse Pulse Resp BP BP Pulse Ox 06/15/20 08:02 88 18 06/15/20 08:00 98.2 F 116 H 17 120/74 96 06/15/20 07:55 82 18 06/15/20 04:00 20 06/15/20 02:00 98.2 F 120 H 20 133/71 97 06/15/20 00:00 98.0 F 108 H 22 125/79 98 06/14/20 19:49 98.4 F 108 H 16 134/79 99 06/14/20 17:44 98.5 F 118 H 16 126/73 97 06/14/20 16:30 98.2 F 112 H 18 134/81 96 Intake and Output 06/14/20 06/15/20 06/15/20 22:59 06:59 14:59 Intake Total 500 Balance 500 Intake: Amount of Fluid Infused ( 500 ml) Other: Voiding Method Diaper Diaper Diaper Incontinent Incontinent Incontinent # Voids 1 # Bowel Movements 1 Weight 63.503 kg 63 kg GENERAL EXAM: Alert, pleasant 69-year-old female patient, frail, weak, on 3 L nasal cannula, comfortable in no apparent distress. HEAD: Normocephalic. EYES: Normal reaction of pupils, equal size. NOSE: Clear with pink turbinates. THROAT: No erythema or exudates. NECK: No masses, no JVD. CHEST: No chest wall deformity. LUNGS: Equal air entry with no crackles, wheeze, rhonchi or dullness. CVS: S1 and S2 normal with no audible murmur, regular rhythm. ABDOMEN: No hepatosplenomegaly, normal bowel sounds, no guarding or rigidity. SPINE: No scoliosis or deformity SKIN: No rashes CENTRAL NERVOUS SYSTEM: No focal deficits, tone is normal in all 4 extremities. EXTREMITIES: There is no peripheral edema. No clubbing, no cyanosis. Periphe ral pulses are intact. Results - Laboratory Findings CBC and BMP: 06/15/20 09:10 06/15/20 09:10 PT/INR, D-dimer PT 10.5 sec (9.0-12.0) 06/14/20 10:48 INR 1.0 (<1.2) 06/14/20 10:48 Abnormal lab findings: Abnormal Labs 06/14/20 06/14/20 06/14/20 10:48 10:48 12:30 RBC 3.72 L Hgb 10.9 L Hct 33.8 L Sodium BUN 30 H Creatinine Glucose 147 H POC Glucose (mg/dL) Total Protein Urine Ketones 2+ H Ur Leukocyte Esterase Trace H Amorphous Sediment Rare H Urine Mucus Rare H 06/14/20 06/15/20 06/15/20 22:50 07:04 09:10 RBC 3.35 L Hgb 10.2 L Hct 31.1 L Sodium BUN Creatinine Glucose POC Glucose (mg/dL) 110 H 136 H Total Protein Urine Ketones Ur Leukocyte Esterase Amorphous Sediment Urine Mucus 06/15/20 06/15/20 09:10 11:30 RBC Hgb Hct Sodium 135 L BUN Creatinine 0.49 L Glucose 135 H POC Glucose (mg/dL) 136 H Total Protein 6.2 L Urine Ketones Ur Leukocyte Esterase Amorphous Sediment Urine Mucus - Diagnostic Findings Chest x-ray: image reviewed CT scan - chest: image reviewed Assessment and Plan Assessment: 1 Acute exacerbation of chronic obstructive pulmonary disease but no evidence of pneumonia 2 Recent questionable pulmonary embolism and anticoagulated with Eliquis 3 Chronic low back pain 4 Hypothyroidism 5 Diastolic congestive heart failure 6 Hyperlipidemia 7 Hypertension 8 Gastroesophageal reflux disease 9 History of mitral valve prolapse 10 Frequent UTIs 11 Poor overall functional performance based on the above-mentioned multiple comorbidities Plan: The patient was seen and evaluated by Dr. Sterling Chest x-ray and labs reviewed Continue the current treatment plan Titrate down the FiO2 as tolerated Increase her activity as tolerated We will continue to follow and make further recommendations based on her clini kade status I, the cosigning physician, performed a history & physical examination of the patient. Lungs sounds with faint end expiratory wheeze, diminished. Maintaining good O2 saturations in the 90s on 3 L/m per nasal cannula. I discussed the assessment and plan of care with my nurse practitioner, Shania Cage. I attest to the above consultation as dictated by her. Time with Patient: Greater than 30
[2020-06-15 16:47] LABS: Glucose,Whole Blood 131 mg/dL (75-99)
[2020-06-15 19:49] LABS: Glucose,Whole Blood 134 mg/dL (75-99)
[2020-06-15] MEDS ORDERED: LACTULOSE 20 GM/30 ML CUP PO SCH (21:00)
[2020-06-15] MEDS: NON FORMULARY DRUG (Vitamin B Complex [Vitamin B Complex] 1 CAP) PO SCH (21:05)
[2020-06-15] MEDS: PRAVASTATIN SODIUM 20 MG TAB PO SCH (21:06)
[2020-06-15] MEDS: LEVOTHYROXINE 88 MCG TAB PO SCH (21:06)
[2020-06-15] MEDS: ALPRAZolam 0.25 MG TAB PO PRN (21:06)
[2020-06-15] MEDS: HYDROcodone/APAP 10-325MG 1 EACH TAB PO PRN (21:09)
[2020-06-16 07:03] LABS: Glucose,Whole Blood 117 mg/dL (75-99)
[2020-06-16] MEDS: INSULIN ASPART (NovoLOG) 100 UNIT/ML VIAL SQ SCH ×4 (07:08→20:07)
[2020-06-16] MEDS: guaiFENesin 600 MG TABLET.ER PO SCH ×2 (08:46→21:45)
[2020-06-16] MEDS: METOPROLOL TARTRATE 25 MG TAB PO SCH ×2 (08:46→21:45)
[2020-06-16] MEDS: BACLOFEN 10 MG TAB PO SCH ×3 (08:46→21:45)
[2020-06-16] MEDS: CHOLECALCIFEROL 1,000 UNIT TAB PO SCH (08:46)
[2020-06-16] MEDS: MULTIVITAMINS, THERA 1 EACH TAB PO SCH (08:46)
[2020-06-16] MEDS: ALPRAZolam 0.25 MG TAB PO PRN ×2 (08:47→21:45)
[2020-06-16] MEDS: GABAPENTIN 300 MG CAP PO SCH ×3 (08:47→21:45)
[2020-06-16] MEDS: ARTIFICIAL TEARS-HYPROMELLOSE DROPS 15 ML BTL BOTH EYES SCH ×2 (08:47→21:45)
[2020-06-16] MEDS: CITALOPRAM HYDROBROMIDE 20 MG TAB PO SCH (08:47)
[2020-06-16] MEDS: APIXABAN 5 MG TAB PO SCH ×2 (08:47→21:45)
[2020-06-16] MEDS: CHONDR SU A SOD PO SCH ×2 (08:47→21:38)
[2020-06-16] MEDS: bisacodyL 5 MG TABLET.DR PO SCH (08:47)
[2020-06-16] MEDS: methylPREDNISolone SOD SUCCI 40 MG/ML 1 ML VIAL IV SCH (08:47)
[2020-06-16] MEDS: GLUCOSAMINE PO SCH ×2 (08:47→21:38)
[2020-06-16] MEDS: PANTOPRAZOLE 40 MG TABLET PO SCH (08:47)
[2020-06-16] MEDS: polyethylene glycoL 3350 17 GM POWD.PACK PO SCH (08:48)
[2020-06-16] MEDS: NON FORMULARY DRUG (Vitamin C/Biotin [Hair, Skin And Nails] 1 TAB) PO SCH ×2 (08:48→21:47)
[2020-06-16] MEDS: NON FORMULARY DRUG (Cranberry Fruit Extract [Cranberry] 500 MG) PO SCH ×2 (08:51→21:37)
[2020-06-16] MEDS: FLUTICASONE 50MCG/SPRAY NASAL 16GM EA NOSTRIL SCH (08:51)
[2020-06-16] MEDS: ALBUTEROL NEBULIZED 2.5 MG/3 ML INHALATION PRN (08:56)
[2020-06-16] MEDS: SYMBICORT 160-4.5 MCG INHALER INHALATION SCH ×2 (08:56→20:14)
[2020-06-16 11:22] LABS: Glucose,Whole Blood 105 mg/dL (75-99)
--- NOTE | 2020-06-16 12:02 | P.PN ---
Subjective Progress Note Date: 06/16/20 69-year-old female one of my office patient with long-standing history of COPD, hypertension, hyperlipidemia and mitral valve prolapse who has known to have history of pulmonary embolism recently has been on anticoagulation, history of rheumatoid arthritis, history of hypothyroidism and vascular disease who was discharged from [facility] over 10 days ago after long Admission for pulmonary embolism left her ability to continue having significant swallowing issue along with odynophagia and mild dysphagia and worsening shortness of breath and dyspnea with minimal exertion. Patient has been living at home with help of her family who lives in [facility]. She has fallen few days early and traumatized her left knee with no close head trauma no other injury. Patient was not able to ambulate and walk has not been able to move to the bathroom also has been having significant abdominal discomfort with nausea and diarrhea for the last few days become much worse patient become debilitated end up coming to [facility] by EMS today with above complaint chest x-ray did not show any significant etiology, CTA shows no new onset of pulmonary embolism but had a spot in the left lower lobe as nodular with no firm diagnosis of pneumonia at this point. Patient also had mild anemia with mildly elevated blood sugar troponin was normal BNP was low. Patient was started on O2 along with updraft treatment and management still waiting for urine test exclude any possibility of UTI with sepsis. Patient will be hospitalized will continue pulmonary management with upping her prednisone to Solu-Medrol 40 mg every 8 hours continue updraft [id number] for now consult pulmonary start PTOT. 06/15 patient continues to have diarrhea, incontinence of diarrhea but she states she is better after receiving Imodium. She is complaining of nausea this morning for which Zofran added. Lactulose was discontinued. She is continued on IV Solu-Medrol. Consult in place for Dr. Sterling. COVID-19 testing in progress. PT and OT evaluations in place. Patient has been afebrile, heart rate 116, blood pressure 120/74, pulse ox 96% on 3 L nasal cannula. Repeat blood work reveals WBC of 4.7, hemoglobin 10.2. Sodium 135, creatinine 0.49. Blood sugars are running between 110 and 136. We are waiting for urinalysis collection. 06/16: Patient had no problems overnight. Patient states she slept well last night and feels much better today. Patient has been afebrile, heart rate 1 who 1, blood pressure 121/73, pulse ox 94% on 3 L nasal cannula. Blood sugars running between 105 and 134. Breathing status is improving. We will plan to decrease Solu-Medrol to every 12 hours and discontinue this evening, start prednisone in the morning. Patient is anxious to be discharged to [facility] tomorrow. Review of systems CONSTITUTIONAL: Well-developed mild respiratory distress. No fever, no chills. EYES: No icterus sclerae, no conjunctivitis. EARS, NOSE, MOUTH, THROAT, and FACE: No sore throat, lymphadenopathy, carotid bruits or deformity. RESPIRATORY: Denies shortness of breath cough wheezes reports significant hoarseness. CARDIOVASCULAR: Mild PND orthopnea palpitations and no angina. GASTROINTESTINAL: Denies abdominal pain reports nausea and diarrhea no constipation no active GI bleed at this point. GENITOURINARY: incontinence with worsening recurrent UTI. INTEGUMENT/BREAST: Generalized muscle and joint pain with significant back pain. HEMATOLOGIC/LYMPHATIC: Negative for bleed or purpura. MUSCULOSKELTAL: Significant lower back pain and generalized muscular atrophy and pain. NEURLOGICAL: No LOC, Sz or syncope, blurred vision dizziness or abnormality.. BEHAVIORAL/PSYCH: Depression with no suicidal ideation. ENDOCRINE: Negative. Physical examination General Appearance: Alert, cooperative, no distress looks older than her age. Neck HEENT: Supple, no lymphadenopathy, no thyroid enlargement, no carotid b ruits. Lungs: Decreased breath sound bilaterally no wheezing. Chest Wall: Decrease expansion with deep inspiration no tenderness and no deformity was found on exam, no costochondral pain or discomfort. Heart: Regular rate and rhythm, S1, S2 mild tachycardia with 2/6 ejection murmur. Back: Significant curvature with tenderness multiple scar tissue from previous surgery. Abdomen: Soft positive bowel sound organomegaly or tenderness slight discomfort and lower abdominal region area. Extremities: Trace edema slight bruise on the left knee with multiple scar tissue from joint replacement. Pulses: 2+ and symmetric. Skin: Skin color, texture, tugor normal, no rashes or lesions. Neurologic: Alert oriented x3 cranial nerves II through XII intact, no motor deficit, no abnormal balance or gait. Patient appears anxious. Assessment and plan 1 severe dyspnea and shortness of breath due to Combination of COPD exacerbation, residual of pulmonary embolism, recurrent bronchitis and significant hoarseness with vocal cord paralysis. 2 COPD exacerbation: Continue patient on O2 Solu-Medrol decreased frequency to every 12 hours and start prednisone in the morning, continue DuoNeb and Pulmicort, consult pulmonary. 3 recent pulmonary embolism: Patient has been on Eliquis 5 mg twice a day seems to do well with with no sign of bleeding. 4 chronic pain management: Has been on hydrocodone and baclofen. 5 Diastolic congestive heart failure: Remain on metoprolol will add diuretics on demand. 6 recurrent UTI with significant incontinence. Obtain urinalysis and culture. 7 hypothyroidism: Continue levothyroxine at 88 g daily. 8 chronic lower back pain: Post lower back surgery continue pain management along with gabapentin. 9 hyperglycemia: Patient is on diet control Accu-Chek with sliding scales coverage. 10 recurrent depression: Remain on citalopram 20 mg a day. 11 hyperlipidemia: Continue pravastatin 20 mg a day. 12 hypertension: Remain on the clonidine 0.1 mg 2 times a day for systolic above 160 continue metoprolol 25 g twice a day. 13 GERD/GI prophylaxis: Remain on pantoprazole 40 mg daily. 14 DVT prophylaxis: Patient is on anticoagulation. 15 debility patient has not been able template and walk and significantly debilitated at this point required 2 person assist and patient will be started on PTOT consult social service for possible placement. CODE STATUS: Full code. Discharge plan: Readmit to [facility] on Wednesday Impression and plan of care have been directed as dictated by the signing physician. Delmy Andersen nurse practitioner acting as scribe for signing physician. Objective - Vital Signs Vital signs: Vital Signs Temp 98.3 F 06/16/20 07:00 Pulse 101 H 06/16/20 08:56 Resp 17 06/16/20 07:00 BP 121/73 06/16/20 07:00 Pulse Ox 94 L 06/16/20 08:56 Intake & Output 06/15/20 06/16/20 06/16/20 18:59 06:59 18:59 Output Total 800 550 Balance -800 -550 Output: Urine 800 550 Other: Voiding Method Diaper Diaper Incontinent Incontinent # Voids 1 1 - Labs CBC & Chem 7: 06/15/20 09:10 06/15/20 09:10 Labs: Abnormal Lab Results - Last 24 Hours (Table) 06/14/20 06/15/20 06/15/20 Range/Units 12:30 09:10 09:10 RBC 3.35 L (3.80-5.40) m/uL Hgb 10.2 L (11.4-16.0) gm/dL Hct 31.1 L (34.0-46.0) % Sodium 135 L (137-145) mmol/L Creatinine 0.49 L (0.52-1.04) mg/dL Glucose 135 H (74-99) mg/dL POC Glucose (mg/dL) (75-99) mg/dL Total Protein 6.2 L (6.3-8.2) g/dL Urine Ketones 2+ H (Negative) Ur Leukocyte Esterase Trace H (Negative) Amorphous Sediment Rare H (None) /hpf Urine Mucus Rare H (None) /hpf 06/15/20 06/15/20 06/15/20 Range/Units 11:30 16:44 19:47 RBC (3.80-5.40) m/uL Hgb (11.4-16.0) gm/dL Hct (34.0-46.0) % Sodium (137-145) mmol/L Creatinine (0.52-1.04) mg/dL Glucose (74-99) mg/dL POC Glucose (mg/dL) 136 H 131 H 134 H (75-99) mg/dL Total Protein (6.3-8.2) g/dL Urine Ketones (Negative) Ur Leukocyte Esterase (Negative) Amorphous Sediment (None) /hpf Urine Mucus (None) /hpf 06/16/20 Range/Units 07:02 RBC (3.80-5.40) m/uL Hgb (11.4-16.0) gm/dL Hct (34.0-46.0) % Sodium (137-145) mmol/L Creatinine (0.52-1.04) mg/dL Glucose (74-99) mg/dL POC Glucose (mg/dL) 117 H (75-99) mg/dL Total Protein (6.3-8.2) g/dL Urine Ketones (Negative) Ur Leukocyte Esterase (Negative) Amorphous Sediment (None) /hpf Urine Mucus (None) /hpf
--- NOTE | 2020-06-16 12:28 | P.PN ---
Subjective Progress Note Date: 06/16/20 Principal diagnosis: Acute exacerbation of chronic obstructive pulmonary disease This is a very pleasant 69-year-old female patient who follows with Dr. García as her primary care provider. She has a history of hypertension, hyperlipidemia, mitral valve prolapse, rheumatoid arthritis, hypothyroidism, chronic obstructive pulmonary disease. She has also has a history of pulmonary embolism and remain on anticoagulating in the form of Eliquis following a recent admission here. Once discharged she was at [facility] for subacute rehabilitation in discharged home approximate 10 days ago. She has had ongoing weakness. She did sustain a fall sustaining trauma to her left knee. She remains quite weak and debilitated. She presented here to the emergency room after developing difficulty in swallowing and shortness of breath. Chest x-ray revealed no acute pulmonary process. CT angiogram revealed right basilar atelectasis. Stable left-sided pulmonary nodule. No evidence of pulmonary embolism. White count 4.7. Hemoglobin 10.2. Sodium 135. Potassium 4.4. Creatinine 0.49. She is seen today in consultation on the regular medical floor. She is awake and alert . She is quite frail and debilitated. She is maintaining O2 saturations in the mid 90s on 3 L/m per nasal cannula. She's afebrile. Hemodynamically stable. She's been initiated on IV Solu-Medrol, Symbicort, Ventolin. Continued on anticoagulation with Eliquis. The patient is seen today 06/16/2020 in follow-up on the regular medical floor. She is currently resting comfortably in bed. Awake and alert in no acute distress. Denies any worsening shortness of breath, cough or congestion. She is maintaining O2 saturation the upper 90s on 3 L/m per nasal cannula. She's been afebrile. Hemodynamically stable. Blood glucose 105. She is continued on bronchodilators, Tessalon Perles, IV Solu-Medrol. Objective - Vital Signs Vital signs: Vital Signs Temp 98.3 F 06/16/20 07:00 Pulse 96 06/16/20 09:09 Resp 17 06/16/20 07:00 BP 121/73 06/16/20 07:00 Pulse Ox 94 L 06/16/20 08:56 Intake & Output 06/15/20 06/16/20 06/16/20 18:59 06:59 18:59 Output Total 800 550 Balance -800 -550 Output: Urine 800 550 Other: Voiding Method Diaper Diaper Diaper Incontinent Incontinent Incontinent # Voids 1 1 - Exam GENERAL EXAM: Alert, pleasant 69-year-old female patient, frail, weak, on 3 L nasal cannula, comfortable in no apparent distress. HEAD: Normocephalic. EYES: Normal reaction of pupils, equal size. NOSE: Clear with pink turbinates. THROAT: No erythema or exudates. NECK: No masses, no JVD. CHEST: No chest wall deformity. LUNGS: Equal air entry with no crackles, wheeze, rhonchi or dullness. CVS: S1 and S2 normal with no audible murmur, regular rhythm. ABDOMEN: No hepatosplenomegaly, normal bowel sounds, no guarding or rigidity. SPINE: No scoliosis or deformity SKIN: No rashes CENTRAL NERVOUS SYSTEM: No focal deficits, tone is normal in all 4 extremities. EXTREMITIES: There is no peripheral edema. No clubbing, no cyanosis. Peripheral pulses are intact. - Labs CBC & Chem 7: 06/15/20 09:10 06/15/20 09:10 Labs: Abnormal Lab Results - Last 24 Hours (Table) 06/14/20 06/15/20 06/15/20 Range/Units 12:30 16:44 19:47 POC Glucose (mg/dL) 131 H 134 H (75-99) mg/dL Urine Ketones 2+ H (Negative) Ur Leukocyte Esterase Trace H (Negative) Amorphous Sediment Rare H (None) /hpf Urine Mucus Rare H (None) /hpf 06/16/20 06/16/20 Range/Units 07:02 11:20 POC Glucose (mg/dL) 117 H 105 H (75-99) mg/dL Urine Ketones (Negative) Ur Leukocyte Esterase (Negative) Amorphous Sediment (None) /hpf Urine Mucus (None) /hpf Assessment and Plan Assessment: 1 Acute exacerbation of chronic obstructive pulmonary disease but no evidence of pneumonia 2 Recent questionable pulmonary embolism and anticoagulated with Eliquis 3 Chronic low back pain 4 Hypothyroidism 5 Diastolic congestive heart failure 6 Hyperlipidemia 7 Hypertension 8 Gastroesophageal reflux disease 9 History of mitral valve prolapse 10 Frequent UTIs 11 Poor overall functional performance based on the above-mentioned multiple comorbidities Plan: The patient was seen and evaluated by Dr. Hallie Hernandez from the pulmonary standpoint Continue the current treatment plan Titrate down the FiO2 as tolerated Increase her activity as tolerated We will continue to follow and make further recommendations based on her clinical status I, the cosigning physician, performed a history & physical examination of the patient. Lungs sounds with faint end expiratory wheeze, diminished. Maintaining good O2 saturations in the 90s on 3 L/m per nasal cannula. I discussed the assessment and plan of care with my nurse practitioner, Shania Cage. I attest to the above note as dictated by her.
[2020-06-16 16:38] LABS: Glucose,Whole Blood 105 mg/dL (75-99)
[2020-06-16 19:56] LABS: Glucose,Whole Blood 122 mg/dL (75-99)
[2020-06-16] MEDS ORDERED: methylPREDNISolone SOD SUCCI 40 MG/ML 1 ML VIAL IV SCH (21:00)
[2020-06-16] MEDS: PRAVASTATIN SODIUM 20 MG TAB PO SCH (21:45)
[2020-06-16] MEDS: HYDROcodone/APAP 10-325MG 1 EACH TAB PO PRN (21:46)
[2020-06-16] MEDS: NON FORMULARY DRUG (Vitamin B Complex [Vitamin B Complex] 1 CAP) PO SCH (21:47)
[2020-06-16] MEDS: LEVOTHYROXINE 88 MCG TAB PO SCH (21:47)
[2020-06-17] MEDS: NON FORMULARY DRUG (Cranberry Fruit Extract [Cranberry] 500 MG) PO SCH (07:08)
[2020-06-17] MEDS: INSULIN ASPART (NovoLOG) 100 UNIT/ML VIAL SQ SCH ×2 (07:08→12:30)
[2020-06-17] MEDS: CHONDR SU A SOD PO SCH (07:10)
[2020-06-17] MEDS: GLUCOSAMINE PO SCH (07:10)
--- NOTE | 2020-06-17 07:14 | P.DS ---
Providers Date of admission: 06/14/20 17:57 Expected date of discharge: 06/17/20 Attending physician: Pepe García Consults: 06/14/20 21:27 Consult Physician Routine Consulting Provider: Sun Sterling Consult Reason/Comments: COPD Exacerbation, PE and resp Faikure Do you want consulting provider notified?: Yes Primary care physician: Pepe [facility] Course: 69-year-old female one of my office patient with long-standing history of COPD, hypertension, hyperlipidemia and mitral valve prolapse who has known to have history of pulmonary embolism recently has been on anticoagulation, history of rheumatoid arthritis, history of hypothyroidism and vascular disease who was discharged from [facility] over 10 days ago after long Admission for pulmonary embolism left her ability to continue having significant swallowing issue along with odynophagia and mild dysphagia and worsening shortness of breath and dyspnea with minimal exertion. Patient has been living at home with help of her family who lives in [facility]. She has fallen few days early and traumatized her left knee with no close head trauma no other injury. Patient was not able to ambulate and walk has not been able to move to the bathroom also has been having significant abdominal discomfort with nausea and diarrhea for the last few days become much worse patient become debilitated end up coming to [facility] department by EMS today with above complaint chest x-ray did not show any significant etiology, CTA shows no new onset of pulmonary embolism but had a spot in the left lower lobe as nodular with no firm diagnosis of pneumonia at this point. Patient also had mild anemia with mildly elevated blood sugar troponin was normal BNP was low. Patient was started on O2 along with updraft treatment and management still waiting for urine test exclude any possibility of UTI with sepsis. Patient will be hospitalized will continue pulmonary management with upping her prednisone to Solu-Medrol 40 mg every 8 hours continue updraft [id number] for now consult pulmonary start PTOT. 06/15 patient continues to have diarrhea, incontinence of diarrhea but she states she is better after receiving Imodium. She is complaining of nausea this morning for which Zofran added. Lactulose was discontinued. She is continued on IV Solu-Medrol. Consult in place for Dr. Sterling. COVID-19 testing in [place]. PT and OT evaluations in place. Patient has been afebrile, heart rate 116, blood pressure 120/74, pulse ox 96% on 3 L nasal cannula. Repeat blood work reveals WBC of 4.7, hemoglobin 10.2. Sodium 135, creatinine 0.49. Blood sugars are running between 110 and 136. We are waiting for urinalysis collection. 06/16: Patient had no problems overnight. Patient states she slept well last night and feels much better today. Patient has been afebrile, heart rate 1 who 1, blood pressure 121/73, pulse ox 94% on 3 L nasal cannula. Blood sugars running between 105 and 134. Breathing status is improving. We will plan to decrease Solu-Medrol to every 12 hours and discontinue this evening, start prednisone in the morning. Patient is anxious to be discharged to [facility] tomorrow. 06/17: Patient denies any new complaints. Diarrhea has completely resolved. She has been afebrile, heart rate 73, blood pressure 133/73, pulse ox 97% on room air. Blood sugars are running in the low 100s. Patient has been transitioned over to oral prednisone this morning. Patient will be discharged to [facility] once all arrangements are completed. Assessment and plan 1 severe dyspnea and shortness of breath due to Combination of COPD exacerbation, residual of pulmonary embolism, recurrent bronchitis and significant hoarseness with vocal cord paralysis. 2 COPD exacerbation 3 recent pulmonary embolism 4 chronic pain management 5 chronic diastolic heart failure 6 recurrent UTI with significant incontinence. 7 hypothyroidism 8 chronic lower back pain 9 hyperglycemia 10 recurrent depression 11 hyperlipidemia 12 hypertension 13 GERD 14 debility 15 COVID-19 infection not present. Discharge plan: Readmit to [facility] under the care of Dr. García Impression and plan of care have been directed as dictated by the signing physician. Delmy Andersen nurse practitioner acting as scribe for signing physician. Patient Condition at Discharge: Good Plan - Discharge Summary Discharge Rx Participant: No New Discharge Prescriptions: New predniSONE 0 mg PO DIRECTED #30 tab Continue Vitamin B Complex 1 cap PO HS Multivitamins, Thera [Multivitamin (formulary)] 1 tab PO DAILY Cholecalciferol [Vitamin D3 (25 Mcg = 1000 Iu)] 2,000 unit PO DAILY Pravastatin Sodium [Pravachol] 20 mg PO HS Levothyroxine Sodium [Synthroid] 88 mcg PO HS Citalopram Hydrobromide [CeleXA] 20 mg PO DAILY Baclofen [Lioresal] 10 mg PO TID Glucosamine/Chondr Mckeon A Sod [Osteo Bi-Flex Caplet] 1 tab PO BID Propylene Glycol/Peg 400/Pf [Systane 0.3-0.4% Eye Drops] 1 - 2 drop BOTH EYES BID Pantoprazole [Protonix] 40 mg PO DAILY Vitamin C/Biotin [Hair, Skin and Nails] 1 tab PO BID cloNIDine HCL [Catapres] 0.1 mg PO TID PRN #90 tab PRN Reason: Blood Pressure - High Fluticasone Nasal Gridley [Flonase Nasal Gridley] 2 spray EA NOSTRIL DAILY spr Metoprolol Tartrate [Lopressor] 25 mg PO BID #120 tab Albuterol Sulfate [Ventolin HFA] 1 - 2 puff INHALATION RT-Q6H PRN PRN Reason: Shortness Of Breath Budesonide-Formot 160-4.5 Mcg [Symbicort 160-4.5 Mcg Inhaler] 2 puff INHALATION RT-BID Cranberry Fruit Extract [Cranberry] 500 mg PO BID guaiFENesin [Mucinex] 600 mg PO BID Benzonatate [Tessalon Perles] 100 mg PO TID PRN PRN Reason: Cough Bisacodyl [Dulcolax] 10 mg PO DAILY tablet. Polyethylene Glycol 3350 [Miralax] 17 gm PO DAILY #30 packet Acetaminophen Tab [Tylenol] 650 mg PO Q4H PRN PRN Reason: Pain Apixaban [Eliquis] 5 mg PO BID Loperamide [Imodium] 2 mg PO QID PRN PRN Reason: Loose Stool Gabapentin [Neurontin] 300 mg PO BID #6 cap Gabapentin [Neurontin] 600 mg PO HS #3 cap ALPRAZolam [Xanax] 0.25 mg PO BID PRN #6 tab PRN Reason: Anxiety HYDROcodone/APAP 10-325MG [[place] 10-325] 1 tab PO DAILY PRN #3 tab PRN Reason: Pain Discontinued Lactulose [Cephulac] 10 gm PO HS ml Discharge Medication List Cholecalciferol [Vitamin D3 (25 Mcg = 1000 Iu)] 2,000 unit PO DAILY 11/06/16 [History] Citalopram Hydrobromide [CeleXA] 20 mg PO DAILY 11/06/16 [History] Levothyroxine Sodium [Synthroid] 88 mcg PO HS 11/06/16 [History] Multivitamins, Thera [Multivitamin (formulary)] 1 tab PO DAILY 11/06/16 [History] Pravastatin Sodium [Pravachol] 20 mg PO HS 11/06/16 [History] Vitamin B Complex 1 cap PO HS 11/06/16 [History] Baclofen [Lioresal] 10 mg PO TID 03/24/17 [History] Glucosamine/Chondr Mckeon A Sod [Osteo Bi-Flex Caplet] 1 tab PO BID 03/24/17 [History] Propylene Glycol/Peg 400/Pf [Systane 0.3-0.4% Eye Drops] 1 - 2 drop BOTH EYES BID 03/24/17 [History] Pantoprazole [Protonix] 40 mg PO DAILY 01/17/20 [History] Vitamin C/Biotin [Hair, Skin and Nails] 1 tab PO BID 01/17/20 [History] Fluticasone Nasal Gridley [Flonase Nasal Gridley] 2 spray EA NOSTRIL DAILY spr 01/22/20 [Rx] Metoprolol Tartrate [Lopressor] 25 mg PO BID #120 tab 01/22/20 [Rx] cloNIDine HCL [Catapres] 0.1 mg PO TID PRN #90 tab 01/22/20 [Rx] Albuterol Sulfate [Ventolin HFA] 1 - 2 puff INHALATION RT-Q6H PRN 01/23/20 [History] Budesonide-Formot 160-4.5 Mcg [Symbicort 160-4.5 Mcg Inhaler] 2 puff INHALATION RT-BID 01/23/20 [History] Cranberry Fruit Extract [Cranberry] 500 mg PO BID 01/23/20 [History] Benzonatate [Tessalon Perles] 100 mg PO TID PRN 04/29/20 [History] guaiFENesin [Mucinex] 600 mg PO BID 04/29/20 [History] Bisacodyl [Dulcolax] 10 mg PO DAILY tablet. 05/02/20 [Rx] Polyethylene Glycol 3350 [Miralax] 17 gm PO DAILY #30 packet 05/02/20 [Rx] Acetaminophen Tab [Tylenol] 650 mg PO Q4H PRN 06/14/20 [History] Apixaban [Eliquis] 5 mg PO BID 06/14/20 [History] Loperamide [Imodium] 2 mg PO QID PRN 06/14/20 [History] ALPRAZolam [Xanax] 0.25 mg PO BID PRN #6 tab 06/16/20 [Rx] Gabapentin [Neurontin] 300 mg PO BID #6 cap 06/16/20 [Rx] Gabapentin [Neurontin] 600 mg PO HS #3 cap 06/16/20 [Rx] predniSONE 0 mg PO DIRECTED #30 tab 06/16/20 [Rx] HYDROcodone/APAP 10-325MG [[place] 10-325] 1 tab PO DAILY PRN #3 tab 06/17/20 [Rx] Follow up Appointment(s)/Referral(s): Pepe García MD [Primary Care Provider] - 1 Week (At [facility]) Patient Instructions/Handouts: Anxiety (ED) Discharge Disposition: TRANSFER TO SNF/ECF
[2020-06-17] MEDS: CHOLECALCIFEROL 1,000 UNIT TAB PO SCH (07:18)
[2020-06-17] MEDS: MULTIVITAMINS, THERA 1 EACH TAB PO SCH (07:18)
[2020-06-17] MEDS: PANTOPRAZOLE 40 MG TABLET PO SCH (07:18)
[2020-06-17] MEDS: BACLOFEN 10 MG TAB PO SCH (07:19)
[2020-06-17] MEDS: METOPROLOL TARTRATE 25 MG TAB PO SCH (07:20)
[2020-06-17] MEDS: CITALOPRAM HYDROBROMIDE 20 MG TAB PO SCH (07:20)
[2020-06-17] MEDS: ALPRAZolam 0.25 MG TAB PO PRN (07:20)
[2020-06-17] MEDS: APIXABAN 5 MG TAB PO SCH (07:20)
[2020-06-17] MEDS: guaiFENesin 600 MG TABLET.ER PO SCH (07:20)
[2020-06-17] MEDS: GABAPENTIN 300 MG CAP PO SCH (07:20)
[2020-06-17] MEDS: bisacodyL 5 MG TABLET.DR PO SCH (07:21)
[2020-06-17] MEDS: NON FORMULARY DRUG (Vitamin C/Biotin [Hair, Skin And Nails] 1 TAB) PO SCH (07:24)
[2020-06-17] MEDS: polyethylene glycoL 3350 17 GM POWD.PACK PO SCH (07:24)
[2020-06-17] MEDS: ARTIFICIAL TEARS-HYPROMELLOSE DROPS 15 ML BTL BOTH EYES SCH (07:25)
[2020-06-17 07:37] LABS: Glucose,Whole Blood 104 mg/dL (75-99)
[2020-06-17 07:59] VITALS: RESP 16
[2020-06-17] MEDS: FLUTICASONE 50MCG/SPRAY NASAL 16GM EA NOSTRIL SCH (08:11)
[2020-06-17] MEDS: ALBUTEROL NEBULIZED 2.5 MG/3 ML INHALATION PRN ×2 (08:57→12:10)
[2020-06-17] MEDS: SYMBICORT 160-4.5 MCG INHALER INHALATION SCH (08:57)
[2020-06-17] MEDS ORDERED: predniSONE 20 MG TAB PO SCH (09:00)
[2020-06-17 11:55] LABS: Glucose,Whole Blood 121 mg/dL (75-99)
--- NOTE | 2020-06-17 12:28 | P.PN ---
Subjective Progress Note Date: 06/17/20 Principal diagnosis: Acute exacerbation of COPD This is a very pleasant 69-year-old female patient who follows with Dr. García as her primary care provider. She has a history of hypertension, hyperlipidemia, mitral valve prolapse, rheumatoid arthritis, hypothyroidism, chronic obstructive pulmonary disease. She has also has a history of pulmonary embolism and remain on anticoagulating in the form of Eliquis following a recent admission here. Once discharged she was at [facility] for subacute rehabilitation in discharged home approximate 10 days ago. She has had ongoing weakness. She did sustain a fall sustaining trauma to her left knee. She remains quite weak and d ebilitated. She presented here to the emergency room after developing difficulty in swallowing and shortness of breath. Chest x-ray revealed no acute pulmonary process. CT angiogram revealed right basilar atelectasis. Stable left-sided pulmonary nodule. No evidence of pulmonary embolism. White count 4.7. Hemoglobin 10.2. Sodium 135. Potassium 4.4. Creatinine 0.49. She is seen today in consultation on the regular medical floor. She is awake and alert. She is quite frail and debilitated. She is maintaining O2 saturations in the mid 90s on 3 L/m per nasal cannula. She's afebrile. Hemodynamically stable. She's been initiated on IV Solu-Medrol, Symbicort, Ventolin. Continued on anticoagulation with Eliquis. The patient is seen today 06/16/2020 in follow-up on the regular medical floor. She is currently resting comfortably in bed. Awake and alert in no acute distress. Denies any worsening shortness of breath, cough or congestion. She is maintaining O2 saturation the upper 90s on 3 L/m per nasal cannula. She's been afebrile. Hemodynamically stable. Blood glucose 105. She is continued on bronchodilators, Tessalon Perles, IV Solu-Medrol. On 06/17/2020 patient seen in follow-up on the general medical surgical floor. Is awake and alert, in no acute distress, breathing much easier, significantly improved since admission, currently on 2 L of oxygen the pulse ox of 93-97%, afebrile, hemodynamically she is stable. No acute events overnight, vital signs have been stable. Her IV steroids have been transitioned to oral prednisone, patient remains on nebulized bronchodilators. COVID 19 was negative. No acute events overnight, discharge planning is in progress for discharge to [facility] today Objective - Vital Signs Vital signs: Vital Signs Temp 98.6 F 06/17/20 07:00 Pulse 100 06/17/20 12:19 Resp 16 06/17/20 08:00 BP 133/73 06/17/20 07:00 Pulse Ox 97 06/17/20 07:00 Intake & Output 06/16/20 06/17/20 06/17/20 18:59 06:59 18:59 Intake Total 100 Output Total 400 1200 Balance -400 -1100 Intake: Oral 100 Output: Urine 400 1200 Other: Voiding Method Diaper Diaper Diaper Incontinent Incontinent Incontinent - Exam GENERAL EXAM: Alert, pleasant, 69-year-old white female, on 2 L of oxygen, with a pulse ox of 97%, comfortable in no apparent distress. HEAD: Normocephalic/atraumatic. EYES: Normal reaction of pupils, equal size. Conjunctiva pink, sclera white. NOSE: Clear with pink turbinates. THROAT: No erythema or exudates. NECK: No masses, no JVD, no thyroid enlargement, no adenopathy. CHEST: No chest wall deformity. Symmetrical expansion. LUNGS: Equal air entry with no crackles, wheeze, rhonchi or dullness. CVS: Regular rate and rhythm, normal S1 and S2, no gallops, no murmurs, no rubs ABDOMEN: Soft, nontender. No hepatosplenomegaly, normal bowel sounds, no guarding or rigidity. EXTREMITIES: No clubbing, no edema, no cyanosis, 2+ pulses and upper and lower extremities. MUSCULOSKELETAL: Muscle strength and tone normal. SPINE: No scoliosis or deformity SKIN: No rashes CENTRAL NERVOUS SYSTEM: Alert and oriented -3. No focal deficits, tone is normal in all 4 extremities. PSYCHIATRIC: Alert and oriented -3. Appropriate affect. Intact judgment and insight. - Labs CBC & Chem 7: 06/15/20 09:10 06/15/20 09:10 Labs: Abnormal Lab Results - Last 24 Hours (Table) 06/16/20 06/16/20 06/17/20 Range/Units 16:37 19:54 07:08 POC Glucose (mg/dL) 105 H 122 H 104 H (75-99) mg/dL 06/17/20 Range/Units 11:46 POC Glucose (mg/dL) 121 H (75-99) mg/dL Assessment and Plan Plan: Assessment: 1 Acute exacerbation of chronic obstructive pulmonary disease but no evidence of pneumonia 2 Recent questionable pulmonary embolism and anticoagulated with Eliquis 3 Chronic low back pain 4 Hypothyroidism 5 Diastolic congestive heart failure 6 Hyperlipidemia 7 Hypertension 8 Gastroesophageal reflux disease 9 History of mitral valve prolapse 10 Frequent UTIs 11 Poor overall functional performance based on the above-mentioned multiple comorbidities Plan: No acute events overnight, breathing is improving, increase activity as tolerated, IV steroids have been transitioned to oral prednisone, continue nebulized bronchodilators, FiO2 is down to 2 L, discharge planning is in progress for discharge to [facility] today. Outpatient follow-up with Dr. Sterling any office in 7-10 days I performed a history & physical examination of the patient and discussed their management with my nurse practitioner, Zara Jung. I reviewed the nurse practitioner's note and agree with the documented findings and plan of care. Lung sounds are positive for clear breath sounds.. The findings and the impression was discussed with the patient. I attest to the documentation by the nurse practitioner. Time with Patient: Less than 30
[2020-06-17 12:37] LABS: Hemoglobin A1C 5.5 % (4.0-6.0)
[2020-06-17 15:03] VITALS: BP 144/71; PULSE 97; TEMP 98.5
--- NOTE | 2020-06-19 11:32 | CDI ---
Documentation Clarification Form Date: 06/18/20 From: Elke Braxton Phone: If you have a question about this query, please contact Cesia Claros, Commercial Property Administrator at [phone] between 8am and 5pm. Admit Date: 06/14/20 Discharge Date:06/17/20 Patient Name: Dora Carrero Visit Number: [id number] ATTENTION: The Clinical Documentation Specialists (CDI) and [facility] Coding Staff appreciate your assistance in clarifying documentation. Please respond to the clarification below the line at the bottom and electronically sign. The CDI & [facility] Coding staff will review the response and follow-up if needed. Please note: Queries are made part of the Legal Health Record. If you have any questions, please contact the author of this message via ITS. Dear Dr. García The diagnosis respiratory failure was documented in the H&P, but is not noted in subsequent documentation. History/Risk Factors: COPD exacerbation, chronic diastolic CHF, pulmonary nodule, atelectasis Clinical Indicators: Severe dyspnea and shrotness of breath Tobacco Use: Never smoker Home oxygen: None documented. Vital Signs: T. 98.6, P. 122, R. 30, BP 130/88 Pulse Ox.: 96% on admit, 94% x 2 on 06/16, 93 on 06/17 Treatment: Breathing Treatment: Albuterol O2: 2 - 3 lpm per nasal cannula Please clarify if the respiratory failure was XX Present/active this admission Treated and resolved this admission Ruled out Other, please specify Clinically unable to determine Please clarify type of respiratory failure if ruled in XX Hypoxic Hypercapnic MTDD
== END 2020-06-17 16:12 | DRG 190 ==
LOC: EC 10:32 → 1SOBS 15:29 → OBSVTOIN 17:57 → 4SSUR 22:51
PROVIDERS: ADMIT Internal Medicine Geriatric Medicine; ATTEND Internal Medicine Geriatric Medicine
DX: J44.1 Chronic obstructive pulmonary disease with (acute) exacerbation (principal); I26.99 Other pulmonary embolism without acute cor pulmonale; J96.01 Acute respiratory failure with hypoxia; F33.9 Major depressive disorder, recurrent, unspecified; I50.32 Chronic diastolic (congestive) heart failure; J98.11 Atelectasis; J38.00 Paralysis of vocal cords and larynx, unspecified; I11.0 Hypertensive heart disease with heart failure; R54 Age-related physical debility; D64.9 Anemia, unspecified; E03.9 Hypothyroidism, unspecified; E78.5 Hyperlipidemia, unspecified; F41.9 Anxiety disorder, unspecified; G89.29 Other chronic pain; I34.1 Nonrheumatic mitral (valve) prolapse; Z20.828 Contact with and (suspected) exposure to other viral communicable diseases; K21.9 Gastro-esophageal reflux disease without esophagitis; M06.9 Rheumatoid arthritis, unspecified; R13.10 Dysphagia, unspecified; R32 Unspecified urinary incontinence; I83.90 Asymptomatic varicose veins of unspecified lower extremity; K59.09 Other constipation; M19.90 Unspecified osteoarthritis, unspecified site; R26.9 Unspecified abnormalities of gait and mobility; R91.1 Solitary pulmonary nodule; R73.9 Hyperglycemia, unspecified; R19.7 Diarrhea, unspecified; M54.42 Lumbago with sciatica, left side; M54.41 Lumbago with sciatica, right side; R15.9 Full incontinence of feces; R11.0 Nausea; M25.562 Pain in left knee; Z79.01 Long term (current) use of anticoagulants; Z79.51 Long term (current) use of inhaled steroids; Z79.890 Hormone replacement therapy; Z79.899 Other long term (current) drug therapy; Z98.1 Arthrodesis status; Z87.440 Personal history of urinary (tract) infections; Z96.652 Presence of left artificial knee joint; Z87.01 Personal history of pneumonia (recurrent); Z82.49 Family history of ischemic heart disease and other diseases of the circulatory system; Z82.5 Family history of asthma and other chronic lower respiratory diseases; Z83.49 Family history of other endocrine, nutritional and metabolic diseases; W19.XXXA Unspecified fall, initial encounter
CPT/HCPCS: 36415; 71046; 71275; 80053; 81001; 83036; 83605; 83880; 84484; 85025; 85610; 85730; 93005; 94640; 94760; 96361; 96374; 99285